=== PATIENT | male | born 1955 | race Caucasian/White ===

== ENCOUNTER 2022-02-02 07:03 | Outpatient (CLI) | payer BC, SELFPAY | END 2022-02-02 07:04 | disposition home or self-care (01) | PROVIDERS: PCP Surgery; Visit Provider Family Medicine | DX: M51.36 Other intervertebral disc degeneration, lumbar region (principal); M54.16 Radiculopathy, lumbar region | CPT/HCPCS: 64483; J1100; Q9966 ==

== ENCOUNTER 2022-05-16 08:30 | Emergency (ER) | payer BC, SELFPAY ==
[2022-05-16] VITALS (9 sets, daily range): BP systolic 114–133; BP diastolic 75–91; PULSE 66–72; RESP 18; TEMP 36.6; O2SAT 95–98; BMI 25.1
--- NOTE | 2022-05-16 08:42 | ED.NURSE ---
ekg done, shows sr. pt placed on heart monitor
--- NOTE | 2022-05-16 09:05 | ED.CHESTPAIN ---
HPI - Chest Pain General Chief Complaint: Chest Pain Stated Complaint: Chest Pain Time Seen by Provider: 05/16/22 08:39 History of Present Illness HPI narrative: This 67-year-old male comes in reporting some chest discomfort related to exertion over the past week. He states that he does have a history of a heart attack and has had stents placed. This was about 10 years ago. He has been doing well since then and typically rides bike can walks without any symptoms. However in the past week he is noticed with ambulating a couple 100 yd or more he begins to get some pain in his sternum area that is similar to the pain that he had 10 years ago. When he stops and rests and takes a few deep breaths these symptoms resolved. He does not report any nausea, vomiting, lightheadedness, shortness of breath, or diaphoresis. Related Data Home Medications Medication Instructions Recorded Confirmed atorvastatin 20 mg tablet 20 mg PO DAILY 05/16/22 05/16/22 celecoxib 200 mg capsule 200 mg PO BID 05/16/22 05/16/22 gabapentin 300 mg capsule mg PO 05/16/22 lisinopril 20 mg tablet 20 mg PO DAILY 05/16/22 05/16/22 metoprolol tartrate 25 mg tablet 25 mg PO BID 05/16/22 05/16/22 Previous Rx's Medication Instructions Recorded nitroglycerin 0.4 mg sublingual 0.4 mg sublingual Q5M PRN chest 05/16/22 tablet pain #20 tabs Allergies Allergy/AdvReac Type Severity Reaction Status Date / Time allopurinol Allergy Verified 02/02/22 07:50 codeine Allergy Verified 02/02/22 07:50 hydrochlorothiazide Allergy Verified 02/02/22 07:50 Review of Systems Status of ROS Reports: 10 or more systems reviewed and unremarkable except as noted in History and below Narrative Constitutional: No fevers, no weight gain or loss. Eyes: No discharge. No vision changes. HENT: No congestion, no sore throat, no ear pain. Cardiovascular: No palpitations. Chest discomfort as described above. Respiratory: No shortness of breath, no wheezes, no cough. Gastrointestinal: No abdominal pain, no vomiting, no diarrhea. Genitourinary: No dysuria, no hematuria. Musculoskeletal: Normal range of motion. Skin: No rashes, no pruritis. Neurological: No dizziness, weakness, sensory change, speech change. Endo/Heme/Allergies: No bruising or bleeding. No polydipsia. Pysch: no suicidality, no anxiety, no insomnia. All other systems reviewed and are negative. [facility] Social History Smoking Status: Never smoker How often do you have a drink containing alcohol: 4 or more times a week AUDIT-C Alcohol total score: 4 Non-prescribed substance use: denies use Exam Narrative Exam Narrative: Constitutional: Well-developed, well-nourished, no acute distress. HEENT: Normocephalic, atraumatic. Neck: Normal range of motion. Nontender. Supple. Heart: Regular. No murmurs. Normal rate. Intact distal pulses. Lungs: Clear to auscultation. No chest discomfort. No wheezes, rhonchi, or rales. Abdomen: Normal bowel sounds. Nontender. No rebound tenderness. Genitalia: Deferred. Back: No midline tenderness. Normal range of motion. Extremities: Normal range of motion. No injury. Skin: Intact. No rash. Warm. No erythema or pallor. Neurologic: No altered sensation. No weakness. Alert and oriented. Psychiatric: No suicidality. No anxiety or depression. No insomnia. Nursing notes and vitals signs are reviewed. Const Vital Signs, click to edit/add: Vital Signs - 24 hr 05/16/22 08:38 05/16/22 09:02 05/16/22 09:03 Temperature 97.8 F Pulse Rate 68 70 Pulse Rate [Right Pulse Oximeter] 72 Respiratory Rate 18 Blood Pressure 129/81 Blood Pressure [Right Upper Arm] 133/91 H Pulse Oximetry 98 97 96 Oxygen Delivery Method Room Air 05/16/22 09:30 05/16/22 09:32 05/16/22 10:00 Temperature Pulse Rate 67 66 67 Pulse Rate [Right Pulse Oximeter] Respiratory Rate Blood Pressure 114/75 Blood Pressure [Right Upper Arm] Pulse Oximetry 95 96 98 Oxygen Delivery Method 05/16/22 10:02 Temperature Pulse Rate 67 Pulse Rate [Right Pulse Oximeter] Respiratory Rate Blood Pressure 120/78 Blood Pressure [Right Upper Arm] Pulse Oximetry 95 Oxygen Delivery Method Course Vital Signs Vital signs: Initial Vital Signs Temperature 97.8 F 05/16/22 08:38 Temperature Source Temporal Artery Scan 05/16/22 08:38 Pulse Rate 72 05/16/22 08:38 Pulse Rhythm Regular 05/16/22 08:38 Respiratory Rate 18 05/16/22 08:38 Blood Pressure 133/91 H 05/16/22 08:38 Blood Pressure Mean 105 05/16/22 08:38 Blood Pressure Position Sitting 05/16/22 08:38 Pulse Oximetry 98 05/16/22 08:38 Oxygen Delivery Method Room Air 05/16/22 08:38 Vital Signs Temperature 97.8 F 05/16/22 08:38 Pulse Rate 72 05/16/22 08:38 Respiratory Rate 18 05/16/22 08:38 Blood Pressure 133/91 H 05/16/22 08:38 Pulse Oximetry 98 05/16/22 08:38 Oxygen Delivery Method Room Air 05/16/22 08:38 Temperature 97.8 F 05/16/22 08:38 Pulse Rate 67 05/16/22 10:02 Respiratory Rate 18 05/16/22 08:38 Blood Pressure 120/78 05/16/22 10:02 Pulse Oximetry 95 05/16/22 10:02 Oxygen Delivery Method Room Air 05/16/22 08:38 MDM - Chest Pain MDM Narrative Medical decision making narrative: This patient comes in reporting chest pain that is exertional and relieved with rest. He does have a cardiac history with stents placed about 10 years ago. His symptoms are suspicious for stable angina. His EKG and troponin results are normal today. He is taking a beta-rosenda and a statin and does take a baby aspirin daily. I recommended follow-up with sales and operations trainee because his signs and symptoms are suspicious for a cardiac cause. The patient states that he will contact his primary physician to connect with the sales and operations trainee for further evaluation. He is instructed to take a full-strength aspirin daily and to avoid exertional activities that cause symptoms. He should return if worsening symptoms occur. He does have nitroglycerin but it is . I did provide a new prescription for him. Lab Data Labs: Lab Results 05/16/22 Range/Units 08:50 WBC 5.45 (4.50-11.00) K/uL RBC 4.42 (4.30-5.90) m/uL Hgb 14.2 (13.5-17.5) gm/dL Hct 41.0 (37.0-53.0) % MCV 93 (80-100) fL MCH 32 (26-34) pg MCHC 35 (32-36) gm/dL RDW Coeff of [place] 11.9 (11.5-15.5) % Plt Count 175 (140-440) K/uL Neut % (Auto) 64.4 (42.0-72.0) % Lymph % (Auto) 23.9 (20-44) % [place] % (Auto) 8.6 (0.0-11.0) % Eos % (Auto) 2.2 (0.0-7.0) % Baso % (Auto) 0.7 (0.0-3.0) % Neut # (Auto) 3.51 (1.7-7.0) K/uL Lymph # (Auto) 1.30 (0.90-2.90) K/uL [place] # (Auto) 0.50 (0.00-0.90) K/UL Eos # (Auto) 0.12 (0.00-0.50) K/uL Baso # (Auto) 0.04 (0.00-0.30) K/uL Sodium 139 (135-149) mmol/L Potassium 3.8 (3.6-5.1) mmol/L Chloride 111 (96-114) mmol/L Carbon Dioxide 24 (20-32) mmol/L BUN 25 (7-30) mg/dL Creatinine 0.9 (0.5-1.5) mg/dL Estimated Creat Clear 66.10 Estimated GFR 93 ml/min Glucose 131 H (60-115) mg/dL Calcium 8.8 (8.4-10.6) mg/dL POC Troponin I 0.00 L (0.01-0.04) ng/ml ECG Data Attestation: I personally reviewed and interpreted this ECG as follows: Interpretation: Normal sinus rhythm. Rate is 67 beats per minute. There are no ST or T-wave abnormalities. Discharge Plan Discharge Clinical Impression: Stable angina Patient Disposition: Home, Self-Care Condition: Stable Additional Instructions: Follow-up with primary physician or sales and operations trainee for stress testing and further evaluation of chest pain. Take a full-strength aspirin daily in the meantime. Use nitroglycerin as needed and directed. Return if worsening. Prescriptions: New nitroglycerin 0.4 mg tablet, sublingual 0.4 mg sublingual Q5M PRN (Reason: chest pain) Qty: 20 0RF Rx Instructions: do not exceed 3 doses per episode No Action celecoxib 200 mg capsule 200 mg PO BID atorvastatin 20 mg tablet 20 mg PO DAILY lisinopril 20 mg tablet 20 mg PO DAILY gabapentin 300 mg capsule PO metoprolol tartrate 25 mg tablet 25 mg PO BID Follow Up/Referrals: Jerardo Wiseman MD [Primary Care Provider] - Stand Alone Forms: [employer] Info Instructions
[2022-05-16 09:17] LABS: Basophils Absolute Auto 0.04 K/uL (0.00-0.30); Basophils Percent Auto 0.7 % (0.0-3.0); Eosinophils Absolute Auto 0.12 K/uL (0.00-0.50); Eosinophils Percent Auto 2.2 % (0.0-7.0); Hemoglobin* 14.2 gm/dL (13.5-17.5); Immature Granulocytes Abs Auto 0.01 K/uL (0.00-0.30); Immature Granulocytes Pct Auto 0.2 %; Lymphocytes Percent Auto 23.9 % (20-44); Mean Corpuscular HGB Conc 35 gm/dL (32-36); Mean Corpuscular Hemoglobin 32 pg (26-34); Mean Corpuscular Volume 93 fL (80-100); Monocytes Percent Auto 8.6 % (0.0-11.0); Neutrophils Absolute Auto 3.51 K/uL (1.7-7.0); Neutrophils Percent Auto 64.4 % (42.0-72.0); Platelet Count* 175 K/uL (140-440); RDW Coefficient of Variation % 11.9 % (11.5-15.5); Red Blood Count 4.42 m/uL (4.30-5.90); White Blood Count* 5.45 K/uL (4.50-11.00)
[2022-05-16] MEDS: ASPIRIN 81 MG TAB.CHEW 324 MG PO (09:17)
[2022-05-16 09:27] LABS: Slide Review Reflex No
[2022-05-16 09:31] LABS: Chloride* 111 mmol/L (96-114); Sodium* 139 mmol/L (135-149)
[2022-05-16 09:32] LABS: Potassium* 3.8 mmol/L (3.6-5.1)
[2022-05-16 09:34] LABS: Carbon Dioxide* 24 mmol/L (20-32); Creatinine* 0.9 mg/dL (0.5-1.5); Estimated Glomerular Filt Rate 93 ml/min
[2022-05-16 09:35] LABS: Blood Urea Nitrogen* 25 mg/dL (7-30); Calcium* 8.8 mg/dL (8.4-10.6); Glucose* 131 mg/dL (60-115)
== END 2022-05-16 10:36 | disposition home or self-care (01) ==
PROVIDERS: Emergency Provider Emergency Medicine Emergency Medical Services; PCP Surgery
DX: I20.8 Other forms of angina pectoris (principal)
CPT/HCPCS: 36415; 80048; 84484; 85025; 93005; 99284; A9270

== ENCOUNTER 2022-05-18 15:16 | Emergency (ER) | payer BC, MEDICARE, SELFPAY ==
[2022-05-18] VITALS (47 sets, daily range): BP systolic 88–132; BP diastolic 53–92; PULSE 60–84; RESP 16–18; O2SAT 92–97; BMI 25.8
--- NOTE | 2022-05-18 15:49 | ED.CHESTPAIN ---
HPI - Chest Pain General Time Seen by Provider: 15:49 <Maryjane Barrios MD - Last Filed: 05/19/22 18:04> Date Seen: 05/18/22 <Maryjane Barrios MD - Last Filed: 05/19/22 18:04> Chief Complaint: Chest Pain <Maryjane Barrios MD - Last Filed: 05/19/22 18:04> Stated Complaint: Chest Pain <Maryjane Barrios MD - Last Filed: 05/19/22 18:04> Time Seen by Provider: 05/18/22 15:48 <Maryjane Barrios MD - Last Filed: 05/19/22 18:04> Source: patient, RN notes reviewed and old records reviewed <Maryjane Barrios MD - Last Filed: 05/19/22 18:04> Mode of arrival: ambulatory <Maryjane Barrios MD - Last Filed: 05/19/22 18:04> Limitations: no limitations <Maryjane Barrios MD - Last Filed: 05/19/22 18:04> History of Present Illness HPI narrative: Patient is a 67-year-old male with underlying atherosclerotic coronary vascular disease with prior stent placement about 10 years ago referred for possible unstable angina from clinic today. Dr. Stewart was seen patient back in clinic today after being evaluated in the ER for probable exertional angina last week. Yesterday patient had an episode of chest pain that was across his chest at rest, responded to nitroglycerin. The nitroglycerin gave him a headache but resolved is chest symptoms. He went to walk the dog this morning and his chest symptoms started coming back. He ended is walk early and coming home and resting resolved the chest discomfort, did not take any nitroglycerin. Dr. Stewart talked to Dr. Berg from [facility], recommended that patient be evaluated here. Patient is symptom-free at this time. He denies any associated cough or cold symptoms, no shortness of breath. He had no associated abdominal symptoms with this. His ED visit from last week is reviewed. <Maryjane Barrios MD - Last Filed: 05/19/22 18:04> complaint: chest pain <Maryjane Barrios MD - Last Filed: 05/19/22 18:04> Pertinent past history: coronary artery disease <Maryjane Barrios MD - Last Filed: 05/19/22 18:04> Prior episodes: Yes <Maryjane Barrios MD - Last Filed: 05/19/22 18:04> Onset: during rest and during exertion <Maryjane Barrios MD - Last Filed: 05/19/22 18:04> Related Data Home Medications: Home Medications Medication Instructions Recorded Confirmed atorvastatin 20 mg tablet 20 mg PO DAILY 05/16/22 05/19/22 celecoxib 200 mg capsule 200 mg PO BIDWM 05/16/22 05/19/22 gabapentin 300 mg capsule 300 - 600 mg PO TID 05/16/22 05/19/22 lisinopril 20 mg tablet 20 mg PO DAILY 05/16/22 05/19/22 metoprolol tartrate 25 mg tablet 25 mg PO BID 05/16/22 05/19/22 aspirin 81 mg tablet,delayed 81 mg PO DAILY 05/18/22 05/18/22 release (Adult Aspirin Regimen) famotidine 20 mg tablet (Acid 20 mg PO DAILY 05/19/22 05/19/22 Controller) Previous Rx's Medication Instructions Recorded nitroglycerin 0.4 mg sublingual 0.4 mg sublingual Q5M PRN chest 05/16/22 tablet pain #20 tabs isosorbide mononitrate 30 mg 15 mg PO DAILY #14 tabs 05/19/22 tablet,extended release 24 hr <Maryjane Barrios MD - Last Filed: 05/19/22 18:04> Allergies/Adverse Reactions: Allergies Allergy/AdvReac Type Severity Reaction Status Date / Time allopurinol Allergy Verified 02/02/22 07:50 codeine Allergy Verified 02/02/22 07:50 hydrochlorothiazide Allergy Verified 02/02/22 07:50 <Maryjane Barrios MD - Last Filed: 05/19/22 18:04> Review of Systems Status of ROS Reports: 10 or more systems reviewed and unremarkable except as noted in History and below <Maryjane Barrios MD - Last Filed: 05/19/22 18:04> [facility] Social History: Social History Smoking Status: Never smoker Do you use any of these nicotine containing products: None Second hand tobacco smoke exposure: No How often do you have a drink containing alcohol: 4 or more times a week How many standard drinks containing alcohol do you have on a typical day: 1 or 2 How often do you have six or more drinks on one occasion: Less than monthly AUDIT-C Alcohol total score: 5 Non-prescribed substance use: marijuana (any form) service: No <Maryjane Barrios MD - Last Filed: 05/19/22 18:04> Exam Const Vital Signs, click to edit/add: Vital Signs - 24 hr 05/18/22 18:15 05/18/22 18:30 05/18/22 18:31 Pulse Rate 73 68 69 Pulse Rate [Right Pulse Oximeter] Respiratory Rate Blood Pressure Blood Pressure [Left Upper Arm] Blood Pressure [Right Upper Arm] Pulse Oximetry 96 95 96 Oxygen Delivery Method 05/18/22 18:33 05/18/22 18:50 05/18/22 19:01 Pulse Rate 75 64 71 Pulse Rate [Right Pulse Oximeter] Respiratory Rate Blood Pressure 114/76 108/66 Blood Pressure [Left Upper Arm] Blood Pressure [Right Upper Arm] Pulse Oximetry 95 97 96 Oxygen Delivery Method 05/18/22 19:05 05/18/22 19:10 05/18/22 19:30 Pulse Rate 84 77 66 Pulse Rate [Right Pulse Oximeter] Respiratory Rate Blood Pressure 112/75 110/71 Blood Pressure [Left Upper Arm] Blood Pressure [Right Upper Arm] Pulse Oximetry 94 94 94 Oxygen Delivery Method 05/18/22 19:32 05/18/22 19:34 05/18/22 19:45 Pulse Rate 70 68 65 Pulse Rate [Right Pulse Oximeter] Respiratory Rate Blood Pressure 88/61 L 109/71 Blood Pressure [Left Upper Arm] Blood Pressure [Right Upper Arm] Pulse Oximetry 94 94 95 Oxygen Delivery Method 05/18/22 20:00 05/18/22 20:02 05/18/22 20:15 Pulse Rate 64 66 63 Pulse Rate [Right Pulse Oximeter] Respiratory Rate Blood Pressure 94/58 L Blood Pressure [Left Upper Arm] Blood Pressure [Right Upper Arm] Pulse Oximetry 94 94 96 Oxygen Delivery Method 05/18/22 20:30 05/18/22 20:31 05/18/22 20:45 Pulse Rate 71 66 60 Pulse Rate [Right Pulse Oximeter] Respiratory Rate Blood Pressure 98/65 Blood Pressure [Left Upper Arm] Blood Pressure [Right Upper Arm] Pulse Oximetry 94 93 93 Oxygen Delivery Method 05/18/22 21:00 05/18/22 21:02 05/18/22 21:03 Pulse Rate 61 60 61 Pulse Rate [Right Pulse Oximeter] Respiratory Rate Blood Pressure 105/58 L Blood Pressure [Left Upper Arm] Blood Pressure [Right Upper Arm] Pulse Oximetry 92 92 95 Oxygen Delivery Method 05/18/22 21:15 05/18/22 21:33 05/18/22 21:45 Pulse Rate 72 60 68 Pulse Rate [Right Pulse Oximeter] Respiratory Rate Blood Pressure Blood Pressure [Left Upper Arm] Blood Pressure [Right Upper Arm] Pulse Oximetry 95 95 94 Oxygen Delivery Method 05/18/22 22:00 05/18/22 22:02 05/18/22 22:15 Pulse Rate 71 67 68 Pulse Rate [Right Pulse Oximeter] Respiratory Rate Blood Pressure 122/77 Blood Pressure [Left Upper Arm] Blood Pressure [Right Upper Arm] Pulse Oximetry 94 95 95 Oxygen Delivery Method 05/18/22 22:30 05/18/22 22:32 05/18/22 22:45 Pulse Rate 62 64 61 Pulse Rate [Right Pulse Oximeter] Respiratory Rate Blood Pressure 100/53 L Blood Pressure [Left Upper Arm] Blood Pressure [Right Upper Arm] Pulse Oximetry 94 95 94 Oxygen Delivery Method 05/18/22 23:33 05/19/22 00:01 05/19/22 00:31 Pulse Rate 83 74 73 Pulse Rate [Right Pulse Oximeter] Respiratory Rate Blood Pressure 132/92 H 116/76 100/62 Blood Pressure [Left Upper Arm] Blood Pressure [Right Upper Arm] Pulse Oximetry 95 95 95 Oxygen Delivery Method 05/19/22 01:01 05/19/22 01:01 05/19/22 01:31 Pulse Rate 77 77 77 Pulse Rate [Right Pulse Oximeter] Respiratory Rate Blood Pressure 102/60 102/60 111/59 L Blood Pressure [Left Upper Arm] Blood Pressure [Right Upper Arm] Pulse Oximetry 93 93 94 Oxygen Delivery Method 05/19/22 01:32 05/19/22 01:45 05/19/22 02:00 Pulse Rate 76 64 69 Pulse Rate [Right Pulse Oximeter] Respiratory Rate Blood Pressure Blood Pressure [Left Upper Arm] Blood Pressure [Right Upper Arm] Pulse Oximetry 96 92 92 Oxygen Delivery Method 05/19/22 02:01 05/19/22 02:15 05/19/22 02:30 Pulse Rate 68 64 64 Pulse Rate [Right Pulse Oximeter] Respiratory Rate Blood Pressure 116/70 Blood Pressure [Left Upper Arm] Blood Pressure [Right Upper Arm] Pulse Oximetry 95 94 93 Oxygen Delivery Method 05/19/22 02:32 05/19/22 02:45 05/19/22 03:00 Pulse Rate 63 64 66 Pulse Rate [Right Pulse Oximeter] Respiratory Rate Blood Pressure 104/58 L Blood Pressure [Left Upper Arm] Blood Pressure [Right Upper Arm] Pulse Oximetry 93 93 92 Oxygen Delivery Method 05/19/22 03:01 05/19/22 03:15 05/19/22 03:30 Pulse Rate 62 59 L 68 Pulse Rate [Right Pulse Oximeter] Respiratory Rate Blood Pressure 101/65 Blood Pressure [Left Upper Arm] Blood Pressure [Right Upper Arm] Pulse Oximetry 94 92 92 Oxygen Delivery Method 05/19/22 03:31 05/19/22 03:45 05/19/22 04:00 Pulse Rate 60 60 60 Pulse Rate [Right Pulse Oximeter] Respiratory Rate Blood Pressure 106/59 L Blood Pressure [Left Upper Arm] Blood Pressure [Right Upper Arm] Pulse Oximetry 94 93 95 Oxygen Delivery Method 05/19/22 04:01 05/19/22 04:15 05/19/22 04:30 Pulse Rate 57 L 59 L 70 Pulse Rate [Right Pulse Oximeter] Respiratory Rate Blood Pressure 101/60 Blood Pressure [Left Upper Arm] Blood Pressure [Right Upper Arm] Pulse Oximetry 95 95 97 Oxygen Delivery Method 05/19/22 04:31 05/19/22 04:45 05/19/22 05:00 Pulse Rate 60 55 L 60 Pulse Rate [Right Pulse Oximeter] Respiratory Rate Blood Pressure 112/77 Blood Pressure [Left Upper Arm] Blood Pressure [Right Upper Arm] Pulse Oximetry 97 95 97 Oxygen Delivery Method 05/19/22 05:01 05/19/22 05:15 05/19/22 05:30 Pulse Rate 62 62 66 Pulse Rate [Right Pulse Oximeter] Respiratory Rate Blood Pressure 114/66 Blood Pressure [Left Upper Arm] Blood Pressure [Right Upper Arm] Pulse Oximetry 96 94 95 Oxygen Delivery Method 05/19/22 05:31 05/19/22 09:02 05/19/22 06:30 Pulse Rate 62 Pulse Rate [Right Pulse Oximeter] 61 Respiratory Rate Blood Pressure 112/70 Blood Pressure [Left Upper Arm] 102/63 Blood Pressure [Right Upper Arm] Pulse Oximetry 94 97 95 Oxygen Delivery Method Room Air 05/19/22 07:00 05/19/22 08:00 Pulse Rate Pulse Rate [Right Pulse Oximeter] 73 64 Respiratory Rate 18 18 Blood Pressure Blood Pressure [Left Upper Arm] Blood Pressure [Right Upper Arm] 111/75 106/65 Pulse Oximetry 96 97 Oxygen Delivery Method Room Air Room Air <Maryjane Barrios MD - Last Filed: 05/19/22 18:04> Vital Signs - 24 hr 05/18/22 18:15 05/18/22 18:30 05/18/22 18:31 Pulse Rate 73 68 69 Pulse Rate [Right Pulse Oximeter] Respiratory Rate Blood Pressure Blood Pressure [Left Upper Arm] Blood Pressure [Right Upper Arm] Pulse Oximetry 96 95 96 Oxygen Delivery Method 05/18/22 18:33 05/18/22 18:50 05/18/22 19:01 Pulse Rate 75 64 71 Pulse Rate [Right Pulse Oximeter] Respiratory Rate Blood Pressure 114/76 108/66 Blood Pressure [Left Upper Arm] Blood Pressure [Right Upper Arm] Pulse Oximetry 95 97 96 Oxygen Delivery Method 05/18/22 19:05 05/18/22 19:10 05/18/22 19:30 Pulse Rate 84 77 66 Pulse Rate [Right Pulse Oximeter] Respiratory Rate Blood Pressure 112/75 110/71 Blood Pressure [Left Upper Arm] Blood Pressure [Right Upper Arm] Pulse Oximetry 94 94 94 Oxygen Delivery Method 05/18/22 19:32 05/18/22 19:34 05/18/22 19:45 Pulse Rate 70 68 65 Pulse Rate [Right Pulse Oximeter] Respiratory Rate Blood Pressure 88/61 L 109/71 Blood Pressure [Left Upper Arm] Blood Pressure [Right Upper Arm] Pulse Oximetry 94 94 95 Oxygen Delivery Method 05/18/22 20:00 05/18/22 20:02 05/18/22 20:15 Pulse Rate 64 66 63 Pulse Rate [Right Pulse Oximeter] Respiratory Rate Blood Pressure 94/58 L Blood Pressure [Left Upper Arm] Blood Pressure [Right Upper Arm] Pulse Oximetry 94 94 96 Oxygen Delivery Method 05/18/22 20:30 05/18/22 20:31 05/18/22 20:45 Pulse Rate 71 66 60 Pulse Rate [Right Pulse Oximeter] Respiratory Rate Blood Pressure 98/65 Blood Pressure [Left Upper Arm] Blood Pressure [Right Upper Arm] Pulse Oximetry 94 93 93 Oxygen Delivery Method 05/18/22 21:00 05/18/22 21:02 05/18/22 21:03 Pulse Rate 61 60 61 Pulse Rate [Right Pulse Oximeter] Respiratory Rate Blood Pressure 105/58 L Blood Pressure [Left Upper Arm] Blood Pressure [Right Upper Arm] Pulse Oximetry 92 92 95 Oxygen Delivery Method 05/18/22 21:15 05/18/22 21:33 05/18/22 21:45 Pulse Rate 72 60 68 Pulse Rate [Right Pulse Oximeter] Respiratory Rate Blood Pressure Blood Pressure [Left Upper Arm] Blood Pressure [Right Upper Arm] Pulse Oximetry 95 95 94 Oxygen Delivery Method 05/18/22 22:00 05/18/22 22:02 05/18/22 22:15 Pulse Rate 71 67 68 Pulse Rate [Right Pulse Oximeter] Respiratory Rate Blood Pressure 122/77 Blood Pressure [Left Upper Arm] Blood Pressure [Right Upper Arm] Pulse Oximetry 94 95 95 Oxygen Delivery Method 05/18/22 22:30 05/18/22 22:32 05/18/22 22:45 Pulse Rate 62 64 61 Pulse Rate [Right Pulse Oximeter] Respiratory Rate Blood Pressure 100/53 L Blood Pressure [Left Upper Arm] Blood Pressure [Right Upper Arm] Pulse Oximetry 94 95 94 Oxygen Delivery Method 05/18/22 23:33 05/19/22 00:01 05/19/22 00:31 Pulse Rate 83 74 73 Pulse Rate [Right Pulse Oximeter] Respiratory Rate Blood Pressure 132/92 H 116/76 100/62 Blood Pressure [Left Upper Arm] Blood Pressure [Right Upper Arm] Pulse Oximetry 95 95 95 Oxygen Delivery Method 05/19/22 01:01 05/19/22 01:01 05/19/22 01:31 Pulse Rate 77 77 77 Pulse Rate [Right Pulse Oximeter] Respiratory Rate Blood Pressure 102/60 102/60 111/59 L Blood Pressure [Left Upper Arm] Blood Pressure [Right Upper Arm] Pulse Oximetry 93 93 94 Oxygen Delivery Method 05/19/22 01:32 05/19/22 01:45 05/19/22 02:00 Pulse Rate 76 64 69 Pulse Rate [Right Pulse Oximeter] Respiratory Rate Blood Pressure Blood Pressure [Left Upper Arm] Blood Pressure [Right Upper Arm] Pulse Oximetry 96 92 92 Oxygen Delivery Method 05/19/22 02:01 05/19/22 02:15 05/19/22 02:30 Pulse Rate 68 64 64 Pulse Rate [Right Pulse Oximeter] Respiratory Rate Blood Pressure 116/70 Blood Pressure [Left Upper Arm] Blood Pressure [Right Upper Arm] Pulse Oximetry 95 94 93 Oxygen Delivery Method 05/19/22 02:32 05/19/22 02:45 05/19/22 03:00 Pulse Rate 63 64 66 Pulse Rate [Right Pulse Oximeter] Respiratory Rate Blood Pressure 104/58 L Blood Pressure [Left Upper Arm] Blood Pressure [Right Upper Arm] Pulse Oximetry 93 93 92 Oxygen Delivery Method 05/19/22 03:01 05/19/22 03:15 05/19/22 03:30 Pulse Rate 62 59 L 68 Pulse Rate [Right Pulse Oximeter] Respiratory Rate Blood Pressure 101/65 Blood Pressure [Left Upper Arm] Blood Pressure [Right Upper Arm] Pulse Oximetry 94 92 92 Oxygen Delivery Method 05/19/22 03:31 05/19/22 03:45 05/19/22 04:00 Pulse Rate 60 60 60 Pulse Rate [Right Pulse Oximeter] Respiratory Rate Blood Pressure 106/59 L Blood Pressure [Left Upper Arm] Blood Pressure [Right Upper Arm] Pulse Oximetry 94 93 95 Oxygen Delivery Method 05/19/22 04:01 05/19/22 04:15 05/19/22 04:30 Pulse Rate 57 L 59 L 70 Pulse Rate [Right Pulse Oximeter] Respiratory Rate Blood Pressure 101/60 Blood Pressure [Left Upper Arm] Blood Pressure [Right Upper Arm] Pulse Oximetry 95 95 97 Oxygen Delivery Method 05/19/22 04:31 05/19/22 04:45 05/19/22 05:00 Pulse Rate 60 55 L 60 Pulse Rate [Right Pulse Oximeter] Respiratory Rate Blood Pressure 112/77 Blood Pressure [Left Upper Arm] Blood Pressure [Right Upper Arm] Pulse Oximetry 97 95 97 Oxygen Delivery Method 05/19/22 05:01 05/19/22 05:15 04/12/23 05:30 Pulse Rate 62 62 66 Pulse Rate [Right Pulse Oximeter] Respiratory Rate Blood Pressure 114/66 Blood Pressure [Left Upper Arm] Blood Pressure [Right Upper Arm] Pulse Oximetry 96 94 95 Oxygen Delivery Method 05/19/22 05:31 05/19/22 09:02 05/19/22 06:30 Pulse Rate 62 Pulse Rate [Right Pulse Oximeter] 61 Respiratory Rate Blood Pressure 112/70 Blood Pressure [Left Upper Arm] 102/63 Blood Pressure [Right Upper Arm] Pulse Oximetry 94 97 95 Oxygen Delivery Method Room Air 05/19/22 07:00 05/19/22 08:00 Pulse Rate Pulse Rate [Right Pulse Oximeter] 73 64 Respiratory Rate 18 18 Blood Pressure Blood Pressure [Left Upper Arm] Blood Pressure [Right Upper Arm] 111/75 106/65 Pulse Oximetry 96 97 Oxygen Delivery Method Room Air Room Air <Veena Monterroso MD - Last Filed: 05/19/22 07:03> Documenting provider has reviewed patient's vital signs: yes <Maryjane Barrios MD - Last Filed: 05/19/22 18:04> Common normals: no apparent distress, average body habitus, oriented x3, no limitations, healthy appearing, alert and well nourished <Maryjane Barrios MD - Last Filed: 05/19/22 18:04> General appearance: cooperative, comfortable, well kempt and well developed <Maryjane Barrios MD - Last Filed: 05/19/22 18:04> [facility] Common normals: normocephalic, head/scalp atraumatic, hearing grossly normal bilaterally, external ears normal, external nose normal, moist oral mucous membranes, oropharynx normal, dentition normal and gingiva normal <Maryjane Barrios MD - Last Filed: 05/19/22 18:04> Head and scalp: normocephalic and atraumatic <Maryjane Barrios MD - Last Filed: 05/19/22 18:04> Nose: external nose normal <Maryjane Barrios MD - Last Filed: 05/19/22 18:04> External ear: external ears normal <Maryjane Barrios MD - Last Filed: 05/19/22 18:04> Eye Common normals: PERRL, EOMs intact bilaterally, conjunctivae normal and no scleral icterus <Maryjane Barrios MD - Last Filed: 05/19/22 18:04> Conjunctiva: conjunctiva(e) normal <Maryjane Barrios MD - Last Filed: 05/19/22 18:04> Pupil: PERRL <Maryjane Barrios MD - Last Filed: 05/19/22 18:04> Neck & C-Spine Common normals: full ROM, no lymphadenopathy, supple, no meningeal signs, no JVD and thyroid normal <Maryjane Barrios MD - Last Filed: 05/19/22 18:04> Thyroid: thyroid normal <Maryjane Barrios MD - Last Filed: 05/19/22 18:04> Resp Common normals: normal respiratory effort, no retractions, no use of accessory muscles and clear to auscultation bilaterally <Maryjane Barrios MD - Last Filed: 05/19/22 18:04> Auscultation: clear to auscultation bilaterally <Maryjane Barrios MD - Last Filed: 05/19/22 18:04> Cardio Common normals: no JVD, regular rate, regular rhythm, S1 normal heart sound, S2 normal heart sound, no gallops, no clicks and no murmurs <Maryjane Barrios MD - Last Filed: 05/19/22 18:04> Rate: regular rate <Maryjane Barrios MD - Last Filed: 05/19/22 18:04> Rhythm: regular rhythm <Maryjane Barrios MD - Last Filed: 05/19/22 18:04> Heart sounds: S1 normal and S2 normal <Maryjane Barrios MD - Last Filed: 05/19/22 18:04> GI Common normals: Normal to inspection, nondistended, normoactive bowel sounds present, soft to palpation, non-tender, no hepatosplenomegaly and no masses <Maryjane Barrios MD - Last Filed: 05/19/22 18:04> Palpation: soft and no hepatosplenomegaly <Maryjane Barrios MD - Last Filed: 05/19/22 18:04> Extremity Other: No lower extremity edema, ambulatory in the ED of his own accord. <Maryjane Barrios MD - Last Filed: 05/19/22 18:04> Neuro Common normals: oriented x3 <Maryjane Barrios MD - Last Filed: 05/19/22 18:04> Sensorium/orientation: alert <Maryjane Barrios MD - Last Filed: 05/19/22 18:04> Meningeal signs: no meningeal signs <Maryjane Barrios MD - Last Filed: 05/19/22 18:04> Psych Appearance: well kempt <Maryjane Barrios MD - Last Filed: 05/19/22 18:04> Course Course Hospital Course: Patient will be monitored on pulse oximetry, cardiac monitoring. Will get a portable chest x-ray, appropriate labs including a troponin. He understands if his troponin is escalating, will likely need transfer to an inpatient cardiology stay, possible angiogram. If troponin is negative, will talk to Cardiology for further input on his management. <Maryjane Barrios MD - Last Filed: 05/19/22 18:04> Reevaluation(s) Reevaluation #1: Reviewed with patient that his troponins are normal. Did do the lab troponin I as his point of care initially was mildly elevated at 0.09 but the confirmatory lab is normal. Subsequent troponin I is normal as well. He does states that he now just feels a little very mild discomfort across his chest, something he would like into having lifted heavy weights. It is not to the level that he was prior. His pain had went away this morning. He is wondering if it could just be stress from being here and the situation. He is aware that we are paging Cardiology for me to talk to them. In the meantime, will do another troponin, EKG and try a sublingual nitroglycerin. <Maryjane Barrios MD - Last Filed: 05/19/22 18:04> Time: 18:17 <Maryjane Barrios MD - Last Filed: 05/19/22 18:04> Reevaluation #2: Patient is resting. He is on the wait list for transfer to [facility]. He did receive nitroglycerin at 7:03 p.m. which relieved his symptoms. His EKG and troponin remained without change. I have ordered his routine medicines, he did not bring any medicines with him. I have ordered a.m. EKG and troponin. He is told to let staff know if he has any return of his chest discomfort or pain overnight. I will be signing him over to the remaining ED physician. <Maryjane Barrios MD - Last Filed: 05/19/22 18:04> Time: 22:28 <Maryjane Barrios MD - Last Filed: 05/19/22 18:04> Consultations Consultation #1: Spoke with Dr. Novoa from Cardiology. She agrees that patient needs transfer for angiogram. If his troponins or EKGs change, treat appropriately. This point if his EKG is stable and troponin not rising, would not initiate heparin. I have his EKG that I just ordered back and is looking stable, no ischemic change. Await his troponins. Will see if the sublingual nitroglycerin alleviates his symptoms. I have also ordered an additional 162 mg p.o. aspirin. He is unfortunately on the wait list at [facility], 12 at this time. I will let patient know. <Maryjane Barrios MD - Last Filed: 05/19/22 18:04> Time: 18:24 <Maryjane Barrios MD - Last Filed: 05/19/22 18:04> Vital Signs Vital signs: Initial Vital Signs Pulse Rate 74 05/18/22 15:27 Pulse Rhythm Regular 05/18/22 15:27 Respiratory Rate 16 05/18/22 15:27 Blood Pressure 114/66 05/18/22 15:27 Blood Pressure Mean 82 05/18/22 15:27 Pulse Oximetry 95 05/18/22 15:27 Oxygen Delivery Method Room Air 05/18/22 15:27 Vital Signs Pulse Rate 74 05/18/22 15:27 Respiratory Rate 16 05/18/22 15:27 Blood Pressure 114/66 05/18/22 15:27 Pulse Oximetry 95 05/18/22 15:27 Oxygen Delivery Method Room Air 05/18/22 15:27 Pulse Rate 64 05/19/22 08:00 Respiratory Rate 18 05/19/22 08:00 Blood Pressure 106/65 05/19/22 08:00 Pulse Oximetry 97 05/19/22 09:02 Oxygen Delivery Method Room Air 05/19/22 08:00 <Maryjane Barrios MD - Last Filed: 05/19/22 18:04> Initial Vital Signs Pulse Rate 74 05/18/22 15:27 Pulse Rhythm Regular 05/18/22 15:27 Respiratory Rate 16 05/18/22 15:27 Blood Pressure 114/66 05/18/22 15:27 Blood Pressure Mean 82 05/18/22 15:27 Pulse Oximetry 95 05/18/22 15:27 Oxygen Delivery Method Room Air 05/18/22 15:27 Vital Signs Pulse Rate 74 05/18/22 15:27 Respiratory Rate 16 05/18/22 15:27 Blood Pressure 114/66 05/18/22 15:27 Pulse Oximetry 95 05/18/22 15:27 Oxygen Delivery Method Room Air 05/18/22 15:27 Pulse Rate 64 05/19/22 08:00 Respiratory Rate 18 05/19/22 08:00 Blood Pressure 106/65 05/19/22 08:00 Pulse Oximetry 97 05/19/22 09:02 Oxygen Delivery Method Room Air 05/19/22 08:00 <Veena Monterroso MD - Last Filed: 05/19/22 07:03> MDM - Chest Pain MDM Narrative Medical decision making narrative: Update: 7:00 a.m. 05/19/2022: Patient has remained pain-free during my shift. He has had no events. Vitals have remained stable. He received initial troponin upon arrival but has not required any further nitroglycerin for my shift. We are still awaiting transport. Patient is due for another troponin in about 90 minutes, this will be followed up by incoming day shift partner. <Veena Monterroso MD - Last Filed: 05/19/22 07:03> Differential Diagnosis Differential diagnosis: Likely stable angina, unstable angina pectoris and chest pain <Maryjane Barrios MD - Last Filed: 05/19/22 18:04> Lab Data Labs: Lab Results 05/18/22 05/18/22 05/18/22 Range/Units 16:02 16:58 18:19 WBC 6.47 (4.50-11.00) K/uL RBC 4.28 L (4.30-5.90) m/uL Hgb 13.7 (13.5-17.5) gm/dL Hct 39.7 (37.0-53.0) % MCV 93 (80-100) fL MCH 32 (26-34) pg MCHC 35 (32-36) gm/dL RDW Coeff of Benja 12.0 (11.5-15.5) % Plt Count 169 (140-440) K/uL Neut % (Auto) 68.9 (42.0-72.0) % Lymph % (Auto) 20.1 (20-44) % Stoddard % (Auto) 9.1 (0.0-11.0) % Eos % (Auto) 1.1 (0.0-7.0) % Baso % (Auto) 0.6 (0.0-3.0) % Neut # (Auto) 4.46 (1.7-7.0) K/uL Lymph # (Auto) 1.30 (0.90-2.90) K/uL Stoddard # (Auto) 0.60 (0.00-0.90) K/UL Eos # (Auto) 0.07 (0.00-0.50) K/uL Baso # (Auto) 0.04 (0.00-0.30) K/uL Sodium 137 (135-149) mmol/L Potassium 4.0 (3.6-5.1) mmol/L Chloride 108 (96-114) mmol/L Carbon Dioxide 24 (20-32) mmol/L BUN 27 (7-30) mg/dL Creatinine 0.9 (0.5-1.5) mg/dL Estimated Creat Clear 66.10 Estimated GFR 93 ml/min Glucose 104 (60-115) mg/dL Calcium 9.4 (8.4-10.6) mg/dL Magnesium 1.9 (1.5-2.6) mg/dL Total Bilirubin 1.6 H (0.1-1.5) mg/dL AST 22 (12-35) U/L ALT 20 (4-50) U/L Alkaline Phosphatase 69 (40-150) U/L Troponin I < 0.01 L < 0.01 L (0.01-0.04) ng/mL NT-Pro-B Natriuret Pep 48 pg/mL Total Protein 6.7 (6.0-8.3) g/dL Albumin 4.1 (3.3-5.0) g/dL SARS-CoV-2 (PCR) (Negative) POC Troponin I 0.09 H 0.00 L (0.01-0.04) ng/ml 05/18/22 05/18/22 05/19/22 Range/Units 18:22 18:28 09:02 WBC (4.50-11.00) K/uL RBC (4.30-5.90) m/uL Hgb (13.5-17.5) gm/dL Hct (37.0-53.0) % MCV (80-100) fL MCH (26-34) pg MCHC (32-36) gm/dL RDW Coeff of Benja (11.5-15.5) % Plt Count (140-440) K/uL Neut % (Auto) (42.0-72.0) % Lymph % (Auto) (20-44) % Stoddard % (Auto) (0.0-11.0) % Eos % (Auto) (0.0-7.0) % Baso % (Auto) (0.0-3.0) % Neut # (Auto) (1.7-7.0) K/uL Lymph # (Auto) (0.90-2.90) K/uL Stoddard # (Auto) (0.00-0.90) K/UL Eos # (Auto) (0.00-0.50) K/uL Baso # (Auto) (0.00-0.30) K/uL Sodium (135-149) mmol/L Potassium (3.6-5.1) mmol/L Chloride (96-114) mmol/L Carbon Dioxide (20-32) mmol/L BUN (7-30) mg/dL Creatinine (0.5-1.5) mg/dL Estimated Creat Clear Estimated GFR ml/min Glucose (60-115) mg/dL Calcium (8.4-10.6) mg/dL Magnesium (1.5-2.6) mg/dL Total Bilirubin (0.1-1.5) mg/dL AST (12-35) U/L ALT (4-50) U/L Alkaline Phosphatase (40-150) U/L Troponin I < 0.01 L (0.01-0.04) ng/mL NT-Pro-B Natriuret Pep pg/mL Total Protein (6.0-8.3) g/dL Albumin (3.3-5.0) g/dL SARS-CoV-2 (PCR) Negative SARS-CoV-2 (Negative) POC Troponin I 0.00 L (0.01-0.04) ng/ml <Maryjane Barrios MD - Last Filed: 05/19/22 18:04> Lab Results 05/18/22 05/18/22 05/18/22 Range/Units 16:02 16:58 18:19 WBC 6.47 (4.50-11.00) K/uL RBC 4.28 L (4.30-5.90) m/uL Hgb 13.7 (13.5-17.5) gm/dL Hct 39.7 (37.0-53.0) % MCV 93 (80-100) fL MCH 32 (26-34) pg MCHC 35 (32-36) gm/dL RDW Coeff of Benja 12.0 (11.5-15.5) % Plt Count 169 (140-440) K/uL Neut % (Auto) 68.9 (42.0-72.0) % Lymph % (Auto) 20.1 (20-44) % Stoddard % (Auto) 9.1 (0.0-11.0) % Eos % (Auto) 1.1 (0.0-7.0) % Baso % (Auto) 0.6 (0.0-3.0) % Neut # (Auto) 4.46 (1.7-7.0) K/uL Lymph # (Auto) 1.30 (0.90-2.90) K/uL Stoddard # (Auto) 0.60 (0.00-0.90) K/UL Eos # (Auto) 0.07 (0.00-0.50) K/uL Baso # (Auto) 0.04 (0.00-0.30) K/uL Sodium 137 (135-149) mmol/L Potassium 4.0 (3.6-5.1) mmol/L Chloride 108 (96-114) mmol/L Carbon Dioxide 24 (20-32) mmol/L BUN 27 (7-30) mg/dL Creatinine 0.9 (0.5-1.5) mg/dL Estimated Creat Clear 66.10 Estimated GFR 93 ml/min Glucose 104 (60-115) mg/dL Calcium 9.4 (8.4-10.6) mg/dL Magnesium 1.9 (1.5-2.6) mg/dL Total Bilirubin 1.6 H (0.1-1.5) mg/dL AST 22 (12-35) U/L ALT 20 (4-50) U/L Alkaline Phosphatase 69 (40-150) U/L Troponin I < 0.01 L < 0.01 L (0.01-0.04) ng/mL NT-Pro-B Natriuret Pep 48 pg/mL Total Protein 6.7 (6.0-8.3) g/dL Albumin 4.1 (3.3-5.0) g/dL SARS-CoV-2 (PCR) (Negative) POC Troponin I 0.09 H 0.00 L (0.01-0.04) ng/ml 05/18/22 05/18/22 05/19/22 Range/Units 18:22 18:28 09:02 WBC (4.50-11.00) K/uL RBC (4.30-5.90) m/uL Hgb (13.5-17.5) gm/dL Hct (37.0-53.0) % MCV (80-100) fL MCH (26-34) pg MCHC (32-36) gm/dL RDW Coeff of Benja (11.5-15.5) % Plt Count (140-440) K/uL Neut % (Auto) (42.0-72.0) % Lymph % (Auto) (20-44) % Stoddard % (Auto) (0.0-11.0) % Eos % (Auto) (0.0-7.0) % Baso % (Auto) (0.0-3.0) % Neut # (Auto) (1.7-7.0) K/uL Lymph # (Auto) (0.90-2.90) K/uL Stoddard # (Auto) (0.00-0.90) K/UL Eos # (Auto) (0.00-0.50) K/uL Baso # (Auto) (0.00-0.30) K/uL Sodium (135-149) mmol/L Potassium (3.6-5.1) mmol/L Chloride (96-114) mmol/L Carbon Dioxide (20-32) mmol/L BUN (7-30) mg/dL Creatinine (0.5-1.5) mg/dL Estimated Creat Clear Estimated GFR ml/min Glucose (60-115) mg/dL Calcium (8.4-10.6) mg/dL Magnesium (1.5-2.6) mg/dL Total Bilirubin (0.1-1.5) mg/dL AST (12-35) U/L ALT (4-50) U/L Alkaline Phosphatase (40-150) U/L Troponin I < 0.01 L (0.01-0.04) ng/mL NT-Pro-B Natriuret Pep pg/mL Total Protein (6.0-8.3) g/dL Albumin (3.3-5.0) g/dL SARS-CoV-2 (PCR) Negative SARS-CoV-2 (Negative) POC Troponin I 0.00 L (0.01-0.04) ng/ml <Veena Monterroso MD - Last Filed: 05/19/22 07:03> ECG Data Attestation: I personally reviewed and interpreted this ECG as follows: ( Sinus rhythm, 75 beats per minute. Single PVC seen. Flipped T-waves lead V1. Otherwise I appreciate no acute ST segment or T-wave changes elsewhere.) <Maryjane Barrios MD - Last Filed: 05/19/22 18:04> ECG interpretation date: 05/18/22 <Maryjane Barrios MD - Last Filed: 05/19/22 18:04> ECG interpretation time: 15:49 <Maryjane Barrios MD - Last Filed: 05/19/22 18:04> Prior ECG tracings: not available for review <Maryjane Barrios MD - Last Filed: 05/19/22 18:04> Discharge Plan Discharge Clinical Impression: Unstable angina pectoris <Maryjane Barrios MD - Last Filed: 05/19/22 18:04> Patient Disposition: Home w/ Parent or Adult <Maryjane Barrios MD - Last Filed: 05/19/22 18:04> Condition: Improved <Maryjane Barrios MD - Last Filed: 05/19/22 18:04> Additional Instructions: Extremely light activity, nitroglycerin as needed, continue home medications. Return if any chest pain or problem. Recommend you see your doctor tomorrow. haider to set up an outpatient angiogram study.start imdur. Return any problems concerns or chest pain. Follow up appointment is scheduled at the [facility] on 05/20 with a 2:10pm appointment time. Please arrive at 1:45pm to fill out paperwork. If you have any questions or need to reschedule, please call [phone]. You should be scheduled for an outpatient Angiogram with the [facility]. The number is [phone]. <Maryjane Barrios MD - Last Filed: 05/19/22 18:04> Activity Level: Light activity <Maryjane Barrios MD - Last Filed: 05/19/22 18:04> Light activity <Veena Monterroso MD - Last Filed: 05/19/22 07:03> Discharge Diet: Low Fat/Low Cholesterol <Maryjane Barrios MD - Last Filed: 05/19/22 18:04> Low Fat/Low Cholesterol <Veena Monterroso MD - Last Filed: 05/19/22 07:03> Prescriptions: New isosorbide mononitrate 30 mg tablet extended release 24 hr 15 mg PO DAILY Qty: 14 2RF Rx Instructions: 1/2 tablet daily x 5 days; then full tablet daily No Action celecoxib 200 mg capsule 200 mg PO BIDWM atorvastatin 20 mg tablet 20 mg PO DAILY lisinopril 20 mg tablet 20 mg PO DAILY gabapentin 300 mg capsule 300 - 600 mg PO TID Rx Instructions: 1 cap in am, 1 cap in afternoon, 2 caps at hs metoprolol tartrate 25 mg tablet 25 mg PO BID nitroglycerin 0.4 mg tablet, sublingual 0.4 mg sublingual Q5M PRN (Reason: chest pain) Qty: 20 0RF Rx Instructions: do not exceed 3 doses per episode aspirin [Adult Aspirin Regimen] 81 mg tablet,delayed release (DR/EC) 81 mg PO DAILY famotidine [Acid Controller] 20 mg tablet 20 mg PO DAILY <Maryjane Barrios MD - Last Filed: 05/19/22 18:04> Follow Up/Referrals: Jerardo Wiseman MD [Primary Care Provider] - <Maryjane Barrios MD - Last Filed: 05/19/22 18:04> Stand Alone Forms: [facility] Info Instructions <Maryjane Barrios MD - Last Filed: 05/19/22 18:04>
--- NOTE | 2022-05-18 15:52 | CRLHL7_ITS ---
For Patients: As a result of the Century Cures Act, medical imaging exams and procedure reports are released immediately into your electronic medical record. You may view this report before your referring provider. If you have questions, please contact your health care provider. Indication: Chest Pain Comparison: None available. Technique: Single AP view chest Findings: There is hyperinflation and chronic interstitial change. There is no focal consolidation, effusion, or pneumothorax. The cardiomediastinal silhouette is within normal limits. The bony thorax is grossly intact. Impression: No acute cardiopulmonary abnormality. Dictated by Buck Ayala MD @ 05/18/2022 4:51:44 PM (Electronically Signed)
[2022-05-18 16:16] LABS: Basophils Absolute Auto 0.04 K/uL (0.00-0.30); Basophils Percent Auto 0.6 % (0.0-3.0); Eosinophils Absolute Auto 0.07 K/uL (0.00-0.50); Eosinophils Percent Auto 1.1 % (0.0-7.0); Hematocrit 39.7 % (37.0-53.0); Hemoglobin* 13.7 gm/dL (13.5-17.5); Immature Granulocytes Abs Auto 0.01 K/uL (0.00-0.30); Immature Granulocytes Pct Auto 0.2 %; Lymphocytes Percent Auto 20.1 % (20-44); Mean Corpuscular HGB Conc 35 gm/dL (32-36); Mean Corpuscular Hemoglobin 32 pg (26-34); Mean Corpuscular Volume 93 fL (80-100); Monocytes Percent Auto 9.1 % (0.0-11.0); Neutrophils Absolute Auto 4.46 K/uL (1.7-7.0); Neutrophils Percent Auto 68.9 % (42.0-72.0); Platelet Count* 169 K/uL (140-440); Red Blood Count 4.28 m/uL (4.30-5.90); White Blood Count* 6.47 K/uL (4.50-11.00)
[2022-05-18 16:29] LABS: Albumin* 4.1 g/dL (3.3-5.0)
[2022-05-18 16:30] LABS: Chloride* 108 mmol/L (96-114); Sodium* 137 mmol/L (135-149)
[2022-05-18 16:32] LABS: Aspartate Amino Transferase* 22 U/L (12-35); Bilirubin Total* 1.6 mg/dL (0.1-1.5); Carbon Dioxide* 24 mmol/L (20-32); Creatinine* 0.9 mg/dL (0.5-1.5); Estimated Glomerular Filt Rate 93 ml/min
[2022-05-18 16:33] LABS: Alanine Aminotransferase* 20 U/L (4-50); Alkaline Phosphatase* 69 U/L (40-150); Blood Urea Nitrogen* 27 mg/dL (7-30); Calcium* 9.4 mg/dL (8.4-10.6); Glucose* 104 mg/dL (60-115); Magnesium* 1.9 mg/dL (1.5-2.6); Total Protein* 6.7 g/dL (6.0-8.3)
[2022-05-18 16:37] LABS: Slide Review Reflex No
[2022-05-18 16:43] LABS: NT Pro B Type NatriureticPept* 48 pg/mL
[2022-05-18 18:11] LABS: Troponin I* < 0.01 ng/mL (0.01-0.04)
[2022-05-18] MEDS: ASPIRIN 81 MG TAB.CHEW 162 MG PO (18:48)
--- NOTE | 2022-05-18 19:00 | ED.NURSE ---
was up to br to void. denies any change in tightness in chest, mild 1-2/10. will give nitro 1/150. this is constant.
[2022-05-18] MEDS: NITROGLYCERIN 0.4 MG TAB.SUBL SUBLINGUAL (19:03)
--- NOTE | 2022-05-18 19:03 | ED.NURSE ---
nitro 1/150 sl was given.
--- NOTE | 2022-05-18 19:06 | ED.NURSE ---
nitro relieved the tightness in the chest. I don't feel anything now. does have a headache now after the nitro. was offered tylenol-declined. It will go away. .
[2022-05-18 19:10] LABS: SARS PCR* Negative SARS-CoV-2 (Negative)
[2022-05-18 19:16] LABS: Troponin, Point-of-Care* 0.09 ng/ml (0.01-0.04)
[2022-05-18 19:22] LABS: Troponin I* < 0.01 ng/mL (0.01-0.04)
[2022-05-18] MEDS: METOPROLOL TARTRATE 25 MG TABLET PO (23:27)
[2022-05-18] MEDS: ATORVASTATIN 10 MG TABLET 20 MG PO (23:28)
[2022-05-19] VITALS (33 sets, daily range): BP systolic 100–116; BP diastolic 58–77; PULSE 55–77; RESP 18; O2SAT 92–97
--- NOTE | 2022-05-19 08:30 | ED.NURSE ---
Patient to restroom ambulatory. Breakfast tray provided. Morning medications administered, see eMAR. Patient notes chronic back pain that is aggravated after sleeping on ED cot. Recliner chair provided to patient for improved comfort. He is ambulated around the room to stretch a bit too. EKG completed, troponin drawn. Contacted [facility] this morning for update. Patient is on wait list, they are unsure when they will have a bed available. Tube Skiver on today reviewed patient's information and noted he needs an angiogram. They will plan to check in with us on patient status 1x/shift and alert us when bed is available. When asked if bed might be available in the next 12 hours, intake staff noted unlikely.
[2022-05-19] MEDS: METOPROLOL TARTRATE 25 MG TABLET PO (08:31)
[2022-05-19] MEDS: GABAPENTIN 300 MG CAPSULE PO (08:31)
[2022-05-19] MEDS: OMEPRAZOLE 20 MG CAPSULE DR PO (08:31)
[2022-05-19] MEDS: ASPIRIN 81 MG TABLET EC PO (08:31)
[2022-05-19] MEDS: lisinopriL 20 MG TABLET PO (08:31)
--- NOTE | 2022-05-19 09:26 | ED_ITS ---
HPI - Chest Pain General Chief Complaint: Chest Pain Stated Complaint: Chest Pain Time Seen by Provider: 05/18/22 15:48 Source: patient, RN notes reviewed and old records reviewed Mode of arrival: ambulatory Limitations: no limitations Related Data Home Medications Medication Instructions Recorded Confirmed atorvastatin 20 mg tablet 20 mg PO DAILY 05/16/22 05/19/22 celecoxib 200 mg capsule 200 mg PO BIDWM 05/16/22 05/19/22 gabapentin 300 mg capsule 300 - 600 mg PO TID 05/16/22 05/19/22 lisinopril 20 mg tablet 20 mg PO DAILY 05/16/22 05/19/22 metoprolol tartrate 25 mg tablet 25 mg PO BID 05/16/22 05/19/22 aspirin 81 mg tablet,delayed 81 mg PO DAILY 05/18/22 05/18/22 release (Adult Aspirin Regimen) famotidine 20 mg tablet (Acid 20 mg PO DAILY 05/19/22 05/19/22 Controller) Previous Rx's Medication Instructions Recorded nitroglycerin 0.4 mg sublingual 0.4 mg sublingual Q5M PRN chest 05/16/22 tablet pain #20 tabs isosorbide mononitrate 30 mg 15 mg PO DAILY #14 tabs 05/19/22 tablet,extended release 24 hr Allergies Allergy/AdvReac Type Severity Reaction Status Date / Time allopurinol Allergy Verified 02/02/22 07:50 codeine Allergy Verified 02/02/22 07:50 hydrochlorothiazide Allergy Verified 02/02/22 07:50 PFSH PFSH Social History Smoking Status: Never smoker Do you use any of these nicotine containing products: None Second hand tobacco smoke exposure: No How often do you have a drink containing alcohol: 4 or more times a week How many standard drinks containing alcohol do you have on a typical day: 1 or 2 How often do you have six or more drinks on one occasion: Less than monthly AUDIT-C Alcohol total score: 5 Non-prescribed substance use: marijuana (any form) service: No Exam Const Vital Signs, click to edit/add: Vital Signs - 24 hr 05/18/22 16:31 05/18/22 16:29 05/18/22 16:30 Pulse Rate 73 72 Pulse Rate [Right Pulse Oximeter] 67 Respiratory Rate 18 Blood Pressure Blood Pressure [Left Upper Arm] Blood Pressure [Right Upper Arm] 120/77 Pulse Oximetry 95 95 96 Oxygen Delivery Method Room Air 05/18/22 16:32 05/18/22 16:45 05/18/22 17:00 Pulse Rate 75 71 75 Pulse Rate [Right Pulse Oximeter] Respiratory Rate Blood Pressure 120/77 Blood Pressure [Left Upper Arm] Blood Pressure [Right Upper Arm] Pulse Oximetry 95 95 94 Oxygen Delivery Method 05/18/22 17:01 05/18/22 17:15 05/18/22 17:30 Pulse Rate 70 69 70 Pulse Rate [Right Pulse Oximeter] Respiratory Rate Blood Pressure 115/70 Blood Pressure [Left Upper Arm] Blood Pressure [Right Upper Arm] Pulse Oximetry 95 95 96 Oxygen Delivery Method 05/18/22 17:32 05/18/22 17:45 05/18/22 18:00 Pulse Rate 74 74 72 Pulse Rate [Right Pulse Oximeter] Respiratory Rate Blood Pressure 106/71 Blood Pressure [Left Upper Arm] Blood Pressure [Right Upper Arm] Pulse Oximetry 95 94 95 Oxygen Delivery Method 05/18/22 18:01 05/18/22 18:15 05/18/22 18:30 Pulse Rate 74 73 68 Pulse Rate [Right Pulse Oximeter] Respiratory Rate Blood Pressure 117/70 Blood Pressure [Left Upper Arm] Blood Pressure [Right Upper Arm] Pulse Oximetry 94 96 95 Oxygen Delivery Method 05/18/22 18:31 05/18/22 18:33 05/18/22 18:50 Pulse Rate 69 75 64 Pulse Rate [Right Pulse Oximeter] Respiratory Rate Blood Pressure 114/76 Blood Pressure [Left Upper Arm] Blood Pressure [Right Upper Arm] Pulse Oximetry 96 95 97 Oxygen Delivery Method 05/18/22 19:01 05/18/22 19:05 05/18/22 19:10 Pulse Rate 71 84 77 Pulse Rate [Right Pulse Oximeter] Respiratory Rate Blood Pressure 108/66 112/75 110/71 Blood Pressure [Left Upper Arm] Blood Pressure [Right Upper Arm] Pulse Oximetry 96 94 94 Oxygen Delivery Method 05/18/22 19:30 05/18/22 19:32 05/18/22 19:34 Pulse Rate 66 70 68 Pulse Rate [Right Pulse Oximeter] Respiratory Rate Blood Pressure 88/61 L 109/71 Blood Pressure [Left Upper Arm] Blood Pressure [Right Upper Arm] Pulse Oximetry 94 94 94 Oxygen Delivery Method 05/18/22 19:45 05/18/22 20:00 04/11/23 20:02 Pulse Rate 65 64 66 Pulse Rate [Right Pulse Oximeter] Respiratory Rate Blood Pressure 94/58 L Blood Pressure [Left Upper Arm] Blood Pressure [Right Upper Arm] Pulse Oximetry 95 94 94 Oxygen Delivery Method 05/18/22 20:15 05/18/22 20:30 05/18/22 20:31 Pulse Rate 63 71 66 Pulse Rate [Right Pulse Oximeter] Respiratory Rate Blood Pressure 98/65 Blood Pressure [Left Upper Arm] Blood Pressure [Right Upper Arm] Pulse Oximetry 96 94 93 Oxygen Delivery Method 05/18/22 20:45 05/18/22 21:00 05/18/22 21:02 Pulse Rate 60 61 60 Pulse Rate [Right Pulse Oximeter] Respiratory Rate Blood Pressure 105/58 L Blood Pressure [Left Upper Arm] Blood Pressure [Right Upper Arm] Pulse Oximetry 93 92 92 Oxygen Delivery Method 05/18/22 21:03 05/18/22 21:15 05/18/22 21:33 Pulse Rate 61 72 60 Pulse Rate [Right Pulse Oximeter] Respiratory Rate Blood Pressure Blood Pressure [Left Upper Arm] Blood Pressure [Right Upper Arm] Pulse Oximetry 95 95 95 Oxygen Delivery Method 05/18/22 21:45 05/18/22 22:00 05/18/22 22:02 Pulse Rate 68 71 67 Pulse Rate [Right Pulse Oximeter] Respiratory Rate Blood Pressure 122/77 Blood Pressure [Left Upper Arm] Blood Pressure [Right Upper Arm] Pulse Oximetry 94 94 95 Oxygen Delivery Method 05/18/22 22:15 05/18/22 22:30 05/18/22 22:32 Pulse Rate 68 62 64 Pulse Rate [Right Pulse Oximeter] Respiratory Rate Blood Pressure 100/53 L Blood Pressure [Left Upper Arm] Blood Pressure [Right Upper Arm] Pulse Oximetry 95 94 95 Oxygen Delivery Method 05/18/22 22:45 05/18/22 23:33 05/19/22 00:01 Pulse Rate 61 83 74 Pulse Rate [Right Pulse Oximeter] Respiratory Rate Blood Pressure 132/92 H 116/76 Blood Pressure [Left Upper Arm] Blood Pressure [Right Upper Arm] Pulse Oximetry 94 95 95 Oxygen Delivery Method 05/19/22 00:31 05/19/22 01:01 05/19/22 01:01 Pulse Rate 73 77 77 Pulse Rate [Right Pulse Oximeter] Respiratory Rate Blood Pressure 100/62 102/60 102/60 Blood Pressure [Left Upper Arm] Blood Pressure [Right Upper Arm] Pulse Oximetry 95 93 93 Oxygen Delivery Method 05/19/22 01:31 05/19/22 01:32 05/19/22 01:45 Pulse Rate 77 76 64 Pulse Rate [Right Pulse Oximeter] Respiratory Rate Blood Pressure 111/59 L Blood Pressure [Left Upper Arm] Blood Pressure [Right Upper Arm] Pulse Oximetry 94 96 92 Oxygen Delivery Method 05/19/22 02:00 05/19/22 02:01 05/19/22 02:15 Pulse Rate 69 68 64 Pulse Rate [Right Pulse Oximeter] Respiratory Rate Blood Pressure 116/70 Blood Pressure [Left Upper Arm] Blood Pressure [Right Upper Arm] Pulse Oximetry 92 95 94 Oxygen Delivery Method 05/19/22 02:30 05/19/22 02:32 05/19/22 02:45 Pulse Rate 64 63 64 Pulse Rate [Right Pulse Oximeter] Respiratory Rate Blood Pressure 104/58 L Blood Pressure [Left Upper Arm] Blood Pressure [Right Upper Arm] Pulse Oximetry 93 93 93 Oxygen Delivery Method 05/19/22 03:00 05/19/22 03:01 05/19/22 03:15 Pulse Rate 66 62 59 L Pulse Rate [Right Pulse Oximeter] Respiratory Rate Blood Pressure 101/65 Blood Pressure [Left Upper Arm] Blood Pressure [Right Upper Arm] Pulse Oximetry 92 94 92 Oxygen Delivery Method 05/19/22 03:30 05/19/22 03:31 05/19/22 03:45 Pulse Rate 68 60 60 Pulse Rate [Right Pulse Oximeter] Respiratory Rate Blood Pressure 106/59 L Blood Pressure [Left Upper Arm] Blood Pressure [Right Upper Arm] Pulse Oximetry 92 94 93 Oxygen Delivery Method 05/19/22 04:00 05/19/22 04:01 05/19/22 04:15 Pulse Rate 60 57 L 59 L Pulse Rate [Right Pulse Oximeter] Respiratory Rate Blood Pressure 101/60 Blood Pressure [Left Upper Arm] Blood Pressure [Right Upper Arm] Pulse Oximetry 95 95 95 Oxygen Delivery Method 05/19/22 04:30 05/19/22 04:31 05/19/22 04:45 Pulse Rate 70 60 55 L Pulse Rate [Right Pulse Oximeter] Respiratory Rate Blood Pressure 112/77 Blood Pressure [Left Upper Arm] Blood Pressure [Right Upper Arm] Pulse Oximetry 97 97 95 Oxygen Delivery Method 05/19/22 05:00 05/19/22 05:01 05/19/22 05:15 Pulse Rate 60 62 62 Pulse Rate [Right Pulse Oximeter] Respiratory Rate Blood Pressure 114/66 Blood Pressure [Left Upper Arm] Blood Pressure [Right Upper Arm] Pulse Oximetry 97 96 94 Oxygen Delivery Method 05/19/22 05:30 05/19/22 05:31 05/19/22 09:02 Pulse Rate 66 62 Pulse Rate [Right Pulse Oximeter] Respiratory Rate Blood Pressure 112/70 Blood Pressure [Left Upper Arm] Blood Pressure [Right Upper Arm] Pulse Oximetry 95 94 97 Oxygen Delivery Method 05/19/22 06:30 05/19/22 07:00 05/19/22 08:00 Pulse Rate Pulse Rate [Right Pulse Oximeter] 61 73 64 Respiratory Rate 18 18 Blood Pressure Blood Pressure [Left Upper Arm] 102/63 Blood Pressure [Right Upper Arm] 111/75 106/65 Pulse Oximetry 95 96 97 Oxygen Delivery Method Room Air Room Air Room Air Course Course Hospital Course: Patient will be monitored on pulse oximetry, cardiac monitoring. Will get a portable chest x-ray, appropriate labs including a troponin. He understands if his troponin is escalating, will likely need transfer to an inpatient cardiology stay, possible angiogram. If troponin is negative, will talk to Cardiology for further input on his management. Vital Signs Vital signs: Initial Vital Signs Pulse Rate 74 05/18/22 15:27 Pulse Rhythm Regular 05/18/22 15:27 Respiratory Rate 16 05/18/22 15:27 Blood Pressure 114/66 05/18/22 15:27 Blood Pressure Mean 82 05/18/22 15:27 Pulse Oximetry 95 05/18/22 15:27 Oxygen Delivery Method Room Air 05/18/22 15:27 Vital Signs Pulse Rate 74 05/18/22 15:27 Respiratory Rate 16 05/18/22 15:27 Blood Pressure 114/66 05/18/22 15:27 Pulse Oximetry 95 05/18/22 15:27 Oxygen Delivery Method Room Air 05/18/22 15:27 Pulse Rate 64 05/19/22 08:00 Respiratory Rate 18 05/19/22 08:00 Blood Pressure 106/65 05/19/22 08:00 Pulse Oximetry 97 05/19/22 09:02 Oxygen Delivery Method Room Air 05/19/22 08:00 MDM - Chest Pain MDM Narrative Medical decision making narrative: 9:26 a.m. 05/19/2022 the patient has no chest pain at present has not had any for a good many hours now. His EKG she looks in sinus rhythm no acute ST T wave changes his troponin is 0 this morning. He does have what sounds like a good story for unstable angina. He has had a stent in the past at [facility]. He has had he believes a 60% lesion and another vessel at that time this was many years ago. He did notice increasing intensity in his chest pain and did have chest pain at rest. At this point there is no availability for intervention, we cannot transfer to [facility], they have no [facility] for when we would be able to transfer. He is acceptable to see [facility] or [facility]. Will call [facility]. If no availability in the [facility] area as we found, I think likely home and follow-up with his regular physician tomorrow, and schedule an angiogram as an outpatient would be reasonable. He will continue his home medications if he does get discharged home. Again, my preference would be for admission and angiogram study now, but given he is pain- free for a good period of time, and there was no availability of Cardiology Services, I think our option is to let him go home with extremity light activity and have nitro as needed. Will hope that [facility] has a bed for him. Again to reiterate, [facility], [facility], [facility], [facility], etc. have all had no availability for transfer and acceptance. At this point I think home and follow-up with primary care doctor tomorrow be appropriate to set up an outpatient plan through [facility]. If he has problems or concerns in the interim he should return, extremely light activity, no walking, nitro as needed. Return at any time. We are also attempting to set up an outpatient angiogram at [facility] for the patient, will have him see a primary care doctor tomorrow just for recheck. Lab Data Labs: Lab Results 05/18/22 05/18/22 05/18/22 Range/Units 16:02 16:58 18:19 WBC 6.47 (4.50-11.00) K/uL RBC 4.28 L (4.30-5.90) m/uL Hgb 13.7 (13.5-17.5) gm/dL Hct 39.7 (37.0-53.0) % MCV 93 (80-100) fL MCH 32 (26-34) pg MCHC 35 (32-36) gm/dL RDW Coeff of Benja 12.0 (11.5-15.5) % Plt Count 169 (140-440) K/uL Neut % (Auto) 68.9 (42.0-72.0) % Lymph % (Auto) 20.1 (20-44) % [place] % (Auto) 9.1 (0.0-11.0) % Eos % (Auto) 1.1 (0.0-7.0) % Baso % (Auto) 0.6 (0.0-3.0) % Neut # (Auto) 4.46 (1.7-7.0) K/uL Lymph # (Auto) 1.30 (0.90-2.90) K/uL [place] # (Auto) 0.60 (0.00-0.90) K/UL Eos # (Auto) 0.07 (0.00-0.50) K/uL Baso # (Auto) 0.04 (0.00-0.30) K/uL Sodium 137 (135-149) mmol/L Potassium 4.0 (3.6-5.1) mmol/L Chloride 108 (96-114) mmol/L Carbon Dioxide 24 (20-32) mmol/L BUN 27 (7-30) mg/dL Creatinine 0.9 (0.5-1.5) mg/dL Estimated Creat Clear 66.10 Estimated GFR 93 ml/min Glucose 104 (60-115) mg/dL Calcium 9.4 (8.4-10.6) mg/dL Magnesium 1.9 (1.5-2.6) mg/dL Total Bilirubin 1.6 H (0.1-1.5) mg/dL AST 22 (12-35) U/L ALT 20 (4-50) U/L Alkaline Phosphatase 69 (40-150) U/L Troponin I < 0.01 L < 0.01 L (0.01-0.04) ng/mL NT-Pro-B Natriuret Pep 48 pg/mL Total Protein 6.7 (6.0-8.3) g/dL Albumin 4.1 (3.3-5.0) g/dL SARS-CoV-2 (PCR) (Negative) POC Troponin I 0.09 H 0.00 L (0.01-0.04) ng/ml 05/18/22 05/18/22 05/19/22 Range/Units 18:22 18:28 09:02 WBC (4.50-11.00) K/uL RBC (4.30-5.90) m/uL Hgb (13.5-17.5) gm/dL Hct (37.0-53.0) % MCV (80-100) fL MCH (26-34) pg MCHC (32-36) gm/dL RDW Coeff of Benja (11.5-15.5) % Plt Count (140-440) K/uL Neut % (Auto) (42.0-72.0) % Lymph % (Auto) (20-44) % [place] % (Auto) (0.0-11.0) % Eos % (Auto) (0.0-7.0) % Baso % (Auto) (0.0-3.0) % Neut # (Auto) (1.7-7.0) K/uL Lymph # (Auto) (0.90-2.90) K/uL [place] # (Auto) (0.00-0.90) K/UL Eos # (Auto) (0.00-0.50) K/uL Baso # (Auto) (0.00-0.30) K/uL Sodium (135-149) mmol/L Potassium (3.6-5.1) mmol/L Chloride (96-114) mmol/L Carbon Dioxide (20-32) mmol/L BUN (7-30) mg/dL Creatinine (0.5-1.5) mg/dL Estimated Creat Clear Estimated GFR ml/min Glucose (60-115) mg/dL Calcium (8.4-10.6) mg/dL Magnesium (1.5-2.6) mg/dL Total Bilirubin (0.1-1.5) mg/dL AST (12-35) U/L ALT (4-50) U/L Alkaline Phosphatase (40-150) U/L Troponin I < 0.01 L (0.01-0.04) ng/mL NT-Pro-B Natriuret Pep pg/mL Total Protein (6.0-8.3) g/dL Albumin (3.3-5.0) g/dL SARS-CoV-2 (PCR) Negative SARS-CoV-2 (Negative) POC Troponin I 0.00 L (0.01-0.04) ng/ml Discharge Plan Discharge Clinical Impression: Unstable angina pectoris Patient Disposition: Home w/ Parent or Adult Condition: Improved Additional Instructions: Extremely light activity, nitroglycerin as needed, continue home medications. Return if any chest pain or problem. Recommend you see your doctor tomorrow. meliza to set up an outpatient angiogram study.start imdur. Return any problems concerns or chest pain. Follow up appointment is scheduled at the [facility] on 05/20 with a 2:10pm appointment time. Please arrive at 1:45pm to fill out paperwork. If you have any questions or need to reschedule, please call [phone]. You should be scheduled for an outpatient Angiogram with the [facility]. The number is [phone]. Activity Level: Light activity Discharge Diet: Low Fat/Low Cholesterol Prescriptions: New isosorbide mononitrate 30 mg tablet extended release 24 hr 15 mg PO DAILY Qty: 14 2RF Rx Instructions: 1/2 tablet daily x 5 days; then full tablet daily No Action celecoxib 200 mg capsule 200 mg PO BIDWM atorvastatin 20 mg tablet 20 mg PO DAILY lisinopril 20 mg tablet 20 mg PO DAILY gabapentin 300 mg capsule 300 - 600 mg PO TID Rx Instructions: 1 cap in am, 1 cap in afternoon, 2 caps at hs metoprolol tartrate 25 mg tablet 25 mg PO BID nitroglycerin 0.4 mg tablet, sublingual 0.4 mg sublingual Q5M PRN (Reason: chest pain) Qty: 20 0RF Rx Instructions: do not exceed 3 doses per episode aspirin [Adult Aspirin Regimen] 81 mg tablet,delayed release (DR/EC) 81 mg PO DAILY famotidine [Acid Controller] 20 mg tablet 20 mg PO DAILY Follow Up/Referrals: Jerardo Wiseman MD [Primary Care Provider] - Stand Alone Forms: [employer] Info Instructions
[2022-05-19 09:42] LABS: Troponin I* < 0.01 ng/mL (0.01-0.04)
[2022-05-19] MEDS: ISOSORBIDE MONONITRATE ER 30 MG TAB 15 MG PO (09:58)
== END 2022-05-19 10:02 | disposition home or self-care (01) ==
PROVIDERS: Emergency Provider Family Medicine; PCP Surgery
DX: I20.0 Unstable angina (principal)
CPT/HCPCS: 36415; 71045; 80053; 83735; 83880; 84484; 85025; 87635; 93005; 94761; 99284; 99285; A9270

== ENCOUNTER 2022-05-23 08:48 | Emergency (ER) | payer BC, SELFPAY ==
[2022-05-23] VITALS (14 sets, daily range): BP systolic 106–140; BP diastolic 72–90; PULSE 58–71; RESP 18; TEMP 36.9; O2SAT 94–98; BMI 26.1
--- NOTE | 2022-05-23 09:13 | ED.GENADULT ---
HPI - General Adult General Chief complaint: Chest Pain Stated complaint: Chest pain Time Seen by Provider: 05/23/22 08:53 Source: patient Mode of arrival: ambulatory Limitations: no limitations History of Present Illness HPI narrative: 67-year-old male coming in today complaining of chest pain that started at 5:00 a.m. this morning as soon as he woke up. He states he has been having chest pain on and off now for the last week, this is his 3rd ER visit. He does have an appointment scheduled tomorrow with Cardiology. Again, he woke up this morning with chest pain radiating getting across the entire chest. He did take sublingual nitro which eased his pain, but did not take it away completely. He repeated that dose of nitro which did not change his symptoms. He states that he has had a headache also, now for over a week. And his headache is not changing. He denies any neurologic deficits. He is not short of breath. No fevers or chills. He has not been vomiting. Over the last week his pain has appear to be more exertional, however now it is present at rest. Currently he says he has a very dull pressure in the center of his chest but not ?pain?. He is not diaphoretic. He had an episode where he felt dizzy this morning also but that has resolved. He denies any vertiginous symptoms. Patient does have history of coronary artery disease with stenting 10 years ago. Related Data Home Medications Medication Instructions Recorded Confirmed atorvastatin 20 mg tablet 20 mg PO DAILY 05/16/22 05/19/22 celecoxib 200 mg capsule 200 mg PO BIDWM 05/16/22 05/19/22 gabapentin 300 mg capsule 300 - 600 mg PO TID 05/16/22 05/19/22 lisinopril 20 mg tablet 20 mg PO DAILY 05/16/22 05/19/22 metoprolol tartrate 25 mg tablet 25 mg PO BID 05/16/22 05/19/22 aspirin 81 mg tablet,delayed 81 mg PO DAILY 05/18/22 05/18/22 release (Adult Aspirin Regimen) famotidine 20 mg tablet (Acid 20 mg PO DAILY 05/19/22 05/19/22 Controller) Previous Rx's Medication Instructions Recorded nitroglycerin 0.4 mg sublingual 0.4 mg sublingual Q5M PRN chest 05/16/22 tablet pain #20 tabs isosorbide mononitrate 30 mg 15 mg PO DAILY #14 tabs 05/19/22 tablet,extended release 24 hr Allergies Allergy/AdvReac Type Severity Reaction Status Date / Time allopurinol Allergy Verified 02/02/22 07:50 codeine Allergy Verified 02/02/22 07:50 hydrochlorothiazide Allergy Verified 02/02/22 07:50 Review of Systems Status of ROS: Reports: 10 or more systems reviewed and unremarkable except as noted in History and below [facility] Social History Smoking Status: Never smoker Do you use any of these nicotine containing products: None Second hand tobacco smoke exposure: No How often do you have a drink containing alcohol: 4 or more times a week How many standard drinks containing alcohol do you have on a typical day: 1 or 2 How often do you have six or more drinks on one occasion: Less than monthly AUDIT-C Alcohol total score: 5 Non-prescribed substance use: marijuana (any form) service: No Exam Narrative: Exam Narrative: Well-nourished well-developed patient, very anxious and tearful. Alert and oriented. Answers questions appropriately. Patient speaks in full sentences without needing to catch his breath. HEENT: Normocephalic atraumatic. Pupils are equally round reactive to light. Extraocular muscles are intact. Conjunctivae are moist without any icterus noted. Moist mucous membranes. Posterior pharynx is normal. Neck is soft without any lymphadenopathy or thyromegaly. No masses are appreciated. Cardiovascular: Heart is regular rate and rhythm S1 and S2 are present without any murmurs. He tells me that he has discomfort that is worsened with palpation of the anterior, central chest wall. Lungs: Clear to auscultation bilaterally no wheezes rhonchi or rales are appreciated. With deep breathing, patient complains of chest pain across the entire chest. Abdomen: Soft and nondistended. Patient moans in pain when I examined his epigastric region. Normal bowel sounds. No guarding or rebound tenderness. Extremities: Bilateral lower extremities are without edema. Normal DP and PT pulses. Skin: Well perfused without any obvious rashes. Const: Vital Signs, click to edit/add: Vital Signs - 24 hr 05/23/22 08:56 05/23/22 08:58 05/23/22 08:59 Temperature 98.5 F Pulse Rate 71 68 Pulse Rate [Right Pulse Oximeter] 68 Respiratory Rate 18 Blood Pressure 140/90 H Blood Pressure [Ri ght Upper Arm] 140/90 H Pulse Oximetry 97 98 97 Oxygen Delivery Ga thod Room Air 05/23/22 09:00 05/23/22 09:02 05/23/22 09:03 Temperature Pulse Rate 68 70 68 Pulse Rate [Right Pulse Oximeter] Respiratory Rate Blood Pressure 127/89 Blood Pressure [Ri ght Upper Arm] Pulse Oximetry 96 98 97 Oxygen Delivery Ga thod 05/23/22 09:15 05/23/22 09:30 05/23/22 09:32 Temperature Pulse Rate 63 63 63 Pulse Rate [Right Pulse Oximeter] Respiratory Rate Blood Pressure 118/75 Blood Pressure [Ri ght Upper Arm] Pulse Oximetry 97 97 97 Oxygen Delivery Ga thod 05/23/22 09:45 05/23/22 10:00 05/23/22 10:02 Temperature Pulse Rate 58 L 59 L 61 Pulse Rate [Right Pulse Oximeter] Respiratory Rate Blood Pressure 106/72 Blood Pressure [Ri ght Upper Arm] Pulse Oximetry 95 94 95 Oxygen Delivery Ga thod 05/23/22 09:11 05/23/22 09:23 05/23/22 10:00 Temperature Pulse Rate Pulse Rate [Right Pulse Oximeter] 67 60 Respiratory Rate 18 18 Blood Pressure Blood Pressure [Ri ght Upper Arm] 127/89 106/72 Pulse Oximetry 97 96 94 Oxygen Delivery Ga thod Room Air Room Air Course Course Hospital Course: EKG was done immediately upon arrival, read by me, shows normal sinus rhythm with a pulse of 68. IV established and labs drawn. Patient was given 0.5 mg of IV Ativan and aspirin. Troponin was 0, remainder of labs unremarkable. Ativan did help his chest discomfort which was relieved and patient was significantly calmer in feeling better. In fact he asked to be discharged home at this point. Before discharge I did repeat his troponin which remained 0 and a repeat EKG, read by me, was unchanged with normal sinus rhythm with a pulse of 56. Vital Signs Vital signs: Initial Vital Signs Temperature 98.5 F 05/23/22 08:56 Temperature Source Temporal Artery Scan 05/23/22 08:56 Pulse Rate 68 05/23/22 08:56 Respiratory Rate 18 05/23/22 08:56 Blood Pressure 140/90 H 05/23/22 08:56 Blood Pressure Mean 106 05/23/22 08:56 Blood Pressure Position Sitting 05/23/22 08:56 Pulse Oximetry 97 05/23/22 08:56 Oxygen Delivery Method Room Air 05/23/22 08:56 Vital Signs Temperature 98.5 F 05/23/22 08:56 Pulse Rate 68 05/23/22 08:56 Respiratory Rate 18 05/23/22 08:56 Blood Pressure 140/90 H 05/23/22 08:56 Pulse Oximetry 97 05/23/22 08:56 Oxygen Delivery Method Room Air 05/23/22 08:56 Temperature 98.5 F 05/23/22 08:56 Pulse Rate 61 05/23/22 10:02 Respiratory Rate 18 05/23/22 10:00 Blood Pressure 106/72 05/23/22 10:02 Pulse Oximetry 95 05/23/22 10:02 Oxygen Delivery Method Room Air 05/23/22 10:00 Medical Decision Making MDM Narrative Medical decision making narrative: 67-year-old male with unstable angina, worsened by anxiety. Patient does have a cardiology appointment scheduled for tomorrow. He will be discharged home at this time to keep that appointment he understands that if his pain returns and is not relieved with sublingual nitro that he should return to the ER immediately. Patient was agreeable with everything we discussed and had no other questions or concerns. Lab Data Lab results reviewed: Yes I reviewed the patient's lab results Labs: Lab Results 05/23/22 05/23/22 05/23/22 Range/Units 09:05 09:12 09:30 WBC 6.68 (4.50-11.00) K/uL RBC 4.52 (4.30-5.90) m/uL Hgb 14.5 (13.5-17.5) gm/dL Hct 41.3 (37.0-53.0) % MCV 91 (80-100) fL MCH 32 (26-34) pg MCHC 35 (32-36) gm/dL RDW Coeff of Benja 11.8 (11.5-15.5) % Plt Count 194 (140-440) K/uL Neut % (Auto) 62.6 (42.0-72.0) % Lymph % (Auto) 26.2 (20-44) % Leake % (Auto) 8.5 (0.0-11.0) % Eos % (Auto) 1.8 (0.0-7.0) % Baso % (Auto) 0.6 (0.0-3.0) % Neut # (Auto) 4.18 (1.7-7.0) K/uL Lymph # (Auto) 1.75 (0.90-2.90) K/uL Leake # (Auto) 0.60 (0.00-0.90) K/UL Eos # (Auto) 0.12 (0.00-0.50) K/uL Baso # (Auto) 0.04 (0.00-0.30) K/uL Sodium 137 (135-149) mmol/L Potassium 4.2 (3.6-5.1) mmol/L Chloride 109 (96-114) mmol/L Carbon Dioxide 22 (20-32) mmol/L BUN 24 (7-30) mg/dL Creatinine 0.9 (0.5-1.5) mg/dL Estimated Creat Clear 63.80 Estimated GFR 93 ml/min Glucose 129 H (60-115) mg/dL Lactate 1.5 (0.5-1.9) mmol/L Calcium 9.3 (8.4-10.6) mg/dL Total Bilirubin 2.0 H (0.1-1.5) mg/dL Direct Bilirubin 0.3 (0.0-0.5) mg/dL AST 23 (12-35) U/L ALT 24 (4-50) U/L Alkaline Phosphatase 72 (40-150) U/L C-Reactive Protein < 0.5 L (0.5-1.0) mg/dL Total Protein 6.9 (6.0-8.3) g/dL Albumin 4.1 (3.3-5.0) g/dL Lipase 84 (23-300) U/L SARS-CoV-2 (PCR) Negative SARS-CoV-2 (Negative) POC Troponin I 0.00 L (0.01-0.04) ng/ml 05/23/22 Range/Units 11:27 WBC (4.50-11.00) K/uL RBC (4.30-5.90) m/uL Hgb (13.5-17.5) gm/dL Hct (37.0-53.0) % MCV (80-100) fL MCH (26-34) pg MCHC (32-36) gm/dL RDW Coeff of Benja (11.5-15.5) % Plt Count (140-440) K/uL Neut % (Auto) (42.0-72.0) % Lymph % (Auto) (20-44) % Leake % (Auto) (0.0-11.0) % Eos % (Auto) (0.0-7.0) % Baso % (Auto) (0.0-3.0) % Neut # (Auto) (1.7-7.0) K/uL Lymph # (Auto) (0.90-2.90) K/uL Leake # (Auto) (0.00-0.90) K/UL Eos # (Auto) (0.00-0.50) K/uL Baso # (Auto) (0.00-0.30) K/uL Sodium (135-149) mmol/L Potassium (3.6-5.1) mmol/L Chloride (96-114) mmol/L Carbon Dioxide (20-32) mmol/L BUN (7-30) mg/dL Creatinine (0.5-1.5) mg/dL Estimated Creat Clear Estimated GFR ml/min Glucose (60-115) mg/dL Lactate (0.5-1.9) mmol/L Calcium (8.4-10.6) mg/dL Total Bilirubin (0.1-1.5) mg/dL Direct Bilirubin (0.0-0.5) mg/dL AST (12-35) U/L ALT (4-50) U/L Alkaline Phosphatase (40-150) U/L C-Reactive Protein (0.5-1.0) mg/dL Total Protein (6.0-8.3) g/dL Albumin (3.3-5.0) g/dL Lipase (23-300) U/L SARS-CoV-2 (PCR) (Negative) POC Troponin I 0.00 L (0.01-0.04) ng/ml ECG Data Attestation: I personally reviewed and interpreted this ECG as follows: Discharge Plan Discharge Clinical Impression: Unstable angina pectoris Patient Disposition: Home, Self-Care Condition: Stable Additional Instructions: Follow-up with cardiology as scheduled. Return to the emergency department if you develop pain that is not made better with sublingual nitro. Prescriptions: No Action celecoxib 200 mg capsule 200 mg PO BIDWM atorvastatin 20 mg tablet 20 mg PO DAILY lisinopril 20 mg tablet 20 mg PO DAILY gabapentin 300 mg capsule 300 - 600 mg PO TID Rx Instructions: 1 cap in am, 1 cap in afternoon, 2 caps at hs metoprolol tartrate 25 mg tablet 25 mg PO BID nitroglycerin 0.4 mg tablet, sublingual 0.4 mg sublingual Q5M PRN (Reason: chest pain) Qty: 20 0RF Rx Instructions: do not exceed 3 doses per episode aspirin [Adult Aspirin Regimen] 81 mg tablet,delayed release (DR/EC) 81 mg PO DAILY famotidine [Acid Controller] 20 mg tablet 20 mg PO DAILY isosorbide mononitrate 30 mg tablet extended release 24 hr 15 mg PO DAILY Qty: 14 2RF Rx Instructions: 1/2 tablet daily x 5 days; then full tablet daily Follow Up/Referrals: eJrardo Wiseman MD [Primary Care Provider] - Stand Alone Forms: [employer] Info Instructions
[2022-05-23 09:18] LABS: Lactate* 1.5 mmol/L (0.5-1.9)
[2022-05-23] MEDS: ASPIRIN 81 MG TAB.CHEW 324 MG PO (09:31)
[2022-05-23] MEDS: LORazepam 2 MG/ML inj 0.5 MG IVP (09:31)
[2022-05-23 09:37] LABS: Basophils Absolute Auto 0.04 K/uL (0.00-0.30); Basophils Percent Auto 0.6 % (0.0-3.0); Eosinophils Absolute Auto 0.12 K/uL (0.00-0.50); Eosinophils Percent Auto 1.8 % (0.0-7.0); Hematocrit 41.3 % (37.0-53.0); Hemoglobin* 14.5 gm/dL (13.5-17.5); Immature Granulocytes Abs Auto 0.02 K/uL (0.00-0.30); Immature Granulocytes Pct Auto 0.3 %; Lymphocytes Absolute Auto 1.75 K/uL (0.90-2.90); Lymphocytes Percent Auto 26.2 % (20-44); Mean Corpuscular HGB Conc 35 gm/dL (32-36); Mean Corpuscular Hemoglobin 32 pg (26-34); Mean Corpuscular Volume 91 fL (80-100); Monocytes Percent Auto 8.5 % (0.0-11.0); Neutrophils Absolute Auto 4.18 K/uL (1.7-7.0); Neutrophils Percent Auto 62.6 % (42.0-72.0); Platelet Count* 194 K/uL (140-440); RDW Coefficient of Variation % 11.8 % (11.5-15.5); Red Blood Count 4.52 m/uL (4.30-5.90); White Blood Count* 6.68 K/uL (4.50-11.00)
[2022-05-23 09:39] LABS: Albumin* 4.1 g/dL (3.3-5.0); Chloride* 109 mmol/L (96-114); Slide Review Reflex No; Sodium* 137 mmol/L (135-149)
[2022-05-23 09:40] LABS: Potassium* 4.2 mmol/L (3.6-5.1)
[2022-05-23 09:42] LABS: Carbon Dioxide* 22 mmol/L (20-32); Creatinine* 0.9 mg/dL (0.5-1.5); Estimated Glomerular Filt Rate 93 ml/min
[2022-05-23 09:43] LABS: Alanine Aminotransferase* 24 U/L (4-50); Alkaline Phosphatase* 72 U/L (40-150); Aspartate Amino Transferase* 23 U/L (12-35); Bilirubin Direct* 0.3 mg/dL (0.0-0.5); Blood Urea Nitrogen* 24 mg/dL (7-30); Calcium* 9.3 mg/dL (8.4-10.6); Glucose* 129 mg/dL (60-115); Lipase* 84 U/L (23-300); Total Protein* 6.9 g/dL (6.0-8.3)
[2022-05-23 09:49] LABS: C Reactive Protein* < 0.5 mg/dL (0.5-1.0)
[2022-05-23 10:19] LABS: SARS PCR* Negative SARS-CoV-2 (Negative)
== END 2022-05-23 12:05 | disposition home or self-care (01) ==
PROVIDERS: Emergency Provider Family Medicine; PCP Surgery
DX: I20.0 Unstable angina (principal); F41.9 Anxiety disorder, unspecified
CPT/HCPCS: 36415; 80048; 80076; 83605; 83690; 84484; 85025; 86140; 87635; 93005; 94761; 96374; 99284; A9270; J2060

== ENCOUNTER 2023-01-07 11:00 | Outpatient (CLI) | payer BC, SELFPAY ==
--- OUTSIDE RECORDS SUMMARY | 2023-01-07 11:06 | XMS_ITS | Continuity of Care Document ---
Author Name Unknown Organization [facility] Address [address] [place] [address] Phone Care Team Providers Care Steam Presser Name Role Phone Alicia Lion MD Unavailable Unavailable Allergies, Adverse Reactions, Alerts Substance Reaction Status Criticality codeine GI pain Active No Information Medications Medication Instructions Dosage Effective Dates (start - stop) Status Comments oxycodone 5 mg tablet take 1 - 2 Tablet by ORAL route every 4 - 6 hours as needed for pain 5 MG - Active prednisone 5 mg tablet Take 20 mg. daily X 3 days then 15 mg. daily X 3 days then 10 mg. daily X 3 days then 5 mg. daily X 3 days orally - Active ASPIR 81 (unknown strength) Not Available - Active COQ-10 (unknown strength) Not Available - Active GLUCOSAMINE SULFATE (unknown strength) Not Available - Active OMEPRAZOLE (unknown strength) Not Available - Active METOPROLOL SUCCINATE (unknown strength) Not Available - Active HYDROCODONE -ACETAMINOPHEN (unknown strength) Not Available - Active DURLAZA (unknown strength) Not Available - Active CELECOXIB (unknown strength) Not Available - Active ATORVASTATIN CALCIUM (unknown strength) Not Available - Active GABAPENTIN (unknown strength) Not Available - Active Procedures Procedure Date OFFICE/OUTPATIENT VISIT EST Phone TLIF - Includes PSF at the same level - PA TLIF - Additional Level(s) Includes PSF at the same level - PA Posterior Instrumentation, 3-6 Segments - PA PEEK/ Cage/ Implant, For Interbody Fusio n - PA TLIF - Includes PSF at the same level Fe TLIF - Additional Level(s) Includes PSF at the same level Posterior Instrumentation, 3-6 Segments PEEK/ Cage/ Implant, For Interbody Fusio n Autograft, From Same Incision 0 Allograft, Morcelized, and/or BMP Office/Outpatient Visit,New, Mod 2019 Office/Outpatient Visit,Est, Mod 2015 Office/Outpatient Visit,New, Mod 2015 Advance Directives Directive Yes / No Effective Date File Name No Information Encounters Encounter Description Practice Location Reason(s) For Visit Diagnoses Date Provider Providers Copied on Encounter [facility], [address], [place], [id number] , [place] tel: [phone] [facility] No Information 2 Mehbod Amir. [facility], [address] [place] [address], [place], [id number] , [place]. tel: [phone] OFFICE/OUTPA TIENT VISIT EST Phone [facility], [address], [place], [id number] , [place] tel: [phone] [facility] No Information 0 Stacy Moreno. [address] [place] [address], [place], [id number] , [place]. tel: [phone] Referring Provider: Zeyad Burkett, [address], [address]. tel:[phone] [facility], [address], [place], [id number] , [place] tel: [phone] [facility] No Information 0 Mehbod Amir. [facility], [address], [place], [id number] , [place]. tel: [phone] [facility], [address], [place], [id number] , [place] tel: [phone] [facility] No Information 0 Mehbod Amir. [facility], [address], [place], [place], [id number] , [place]. tel: [phone] [facility], [address], [place], [place], [id number] , [place] tel: [phone] [facility] No Information 0 Stacy Moreno. [address] [place] [address], [place], [place], [id number] , [place]. tel: [phone] Referring Provider: Zeyad Burkett [address], [address]. tel:[phone] [facility], [address], [place], [place], [id number] , [place] tel: [phone] [facility] No Information 0 Mehbod Amir. [facility] [place], [address] [place] [address], [place], [place], [id number] , [place]. tel:[phone] Referring Provider: Zeyad Burkett [address], [address]. tel:[phone] Office/Outpa tient Visit,New, Mod [facility], [address], [place], [place], [id number] , [place] tel:[phone] [facility] No Information 0 Mehbod Amir. [facility] [place], [address] [place] [address], [place], [place], [id number] , [place]. tel:[phone] Referring Provider: Zeyad Burkett [address], [address]. tel:[phone] Office/Outpa tient Visit,Est, Mod [facility], [address], [place], [place], [id number] , [place] tel:[phone] [facility] Arthrodesis statusRadiculopat hy, cervical region 6 Mehbod Amir. [facility], [address], [place], [place], [id number] , [place]. tel:[phone] Referring Provider: Zeyad Burkett [address], [address]. tel:[phone] Office/Outpa tient Visit,New, Mod [facility], [address], [place], [place], [id number] , [place] tel:[phone] [facility] Radiculopathy, cervical regionArthrodesis status 6 Mehbod Amir. [facility], [address], [place], [place], [id number] , [place]. tel:[phone] Referring Provider: Zeyad Burkett [address], [address]. tel:[phone] Family History Family Member Type Diagnosis Age At Onset Problem (finding) Problem (finding) Payers Payer name Insurance type Covered libertarian ID Syed wright(s) [facility] [id number] [facility] [id number] Social History Type Description Quantity Date Captured Comments Sex Male Smoking Status No Information Chief Complaint And Reason For Visit No Information Reason For Referral Reason For Referral No Information History Of Present Illness Encounter Date Complaint History Of Prese nt Illness No Information Functional Status Date Functional Assessmen t No Information Instructions Date Instruction Additional Infor manion Weight management: I nstructed to return to General Practitioner timeframe: 1 Month. Related to Overweight Weight Management Education Rela yomaira to Overweight Weight management: I nstructed to return to General Practitioner timeframe: 1 Month. Related to Overweight Weight Management Education Rela yomaira to Overweight Assessments Type Assessment Date No Information Patient Care Teams Name Effective Dates (start - stop) Status Members No Information
--- OUTSIDE RECORDS SUMMARY | 2023-01-07 11:07 | XMS_ITS | Continuity of Care Document ---
Author Name Unknown Organization [facility] Address [address] [place] [address] Phone Care Team Providers Care Aerospace Project Manager Name Role Phone Dontae Upton MD Unavailable Unavailable Allergies, Adverse Reactions, Alerts Substance Reaction Status Criticality No Known allergies Medications Medication Instructions Dosage Effective Dates (start - stop) Status Comments Colcrys 0.6 mg Tab take 2 - 4 Tablet (1.2MG) by oral route as needed 1.2 MG - Active sulindac 200 mg Tab take 1 tablet (200MG ) by oral route 2 times every day with food 200 MG - Active Fish Oil 1,000 mg Cap take 1 by Oral rou te every day - Active lisinopril 10 mg Tab take 1 tablet (10MG ) by oral route every day 10 MG - Active Uloric 40 mg Tab take 1 tablet (40MG) by oral route every day 40 MG - Active Celebrex 200 mg Cap take 1 capsule (200MG) by oral route 2 times every day or as needed - Active hydrocodone-acetamino phen 5 mg-500 mg Tab take 1 tablet by oral route 8 times every day or as needed - Active gabapentin 300 mg Cap 2 as needed at bedtime - Active baclofen 20 mg Tab take 1 tablet (20MG) by oral route 3 times every day or as needed 20 MG - Active Fish Oil 1,000 mg Cap take 1 by Oral rou te every day - Active glucosamine HCl 1,500 mg Tab take 1 Tablet by Oral route every day 1 Tablet - Active Vitamin C 500 mg Tab take 1 Tablet by Or al route every day 1 Tablet - Active Procedures Procedure Date Office/Outpatient Visit, Est Office/Outpatient Visit, New Routine Venipuncture Specimen Handling CReactive Protein Rbc Sed Rate, Nonautomated Advance Directives Directive Yes / No Effective Date File Name No Information Encounters Encounter Description Practice Location Reason(s) For Visit Diagnoses Date Provider Providers Copied on Encounter [facility], [address], [place], [address], [place] tel:[phone] [facility], No Information [address] Won Diggs. [address], [place], [place], [id number] , [place]. tel:[phone] Office/Outpa tient Visit, Est [facility], [address], [place], [address], [place] tel:[phone] [facility], Joint Pain (chief complaint) possible gout (chief complaint) Pain in joint involving multiple sitesGOUTY ARTHROPATHY NOS 3 Won Diggs. [address], [place], [place], [id number] , [place]. tel:[phone] Referring Provider: Dontae Pisano, [address], [place], [address] . tel:[phone] Office/Outpa tient Visit, New [facility], [address], [place], [address], [place] tel:[phone] [facility], possible gout (chief complaint) Hypertension, UnspecifiedCa lculus of kidneyGOUTY ARTHROPATHY NOSPain in joint involving multiple sitesLumbago 3 Won Diggs. [address], [address], [place], [place], [id number] , [place]. tel:[phone] Referring Provider: Dontae Pisano, [address], [place], [address] . tel:[phone] [facility], [address], [place], [address], [place] tel:[phone] [facility], No Information 3 Won Diggs. [address], [place], [place], [id number] , [place]. [phone] Family History Family Member Type Diagnosis Age At Onset Problem (finding) Payers Payer name Insurance type Covered republican ID Authorrio wright(s) [facility] [id number] Social History Type Description Quantity Date Captured Comments Sex Male Smoking Status No Information Chief Complaint And Reason For Visit No Information Reason For Referral Reason For Referral No Information History Of Present Illness Encounter Date Complaint History Of Prese nt Illness No Information Functional Status Date Functional Assessmen t No Information Instructions Date Instruction Additional Infor mation No Information Assessments Type Assessment Date No Information Patient Care Teams Name Effective Dates (start - stop) Status Members No Information
[2023-01-07 14:16] LABS: Mononuclear WBC Body Fluid* 76 %; Polynuclear WBC Body Fluid* 24 %; RBC, Body Fluid* 1000 Cells/uL; WBC, Body Fluid* 684 Cells/uL
[2023-01-07 14:42] LABS: BF Clarity* Slightly Cloudy; BF Color Xanthochromic; BF Total Volume* 9
== END 2023-01-07 11:01 | disposition home or self-care (01) ==
PROVIDERS: PCP Surgery; Visit Provider Orthopaedic Surgery Sports Medicine
DX: M25.461 Effusion, right knee (principal)
CPT/HCPCS: 87070; 87075; 87205; 89051; 89060

== ENCOUNTER 2023-01-13 09:43 | Outpatient (CLI) | payer BC, SELFPAY ==
--- OUTSIDE RECORDS SUMMARY | 2023-01-13 09:50 | XMS_ITS | Continuity of Care Document ---
Author Name Unknown Organization [facility] Address [address] [place] [address] Phone Care Team Providers Care Inspector Final Assembly Electrical Name Role Phone Alicia Lion MD Unavailable [...] daily X 3 days orally - Active OMEPRAZOLE (unknown strength) Not Available - Active GLUCOSAMINE SULFATE (unknown strength) Not Available - Active COQ-10 (unknown strength) Not Available - Active ASPIR 81 (unknown strength) Not Available - Active GABAPENTIN (unknown strength) Not Available - Active ATORVASTATIN CALCIUM (unknown strength) Not Available - Active CELECOXIB (unknown strength) Not Available - Active DURLAZA (unknown strength) Not Available - Active HYDROCODONE -ACETAMINOPHEN (unknown strength) Not Available - Active METOPROLOL SUCCINATE (unknown strength) Not Available - Active Procedures [...] [facility], [address], [place], [id number] , [place] tel: [phone] [facility] No Information 2 Mehbod Amir. [facility], [address] [place] [address], [place], [id number] , [place]. tel: [phone] OFFICE/OUTPA TIENT VISIT EST Phone [facility], [address], [place], [id number] , [place] tel: [phone] [facility] No Information 0 Stacy Moreno. [address] [place] [address], [place], [id number] , [place]. tel: [phone] Referring Provider: Zeyad Burkett, [address], [address]. tel:[phone] [facility], [address], [place], [id number] , [place] tel: [phone] [facility] No Information 0 Mehbod Amir. [facility], [address], [place], [id number] , [place]. tel: [phone] [facility], [address], [place], [id number] , [place] tel: [phone] [facility] No Information 0 Mehbod Amir. [facility], [address], [place], [place], [id number] , [place]. tel: [phone] [facility], [address], [place], [place], [id number] , [place] tel: [phone] [facility] No Information 0 Stacy Moreno. [address] [place] [address], [place], [place], [id number] , [place]. tel: [phone] Referring Provider: Zeyad Burkett [address], [address]. tel:[phone] [facility], [address], [place], [place], [id number] , [place] tel: [phone] [facility] No Information 0 Mehbod Amir. [facility], [address] [place] [address], [place], [place], [id number] , [place]. tel:[phone] Referring Provider: Zeyad Burkett [address], [address]. tel:[phone] Office/Outpa tient Visit,New, Mod [facility], [address], [place], [place], [id number] , [place] tel:[phone] [facility] No Information 0 Mehbod Amir. [facility], [address] [place] [address], [place], [place], [id number] , [place]. tel:[phone] Referring Provider: Zeyad Burkett [address], [address]. tel:[phone] Office/Outpa tient Visit,Est, Mod [facility], [address], [place], [place], [id number] , [place] tel:[phone] [facility] Arthrodesis statusRadiculopat hy, cervical region 6 Mehbod Amir. [facility], [address], [place], [place], [id number] , [place]. tel:[phone] Referring Provider: Zeyad Burkett [address], [address]. tel:[phone] Office/Outpa tient Visit,New, Mod [facility], [address], [place], [place], [id number] , [place] tel:[phone] [facility] Radiculopathy, cervical regionArthrodesis status 6 Mehbod Amir. [facility], [address], [place], [place], [id number] , [place]. tel:[phone] Referring Provider: Zeyad Burkett [address], [address]. tel:[phone] Family History Family Member Type Diagnosis Age At Onset Problem (finding) Problem (finding) Payers Payer name Insurance type Covered alliance party ID Syed wright(s) [facility] [id number] [facility] [id number] Social History Type Description Quantity Date Captured Comments Sex Male Smoking Status No Information Chief Complaint And Reason For Visit No Information Reason For Referral Reason For Referral No Information History Of Present Illness Encounter Date Complaint History Of Prese nt Illness No Information Functional Status Date Functional Assessmen t No Information Instructions Date Instruction Additional Infor mation Weight Management Education Rela yomaira to Overweight Weight management: I nstructed to return to General Practitioner timeframe: 1 Month. Related to Overweight Weight Management Education Rela yomaira to Overweight Weight management: I nstructed to return to General Practitioner timeframe: 1 Month. Related to Overweight Assessments Type Assessment Date No Information Patient Care Teams Name Effective Dates (start - stop) Status Members No Information
--- OUTSIDE RECORDS SUMMARY | 2023-01-13 09:50 | XMS_ITS | Continuity of Care Document ---
Author Name Unknown Organization [facility] Address [address] [place] [address] Phone Care Team Providers Care Academic Coach Name Role Phone Dontae Upton MD Unavailable [...] day with food 200 MG - Active lisinopril 10 mg Tab take 1 tablet (10MG ) by oral route every day 10 MG - Active Fish Oil 1,000 mg Cap take 1 by Oral rou te every day - Active Vitamin C 500 mg Tab take 1 Tablet by Or al route every day 1 Tablet - Active glucosamine HCl 1,500 mg Tab take 1 Tablet by Oral route every day 1 Tablet - Active Fish Oil 1,000 mg Cap take 1 by Oral rou te every day - Active baclofen 20 mg Tab take 1 tablet (20MG) by oral route 3 times every day or as needed 20 MG - Active gabapentin 300 mg Cap 2 as needed at bedtime - Active hydrocodone-acetamino phen 5 mg-500 mg Tab take 1 tablet by oral route 8 times every day or as needed - Active Celebrex 200 mg Cap take 1 capsule (200MG) by oral route 2 times every day or as needed - Active Uloric 40 mg Tab take 1 tablet (40MG) by oral route every day 40 MG - Active Procedures Procedure Date Office/Outpatient Visit, Est Office/Outpatient Visit, New Routine Venipuncture Specimen Handling CReactive Protein Rbc Sed Rate, Nonautomated Advance Directives Directive Yes / No Effective Date File Name No Information Encounters Encounter Description Practice Location Reason(s) For Visit Diagnoses Date Provider Providers Copied on Encounter [facility], [address], [place], [address], [place] tel:[phone] [facility], No Information [address] Won Diggs. [address], [place], [place], [id number] , [place]. tel:[phone] Office/Outpa tient Visit, Est [facility], [address], [place], [address], [place] tel:[phone] [facility], Joint Pain (chief complaint) possible gout (chief complaint) Pain in joint involving multiple sitesGOUTY ARTHROPATHY NOS 3 Won Diggs. [address], [place], [place], [id number] , [place]. tel:[phone] Referring Provider: Dontae Pisano, [address], [place], [address] . tel:[phone] Office/Outpa tient Visit, New [facility], [address], [place], [address], [place] tel:[phone] [facility], possible gout (chief complaint) Hypertension, UnspecifiedCa lculus of kidneyGOUTY ARTHROPATHY NOSPain in joint involving multiple sitesLumbago 3 Won Diggs. [address], [place], [place], [id number] , [place]. tel:[phone] Referring Provider: Dontae Pisano, [address], [place], [address] . tel:[phone] [facility], [address], [place], [address], [place] tel:[phone] [facility], No Information 3 Won Diggs. [address], [place], [place], [id number] , [place]. tel:[phone] Family History Family Member Type Diagnosis Age At Onset Problem (finding) Payers Payer name Insurance type Covered democrat ID Authorrio wright(s) [facility] [id number] Social History Type Description Quantity Date Captured [...]
--- NOTE | 2023-01-13 10:00 | CRLHL7_ITS ---
For Patients: As a result of the Century Cures Act, medical imaging exams and procedure reports are released immediately into your electronic medical record. You may view this report before your referring provider. If you have questions, please contact your health care provider. NM three-phase bone Scan: Technique: Limited nuclear medicine 3 phase bone scan per protocol of bilateral knees was obtained. Radiopharmaceutical: 26.0 millicuries Tc 99 M MDP intravenously Clinical information: Right knee pain and recurrent effusion Comparison: None. Findings: Flow: Increased flow is present throughout the right knee. Blood pool: Increased activity about the medial and lateral aspects of the femoral condyles is present. Additionally, there is suggestion of increased activity about the right tibial plateau. Delayed images: Relative photopenia throughout the right knee is noted compatible with right knee arthroplasty. Increased activity is present within the medial and lateral femoral condyles and less evident within the tibial plateau. Impression: Three-phase positive bone scan to the right knee with differential diagnosis to include loosening and infection. Recommend radiographs and laboratory correlation. Dictated by Sam Bonilla MD @ 01/17/2023 11:01:34 AM (Electronically Signed)
== END 2023-01-13 09:44 | disposition home or self-care (01) ==
LOC: NM 09:44
PROVIDERS: PCP Surgery; Visit Provider Orthopaedic Surgery Sports Medicine
DX: M25.561 Pain in right knee (principal); M25.461 Effusion, right knee; Z96.651 Presence of right artificial knee joint; T84.032A Mechanical loosening of internal right knee prosthetic joint, initial encounter
CPT/HCPCS: 78315; A9503

== ENCOUNTER 2023-01-26 06:17 | Day surgery (SDC) | payer BC, SELFPAY ==
[2023-01-26] VITALS (13 sets, daily range): BP systolic 75–128; BP diastolic 54–99; PULSE 52–69; RESP 12–18; TEMP 36.4–36.9; O2SAT 96–100; BMI 25.8
[2023-01-26] MEDS: SODIUM CHLORIDE 0.9 % (FLUSH) 10 ML SYRINGE IVF (07:05)
[2023-01-26] MEDS: LACTATED RINGERS 1000 ML 1,000 ML 100 ML IV (07:05)
--- NOTE | 2023-01-26 07:13 | W.PM.H&PU ---
History & Physical Update History & Physical Update H&P Reviewed and patient assessed: No changes noted
--- NOTE | 2023-01-26 07:54 | W.ANESCHARGE ---
Anesthesia Charges Start Date/Time Anesthesia Start Date: 01/26/23 Anesthesia Start Time: 07:24 Stop Date/Time Anesthesia Stop Date: 01/26/23 Anesthesia Stop Time: 08:43
--- NOTE | 2023-01-26 08:21 | PM.ORPRC ---
Procedure Note Date of procedure: 01/26/23 Procedure: PREOPERATIVE DIAGNOSIS: 1. Right knee patellar clunk following prior TKA POSTOPERATIVE DIAGNOSIS: 1. Right knee patellar clunk following prior TKA PROCEDURE: 1. Right knee arthroscopic extensive excisional debridement including debridement of superior pole patella patellar clunk scar, medial and lateral gutter scar tissue, anterior fat pad scar tissue, etc. SURGEON: Luciano Hurtado M.D. CLIENT RELATIONS REPRESENTATIVE: Jerardo Thao PA-C. Of note, an retail assistant store manager was critical for this case to aid in patient positioning, knee manipulation, instrument exchange, and closure. ANESTHESIA: General EBL: 2ml TOURNIQUET: 30 min at 300 torr COMPLICATIONS: None evident INDICATIONS: The patient is a pleasant 67-year-old male who has previously undergone a right total knee arthroplasty. While their pain from the preoperative arthritic state has improved, they are now battling some superior lateral knee pain in last couple months. This has been intense. Accompanied by effusions. This is progressively gotten worse and is now affecting all aspects of his life including recreational activities. As such, knee arthroscopy for debridement was recommended. FINDINGS: TKA implants felt stable to manipulation. No evidence of significant scratching or pathology. Regarding the skin scars, these were well healed but curving around both medial and lateral patella from remote surgeries. Within the knee itself, diagnostic arthroscopy showed no other significant scratching of the polyethylene nor the metallic femoral implant. There was some hypertrophied synovium around the patella circumferentially. Also significant bony osteophyte development off the lateral patella at the location of the patient's sharp pain. DESCRIPTION OF PROCEDURE: After a thorough discussion of risks, benefits, and alternatives, the patient was brought to the operating room and placed upon the operating table. Induction of anesthesia was undertaken as previously noted. 2g iv Ancef was administered within 1 hr of incision preoperatively. Appropriate time-out was performed identifying proper patient, site, and procedure. The right lower extremity was prepped and draped in the appropriate sterile fashion using ChloraPrep. The limb was exsanguinated and tourniquet inflated. Anterolateral and anteromedial portals were established with an 11 blade, and a diagnostic arthroscopy was performed. This identified the findings as noted above. Following the diagnostic arthroscopy, an extensive excisional debridement was performed with a bone cutter shaver. Also, a 50 degree Davin cautery device as well as a pituitary rongeur to help remove that bony fragment along the lateral patella after the synovial tissue had been excised. Following the debridement, the knee was placed through range of motion found have no significant crepitation and the patella remains stable to medial and lateral translation. At this stage, the shaver was reinserted into the suprapatellar pouch and all remaining debris was evacuated. Instruments were removed, excess fluid was drained, and closure performed with 4-0 Monocryl with Steri-Strips. Dressings were applied, the tourniquet deflated, and the patient was awoken from anesthesia and transferred to the PACU in stable condition. PLAN: 1. Weightbear as tolerated operative extremity. Crutch / walker ambulation assistance PRN. 2. Ice, acetominophen and/or ibuprofen, and oxycodone for pain as needed. 3. Knee range of motion and quad sets/straight leg raise regularly 4. Follow up with PA visit in 1-2 weeks for a wound check and possibly to initiate physical therapy.
[2023-01-26] MEDS: ROPIVACAINE 0.5% 30 ML 150 MG INJECTION (08:29)
--- NOTE | 2023-01-26 08:36 | W.ANESCHARGE ---
Anesthesia Charges Start Date/Time Anesthesia Start Date: 01/26/23 Anesthesia Start Time: 07:24 Stop Date/Time Anesthesia Stop Date: 01/26/23 Anesthesia Stop Time: 08:43
== END 2023-01-26 10:10 | disposition home or self-care (01) ==
PROVIDERS: PCP Surgery; Visit Provider Orthopaedic Surgery Sports Medicine
PROC: (CPT 29870; principal; 2023-01-26 07:30)
DX: M25.861 Other specified joint disorders, right knee (principal); Z96.651 Presence of right artificial knee joint
CPT/HCPCS: 29877; 01400; 87070; 87075; 87186; 87205; J2250; J2371; J2405; J2704; J2795; J3010; J7120

== ENCOUNTER 2023-12-21 12:09 | Outpatient (CLI) | payer BC, SELFPAY ==
--- OUTSIDE RECORDS SUMMARY | 2023-12-21 12:13 | XMS_ITS | Data Portability ---
Author Organization [facility], [facility] Address [address] [place] [address] Assessment Encounter Date Assessment Date Assessment LastModified by Organization Details LastModified Time 05/05/2020 05/05/2020 65 yoM with right urolithiasis s/p ESWL. Not available 05/05/2020 16:19:03 05/09/2020 05/09/2020 right stent removal with sedation [email or web address] Not available 05/09/2020 11:39:16 Plan of Treatment Reminders Order Date Submit Date Provider Last Modified By Organization Details Last Modified Time Details Appointments None recorded. Lab urinalysis, dipstick 2020 [email or web address] Not available 14:50:08 stone analysis panel 2020 [facility], [address], [address], [place], [address], 17:07:00 Referral None recorded. Procedures None recorded. Surgeries cystoscopy, stent removal (SURG) 2020 021 [email or web address] Not available 17:41:04 Imaging None recorded. Medication Orders diazepam 10 mg tablet 2020 [id number], [address] [address], [place], [address], 16:21:03 oxybutynin chloride 5 mg tablet 2020 [facility][id number], [address], [address], 11:41:16 Patient TargetsNo targets recorded. Patient Instructions Encounter Date Encounter Id Patient Instructions Last Modified By Organization Details Last Modified Time 05/05/2020 [id number] I discussed general fluid and dietary guidelines to help prevent further stone formation includin.) Fluid consumption of preferably water to make at least 2.5 L/day of urine 2.) Low sodium consumption (less than 2,300mg/day). Dietary salt intake is linked to calcium excretion. 3.) Moderate calcium consumption (up to 1,000 to 1,200mg/day). Avoid calcium restriction - this has been shown to increase the risk of stone formation 4.) Low fat and moderate animal protein consumption (meats, fish, poultry, eggs) with increased intake of fruits and vegetables 5.) Limit consumption of oxalate rich foods - spinach, tea, chocolate, nuts, strawberries 6.) Daily dietary citrus (orange juice, lemon juice, tanana juice, etc.) has been stone to provide stone protection. Not available 05/05/2020 14:15:21 Reason for Referral None Reported. Results Created Date Observation Date Name Description Value Unit Range Abnormal Flag Note LastModifiedBy Organization Detail LastModifiedTime 05/05/2020 urina lysis , dipst ick Color-Status Brown Not Available [facility] [address], [place], [address], 05/05/2020 14:46:50 05/05/2020 urina lysis , dipst ick Glucose-Stat us Negati ve Not Available [facility] [address], [place], [address], 05/05/2020 14:46:50 05/05/2020 urina lysis , dipst ick Bilirubin-St atus Small Not Available [facility] [address], [place], [address], 05/05/2020 14:46:50 05/05/2020 urina lysis , dipst ick Sp Woodward-Stat us >=1.03 0 Not Available [facility] [address], [place], [address], 05/05/2020 14:46:50 05/05/2020 urina lysis , dipst ick pH-Status 5.5 Not Available [facility] [address], [place], [address], 05/05/2020 14:46:50 05/05/2020 urina lysis , dipst ick Nitrates-Sta tus negati ve Not Available [facility] [address], [place], [address], 05/05/2020 14:46:50 05/05/2020 urina lysis , dipst ick Blood-Status Large Not Available [facility] [address], [place], [address], 05/05/2020 14:46:50 05/05/2020 urina lysis , dipst ick Leuko-Status Trace Not Available [facility] [address], [place], [address], 05/05/2020 14:46:50 05/06/19 21 05/10/2020 stone candi sis panel source Commen t Not provi ded Not Available [facility] ([facility]) [address], [place], [address], 05/10/2020 17:07:00 05/06/19 21 05/10/2020 stone candi sis panel color Brown Not Available [facility] ([facility]) [address], [place], [address], 05/10/2020 17:07:00 05/06/19 21 05/10/2020 stone candi sis panel size 3x2 mm Multi ple piece s recei adeola. Dimen sions of the large st piece repor yomaira. Not Available [facility] ([facility]) [address] [place], [address], 05/10/2020 17:07:00 05/06/19 21 05/10/2020 stone candi sis panel weight 28.0 mg Not Available [facility] ([facility]) [address] [place], [address], 05/10/2020 17:07:00 05/06/19 21 05/10/2020 stone candi sis panel composition Commen t Perce ntage (Repr esent s the % compo sitio n) Not Available [facility] ([facility]) [address] [place], [address], 05/10/2020 17:07:00 05/06/19 21 05/10/2020 stone candi sis panel calcium oxalate monohydrate 40 % Not Available [facility] ([facility]) [address] [place], [address], 05/10/2020 17:07:00 05/06/19 21 05/10/2020 stone candi sis panel calcium oxalate dihydrate 60 % Not Available [facility] ([facility]) [address] [place], [address], 05/10/2020 17:07:00 05/06/19 21 05/10/2020 stone candi sis panel hydroxyapati te CHANNEL MARKETING MANAGER Not Available [facility] ([facility]) [address] [place], [address], 05/10/2020 17:07:00 05/06/19 21 05/10/2020 stone candi sis panel carbonate apatite CHANNEL MARKETING MANAGER Not Available [facility] ([facility]) [address] [place], [address], 05/10/2020 17:07:00 05/06/19 21 05/10/2020 stone candi sis panel cahpo4 (brushite) CHANNEL MARKETING MANAGER Not Available [facility] ([facility]) [address], [place], [address], 05/10/2020 17:07:00 05/06/19 21 05/10/2020 stone candi sis panel calcium phosphate CHANNEL MARKETING MANAGER Not Available [facility] ([facility]) [address] [place], [address], 05/10/2020 17:07:00 05/06/19 21 05/10/2020 stone candi sis panel calcium carbonate CHANNEL MARKETING MANAGER Not Available [facility] ([facility]) [address] [place], [address], 05/10/2020 17:07:00 05/06/19 21 05/10/2020 stone candi sis panel mg nh4 PO4 (struvite) CHANNEL MARKETING MANAGER Not Available [facility] ([facility]) [address] [place], [address], 05/10/2020 17:07:00 05/06/19 21 05/10/2020 stone candi sis panel mghpo4 (newberyite) CHANNEL MARKETING MANAGER Not Available [facility] ([facility]) [address] [place], [address], 05/10/2020 17:07:00 05/06/19 21 05/10/2020 stone candi sis panel uric acid CHANNEL MARKETING MANAGER Not Available [facility] ([facility]) [address] [place], [address], 05/10/2020 17:07:00 05/06/19 21 05/10/2020 stone candi sis panel uric acid dihydrate CHANNEL MARKETING MANAGER Not Available [facility] ([facility]) [address] [place], [address], 05/10/2020 17:07:00 05/06/19 21 05/10/2020 stone candi sis panel ammonium acid urate CHANNEL MARKETING MANAGER Not Available [facility] ([facility]) [address] [place], [address], 05/10/2020 17:07:00 05/06/19 21 05/10/2020 stone candi sis panel sodium acid urate CHANNEL MARKETING MANAGER Not Available [facility] ([facility]) [address] [place], [address], 05/10/2020 17:07:00 05/06/19 21 05/10/2020 stone candi sis panel 2,8 dihydroxyade nine CHANNEL MARKETING MANAGER Not Available [facility] ([facility]) [address] [place], [address], 05/10/2020 17:07:00 05/06/19 21 05/10/2020 stone candi sis panel xanthine CHANNEL MARKETING MANAGER Not Available [facility] ([facility]) [address] [place], [address], 05/10/2020 17:07:00 05/06/19 21 05/10/2020 stone candi sis panel cystine CHANNEL MARKETING MANAGER Not Available [facility] ([facility]) [address] [place], [address], 05/10/2020 17:07:00 05/06/19 21 05/10/2020 stone candi sis panel cholesterol CHANNEL MARKETING MANAGER Not Available [facility] ([facility]) [address] [place], [address], 05/10/2020 17:07:00 05/06/19 21 05/10/2020 stone candi sis panel calcium bilirubinate CHANNEL MARKETING MANAGER Not Available [facility] ([facility]) [address] [place], [address], 05/10/2020 17:07:00 05/06/19 21 05/10/2020 stone candi sis panel bilirubin CHANNEL MARKETING MANAGER Not Available [facility] ([facility]) [address] [place], [address], 05/10/2020 17:07:00 05/06/19 21 05/10/2020 stone candi sis panel calcium palmitate CHANNEL MARKETING MANAGER Not Available [facility] ([facility]) [address], [place], [address], 05/10/2020 17:07:00 05/06/19 21 05/10/2020 stone candi sis panel calcium stearate CHANNEL MARKETING MANAGER Not Available [facility] ([facility]) [address], [place], [address], 05/10/2020 17:07:00 05/06/19 21 05/10/2020 stone candi sis panel triamterene CHANNEL MARKETING MANAGER Not Available [facility] ([facility]) [address], [place], [address], 05/10/2020 17:07:00 05/06/19 21 05/10/2020 stone candi sis panel drug or metabolite CHANNEL MARKETING MANAGER Not Available [facility] ([facility]) [address], [place], [address], 05/10/2020 17:07:00 05/06/19 21 05/10/2020 stone candi sis panel dried blood CHANNEL MARKETING MANAGER Not Available [facility] ([facility]) [address], [place], [address], 05/10/2020 17:07:00 05/06/19 21 05/10/2020 stone candi sis panel cellular material CHANNEL MARKETING MANAGER Not Available [facility] ([facility]) [address], [place], [address], 05/10/2020 17:07:00 05/06/19 21 05/10/2020 stone candi sis panel other component(s) CHANNEL MARKETING MANAGER Not Available [facility] ([facility]) [address], [place], [address], 05/10/2020 17:07:00 05/06/19 21 05/10/2020 stone candi sis panel comment CHANNEL MARKETING MANAGER Not Available [facility] ([facility]) [address], [place], [address], 05/10/2020 17:07:00 05/06/19 21 05/10/2020 stone candi sis panel comment CHANNEL MARKETING MANAGER Not Available [facility] ([facility]) [address], [place], [address], 05/10/2020 17:07:00 05/06/19 21 05/10/2020 stone candi sis panel photo Juju keita Photo graph will follo w under a separ ate cover Not Available [facility] ([facility]) [address], [place], [address], 05/10/2020 17:07:00 05/06/19 21 05/10/2020 stone candi sis panel comment: Juju keita Physi jerrell quest ions regar ding Calcu li Candi sis conta ct [facility] at: [phone]. Not Available [facility] ([facility]) [address], [place], [address], 05/10/2020 17:07:00 05/06/19 21 05/10/2020 stone candi sis panel please note: Juju keita Calcu li repor t will follo w via compu ter, mail or couri emerald carpenter. Not Available [facility] ([facility]) [address], [place], [address], 05/10/2020 17:07:00 05/06/19 21 05/10/2020 stone candi sis panel disclaimer: Juju keita This test was devel oped and its perfo rmanc e nannette cteri stics deter mined by [facility]. It has not been clear ed or appro adeola by the Food and Drug Admin istra tion. Not Available [facility] ([facility]) [address], [place], [address], 05/10/2020 17:07:00 05/06/19 21 05/10/2020 stone candi sis panel pdf . Not Available [facility] ([facility]) [address], [place], [address], 05/10/2020 17:07:00 05/06/19 21 05/05/2020 stone candi sis panel source Commen t Not provi ded Not Available [facility] [address], [place], [address], 05/12/2020 09:47:28 05/06/19 21 05/05/2020 stone candi sis panel color Brown Not Available [facility] [address], [place], [address], 05/12/2020 09:47:28 05/06/19 21 05/05/2020 stone candi sis panel size 3x2 mm Multi ple piece s recei adeola. Dimen sions of the large st piece repor yomaira. Not Available [facility] [address] [place] [address] [address], [place], [address], 05/12/2020 09:47:28 05/06/19 21 05/05/2020 stone candi sis panel weight 28.0 mg Not Available [facility] [address], [place], [address], 05/12/2020 09:47:28 05/06/19 21 05/05/2020 stone candi sis panel composition Commen t Perce ntage (Repr esent s the % compo sitio n) Not Available [facility] [address], [place], [address], 05/12/2020 09:47:28 05/06/19 21 05/05/2020 stone candi sis panel calcium oxalate monohydrate 40 % Not Available [facility] [address], [place], [address], 05/12/2020 09:47:28 05/06/19 21 05/05/2020 stone candi sis panel calcium oxalate dihydrate 60 % Not Available [facility] [address], [place], [address], 05/12/2020 09:47:28 05/06/19 21 05/05/2020 stone candi sis panel photo Juju neela Photo graph will follo w under a separ ate cover Not Available [facility] [address], [place], [address], 05/12/2020 09:47:28 05/06/19 21 05/05/2020 stone candi sis panel comment: Juju keita Physi jerrell quest ions regar ding Calcu li Candi sis conta ct [facility] at: [phone]. Not Available [facility] [address], [place], [address], 05/12/2020 09:47:28 05/06/19 21 05/05/2020 stone candi sis panel please note: Juju keita Calcu li repor t will follo w via compu ter, mail or couri emerald carpenter. Not Available [facility] [address], [place], [address], 05/12/2020 09:47:28 05/06/19 21 05/05/2020 stone candi sis panel disclaimer: Juju keita This test was devel oped and its perfo rmanc e nannette cteri stics deter mined by [facility]. It has not been clear ed or appro adeola by the Food and Drug Admin istra tion. Not Available [facility] [address], [place], [address], 05/12/2020 09:47:28 05/06/19 21 05/05/2020 stone candi sis panel pdf . Not Available [facility] [address], [place], [address], 05/12/2020 09:47:28 04/11/19 21 04/07/2020 CT, abdom en + pelvi s, w/o contr ast No observ ation record ed. [email or web address] Not Available 2020 16:32:14 04/15/19 21 04/08/2020 XR, urogr am, retro grade No observ ation record ed. [email or web address] Not Available 2020 09:28:12 05/07/19 21 05/05/2020 XR, kidne y + urete r + bladd er No observ ation record ed. [email or web address] Not Available 05/06 20:52:51 04/02/19 22 02/25/2021 MRI, prost ate, w/wo contr ast No observ ation record ed. [email or web address] Not Available 2021 16:19:39 Result Notes None recorded. Procedures Surgical History Date Name Laterality Status Provider Name and Address Organization Details Recorded Time Cystoscopy with foreign body/stent removal completed Gibson Rodriguez MD [address] [place] [address],[address], [place], [address], [facility] 05/05/2020 16:18:52 Imaging Results Imaging Date Name Status LastModified by Organiz ation Details LastModified Time 04/07/2020 CT, abdomen + pelvis, w/o contrast completed [email or web address] Information not available 04/10/2020 16:32:14 04/08/2020 XR, urogram, retrograde completed Information not available 04/14/2020 09:28:12 05/05/2020 XR, kidney + ureter + bladder completed [email or web address] Information not available 05/06/2020 20:52:51 02/25/2021 MRI, prostate, w/wo contrast completed Information not available 04/02/2021 16:19:39 Procedure Notes None recorded. Medical Equipment None Reported. Allergies Allergen ID Allergen Name Allergen Category Reaction Reaction Severity Criticality Documentation Date Start Date Code Code System Note Provider Name and Address Organization Details Recorded Time 692801 pholcodin e Not available abdominal pain severe Not available 05/05/2020 36731 RxNorm Rogers cade [facility] 14:41:39 922954 codeine medicatio n abdominal pain severe Not available 05/05/2020 2670 RxNorm Rogers cade [facility] 14:42:01 Medications Name Sig Start Date Stop Date Status Note LastModified by Organization Details LastModified Time celecoxib 200 mg capsule take 1 capsule by mouth once daily active Not Available Not Available No t Available atorvastatin 20 mg tablet TAKE ONE TABLET BY MOUTH ONE TIME DAILY active Not Available Not Available No t Available hydrocodone 5 mg-acetaminoph en 325 mg tablet active Not Available Not Available Not Available prednisone 20 mg tablet Take 1 tablet by mouth every morning for 10 days, then 1/2 tablet every morning for 10 days, then stop. active Not Available Not Available No t Available ciprofloxacin 500 mg tablet Take 1 tablet by mouth 2 times daily for 6 doses. active Not Available Not Available No t Available oxycodone-acet aminophen 5 mg-325 mg tablet active Not Available Not Available Not Available gabapentin 300 mg capsule TAKE ONE CAPSULE BY MOUTH THREE TIMES DAILY active Not Available Not Available No t Available budesonide DR - ER 3 mg capsule,delaye d,extended release take 3 capsules by mouth once daily for 1 month, then decrease to 2 capsules daily for 1 month, then begin 1 capsule daily for 1 month. active Not Available Not Available No t Available diazepam 10 mg tablet Take 1 tablet by mouth daily as directed. active Not Available Not Available No t Available oxybutynin chloride 5 mg tablet TAKE ONE TABLET BY MOUTH TWICE DAILY active Not Available Not Available No t Available oxycodone 5 mg tablet TAKE ONE TABLET BY MOUTH EVERY FOUR HOURS NEEDED FOR PAIN active Not Available Not Available No t Available metoprolol tartrate 25 mg tablet TAKE ONE TABLET BY MOUTH TWICE DAILY active Not Available Not Available No t Available Vitals Date Recorded Body height Body mass index (BMI) Body weight Provider Name and Address Organization Details Last Updated DateTime 05/05/2020 170.18 cm 26.6 kg/m2 19622.7 g Rogers Waldrop [facility] 05/05/2020 14:40:40 Date Recorded Body height Body mass index (BMI) Body weight Respiratory rate Provider Name and Address Organization Details Last Updated DateTime 05/09/2020 170.18 cm 26.6 kg/m2 94061.7 g 16 /min Adeline Kern [facility] 05/09/2020 11:08:42 Social History Question Answer Notes LastModified by Organizat ion Details LastModified Time Tobacco Smoking Status Never Smoker Rogres cade, [facility] 05/05/2020 14:43:29 What Is Your Level Of Alcohol Consumption? Moderate Information not available 05/05/2020 What Is Your Level Of Caffeine Consumption? Moderate Information not available 05/05/2020 How Much Tobacco Do You Chew? None Information not available 05/05/2020 Do You Or Have You Ever Used E-cigarettes Or Vape? Never Used Electronic Cigarettes Information not available 05/05/2020 Recreational Drug Use No Information not available 05/05/2020 Marital Status Informatio n not available 05/05/2020 What Was The Date Of Your Most Recent Tobacco Screening? 05/05/2020 Information not available 05/05/2020 Do You Or Have You Ever Used Smokeless Tobacco? Never Used Smokeless Tobacco Information not available 05/05/2020 Sex: Unknown Functional Status None recorded. Mental Status None recorded. Family History Relationship Description Onset Age of this Age Resolved Age Notes LastModified by Organization Details LastModified Time Father Family history of malignant neoplasm [email or web address] Not available 2020 14:42:32 Father Family history of Hypertension [email or web address] Not available 14:42:45 Maternal Grandmother Family history of diabetes mellitus [email or web address] Not available 2020 14:42:56 Medical History No medical history recorded. Past Encounters Encounter ID Performer Location Encounter Start Date Encounter Closed Date Diagnosis/Indication Diagnosis SNOMED-CT Code Diagnosis ICD10 Code [id number] Gibson Rodriguez MD [facility] [address] [place] [address] 05/05/2020 13:58:06 05/07/2020 08:36:30 Kidney stone 00809224 N20.0 [id number] Perry Pereyra MD [facility] [address] [place] [address] 05/09/2020 10:40:52 05/09/2020 16:04:38 Ureteric stone 93347609 N20.1 Health Concerns Section Related Observation LastModified by Organization Detai ls LastModified Time None Recorded Concern Status LastModified by Organization Details LastModified Time None Recorded Advance Directives Directive None Recorded Payers Encounter Date Sequence Insurance Name Policy Number Policy Monahan Covered Member ID Monahan Member ID Guarantor Name 05/05/2020 1 [facility]: (MEDICARE REPLACEMENT PPO) [id number] Juliette R Book [id number] Dontae R Book 05/09/2020 1 [facility] [id number] Dontae R Book [id number] Dontae R Book Notes Date Note Type Note Provider Name and Address Organization Details Recorded Time 05/05/2020 text/html 65 yoM who under went right stent placement for 8 mm obstructing UPJ stone 04/08/20 with subsequent ESWL 04/21/[address] Pererya. Due to scheduling availability he is here with me today to review KUB and remove indwelling ureteral stent. Gibson Rodriguez MD [address] [place] [address],[address], [place], [address], [facility] 05/05/2020 16:21:24 05/09/2020 text/html s/p right extracorporeal shockwave lithotripsy of 7 mm ureteral stone and right low pole kidney 7 mm stone on 04/21/2020. DR. Rodriguez was unable take the stent out given discomfort associated with it. He came here today for right stent removal. He saw Dr. Rodriguez 05/05/2020. KUB showed small fragments in the right low pole kidney. Perry Pereyra MD [address] [place] [address],[address], [place], [address], [facility] 05/09/2020 16:03:45
--- OUTSIDE RECORDS SUMMARY | 2023-12-21 12:13 | XMS_ITS | Continuity of Care Document ---
Author Organization [facility] Address [address] [place] [address] Phone Care Team Providers Care Electronics Supervisor Name Role Phone Alicia Lion MD Unavailable [...] - Includes PSF at the same level TLIF - Additional Level(s) Includes PSF at [...] [facility], [address], [place], [id number] , [place] tel: [phone] [facility] No Information 2 Mehbod Amir. [facility] [place], [address] [place] [address], [place], [id number] , [place]. tel: [phone] OFFICE/OUTPA TIENT VISIT EST Phone [facility], [address], [place], [id number] , [place] tel: [phone] [facility] No Information 0 Stacy Moreno. [address] [place] [address], [place], [id number] , [place]. tel: [phone] Referring Provider: Zeyad Johnson, [address], [place], [address]. tel:[phone] [facility], [address], [place], [id number] , [place] tel: [phone] [facility] No Information 0 Mehbod Amir. [facility] [place], [address] [place] [address], [place], [id number] , [place]. tel: [phone] [facility], [address], [place], [id number] , [place] tel: [phone] [facility] No Information 0 Mehbod Amir. [facility] [place], [address], [place], [place], [id number] , [place]. tel: [phone] [facility], [address], [place], [place], [id number] , [place] tel: [phone] [facility] No Information 0 Stacy Moreno. [address] [place] [address], [place], [place], [id number] , [place]. tel: [phone] Referring Provider: Zeyad Johnson, [employer] [address] [facility], [place], [address]. tel:[phone] [facility], [address], [place], [place], [id number] , [place] tel: [phone] [facility] No Information 0 Mehbod Amir. [facility], [address] [place] [address], [place], [place], [id number] , [place]. tel: [phone] Referring Provider: Zeyad Johnson, [employer] [address] [facility], [place], [address]. tel:[phone] Office/Outpa tient Visit,New, Mod [facility], [address], [place], [place], [id number] , [place] tel: [phone] [facility] No Information 0 Mehbod Amir. [facility] [place], [address] [place] [address], [place], [place], [id number] , [place]. tel: [phone] Referring Provider: Zeyad Johnson [employer] [address] [facility], [place], [address]. tel:[phone] Office/Outpa tient Visit,Est, Mod [facility], [address], [place], [place], [id number] , [place] tel: [phone] [facility] Arthrodesis statusRadiculopat hy, cervical region 6 Mehbod Amir. [facility], [address], [place], [place], [id number] , [place]. tel:[phone] Referring Provider: Zeyad Johnson, [employer] [facility] [facility], [place], [address]. tel:[phone] Office/Outpa tient Visit,New, Mod [facility], [address], [place], [place], [id number] , [place] tel:[phone] [facility] Radiculopathy, cervical regionArthrodesis status 6 Mehbod Amir. [facility], [address], [place], [place], [id number] , [place]. tel:[phone] Referring Provider: Zeyad Johnson, [employer] [address] [facility], [place], [address]. tel:[phone] Family History Family Member Type Diagnosis Age At Onset Problem (finding) Problem (finding) Payers Payer name Insurance type Covered green party ID Authorhinaa kyle(s) [facility] [id number] [facility] [id number] Social History Type Description Quantity Date Captured [...]
--- OUTSIDE RECORDS SUMMARY | 2023-12-21 12:13 | XMS_ITS | Clinical Summary ---
Author Organization [employer] [facility] Address [place], [place] [address] Care Team Providers Care Recenterer Name Role Phone Yunior Agrawal MD Unavailable [phone] Jerardo Wiseman MD Primary Care Provider [phone] Lourdes Weinstein DO Unavailable [phone] Ge Wagner RN Unavailable Unavailabl Gallito Wetzel NP Unavailable [phone] Allergies Active Allergy Reactions Criticality Noted Date Comments Allopurinol Rash 07/04/2018 Atenolol Other - Describe In Comment Field 10/13/2011 Leg cramps Codeine GI Upset Medium 03/05/2006 Hydrochlorothiazide Itching,Myalgia 03/02/2012 Medications Medication Sig Dispensed Refills Start Date End Date Status nitroglycerin (NITROSTAT) 0.4 mg sublingual tabletIndications :Chest pain in adult Place 1 tablet under the tongue every 5 minutes if needed for Chest Pain (For chest pain x 3. Hold if SBP less than 90 mmHg.). 25 tablet 1 07/11/19 20 Active ezetimibe (ZETIA) 10 mg tabletIndications :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 Take 1 Tablet (10 mg) by mouth once daily. 90 Tablet 3 01/29/20 23 Active lisinopriL (PRINIVIL; ZESTRIL) 10 mg tabletIndications :Essential hypertension Take 1 Tablet (10 mg) by mouth once daily. 90 Tablet 3 04/25/19 24 Active famotidine (PEPCID) 20 mg tabletIndications :Gastritis, presence of bleeding unspecified, unspecified chronicity, unspecified gastritis type Take 1 Tablet (20 mg) by mouth two times daily. 180 Tablet 3 05/29/19 24 Active rosuvastatin (CRESTOR) 40 mg tabletIndications :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 Take 1 Tablet (40 mg) by mouth at bedtime. 90 Tablet 3 05/29/19 24 Active isosorbide mononitrate (IMDUR) 30 mg extended release tablet 24 HourIndications:C oronary artery disease involving andreafski coronary artery of andreafski heart without angina pectoris,Stable angina (HC) Take 2 Tablets (60 mg) by mouth once daily. 180 Tablet 3 08/03/19 24 Active metoprolol succinate (Toprol XL) 50 mg sustained-release tabletIndications :Stable angina (HC) Take 1.5 Tablets (75 mg) by mouth once daily. 135 Tablet 3 08/03/19 24 Active methocarbamoL (ROBAXIN) 750 mg tabletIndications :Other chronic pain Take 1 Tablet (750 mg) by mouth 3 times daily if needed for Muscle Spasm. 60 Tablet 2 10/05/19 24 Active levETIRAcetam (KEPPRA) 750 mg tabletIndications :Seizure (HC) Take 1 Tablet (750 mg) by mouth two times daily. 60 Tablet 2 11/01/19 24 Active diazePAM (Valtoco) 15 mg/2 spray (7.5/0.1mL x 2) spryIndications:S eizure (HC) Inhale 1 Lawrence in both nostrils each time if needed (seizure lasting > 3 minutes). 2 Each 11/01/19 24 Active Triamcinolone Acetonide 0.05 % ointment Apply topically to affected area(s) 2 times daily if needed. Active gabapentin (NEURONTIN) 300 mg capsuleIndication s:Cervical radiculopathy 600 mg in the morning, 300 mg in the afternoon, and 600 mg in the evening 11/14/19 24 Active colchicine 0.6 mg tablet Take 0.6 mg by mouth 2 times daily if needed for Gout Pain. Active diphenhydrAMINE (BENADRYL) 25 mg tablet Take 50 mg by mouth at bedtime if needed. Active sennosides (SENNA) 8.6 mg tabletIndications :Constipation, unspecified constipation type Take 1-2 Tablets (8.6-17.2 mg) by mouth 2 times daily if needed for Constipation. 30 Tablet 12/03/19 24 Active acetaminophen (TYLENOL EXTRA STRGTH) 500 mg tabletIndications :Acute post-operative pain Take 2 Tablets (1,000 mg) by mouth every 6 hours if needed for Pain or Headache. Max acetaminophen dose: 4000mg in 24 hrs. 12/03/19 24 Active clopidogreL (PLAVIX) 75 mg tabletIndications :Coronary artery disease, unspecified vessel or lesion type, unspecified whether angina present, unspecified whether andreafski or transplanted heart,Cardiomyopa thy, unspecified type (HC) Take 1 Tablet (75 mg) by mouth once daily in the morning. OK to resume on 12/0812/09/19 24 Active WalkerIndications :S/P craniotomy Walker with front wheels for home use. 1 Each 12/03/19 24 Active sennosides-docusa te (Senna-S) (8.6-50 mg) tabletIndications :Grade III astrocytoma (HC),Constipation , unspecified constipation type Take 1-4 tablets by mouth twice daily as needed for constipation 240 Tablet 5 12/12/19 24 Active ondansetron (ZOFRAN) 8 mg tabletIndications :Grade III astrocytoma (HC),Chemotherapy induced nausea and vomiting Take 1 tablet (8 mg total) by mouth at least 30 minutes prior to chemotherapy and every 8 hours as needed for nausea/vomiting. 30 Tablet 12/12/19 24 Active acetaminophen-cod eine (TYLENOL #3) 300-30 mg per tabletIndications :Astrocytoma (HC),S/P craniotomy Take 1 Tablet by mouth every 6 hours if needed for Pain. Max acetaminophen dose: 4000mg in 24 hrs. 28 Tablet 12/19/19 24 Active acetaminophen (TYLENOL EXTRA STRGTH) 500 mg tablet Take 500 mg by mouth once daily if needed. Max acetaminophen dose: 4000mg in 24 hrs. 024 Discontinued(*P atient states no longer taking) sennosides-docusa te (SENOKOT S) (8.6-50 mg) tabletIndications :Constipation, unspecified constipation type Take 1-2 Tablets by mouth 2 times daily if needed for Constipation. Hold for loose stools. 30 Tablet 11/12/19 Discontinued(*P atient states no longer taking) oxyCODONE (ROXICODONE) 5 mg immediate release tabletIndications :Acute post-operative pain Take 1-2 Tablets (5-10 mg) by mouth every 4 hours if needed for Pain. 15 Tablet 11/12/19 Discontinued(Re order (E-cancel not sent)) glucosamine/chond roitin/C/Amor (GLUCOSAMINE 1500 COMPLEX ORAL) Take by mouth. 024 Discontinued(*P atient states no longer taking) dexAMETHasone 2 mg tabletIndications :S/P craniotomy Take 1 Tablet (2 mg) by mouth two times daily with meals for 1 day, THEN 1 Tablet (2 mg) once daily with a meal for 2 days. 4 Tablet 12/03/19 oxyCODONE (ROXICODONE) 5 mg immediate release tabletIndications :Acute post-operative pain Take 1-2 Tablets (5-10 mg) by mouth every 4 hours if needed for Pain. 15 Tablet 12/03/19 Discontinued(*M ed ineffective) acetaminophen-cod eine (TYLENOL #3) 300-30 mg per tabletIndications :Astrocytoma (HC),S/P craniotomy Take 1 Tablet by mouth every 6 hours if needed for Pain. Max acetaminophen dose: 4000mg in 24 hrs. 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 Brain tumor 11/12/2023 Mass of brain 11/01/2023 Brain mass 11/01/2023 Prostate enlargement 08/05/2022 Unstable angina pectoris 05/31/2022 023 Stable angina 05/24/2022 Status post insertion of toy g-eluting stent into left anterior descending (LAD) artery 05/24/2022 Hepatic hemangioma 04/28/2020 Overview (04/28/2020): Stable on MRI 04/2020 Right flank pain 04/07/2020 Obstruction of right uretero pelvic junction (UPJ) due to stone 04/07/2020 Lymphocytic colitis 04/03/2020 Overview (04/03/2020): Colonoscopy 03/2020 lymphocytic colitis, no polyps, repeat in 10 years Regular astigmatism of both eyes 01/18/2017 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 ASHD 04/14/2015 Overview (05/24/2022): - August 2012: s/p ESTRELLA pLAD - 05/24/22: s/p ESTRELLA ISR pLAD S/P lumbar spinal fusion L4-S1 12/05/2014 Hyperlipidemia LDL goal < 70 09/07/2012 Liver lesion 05/30/2012 Gastritis 05/15/2012 PVC's (premature ventricular contractions) 05/09 Cardiomyopathy 04/06/2012 HTN (hypertension) 03/03/2012 Gout, unspecified 11/04/2011 S/P cervical spinal fusion C4-C6 04/15/2010 Degeneration of lumbar or lumbosacral interverte bral disc 01/13/2007 Right L3-4 subarticular recess stenosis 01/14/20 07 Osteoarthrosis, unspecified whether generalized or localized, lower leg 03/05/2006 Overview (03/05/2006): bilat 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 Overview (04/14/2020): Slightly high total bilirubin for many years - likely [place] Impaired fasting glucose Osteoarthritis of hand, right Chronic pain Overview (05/31/2022): joints Resolved Problems Problem Noted Date Diagnosed Date Resolved Date NSTEMI (non-ST elevated myoc ardial infarction) 08/30/2012 04/14/2015 Right shoulder adhesive capsulitis 09/14/2011 12/05/2014 Encounters Date Type Department Care Team Description 12/21/2023 Nurse Triage [facility] [address] [place] [address] Jerardo Wiseman MD Decreased Hearing 12/20/2023 9:45 AM SVP CHIEF MARKETING OFFICER Orders Only [facility] [address] [place] [address] Lab, [facility] 12/20/2023 Telephone [facility] [address] [place] [phone] Renetta Lakhani, [facility] Social Work Contact 12/20/2023 Travel 12/18/2023 Refill [facility] [address] [place] [address] Jerardo Wiseman MD Refill Request (Acetaminophen-code ine) 12/16/2023 Travel 12/13/2023 Orders Only [facility] [address] [place] [phone] Lourdes Weinstein DO <No scans attached> 12/13/2023 Telephone [facility] [address] [place] [phone] Lourdes Weinstein DO Prior Authorization (ondansetron (ZOFRAN) 8 mg tablet Approved 11/13/23-12/12/24) 12/12/2023 11:00 AM SVP CHIEF MARKETING OFFICER Office Visit [facility] [address] [place] [phone] Joselyn Hoang NP Suture Removal ( S/p 11/30/23 Right temporal craniotomy for tumor. 2 wk suture removal) 12/12/2023 9:15 AM SVP CHIEF MARKETING OFFICER Office Visit [facility] [address] [place] [address] Lourdes Weinstein DO 12/12/2023 Orders Only [facility] [address] [place] [address] Lourdes Weinstein DO <No scans attached> 12/12/2023 Travel 12/09/2023 Telephone [facility] [address] [place] [address] Jerardo Wiseman MD Error-please disregard (Error-please disregard) 12/09/2023 Telephone [facility] [address] [place] [address] Jerardo Wiseman MD Questions (If they can get seen at [facility] in [place].) 12/08/2023 2:00 PM CDT Office Visit [facility] [address] [place] [address] Jerardo Wiseman MD Hospital F/U 12/08/2023 Travel 12/07/2023 Telephone [facility] [address] [phone] Josh Castillo MD Questions 12/06/2023 Travel 12/05/2023 Travel 12/05/2023 Patient Outreach [facility] [address] [place] [address] Viviana Parker RN Primary RN Care Management; Hospital F/U (LACE 63/) 11/30/2023 1:33 PM CDT Anesthesia Event [facility] [address] [place] [address] Betty Bartholomew DO Bottcher, Rachel, PERFUME MAKER Student 11/30/2023 11:40 AM CDT - 11/30/2023 3:59 PM CDT Surgery [facility] [address] [place] [address] Josh Castillo MD Right temporal craniotomy for tumor 11/30/2023 9:26 AM CDT - 12/03/2023 1:10 PM CDT Hospital Encounter [facility] [address] [place] [address] Josh Castillo MD Vujkovic, Sinisa, MD [facility] [place], [facility] Of S/P craniotomy (Primary Dx); Acute post-operative pain; Constipation, unspecified constipation type; Status post insertion of drug-eluting stent into left anterior descending (LAD) artery; Coronary artery disease, unspecified vessel or lesion type, unspecified whether angina present, unspecified whether andreafski or transplanted heart; Cardiomyopathy, unspecified type (HC) Discharge Disposition: Home Health 11/29/2023 8:36 AM CDT - 11/29/2023 11:59 PM CDT Hospital Encounter [facility] [address] [place] [address] Josh Castillo MD Glioma (HC) 11/29/2023 Travel 11/25/2023 Nurse/Clinic Staff Only [facility] [address] [place] [address] Josh Castillo MD 11/22/2023 10:05 AM CDT Procedure Only [facility] [address] [place] [address] Jerardo Wiseman MD Suture Removal 11/22/2023 Orders Only [facility] [address] [place] [address] Josh Castillo MD <No scans attached> 11/21/2023 9:00 AM CDT Office Visit [facility] [address] [place] [address] Josh Castillo MD Post-op (Right Frontal Stereotactic Biopsy/11/11/2023 Dr. Castillo/) 11/21/2023 Telephone [facility] [address] [place] [address] Lourdes Weinstein DO Oncology Nurse Navigation 11/21/2023 Travel 11/19/2023 Travel 11/18/2023 1:15 PM CDT Office Visit [facility] [address] [place] [address] Lourdes Weinstein DO 11/17/2023 Travel 11/15/2023 Telephone [facility] [address] [place] [address] Joselyn Hoang, BACK DIGGER OPERATOR Results 11/14/2023 7:50 AM CDT Office Visit [facility] [address] [place] [address] Jerardo Wiseman MD Hospital F/U (DOS 11/11/2023, ANW) 11/14/2023 Patient Outreach [facility] [address] [place] [address] Viviana Parker, RN Primary RN Care Management; Hospital F/U (LACE 43) 11/13/2023 Travel 11/11/2023 10:33 AM CDT Anesthesia Event [facility] [address] [place] [address] Alyse Catrachitajhony Patiño CRNA 11/11/2023 10:30 AM CDT - 11/11/2023 12:28 PM CDT Surgery [facility] [address], [place] [address] Josh Castillo MD Right Frontal Stereotactic Biopsy 11/11/2023 8:03 AM CDT - 11/12/2023 12:44 PM CDT Hospital Encounter [facility] [address] [place] [address] Josh Castillo MD Acute post-operative pain (Primary Dx); Constipation, unspecified constipation type Discharge Disposition: Home Self Care 11/10/2023 3:06 PM CDT - 11/10/2023 11:59 PM CDT Hospital Encounter [facility] [address], [place] [address] Joselyn Hoang NP Brain tumor (HC) 11/10/2023 Travel 11/10/2023 Telephone [facility] [address] [phone] Josh Castillo MD Medication List Update 11/09/2023 Travel 11/04/2023 8:25 AM CDT Office Visit [facility] [address] [place] [address] Jerardo Wiseman MD Preoperative Exam (Surgery 11/10); Immunization/Inject ion 11/04/2023 Telephone [facility] [address] [place] [address] Jerardo Wiseman MD Form (FMLA) 11/04/2023 Travel 11/03/2023 Travel 11/02/2023 Patient Outreach [facility] [address] [place] [address] Viviana Parker, RN Primary RN Care Management; Hospital F/U (LACE 70) 11/01/2023 Orders Only [facility] [address] [place] [address] Joselyn Hoang NP <No scans attached> 10/31/2023 12:11 PM CDT - 11/01/2023 4:30 PM CDT Hospital Encounter [facility] [address] [place] [address] Danny Loomis, DO [facility] [place], [facility] Hospitalists Of Jian Driver MBBS Philpot, Nicholas John, MD Brain mass (Primary Dx); Syncope, unspecified syncope type; Seizure-like activity (HC); Seizure (HC) Discharge Disposition: Home Self Care 10/31/2023 Travel 10/31/2023 Nurse Triage [facility] [address] [place] [address] Jerardo Wiseman MD Possible Seizure 10/26/2023 Refill [facility] [address] [place] [address] Jerardo Wiseman MD Refill Request (Gabapentin) 10/04/2023 Refill [facility] [address] [place] [address] Zeyad Burkett MD Refill Request (Methocarbamol Oral tablet 750mg) 09/26/2023 8:00 AM CDT Office Visit [address] [place] [address] Jesse Arce MD CV General Cardiology Est (F/U - PET Scan & NM Stress done 07/27; Pt has no other concerns today) 09/26/2023 Travel from Last 3 Months Immunizations Name Administration Dates Next Due Amb Influenza, Inactivated A IIV4 (Age 65+ Years) Preserv Free 11/07/2019 COVID-19 VACCINE SPIKEVAX (M ODERNA 50MCG/0.5ML) 12YO+ PFS 11/04/2023,11/24/2022 COVID-19 vaccine (Moderna 100mcg/0.5mL) MD ADONISV 05/29/2021,05/08/2020,04/10/2020 COVID-19 vaccine (Tripshare-Bio NTech 30mcg/0.3mL) 12YO+ BIVALENT PF, MDV 12/21/2021 Influenza, IIV3 (Age >=3 years) 11/18/19 13,02/18/2012,03/22/2011,2009,11/24/2007,12/12/2006,12/22/2004,1 03/20/2002 Influenza, IIV4 03/02/2018, 8,04/16/2016,2015 Influenza, IIV4 (=>6mos) MDV 01/09/2019 Influenza, Inactivated AIIV4 (Age 65+ Years) Preserv Free 11/24/2022,12/21/2021,10/27/2020 Influenza, Inactivated IIV3 (Age 65+ Years) Preserv Free 11/04/2023 Influenza, RIV3 (Age =>18 Years) 02/11/2014 Pneumococcal Conj 20-valent (Prevnar 20) 02/11/2022 Pneumococcal Poly,23-Valent (Pneumovax) 07/17/2019 Td (Age >=7 Years) 03/19/2019 Tdap 02/11/2009 Typhoid (injectable) 06/08/2001 Zoster (Shingrix-RZV, recombinant) 05/15/2018, Zoster (Zostavax-ZVL, live) 02/14/2015 Family History Medical History Relation Name Comments Good Health Brother 2 Cancer Father pancrease Diabetes Maternal Grandmother Cancer Sister 3 Dari brain tumor Good Health Sister 4 Good Health Son 2 Relation Name Status Comments Brother 1 Alive Brother 2 Father (Age 70) Maternal Grandmother Mother (Age 75) iatrogenic infection Other kaity Alive Sister 1 Alive Sister 2 Alive Sister 3 Dari Sister 4 Son 1 angela Alive Son 2 Social History Tobacco Use Types Packs/Day Years Used Date Smoking Tobacco: Never Smokeless Tobacco: Never Tobacco Cessation:Counseling Given: Yes Alcohol Use Standard Drinks/Week Comments Yes 14 (1 standard drink = 0.6 oz pu re alcohol) 0-2 glass of wine a night PHQ-2 Answer Date Recorded PHQ-2 TOTAL SCORE 0 05/26/2023 Social Connections Answer Date Recorded Do you often feel lonely or isolated from those around you? 0 11/01/2023 Financial Resource Strain Answer Date R ecorded Difficulty of Paying Living Expenses 3 04/18/2023 Difficulty of Paying Living Expenses Not on file 04/18/2023 Food Insecurity Answer Date Recorded Do you worry your food will run out before you are able to buy more? 1 11/01/2023 Transportation Needs Answer Date Record ed Does lack of transportation keep you from medica l appointments? 1 11/01/2023 Does lack of transportation keep you from work, meetings or getting things that you need? 1 11/01/2023 Housing Stability Answer Date Recorded What is your housing situation today? 1 11/01/2023 Sex and Gender Information Value Date Recorded Sex Assigned at Male 09/03/2019 11:10 AM CDT Gender Identity Male 09/03/2019 11:10 AM CDT Sexual Orientation Straight 09/03/2019 11 :10 AM CDT Obstetrics History Last Filed Vital Signs Vital Sign Reading Time Taken Comments Blood Pressure 113/85 12/12/2023 9:00 AM SVP CHIEF MARKETING OFFICER Pulse 80 12/12/2023 9:00 AM SVP CHIEF MARKETING OFFICER Temperature 36.4 ??C (97.6 ??F) 12/03/2023 8:00 AM CD T Respiratory Rate 16 12/12/2023 9:00 AM SVP CHIEF MARKETING OFFICER Oxygen Saturation 95% 12/12/2023 9:00 AM SVP CHIEF MARKETING OFFICER Inhaled Oxygen Concentration - - Weight 73.4 kg (161 lb 12.8 oz) 12/12/2023 9:00 AM SVP CHIEF MARKETING OFFICER Height 167.6 cm (5' 6) 11/30/2023 11:1 0 AM CDT Body Mass Index 26.12 11/30/2023 11:10 AM CDT Plan of Treatment Upcoming Encounters Date Type Department Care Team (Late st Contact Info) Description 01/10/2024 2:00 PM SVP CHIEF MARKETING OFFICER Office Visit [facility] [address] [phone] Joselyn Hoang NP [address] [address] Health Maintenance Due Date Last Done Comments COVID-19 vaccine series ( season) 2023 11/04/2023, 11/24/2022, 12/21/2021, Additional history exists Depression screening for age 12+ 05/26/2024 05/27/2023, 05/27/2023, 05/26/2023, Additional history exists BMI (ht and wt on same day) for age 18+ 11/03/2024 11/04/2023, 09/26/2023, 06/22/2023, Additional history exists Lipids for age 45-75 05/25/2028 05/26/2023, 01/19/2023, 02/11/2022, Additional history exists Tetanus booster 03/19/2029 03/19/2019, 02/11/2009 Colonoscopy through age 75 04/02/203004/02, 04/02/2020, 04/02/2020, Additional history exists Tdap Completed 02/11/2009 Zoster (shingles) series for age 50+ Completed 05/15/2018, 03/13/2018, 02/14/2015 Hepatitis C screening for ag e 18-79 Completed 05/06/2020 Pneumococcal series for age 65+ Completed , 07/17/2019 Influenza for age 65+ Completed 11/04/2023 , 11/24/2022, 12/21/2021, Additional history exists Medical Devices Implanted Type Area Voicer Device Identifier Shelf Expiration Date Model / Serial / Lot [id number] bone Matrix 6cc [place] Dbf Putty Dbm Implanted:Qty: 1 on 03/28/2019 by Alicia Lion MD at [facility] Explanted:at [facility] (Quantity not on file) Spine Medtronic Spine/Ortho 11/13/2020 T50 106# / [id number] / Chuckie Lmbr 90x5.5mm Solera 5.5/6cvd [facility] - [id number] Implanted:Qty: 1 on 03/28/2019 by Alicia Lion MD at [facility] Spine Medtronic Spine/Ortho [id number] 90# / / [id number] bone 1-4mm 60cc Medtronic Fine Canclls Freeze Dried Implanted:Qty: 1 on 03/28/2019 by Alicia Lion MD at [facility] Explanted:at [facility] (Quantity not on file) Spine Medtronic Spine/Ortho 08/17/2023 800 111# / [id number] / Spacer Lmbr 9x26mm Capstone Tlif Peek - [id number] Implanted:Qty: 1 on 03/28/2019 by Alicia Lion MD at [facility] Spine Medtronic Spine/Ortho 07/27/2026 299 0926# / / [id number] Spacer Lmbr 9x26mm Capstone Tlif Peek - [id number] Implanted:Qty: 1 on 03/28/2019 by Alicia Lion MD at [facility] Spine Medtronic Spine/Ortho 10/25/2021 299 0926# / / [id number] Set Screw Lmbr Ant 5.5mm Solera Break Off - [id number] Implanted:Qty: 6 on 03/28/2019 by Alicia Lion MD at [facility] Spine Medtronic Spine/Ortho 554 0030# / / Screw Lmbr Post 6.5x45mm Solera 5.5/6 Va Cocr - [id number] Implanted:Qty: 2 on 03/28/2019 by Alicia Lion MD at [facility] Spine Medtronic Spine/Ortho [id number] 545# / / Screw Lmbr Post 7.5x45mm Solera 5.5/6 Va Cocr - [id number] Implanted:Qty: 2 on 03/28/2019 by Alicia Lion MD at [facility] Spine Medtronic Spine/Ortho 558 [id number] 545# / / Chuckie Lmbr 80x5.5mm Solera 5.5/6cvd Titnm - [id number] Implanted:Qty: 1 on 03/28/2019 by Alicia Lion MD at [facility] Spine Medtronic Spine/Ortho [id number] 80# / / Stent Uret 3vil62fy Contour - [id number] Implanted:Qty: 1 on 04/08/2020 by Perry Pereyra MD at [facility] Right: Ureter [facility]SC Urology 01/01/2023 [id number] / / [id number] Description:See implant shee t Graft Dural 2x2in Duramatrix Suturable Bovine - [id number] Implanted:Qty: 1 on 11/30/2023 by Josh Castillo MD at [facility] Right: Cranium Larry Craniomaxillofacial 10/07/2025 [id number] / / [id number] Implnt Pterional Rt - [id number] Implanted:Qty: 1 on 11/30/2023 by Josh Castillo MD at [facility] Right: Cranium [place] Craniomaxillofacial 07/28/2030 [id number] / / [id number] Screw Neuro 4mm Matrixneuro Slf Drill Titnm - [id number] Implanted:Qty: 12 on 11/30/2023 by Josh Castillo MD at [facility] Right: Cranium J And J Depuy CMF [id number] 04.01 / / [place] Cover Neuro 17mm Synthes Low Pro Titnm - [id number] Implanted:Qty: 2 on 11/30/2023 by Josh Castillo MD at [facility] Right: Cranium J And J Depuy CMF 421.527 / / [place] Cover Neuro 24mm Synthes Low Pro Titnm - [id number] Implanted:Qty: 1 on 11/30/2023 by Josh Castillo MD at [facility] Right: Cranium J And J Depuy CMF 421.528 / / Explanted Type Area Voicer Device Identifier Shelf Expiration Date Model / Serial / Lot Unknown Poss. Old Synergy Explanted:Qty: 1 on 03/28/2019 by Alicia Lion MD at [facility] / / X Description:2 screws; 2 sets crews; 2 locking nuts; 2 partial rods. Procedures Procedure Name Priority Date/Time Associated Diagnosis Comments CBC WITH AUTO DIFFERENTIAL Routine 12/20/2023 9:10 AM SVP CHIEF MARKETING OFFICER Grade III astrocytoma (HC) Therapeutic drug monitoring COMP METABOLIC PANEL Routine 12/20/2023 9:10 AM SVP CHIEF MARKETING OFFICER Grade III astrocytoma (HC) Therapeutic drug monitoring PLATELET COUNT Timed 12/03/2023 8:17 AM CDT GLUCOSE METER Timed 12/03/2023 7:22 AM CDT GLUCOSE METER Timed 12/02/2023 10:39 PM CDT GLUCOSE METER Timed 12/02/2023 5:05 PM CDT GLUCOSE METER Timed 12/02/2023 11:23 AM CDT SCAN-CARDIAC STRIP 12/02/2023 8: 27 AM CDT GLUCOSE METER Timed 12/02/2023 7:47 AM CDT CBC W PLT NO DIFF Early AM 12/02/2023 4:4 5 AM CDT BASIC METABOLIC PANEL Early AM 12/02/2023 4:45 AM CDT GLUCOSE METER Timed 12/01/2023 10:47 PM CDT SODIUM Timed 12/01/2023 7:36 PM CDT GLUCOSE METER Timed 12/01/2023 6:21 PM CDT SCAN-CARDIAC STRIP 12/01/2023 3: 20 PM CDT PHOSPHORUS Today 12/01/2023 1:44 PM CDT MAGNESIUM Today 12/01/2023 1:44 PM CDT BASIC METABOLIC PANEL Today 12/01/2023 1:44 PM CDT GLUCOSE METER Timed 12/01/2023 11:45 AM CDT GLUCOSE METER Timed 12/01/2023 8:12 AM CDT SCAN-CARDIAC STRIP 12/01/2023 7: 26 AM CDT SODIUM Timed 11/30/2023 8:24 PM CDT SCAN-CARDIAC STRIP 11/30/2023 7: 59 PM CDT ENDOTRACHEAL TUBE Routine 11/30/2023 2:2 9 PM CDT ENDOTRACHEAL TUBE Routine 11/30/2023 2:2 9 PM CDT ENDOTRACHEAL TUBE Routine 11/30/2023 2:2 9 PM CDT HCHG KIT PR5 Routine 11/30/2023 2:02 PM CDT HCHG DRSG PR1 Routine 11/30/2023 2:02 PM CDT HCHG TUBING PR20 Routine 11/30/2023 2:02 PM CDT HCHG TUBING PR1 Routine 11/30/2023 2:02 PM CDT HCHG ANES US GUIDE FOR VASC ACCESS Routine 11/30/2023 2:02 PM CDT HCHG CATH PR5 Routine 11/30/2023 2:02 PM CDT HCHG CATH PR5 Routine 11/30/2023 2:02 PM CDT CRANIOTOMY REMOVAL TUMOR STEALTH GUIDED Class E Urgent 11/30/2023 12:58 PM CDT Glioma (HC) Case Notes Midas Buster, microscope, Stealth. supine positioning with head in a Goodman glover PATH TISSUE EXAM Today 11/30/2023 12:34 PM CDT BLOOD BANK EXTRA LAVENDER TOP STAT 11/30/2023 12:23 PM CDT (IA) COLD SOPHIE PANEL Preop 11/30/2023 11:00 AM CDT RH(D) TYPE STAT 11/30/2023 11:00 AM CDT TYPE & SCREEN Preop 11/30/2023 11:00 AM CDT SCAN-CARDIAC STRIP 11/30/2023 12:00 AM CDT MR HEAD BRAIN WO YESI 11/29/2023 9:54 AM CDT Glioma (HC) CMAPT AP SEND-OUT Timed 11/11/2023 11:44 AM CDT PATH TISSUE EXAM Today 11/11/2023 11:13 AM CDT ENDOTRACHEAL TUBE Routine 11/11/2023 11:03 AM CDT ENDOTRACHEAL TUBE Routine 11/11/2023 11:03 AM CDT ENDOTRACHEAL TUBE Routine 11/11/2023 11:03 AM CDT BIOPSY BRAIN STEREOTACTIC Elective 11/11/2023 10:15 AM CDT Brain tumor (HC) Case Notes Supine, [place] SCAN-CARDIAC STRIP 11/11/2023 12:00 AM CDT MR HEAD BRAIN WWO Routine 11/10/2023 4:1 9 PM CDT Brain tumor (HC) CONTINUOUS VIDEO EEG MONITORING Routine 11/01/2023 8:19 AM CDT PLATELET COUNT Early AM 11/01/2023 7:08 AM CDT HEMOGLOBIN Early AM 11/01/2023 7:08 AM CDT WHITE BLOOD COUNT Early AM 11/01/2023 7:0 8 AM CDT MAGNESIUM Early AM 11/01/2023 7:08 AM CDT CREATININE Early AM 11/01/2023 7:08 AM CDT POTASSIUM Early AM 11/01/2023 7:08 AM CDT SODIUM Early AM 11/01/2023 7:08 AM CDT SCAN-CARDIAC STRIP 11/01/2023 1: 08 AM CDT TROPONIN T (HS) ONE TIME Timed 10/31/2023 4:30 PM CDT MR HEAD BRAIN WWO STAT 10/31/2023 3:[address] HEAD BRAIN WO STAT 10/31/2023 2:27 PM CDT TROPONIN T (HS) ACUTE W/2HR REFLEX STAT 10/31/2023 12:51 PM CDT MAGNESIUM STAT 10/31/2023 12:51 PM CDT BASIC METABOLIC PANEL STAT 10/31/2023 12:51 PM CDT CBC W PLT NO DIFF STAT 10/31/2023 12:51 PM CDT EXTRA TUBE BLUE Today 10/31/2023 12:50 PM CDT LIPID PANEL Routine 05/26/2023 12:17 PM CDT 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 ANTI HCV Routine 05/06/2020 10:44 AM CDT Need for hepatitis C screening test COLONOSCOPY SCREENING Routine 04/02/2020 10:52 AM SVP CHIEF MARKETING OFFICER Diarrhea, unspecified type from Last 3 Months or Most Recently Relevant to Health Maintenance Results * CBC AND DIFFERENTIAL (12/20/2023 9:10 AM SVP CHIEF MARKETING OFFICER) WHITE BLOOD CELL COUNT 8.7 3.8 - 10.8 Thousand/u L [facility] RED BLOOD CELL COUNT 4.82 4.20 - 5.80 Million/uL [facility] HEMOGLOBIN 15.1 13.2 - 17.1 g/dL [facility] HEMATOCRIT 45.0 38.5 - 50.0 % [facility] MCV 93.4 80.0 - 100.0 fL [facility] MCH 31.3 27.0 - 33.0 pg [facility] MCHC 33.6 32.0 - 36.0 g/dL [facility] Comment: For adults, a slight decrease in the calculated MCHC value (in the range of 30 to 32 g/dL) is most likely not clinically significant; however, it should be interpreted with caution in correlation with other red cell parameters and the patient's clinical condition. RDW 12.0 11.0 - 15.0 % [facility] PLATELET COUNT 245 140 - 400 Thousand/u L [facility] MPV 11.4 7.5 - 12.5 fL [facility] ABSOLUTE NEUTROPHILS 5,585 1,500 - 7,800 cells/uL [facility] ABSOLUTE LYMPHOCYTES 2,001 850 - 3,900 cells/uL [facility] ABSOLUTE MONOCYTES 818 200 - 950 cells/uL [facility] ABSOLUTE EOSINOPHILS 200 15 - 500 cells/uL [facility] ABSOLUTE BASOPHILS 96 0 - 200 cells/uL [facility] NEUTROPHILS 64.2 % [facility] LYMPHOCYTES 23.0 % [facility] MONOCYTES 9.4 % [facility] EOSINOPHILS 2.3 % [facility] BASOPHILS 1.1 % [facility] Blood BLOOD SPECIMEN / Unknown 12/20/2023 9:10 AM SVP CHIEF MARKETING OFFICER 12/20/2023 9:10 AM SVP CHIEF MARKETING OFFICER Lourdes Weinstein DO HEMATOLOGY [employer] [facility] [address] [place] [address], [facility] [address] [place] [address] * (ABNORMAL) COMP METABOLIC PANEL (12/20/2023 9:10 AM SVP CHIEF MARKETING OFFICER) [facility] GLUCOSE 109(H) 65 - 99 mg/dL [facility] Comment: ? Fasting reference interval For someone without known diabetes, a glucose value between 100 and 125 mg/dL is consistent with prediabetes and should be confirmed with a follow-up test. UREA NITROGEN (BUN) 15 7 - 25 mg/dL [facility] CREATININE 1.00 0.70 - 1.35 mg/dL [facility] EGFR 81 > OR = 60 mL/min/1. 73m2 [facility] BUN/CREATININE RATIO SEE NOTE: 6 - 22 (calc) [facility] Comment: ?? Not Reported: BUN and Creatinine are within ?? reference range. ? SODIUM 142 135 - 146 mmol/L [facility] POTASSIUM 5.5(H) 3.5 - 5.3 mmol/L [facility] CHLORIDE 106 98 - 110 mmol/L [facility] CARBON DIOXIDE 27 20 - 32 mmol/L [facility] CALCIUM 9.9 8.6 - 10.3 mg/dL [facility] PROTEIN, TOTAL 6.7 6.1 - 8.1 g/dL [facility] ALBUMIN 4.2 3.6 - 5.1 g/dL [facility] GLOBULIN 2.5 1.9 - 3.7 g/dL (calc) [facility] ALBUMIN/GLOBULIN RATIO 1.7 1.0 - 2.5 (calc) [facility] BILIRUBIN, TOTAL 1.6(H) 0.2 - 1.2 mg/dL [facility] ALKALINE PHOSPHATASE 92 35 - 144 U/L [facility] AST 39(H) 10 - 35 U/L [facility] ALT 71(H) 9 - 46 U/L [facility] Blood BLOOD SPECIMEN / Unknown 12/20/2023 9:10 AM SVP CHIEF MARKETING OFFICER 12/20/2023 9:10 AM SVP CHIEF MARKETING OFFICER Lourdes Weinstein DO CHEMISTRY [employer] [facility] [address] [place] [address], [facility] [address] [place] [phone] * (ABNORMAL) PLATELET COUNT (12/03/2023 8:17 AM CDT) Only the most recent of2 resultswithin the time period is included. PLATELET COUNT 142 140 - 440 thou/cu mm 12/03/2023 8:42 AM CDT [facility] MPV 12.0(H) 6.5 - 11.0 fL 12/03/2023 8:42 AM CDT [facility] Blood BLOOD SPECIMEN / Unknown Venipuncture / Unknown 12/03/2023 8:17 AM CDT 12/03/2023 8:32 AM CDT Josh Castillo MD HEMATOLOGY Performing Organization Address [facility] Co de Phone Number [facility] [address] [place] [address], * (ABNORMAL) GLUCOSE METER (12/03/2023 7:22 AM CDT) Only the most recent of9 resultswithin the time period is included. Pathologist [facility] GLUCOSE METER 176(H) 65 - 100 mg/dL 12/03/2023 7:23 AM CDT [facility] Blood BLOOD SPECIMEN / Unknown 12/03/2023 7:22 AM CDT 12/03/2023 7:23 AM CDT Josh Castillo MD CHEMISTRY Performing Organization Address [facility] Co de Phone Number [facility] [address] [place] [address], * SCAN-CARDIAC STRIP (12/02/2023 8:27 AM CDT) Scanner OTHER * (ABNORMAL) CBC W PLT NO DIFF (12/02/2023 4:45 AM CDT) Only the most recent of2 resultswithin the time period is included. WHITE BLOOD COUNT 11.5(H) 4.5 - 11.0 thou/cu mm 12/02/2023 4:59 AM CDT [facility] RED BLOOD COUNT 3.49(L) 4.30 - 5.90 mil/cu mm 12/02/2023 4:59 AM CDT [facility] HEMOGLOBIN 11.1(L) 13.5 - 17.5 g/dL 12/02/2023 4:59 AM CDT [facility] HEMATOCRIT 31.8(L) 37.0 - 53.0 % 12/02/2023 4:59 AM CDT [facility] MCV 91 80 - 100 fL 12/02/2023 4:59 AM CDT [facility] MCH 31.8 26.0 - 34.0 pg 12/02/2023 4:59 AM CDT [facility] MCHC 34.9 32.0 - 36.0 g/dL 12/02/2023 4:59 AM CDT [facility] RDW 11.8 11.5 - 15.5 % 12/02/2023 4:59 AM CDT [facility] PLATELET COUNT 137(L) 140 - 440 thou/cu mm 12/02/2023 4:59 AM CDT [facility] MPV 11.8(H) 6.5 - 11.0 fL 12/02/2023 4:59 AM CDT [facility] NRBC 0.0 % 12/02/2023 4:59 AM CDT [facility] ABS NRBC 0.0 thou /cu mm 12/02/2023 4:59 AM CDT [facility] Blood BLOOD SPECIMEN / Unknown Venipuncture / Unknown 12/02/2023 4:45 AM CDT 12/02/2023 4:53 AM CDT Alice Oliver MD HEMATOLOGY [facility] [address] [place] [address], [place] * (ABNORMAL) BASIC METABOLIC PANEL (12/02/2023 4:45 AM CDT) Only the most recent of3 resultswithin the time period is included. SODIUM 137 136 - 145 mmol/L 12/02/2023 5:23 AM CDT [facility] POTASSIUM 4.6 3.5 - 5.1 mmol/L 12/02/2023 5:23 AM CDT [facility] CHLORIDE 105 98 - 107 mmol/L 12/02/2023 5:23 AM CDT [facility] CO2,TOTAL 23 22 - 29 mmol/L 12/02/2023 5:23 AM T [facility] ANION GAP 9 5 - 18 12/02/2023 5:23 AM CDT [facility] GLUCOSE 192(H) 70 - 99 mg/dL 12/02/2023 5:23 AM T [facility] CALCIUM 8.9 8.8 - 10.2 mg/dL 12/02/2023 5:23 AM T [facility] BUN 23 8 - 23 mg/dL 12/02/2023 5:23 AM T [facility] CREATININE 1.09 0.70 - 1.20 mg/dL 12/02/2023 5:23 AM T [facility] BUN/CREAT RATIO 21(H) 10 - 20 5:23 AM T [facility] eGFR 73(L) >90 mL/min/1.7 3m2 12/02/2023 5:23 AM T [facility] Comment:As of 2021, eG FR is calculated by the CKD-EPI creatinine equation without race adjustment. ??eGFR can be influenced by muscle mass, exercise, and diet. ??The reported eGFR is an estimation only and is only applicable if the renal function is stable. Blood BLOOD SPECIMEN / Unknown Venipuncture / Unknown 12/02/2023 4:45 AM CDT 12/02/2023 4:53 AM CDT Alice Oliver MD CHEMISTRY Performing Organization Address [facility] Co de Phone Number [facility] [address] [place] [address], * Sodium (12/01/2023 7:36 PM CDT) Only the most recent of3 resultswithin the time period is included. SODIUM 139 136 - 145 mmol/L 12/01/2023 8:11 PM CDT [facility] Blood BLOOD SPECIMEN / Unknown Venipuncture / Unknown 12/01/2023 7:36 PM CDT 12/01/2023 7:42 PM CDT Josh Castillo MD CHEMISTRY Performing Organization Address [facility] Phone Number [facility] [address] [place] [address], * SCAN-CARDIAC STRIP (12/01/2023 3:20 PM CDT) Scanner OTHER * (ABNORMAL) PHOSPHORUS (12/01/2023 1:44 PM CDT) PHOSPHORUS 2.4(L) 2.5 - 4.5 mg/dL 12/01/2023 2:26 PM CDT [facility] Blood BLOOD SPECIMEN / Unknown Venipuncture / Unknown 12/01/2023 1:44 PM CDT 12/01/2023 1:54 PM CDT Apple Huerta MD CHEMISTRY Performing Organization Address [facility] Co de Phone Number [facility] [address] [place] [address], * MAGNESIUM (12/01/2023 1:44 PM CDT) Only the most recent of3 resultswithin the time period is included. MAGNESIUM 1.7 1.6 - 2.4 mg/dL 12/01/2023 2:26 PM CDT [facility] Blood BLOOD SPECIMEN / Unknown Venipuncture / Unknown 12/01/2023 1:44 PM CDT 12/01/2023 1:54 PM CDT Apple Huerta MD [facility]MISTRY [facility] [address] [place] [address], [place] * SCAN-CARDIAC STRIP (12/01/2023 7:26 AM CDT) Scanner OTHER * SCAN-CARDIAC STRIP (11/30/2023 7:59 PM CDT) Scanner OTHER * HCHG TUBE PR1, HCHG INSTRUMENT DISP PR10, HCHG STYLET PR1 (11/30/2023 2:29 PM CDT) Narrative Albreta Velazquez CRNA - 11/30/2023 2:29 PM CDT Alberta Velazquez CRNA ? 11/30/2023 ??2:30 PM Procedure: ETT Patient location during procedure: OR ETT Properties Mask Ventilation: easy Final Technique: video laryngoscopy Type: straight Location: oral Cuffed: yes Tube Size: 7.5 mm Stylet: yes Laryngoscope Blade: Glidescope Blade Size: 3 Cormack-Lehane Grade View: 1 Insertion Attempts: 1 Placement Verification: auscultation, end tidal CO2 and symmetrical chest wall movement Assessment: atraumatic, pharynx clear and dentition unchanged Secured at: 22 Measured From: lips Bite Block: soft Difficulty: 0 (not difficult) Betty Bartholomew DO ANESTHESIA PX NOTE O RDERABLES * HCHG CATH PR5, HCHG CATH PR5, HCHG ANES US GUIDE FOR VASC ACCESS, HCHG TUBING PR1, HCHG TUBING PR20, HCHG DRSG PR1, HCHG KIT PR5 (11/30/2023 2:02 PM CDT) Narrative Betty Bartholomew DO - 11/30/2023 2:02 PM CDT Betty Bartholomew, DO ? 11/30/2023 ??2:04 PM Arterial Line Patient location during procedure: OR Indications: lab sampling and monitoring Staffing Preanesthetic Checklist Completed: patient identified, risks and benefits discussed, consent obtained and timeout performed Arterial Line Laterality: left Site: radial Ultrasound guidance: live ultrasound and ultrasound permanent image saved. Needle localization (ultrasound): no pathologic findings, selected vessel patent, anatomically normal, potential access sites evaluated and needle visualized entering selected vessel. Securement/dressing: dressing applied. ??Comment: Vessel Quantitative Software Engineer Additional supplies used to locate vessel: yes Catheter/Needle Size: 20 G. ??Comment:. Catheter Type: Arrow. ??Comment:. Needle Catheter size: 20 G. ??Comment:. Catheter length: 4.5 cm. ??Comment: Events: no complications. Additional Notes Radial artery attempted x3--good pulsatile blood flow and unable to thread catheter presumably 2/2 plaque. ??Placed L brachial w/ ultrasound easily. Betty Bartholomew DO ANESTHESIA PX NOTE O RDERABLES * PATH TISSUE EXAM (11/30/2023 12:34 PM CDT) Only the most recent of2 resultswithin the time period is included. Case Report Pathology Report ?Case: [id number] ? Authorizing Provider: ??Josh Castillo MD Collected: ? 11/30/2023 1234 ? Ordering Location: ? [facility] ?Received: ?11/30/2023 1614 ? Hospital ? Pathologist: ? Ge Zhang MD ? Specimen: ?Tissue, Other, RIGHT TEMPORAL MASS ? 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 These raise the grade of the grade of the neoplasm to ORDER PROCESSING MANAGER WHO grade 3. 12/01/2023 11:56 AM [facility] [place] Clinical Information Right temporal mass. 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 12/01/2023 11:56 AM [facility] [place] [facility] Gross Description A) Received in formalin, labeled with the patient's name and right temporal mass, is a 2.5 x 2 x 1 cm aggregate of craven soft tissues, sectioned and entirely submitted in 3 cassettes. Time and date in formalin: 1619 on 11/30/2023 TRB 11/30/2023 12/01/2023 11:56 AM [facility] [place] Microscopic Description The final diagnosis is based on microscopic examination of appropriate sections of all specimens. 12/01/2023 11:56 AM [facility] Additional Information Interpreted at [facility] - [address] [facility] [address], [place] [address] 12/01/2023 11:56 AM CDT [facility] Tissue TISSUE SPECIMEN / Unknown 11/30/2023 12:34 PM CDT 11/30/2023 4:14 PM CDT Josh Castillo MD PATHOLOGY/CYTOL OGY [facility] [address] [place] [address], * BLOOD BANK EXTRA LAVENDER TOP (11/30/2023 12:23 PM CDT) Blood BLOOD SPECIMEN / Unknown Venipuncture / Unknown 11/30/2023 12:23 PM CDT 11/30/2023 12:43 PM CDT Josh Castillo MD BLOOD BANK Performing Organization Address City/[facility]/ZIP Co de Phone Number [facility] [address] [place] [address], [place] * Type and Screen (11/30/2023 11:00 AM CDT) [facility] Signature ANTIBODY SCREEN Negative Negative 11:49 AM CDT [facility] Comment:Unable to determine the ABO type. Discrepancy in typing results due to patient history of Ax subtype. SPECIMEN EXPIRATION DATE/TIME 12/03/23 23:59 11/30/2023 11:49 AM CDT [facility]OD B[facility] Blood BLOOD SPECIMEN / Unknown Venipuncture / Unknown 11/30/2023 11:00 AM CDT 11/30/2023 11:13 AM CDT Josh Castillo MD BLOOD BANK Performing Organization Address City/[facility]/ZIP Co de Phone Number [facility]OD [facility]ANK [address] [place] [address], * RH(D) TYPE (11/30/2023 11:00 AM CDT) RH(D) TYPE Positive 11/30/2023 2:10 PM CDT [facility] Blood BLOOD SPECIMEN / Unknown Venipuncture / Unknown 11/30/2023 11:00 AM CDT 11/30/2023 11:13 AM CDT Narrative [facility] - 11/30/2023 2:10 PM CDT Give credit for Rh type only. Josh Castillo MD BLOOD BANK Performing Organization Address City/[facility]/ZIP Co de Phone Number [facility] [address] [place] [address], * (IA) COLD SOPHIE PANEL (11/30/2023 11:00 AM CDT) QUANTITY 1 [facility] BLOOD BANK COLD SOPHIE PANEL Cold Antibody Panel [facility] BLOOD BANK Josh Castillo MD BLOOD BANK Performing Organization Address City/[facility]/ZIP Co de Phone Number [facility] [address] [place] [address], [place] [phone] * SCAN-CARDIAC STRIP (11/30/2023 12:00 AM CDT) Narrative 11/30/2023 12:00 AM CDT Ordered by an unspecified provider. Other Clinical Staff OTHER * MR Brain wo Contrast * (11/29/2023 9:54 AM CDT) Anatomical Region Laterality Modality BRAIN, HEAD Magnetic Resonan ce 11/29/2023 10:1 2 AM CDT Impressions 11/29/2023 10:12 AM CDT 1. Brain MRI performed for surgical navigation purposes. 2. No significant change in the size of the infiltrative mass involving the right basal ganglia, frontal lobe and temporal lobe. Dictated by David Bianchi MD @ 11/29/2023 10:12:00 AM (Electronically Signed) Narrative 11/29/2023 10:12 AM CDT For Patients: ??As a result of the Cures Act, medical imaging exams and procedure reports are released immediately into your electronic medical record. ??You may view this report before your referring provider. ??If you have questions, please contact your health care provider. INDICATION: Surgical Navigation. TECHNIQUE: Brain MRI without contrast. STEALTH protocol. ?? COMPARISON: Brain MRI from 11/10/2023. FINDINGS: Again demonstrated is the FLAIR hyperintense infiltrative mass involving the right inferior basal ganglia, basal frontal lobe, insula, and anterior mesial temporal lobe. It measures 6.4 centimeters in AP dimension, 5.2 centimeters and TR dimension, and 4.6 centimeters in CC dimension. Susceptibility artifact within the anterior superior aspect of the mass consistent with post biopsy change. Mesial temporal component deforms the right cerebral peduncle as before. There is encasement of the right M1 MCA. A small flow void within the center of the mass most likely represents a right MCA lenticulostriate undergraduate intern artery. There also appears to be a prominent draining vein at the central/dorsal medial aspect of the mass. Linear gliosis right frontal lobe from biopsy. Scattered FLAIR hyperintensities within the supratentorial white matter, typical for chronic microvascular ischemic change. The orbital contents are normal. No calvarial or skull base marrow signal abnormality. No obstructive sinus disease. No extracranial soft tissue findings. Procedure Note David Bianchi MD - 11/29/2023 For Patients: As a result of the Cures Act, medical imagingexams and procedure reports are released immediately into your electronicmedical record. You may view this report before your referring provider.If you have questions, please contact your health care provider. INDICATION: Surgical Navigation. TECHNIQUE: Brain MRI without contrast. STEALTH protocol. COMPARISON: Brain MRI from 11/10/2023. FINDINGS: Again demonstrated is the FLAIR hyperintense infiltrative mass involvingthe right inferior basal ganglia, basal frontal lobe, insula, and anteriormesial temporal lobe. It measures 6.4 centimeters in AP dimension, 5.2centimeters and TR dimension, and 4.6 centimeters in CC dimension.Susceptibility artifact within the anterior superior aspect of the massconsistent with post biopsy change. Mesial temporal component deforms theright cerebral peduncle as before. There is encasement of the right M1MCA. A small flow void within the center of the mass most likelyrepresents a right MCA lenticulostriate undergraduate intern artery. There alsoappears to be a prominent draining vein at the central/dorsal medialaspect of the mass. Linear gliosis right frontal lobe from biopsy. Scattered FLAIRhyperintensities within the supratentorial white matter, typical forchronic microvascular ischemic change. The orbital contents are normal. No calvarial or skull base marrow signalabnormality. No obstructive sinus disease. No extracranial soft tissuefindings. IMPRESSION: 1. Brain MRI performed for surgical navigation purposes. 2. No significant change in the size of the infiltrative mass involvingthe right basal ganglia, frontal lobe and temporal lobe. Dictated by David Bianchi MD @ 11/29/2023 10:12:00 AM (Electronically Signed) Josh Castillo MD MR * CMAPT AP SEND-OUT (11/11/2023 11:44 AM CDT) Tissue TISSUE SPECIMEN / Unknown 11/11/2023 11:44 AM CDT 11/16/2023 9:15 AM CDT Josh Castillo MD LABORATORY Performing Organization Address City/State/[facility] Co de Phone Number [facility] [facility] [address] [place] [id number], * HCHG TUBE PR1, HCHG INSTRUMENT DISP PR10, HCHG STYLET PR1 (11/11/2023 11:03 AM CDT) Narrative Catrachita Cullen CRNA - 11/11/2023 11:03 AM CDT Catrachita Cullen CRNA ? 11/11/2023 11:04 AM Procedure: ETT Patient location during procedure: OR ETT Properties Mask Ventilation: oral airway Final Technique: video laryngoscopy Type: straight Location: oral Cuffed: yes Tube Size: 7.5 mm Stylet: yes Laryngoscope Blade: Glidescope Blade Size: 3 Cormack-Lehane Grade View: 1 Insertion Attempts: 1 Placement Verification: auscultation, end tidal CO2 and symmetrical chest wall movement Assessment: pharynx clear, atraumatic and dentition unchanged Secured at: 22 Measured From: teeth Bite Block: soft Difficulty: 0 (not difficult) Bettyelly Bartholomew ANESTHESIA PX NOTE O RDERABLES * SCAN-CARDIAC STRIP (11/11/2023 12:00 AM CDT) Narrative 11/11/2023 12:00 AM CDT Ordered by an unspecified provider. Other Clinical Staff OTHER * MR HEAD BRAIN WWO (11/10/2023 4:19 PM CDT) Only the most recent of2 resultswithin the time period is included. Anatomical Region Laterality Modality BRAIN, HEAD Magnetic Resonan ce 11/11/2023 7:54 AM CDT Narrative 11/11/2023 7:54 AM CDT For Patients: ??As a result of the Cures Act, medical imaging exams and procedure reports are released immediately into your electronic medical record. ??You may view this report before your referring provider. ??If you have questions, please contact your health care provider. Indication: Brain tumor. Pre-surgical planning. Technique: Stereotactic acquisitions are performed before and after IV gadolinium. Contrast: 15 cc Clariscan Comparison: MR brain 10/31/2023. Findings: There is re-demonstration of an infiltrative T2 FLAIR hyperintense lesion centered at the right basal ganglia with involvement of the insular region, inferior frontal and medial temporal lobes. Small area of enhancement within the anterior medial right temporal lobe is slightly less defined. Stable localized mass effect with partial effacement of the right lateral ventricle. No hydrocephalus. Fourth ventricle is midline. Impression: 1. The study is acquired for the purposes of surgical stereotaxis. 2. Stable infiltrative lesion centered at the right basal ganglia. Dictated by Garcia Hitchcock MD @ 11/11/2023 7:54:55 AM (Electronically Signed) Procedure Note Garcia Hitchcock DO - 11/11/2023 For Patients: As a result of the s Act, medical imagingexams and procedure reports are released immediately into your electronicmedical record. You may view this report before your referring provider.If you have questions, please contact your health care provider. Indication: Brain tumor. Pre-surgical planning. Technique: Stereotactic acquisitions are performed before and after IV gadolinium. Contrast: 15 cc Clariscan Comparison: MR brain 10/31/2023. Findings: There is re-demonstration of an infiltrative T2 FLAIR hyperintense lesioncentered at the right basal ganglia with involvement of the insularregion, inferior frontal and medial temporal lobes. Small area ofenhancement within the anterior medial right temporal lobe is slightlyless defined. Stable localized mass effect with partial effacement of the right lateralventricle. No hydrocephalus. Fourth ventricle is midline. Impression: 1. The study is acquired for the purposes of surgical stereotaxis. 2. Stable infiltrative lesion centered at the right basal ganglia. Dictated by Garcia Hitchcock MD @ 11/11/2023 7:54:55 AM (Electronically Signed) Joselyn Hoang BACK DIGGER OPERATOR MR * CONTINUOUS VIDEO EEG MONITORING (11/01/2023 8:19 AM CDT) Narrative Krystin Greenwood MD - 11/01/2023 8:19 AM CDT Krystin Greenwood MD ? 11/01/2023 ??3:45 PM [facility] [address], [address] ??[address] Ph: ??[phone] SPECIAL NEURODIAGNOSTIC PROCEDURE - ELECTROENCEPHALOGRAM - EEG Final Video EEG Report Patient Name: ??Dontae Jones Arianna : ?1955 Study Date: ?11/01/2023 Study Number: ?? [id number] Duration: ? 12 hours 12 min Admit Date: ?10/31/2023 Clinical Note: 68 year-old man with history of brain mass admitted after episode of altered mental status/suspected seizure with imaging demonstrating enlargement of mass. Monitoring is requested to evaluate for seizures. Condition of Recording: This is a digital EEG with continuous video recording. ??It utilizes the 21-lead modified international 10/20 system for scalp recordings. ??It also uses video recording to clinically correlate epileptiform abnormalities and improve localization for target clinical events. ??Physician access to data was available throughout the recording period. A daily report, as below, was generated and updated at least once every 24 hour period. Activation Procedures: ??None. Medications: levetiracetam. Results: ?? Background: ??The recording during wakefulness contains 10 Hz activity over the posterior head regions. Sleep: Normal vertex waves, sleep spindles, and K complexes are seen. Normal REM. Activations: ??None. EKG: ??Heart rate is in the range of 60-80 beats per minute. Interictal Findings: ??Right frontal sharp waves are seen (maximal F8, F8/T8). Ictal Events: ??No seizures or events. Impression: Abnormal EEG due to right frontal sharp waves. Clinical Correlation: The EEG is abnormal due to the presence of potentially epileptogenic activity over the right frontal head region, consistent with a focal epilepsy. No seizures recorded. Clinical correlation is advised. Krystin Greenwood MD [facility] This continuous video EEG study was completed on 10/31, with a total recording duration of 12 hours and 12 minutes. Joselyn Hoang BACK DIGGER OPERATOR NEUROLOGY ORD * WHITE BLOOD COUNT (11/01/2023 7:08 AM CDT) WHITE BLOOD COUNT 6.1 4.5 - 11.0 thou/cu mm 11/01/2023 7:43 AM CDT [facility] NRBC 0.0 % 11/01/2023 7:43 AM CDT [facility] ABS NRBC 0.0 thou /cu mm 11/01/2023 7:43 AM CDT [facility] Blood BLOOD SPECIMEN / Unknown Venipuncture / Unknown 11/01/2023 7:08 AM CDT 11/01/2023 7:25 AM CDT Jian CLEMENT HEMATOLOGY [facility] [address] [place] [address], * (ABNORMAL) HEMOGLOBIN (11/01/2023 7:08 AM CDT) Pathologist [facility] HEMOGLOBIN 12.9(L) 13.5 - 17.5 g/dL 11/01/2023 7:43 AM CDT [facility] MCV 93 80 - 100 fL 11/01/2023 7:43 AM CDT [facility] Blood BLOOD SPECIMEN / Unknown Venipuncture / Unknown 11/01/2023 7:08 AM CDT 11/01/2023 7:25 AM CDT Jian CLARK HEMATOLOGY [facility] [address] [place] [address], * POTASSIUM (11/01/2023 7:08 AM CDT) [facility] POTASSIUM 4.2 3.5 - 5.1 mmol/L 11/01/2023 7:54 AM CDT [facility] Blood BLOOD SPECIMEN / Unknown Venipuncture / Unknown 11/01/2023 7:08 AM CDT 11/01/2023 7:24 AM CDT Jian CLARK CHEMISTRY [facility] [address] [place] [address], [place] * CREATININE (11/01/2023 7:08 AM CDT) [facility] eGFR >90 >90 mL/min/1.7 3m2 11/01/2023 7:54 AM CDT [facility] Comment:As of 2021, eG FR is calculated by the CKD-EPI creatinine equation without race adjustment. ??eGFR can be influenced by muscle mass, exercise, and diet. ??The reported eGFR is an estimation only and is only applicable if the renal function is stable. CREATININE 0.88 0.70 - 1.20 mg/dL 11/01/2023 7:54 AM CDT [facility] Blood BLOOD SPECIMEN / Unknown Venipuncture / Unknown 11/01/2023 7:08 AM CDT 11/01/2023 7:24 AM CDT Jian CLEMENT CHEMISTRY [facility] [address] [place] [address], * SCAN-CARDIAC STRIP (11/01/2023 1:08 AM CDT) Scanner OTHER * (ABNORMAL) TROPONIN T (HS) ONE TIME (10/31/2023 4:30 PM CDT) TROPONIN T HS 16(H) 6-15 ng/L ng/L 10/31/2023 5:09 PM CDT [facility] Blood BLOOD SPECIMEN / Unknown Non-Lab Venipuncture / Unknown 10/31/2023 4:30 PM CDT 10/31/2023 4:38 PM CDT Danny Loomis DO CHEMISTRY Performing Organization Address City/[facility]/ZIP Co de Phone Number [facility] [address] [place] [address], * CT HEAD BRAIN WO (10/31/2023 2:27 PM CDT) Anatomical Region Laterality Modality HEAD, BRAIN Computed Tomogra phy 10/31/2023 2:50 PM CDT Narrative 10/31/2023 2:50 PM CDT For Patients: ??As a result of the Century Cures Act, medical imaging exams and procedure reports are released immediately into your electronic medical record. ??You may view this report before your referring provider. ??If you have questions, please contact your health care provider. Indication : Headache. Technique : CT of the brain without intravenous contrast. Comparison: MRI brain 09/09/2005. Findings: There is an ill-defined hypodensity involving the right basal ganglia, insula and temporal lobe. The area involved has progressed since MRI 09/09/2005. There is mild localized mass effect, with slight leftward midline shift. No intracranial hemorrhage. The ventricles appear proportionate to cerebral sulci. Fourth ventricle appears midline. Mild chronic ischemic microvascular disease. Impression: 1. Ill-defined hypodensity involving the right basal ganglia, insula and anterior temporal lobe which has progressed in the interval since MRI 09/09/2005. 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 Recommend further assessment MRI of the brain without and with contrast. 2. Mild chronic ischemic microvascular disease. The above findings were communicated over the telephone with Dr. Danyn Loomis by Dr. Hitchcock at 1445 hours on 10/31/2023. Please note that all CT scans at this facility use dose modulation, iterative reconstruction, and/or weight-based dosing when appropriate to reduce radiation dose to as low as reasonably achievable. Dictated by Garcia Hitchcock MD @ 10/31/2023 2:50:51 PM (Electronically Signed) Procedure Note Garcia Hitchcock, - 10/31/2023 For Patients: As a result of the Century Cures Act, medical imagingexams and procedure reports are released immediately into your electronicmedical record. You may view this report before your referring provider.If you have questions, please contact your health care provider. Indication : Headache. Technique : CT of the brain without intravenous contrast. Comparison: MRI brain 09/09/2005. Findings: There is an ill-defined hypodensity involving the right basal ganglia,insula and temporal lobe. The area involved has progressed since MRI09/09/2005. There is mild localized mass effect, with slight leftwardmidline shift. No intracranial hemorrhage. The ventricles appear proportionate to cerebral sulci. Fourth ventricleappears midline. Mild chronic ischemic microvascular disease. Impression: 1. Ill-defined hypodensity involving the right basal ganglia, insula andanterior temporal lobe which has progressed in the interval since MRI09/09/2005. This is concerning for progression of the previously notedpresumed neoplastic process. Recommend further assessment MRI of the brainwithout and with contrast. 2. Mild chronic ischemic microvascular disease. The above findings were communicated over the telephone with Dr. Chiang by Dr. Hitchcock at 1445 hours on 10/31/2023. Please note that all CT scans at this facility use dose modulation,iterative reconstruction, and/or weight-based dosing when appropriate toreduce radiation dose to as low as reasonably achievable. Dictated by Garcia Hitchcock MD @ 10/31/2023 2:50:51 PM (Electronically Signed) Danny Loomis DO CT * (ABNORMAL) TROPONIN T (HS) ACUTE W/2HR REFLEX (10/31/2023 12:51 PM CDT) TROPONIN T HS 17(H) 6-15 ng/L ng/L 10/31/2023 1:26 PM CDT [facility] Blood BLOOD SPECIMEN / Unknown Non-Lab Venipuncture / Unknown 10/31/2023 12:51 PM CDT 10/31/2023 12:59 PM CDT [facility] - 10/31/2023 1:26 PM CDT hs-cTnT (Elecsys Troponin T Gen 5) concentration (s) above the sex-specific 99th percentile (16 ng/L or greater for males or 11 ng/L or greater for females) are indicative of myocardial injury. If initial hs-cTnT <=100 ng/L at presentation, a 0h/2h ABSOLUTE (ng/L) delta change (rising or falling) of >=10 ng/L suggests a significant change, whereas a 0h/2h delta change <=3 ng/L suggests no significant change. If initial hs-cTnT >100 ng/L at presentation, a 0h/2h/ RELATIVE (percent, %) delta change of 20% is suggested to distinguish patients with acute vs. chronic myocardial injury. There are multiple etiologies that can cause hs-cTnT increases above the 99th percentile (myocardial injury) other than acute myocardial infarction. Clinical context and careful clinical evaluation are critical for diagnosis and risk-stratification. The diagnosis of acute myocardial infarction requires a rising and/or falling pattern in hs-cTnT concentrations with at least one value above the sex-specific 99th percentile PLUS at least one of the following clinical criteria: ischemic symptoms, new or presumed new significant ST-T wave changes or new LBBB, development of pathological Q waves, imaging evidence of new loss of viable myocardium or new regional wall motion abnormality, or identification of intracoronary atherothrombosis or an acute angiographic culprit on coronary angiography. In appropriate low-risk patients with a non-ischemic electrocardiogram without active chest pain with a symptom onset >3-hours without recurrence, a single initial hs-cTnT<6 ng/L identifies patient with a very low risk in emergency department patient population. Danny Loomis DO CHEMISTRY Performing Organization Address [facility]/ZIP Co de Phone Number [facility] [address] [address], [place] * EXTRA TUBE BLUE (10/31/2023 12:50 PM CDT) Blood BLOOD SPECIMEN / Unknown Extra Tube / Unknown 10/31/2023 12:50 PM CDT 10/31/2023 1:00 PM CDT Danny Loomis DO LABORATORY Performing Organization Address [facility] Co de Phone Number [facility] [address] [address], * LIPID PANEL (05/26/2023 12:17 PM CDT) [facility] CHOLESTEROL,TOTAL 119 100 - 199 mg/dL 05/26/2023 9:27 PM CDT [facility] Comment: Cholesterol, Total Reference Ranges Desirable <200 mg/dL Borderline 200-239 mg/dL High >=240 mg/dL TRIGLYCERIDES 101 <150 mg/dL 05/26/2023 9:27 PM CDT [facility] HDL CHOLESTEROL 59 >40 mg/dL 9:27 PM CDT [facility] NON-HDL CHOLESTEROL 60 <145 mg/dl 05/26/2023 9:27 PM CDT [facility] CHOL/HDL RATIO 2.02 <4.50 05/26/2023 9:27 PM CDT [facility] LDL CHOLESTEROL 40 <=130 mg/dL 05/26/2023 9:27 PM CDT [facility] VLDL CHOLESTEROL 20 <=30 mg/dL 05/26/2023 9:27 PM CDT [facility] PROVIDER ORDERED STATUS RANDOM 05/26/2023 9:27 PM CDT [facility] Blood BLOOD SPECIMEN / Unknown Venipuncture / Unknown 05/26/2023 12:17 PM CDT 05/26/2023 12:18 PM CDT Jerardo Wiseman MD CHEMISTRY [facility] [address] [place] [address], [place] * ANTI HCV (05/06/2020 10:44 AM CDT) HEPATITIS C ANTIBODY Non-React zane Non-React zane 05/06/2020 6:13 PM CDT [facility] Comment:Antibodies to HCV no t detected; does not exclude the possibility of exposure to HCV. Blood BLOOD SPECIMEN / Unknown Venipuncture / Unknown 05/06/2020 10:44 AM CDT 05/06/2020 10:44 AM CDT Jerardo Wiseman MD SEND OUTS Performing Organization Address City/[facility]/ZIP Co de Phone Number [facility] [address] [place] [address], [place] * COLONOSCOPY (04/02/2020 11:23 AM SVP CHIEF MARKETING OFFICER) 04/02/2020 11:2 3 AM SVP CHIEF MARKETING OFFICER Narrative Transcriptions Christian Lee MD - 04/02/2020 12:43 PM CST Patient Name: Dontae Book Procedure Date: 04/02/2020 Gender: Male Date of : 1955 Admit Type: Outpatient Procedure: Colonoscopy Proceduralist: Christian Lee MD , Shahnaz Veliz RN(Nurse) Referring MD: Anupama Parikh Indications/Pre-Op Diagnosis: Clinically significant diarrhea ofunexplained origin Medications: Fentanyl 200 micrograms IV, Midazolam 5 mgIV Procedure Description: The patient had risks, benefits and alternatives explained to andgave informed consent. The patient had a stable cardiopulmonary status and judged an adequate candidate for conscious sedation. The Colonoscope was passed through the anus and advanced to 4 cm into the ileum. The colonoscopy was performed without difficulty. Thepatient tolerated the procedure well. The quality of the bowel preparationwas good. The terminal ileum, ileocecal valve, appendiceal orifice, and rectum were photographed. Complications: No immediate complications. Estimated Blood Loss & Specimen: Estimated blood loss: none. Specimen collected - Yes and sent to Laboratory Findings: The perianal and digital rectal examinations were normal. The terminal ileum appeared normal. A diffuse area of mildly erythematous and kdyqmxbp-nlwbgkg-uesswrciy mucosa was found in the entire colon. Biopsies were taken with a cold forceps for histology. Multiple small and large-mouthed diverticula were found in thesigmoid colon and descending colon. There was narrowing of the colon in association with the diverticular opening. There was evidence of diverticular spasm. The exam was otherwise without abnormality on direct and retroflexion views. Impressions/Post-Op Diagnosis: - The examined portion of the ileum was normal. - Erythematous and bxyqdfjc-ggbibwc-ccpzqjxvx mucosa in the entire examined colon. Biopsied. - Moderate diverticulosis in the sigmoid colon and in the descending colon. There was narrowing of the colon in association with the diverticular opening. There was evidence of diverticular spasm. - The examination was otherwise normal on direct and retroflexionviews. Recommendation: - Patient has a contact number available for emergencies. The signsand symptoms of potential delayed complications were discussed with the patient. Return to normal activities tomorrow. Written discharge instructions were provided to the patient. - Resume previous diet. - Continue present medications. - Await pathology results. - Repeat colonoscopy in 10 years for screening purposes. - Patient's sedation for a repeat study will require Anesthesia staff assistance. Moderate Sedation: Moderate (conscious) sedation was administered by the endoscopy nurse and supervised by the endoscopist. The following parameters were monitored: oxygen saturation, heart rate, respiratory rate, blood pressure, adequacy of pulmonary ventilation and reponse to care. Please refer to the patient's medical record flowsheets and nursing notes for moderate sedation details. Total physician intraservice time was 24 minutes. Christian Lee MD 04/02/2020 12:43:03 PM This report has been signed electronically. Note Initiated On: 04/02/2020 11:23 AM Procedure Code(s): --- Professional --- 30590, Colonoscopy, flexible; with biopsy, single or multiple Diagnosis Code(s): --- Professional --- K63.89, Other specified diseases ofintestine R19.7, Diarrhea, unspecified K57.30, Diverticulosis of large intestine without perforation or abscess withoutbleeding CPT copyright 2019 [employer]. All rights reserved. The codes documented in this report are preliminary and upon as400 administrator reviewmay be revised to meet current compliance requirements. Scope In: 12:07:38 PM Scope Withdrawal Time 0 hours 9 minutes 48 seconds Scope Out: 12:29:45 PM Christian Lee MD PROCEDURE ORD from Last 3 Months or Most Recently Relevant to Health Maintenance Advance Directives Documents on File Type Date Recorded Patient Medical Coding Instructor Expl anation Healthcare Directive 11/22/2023 9:49 AM M [facility] DIRECTIVE/SIGNED 10/09/2021 * Full Code (Latest Code Status on File) Date Activated Date Inactivated Comments 11/30/2023 10:44 AM 12/03/2023 3:37 PM Question Answer Comments Code Status Discussion: Per Existing Order * Full Code Date Activated Date Inactivated Comments 11/11/2023 8:37 AM 11/12/2023 2:50 PM Question Answer Comments Code Status Discussion: Per Existing Order * Full Code Date Activated Date Inactivated Comments 10/31/2023 3:55 PM 11/01/2023 6:57 PM Question Answer Comments Code Status Discussion: Reviewed Preferences * Full Code Date Activated Date Inactivated Comments 05/24/2022 2:40 PM 05/25/2022 1:53 PM Question Answer Comments Code Status Discussion: Reviewed Preferences * Full Code Date Activated Date Inactivated Comments 08/21/2020 7:06 AM 08/21/2020 2:00 PM Question Answer Comments Code Status Discussion: Not Discussed Care Teams Recenterer Relationship Specialty Start Date End Date Jerardo Wiseman MD [address] [place] [address] PCP - General Family Practice 05/20/22 Yunior Agrawal MD 03/03/05 Lourdes Weinstein DO [address] [facility] [address] [address] Neurology 12/12/23 Ge Wagner, RN Registered Nurse 12/12/23 Gallito Parker NP [address] [place] [address] Nurse Practitioner - Family 12/12/23
--- OUTSIDE RECORDS SUMMARY | 2023-12-21 12:13 | XMS_ITS | Continuity of Care Document ---
Author Organization [facility] Address [address] [place] [address] Phone Care Team Providers Care Automation Controls Expert Name Role Phone Dontae Upton MD Unavailable [...] Procedure Date Office/Outpatient Visit, Est Office/Outpatient Visit, [facility] Routine Venipuncture Specimen Handling CReactive Protein Rbc Sed Rate, Nonautomated Advance Directives Directive Yes / No Effective Date File Name No Information Encounters Encounter Description Practice Location Reason(s) For Visit Diagnoses Date Provider Providers Copied on Encounter [facility], [address], [place], [address], [place] tel:[phone] [facility], No Information [address], [place], [place], [id number] , [place]. tel:[phone] Office/Outpa tient Visit, Est [facility], [address], [place], [address], [place] tel:[phone] [facility], Joint Pain (chief complaint) possible gout (chief complaint) Pain in joint involving multiple sitesGOUTY ARTHROPATHY NOS [address]. [address], [place], [place], [id number] , [place]. tel:[phone] Referring Provider: Dontae Pisano, [address], [place], [address] . tel:[phone] Office/Outpa tient Visit, New [facility], [address], [place], [address], [place] tel:[phone] [facility], possible gout (chief complaint) Hypertension, UnspecifiedCa lculus of kidneyGOUTY ARTHROPATHY NOSPain in joint involving multiple sitesLumbago [address]. [address], [place], [place], [id number] , [place]. [phone] Referring Provider: Dontae Pisano, [address], [place], [address] . tel:[phone] [facility], [address], [place], [address], [place] tel:[phone] [facility], No Information [address]. [address], [place], [place], [id number] , [place]. tel: [phone] Family History Family Member Type Diagnosis Age At Onset Problem (finding) Payers Payer name Insurance type Covered republican ID Authorrio wright(s) [facility] [id number] Social History Type Description Quantity Date Captured [...]
[2023-12-21 12:46] LABS: Albumin* 4.2 g/dL (3.3-5.0); Chloride* 102 mmol/L (96-114)
[2023-12-21 12:47] LABS: Potassium* 4.6 mmol/L (3.6-5.1); Sodium* 137 mmol/L (135-149)
[2023-12-21 12:49] LABS: Anion Gap 7 mEq/L (7-15); Aspartate Amino Transferase* 46 U/L (12-35); Bilirubin Total* 1.6 mg/dL (0.1-1.5); Carbon Dioxide* 28 mmol/L (20-32); Creatinine* 0.9 mg/dL (0.5-1.5); Estimated Glomerular Filt Rate 92 ml/min; Total Protein* 6.8 g/dL (6.0-8.3)
[2023-12-21 12:50] LABS: Alanine Aminotransferase* 96 U/L (4-50); Alkaline Phosphatase* 83 U/L (40-150); Blood Urea Nitrogen* 20 mg/dL (7-30); Calcium* 9.6 mg/dL (8.4-10.6); Glucose* 100 mg/dL (60-115)
== END 2023-12-21 12:10 | disposition home or self-care (01) ==
LOC: LAB 12:11
PROVIDERS: PCP Surgery; Visit Provider Psychiatry & Neurology Neurology
DX: Z51.81 Encounter for therapeutic drug level monitoring (principal); C71.1 Malignant neoplasm of frontal lobe
CPT/HCPCS: 36415; 80053

== ENCOUNTER 2024-01-02 09:49 | Outpatient (CLI) | payer BC, SELFPAY ==
[2024-01-02 10:05] LABS: Basophils Absolute Auto 0.05 K/uL (0.00-0.30); Basophils Percent Auto 0.6 % (0.0-3.0); Eosinophils Absolute Auto 0.18 K/uL (0.00-0.50); Eosinophils Percent Auto 2.1 % (0.0-7.0); Hematocrit 42.8 % (37.0-53.0); Hemoglobin* 14.3 gm/dL (13.5-17.5); Immature Granulocytes Abs Auto 0.03 K/uL (0.00-0.30); Immature Granulocytes Pct Auto 0.4 %; Lymphocytes Absolute Auto 1.83 K/uL (0.90-2.90); Lymphocytes Percent Auto 21.8 % (20-44); Mean Corpuscular HGB Conc 33 gm/dL (32-36); Mean Corpuscular Hemoglobin 31 pg (26-34); Mean Corpuscular Volume 92 fL (80-100); Monocytes Percent Auto 8.4 % (0.0-11.0); Neutrophils Absolute Auto 5.59 K/uL (1.7-7.0); Neutrophils Percent Auto 66.7 % (42.0-72.0); Platelet Count* 212 K/uL (140-440); RDW Coefficient of Variation % 12.1 % (11.5-15.5); Red Blood Count 4.63 m/uL (4.30-5.90); White Blood Count* 8.38 K/uL (4.50-11.00)
[2024-01-02 10:06] LABS: Slide Review Reflex No
--- OUTSIDE RECORDS SUMMARY | 2024-01-02 10:16 | XMS_ITS ---
Author Organization [facility] Address [address] [place] [address] Care Team Providers Care Wildlife And Game Protector Name Role Phone Unavailable Unavailable Unavailable Surgery Details Not on file Complications Check Surgery Details section. Procedure Estimated Blood Loss Check Surgery Details section. Procedure Findings Check Surgery Details section. Procedure Specimens Taken Check Surgery Details section.
--- OUTSIDE RECORDS SUMMARY | 2024-01-02 10:16 | XMS_ITS | Clinical Summary ---
Author Organization [facility] Address [address] [place] [address] Care Team Providers Care Unit Technician Name Role Phone Unavailable Primary Care Provider Unavailabl e Source Comments Patient records contain information from all sites at [facility]. For routine questions regarding patient records, call [phone] during business hours, M-F 8:00 AM - 5:00 PM Central Time. Record requests for emergency care only can be directed to [phone] at any time.[facility] Medications acetaminophen (TylenoL) 500 mg tablet Take 1,000 mg by mouth every 6 (six) hours as needed. 4 Active acetaminophen-co deine (TylenoL #3) 300-30 mg per tablet Take 1 tablet by mouth every 6 (six) hours as needed. 4 Active clopidogreL (Plavix) 75 mg tablet Take 75 mg by mouth. 4 Active colchicine (Colcrys) 0.6 mg tablet Take 0.6 mg by mouth 2 (two) times a day as needed. Active diphenhydrAMINE (BenadryL) 25 mg tablet Take 50 mg by mouth at bedtime as needed. Active ezetimibe (Zetia) 10 mg tablet Take 1 tablet by mouth daily. 3 Active famotidine (Pepcid) 20 mg tablet Take 20 mg by mouth 2 (two) times a day. Active gabapentin (Neurontin) 300 mg capsule Take 1 capsule by mouth 3 (three) times a day. 4 Active isosorbide mononitrate (Imdur) 30 mg 24 hr tablet Take 60 mg by mouth daily. Active levETIRAcetam (Keppra) 750 mg tablet Take 750 mg by mouth. 4 Active lisinopriL 10 mg tablet Take 1 tablet by mouth daily. 4 Active methocarbamoL (Robaxin) 750 mg tablet Take 750 mg by mouth 3 (three) times a day as needed. 4 Active metoprolol succinate (Toprol XL) 50 mg 24 hr tablet Take 75 mg by mouth. 4 Active nitroglycerin (Nitrostat) 0.[address] 0.4 mg under the tongue every 2 (two) hours as needed. 0 Active rosuvastatin (Crestor) 40 mg tablet Take 1 tablet by mouth at bedtime. 4 Active sennosides (Senokot) 8.6 mg tablet Take 8.6-17.2 mg by mouth 2 (two) times a day as needed. 4 Active triamcinolone acetonide (Kenalog) 0.05 % ointment Apply topically 2 (two) times a day as needed. Active diazePAM (Valtoco) 15 mg/2 spray (7.5 mg/0.1 mL x 2) spray,non-aeroso l nasal spray Administer 15 mg into nostril(s) as needed for seizures. Use 1 spray in each nostril. 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 Astrocytoma (HCC) Discharge Disposition: Home or Self Care 12/27/2023 9:58 AM SCALE MANAGER - 12/27/2023 11:50 AM SCALE MANAGER Hospital Encounter Department of Radiation Oncology in [place], [place] [address] [place] [address] Marta Chopra M.D. Astrocytoma (HCC) 12/27/2023 8:42 AM SCALE MANAGER - 12/27/2023 9:57 AM SCALE MANAGER Hospital Encounter Department of Radiation Oncology in [place], [place] [address] [place] [address] Marta Chopra M.D. Astrocytoma (HCC) (Primary Dx) 12/19/2023 Orders Only Department of Radiation Oncology in [place], [place] [address] [place] [address] Priscilla Hennessy P.A.-C., M.S. Astrocytoma (HCC) (Primary Dx) from Last 3 Months Family History Medical History Relation Name Comments Pancreatic cancer Father Brain Tumor Sister Dari Relation Name Status Comments Father Sister Dari Social History Tobacco Use Types Packs/Day Years Used Date Smoking Tobacco: Never Smokeless Tobacco: Never Tobacco Cessation:Counseling Given: Not Answered Alcohol Use Standard Drinks/Week Comments Not Currently 14 (1 standard drink = 0.6 oz pu re alcohol) [facility] [employer] Answer Date Recorded In the past 12 months has [place], [employer], oil, or water [employer] threatened to shut off services in your home? No 12/25/2023 Exercise Vital Sign Answer Date Recorde d On average, how many days pe r week do you engage in moderate to strenuous exercise (like a brisk walk)? 3 days 12/25/2023 On average, how many minutes do you engage in exercise at this level? 20 min 12/25/2023 Hunger Vital Sign Answer Date Recorded Within the past 12 months, y ou worried that your food would run out before you got the money to buy more. Never true 12/25/19 24 Within the past 12 months, t he food you bought just didn't last and you didn't have money to get more. Never true 12/25/2023 PRAPARE - Transportation Answer Date Re corded In the past 12 months, has l ack of transportation kept you from medical appointments or from getting medications? No 12/08 In the past 12 months, has l ack of transportation kept you from meetings, work, or from getting things needed for daily living? No 12/25/2023 Nutrition Answer Date Recorded On average, how many serving s of fruits and vegetables do you eat per day (serving size is equal to 1 cup or approximately the size of a tennis ball)? 5 or more 12/25/2023 Dental Answer Date Recorded Dental: Regular Dentist Yes 12/25/19 Employment Answer Date Recorded Employment status Retired 12/25/2023 Housing Stability Answer Date Recorded What is your living situation today? I have a [facility] place to live 12/25/2023 Sex and Gender Information Value Date Recorded Sex Assigned at Male 12/25/2023 9:47 AM SCALE MANAGER Legal Sex Male 3:57 PM SCALE MANAGER Gender Identity Male 12/25/2023 9:47 AM SCALE MANAGER Sexual Orientation Straight 12/25/2023 9: 47 AM SCALE MANAGER Last Filed Vital Signs Vital Sign Reading Time Taken Comments Blood Pressure 129/79 12/27/2023 8:57 AM SCALE MANAGER Pulse 76 12/27/2023 8:57 AM SCALE MANAGER Temperature 36.7 C (98 F) 12/27/2023 8:57 AM SCALE MANAGER Respiratory Rate - - Oxygen Saturation - - Inhaled Oxygen Concentration - - Weight 73.4 kg (161 lb 13.1 oz) 12/27/2023 8:57 AM SCALE MANAGER Height - - Body Mass Index - - Plan of Treatment Upcoming Encounters Date Type Department Care Team (Late st Contact Info) Description 01/02/2024 1:00 PM SCALE MANAGER Appointment Department of Radiation Oncology in [place], [place] [address] [place] [phone] Henrique Farley M.D. [address] [place] [phone] Marta Chopra M.D. [address] [place] [phone] Toño Rosenberg M.D. [address] [place] [address] 01/03/2024 12:45 PM SCALE MANAGER Appointment Department of Radiation Oncology in [place], [place] [address] [place] [address] Henrique Farley M.D. [address] [place] [phone] Marta Chopra M.D. [address] [place] [phone] 01/04/2024 8:30 AM SCALE MANAGER Appointment Department of Radiation Oncology in [address] [address] Marta Chopra M.D. [address] [place] [address] 01/04/2024 9:00 AM SCALE MANAGER Appointment Department of Radiation Oncology in [address] [address] Henrique Farley M.D. [facility] [place] [address] 01/06/2024 8:15 AM SCALE MANAGER Appointment Department of Radiation Oncology in [address] [address] Marta Chopra M.D. [address] [place] [phone] 01/09/2024 8:15 AM SCALE MANAGER Appointment Department of Radiation Oncology in [place], [place] [address] [place] [address] Henrique Farley M.D. [facility] [place] [address] Marta Chopra M.D. [address] [place] [phone] 01/09/2024 9:00 AM SCALE MANAGER Appointment Department of Radiation Oncology in [address] [address] Marta Chopra M.D. [address] [place] [address] 01/10/2024 8:30 AM SCALE MANAGER Appointment Department of Radiation Oncology in [place], [place] [address] [place] [address] Henrique Farley M.D. [address] [place] [address] Marta Chopra M.D. [address] [place] [address] 01/11/2024 8:30 AM SCALE MANAGER Appointment Department of Radiation Oncology in [place], [place] [address] [place] [address] Henrique Farley M.D. [address] [place] [address] Marta Chopra M.D. [address] [place] [address] 01/11/2024 9:00 AM SCALE MANAGER Appointment Department of Radiation Oncology in [place], [place] [address] [place] [address] Marta Chopra M.D. [address] [place] [address] 01/12/2024 8:30 AM SCALE MANAGER Appointment Department of Radiation Oncology in [place], [place] [address] [place] [address] Henrique Farley M.D. [facility] [place] [address] Marta Chopra M.D. [address] [place] [address] 01/13/2024 12:45 PM SCALE MANAGER Appointment Department of Radiation Oncology in [place], [place] [address] [place] [address] Henrique Farley M.D. [address] [place] [address] Marta Chopra M.D. [address] [place] [address] 01/16/2024 8:30 AM SCALE MANAGER Appointment Department of Radiation Oncology in [place], [place] [address] [place] [address] Henrique Farley M.D. [address] [place] [address] Marta Chopra M.D. [address] [place] [address] 01/17/2024 8:15 AM SCALE MANAGER Appointment Department of Radiation Oncology in [place], [place] [address] [place] [address] Henrique Farley M.D. [address] [place] [address] Marta Chopra M.D. [address] [place] [address] 01/18/2024 8:15 AM SCALE MANAGER Appointment Department of Radiation Oncology in [place], [place] [address] [place] [address] Henrique Farley M.D. [address] [place] [address] Marta Chopra M.D. [address] [place] [address] 01/19/2024 8:15 AM SCALE MANAGER Appointment Department of Radiation Oncology in [place] [address] [place] [address] Henrique Farley M.D. [address] [place] [address] Marta Chopra M.D. [address] [place] [address] 01/19/2024 8:45 AM SCALE MANAGER Appointment Department of Radiation Oncology in [place] [address] [place] [address] Marta Chopra M.D. [address] [place] [address] 01/20/2024 9:00 AM SCALE MANAGER Appointment Department of Radiation Oncology in [place] [address] [place] [address] Henrique Farley M.D. [facility] [place] [address] Marta Chopra M.D. [address] [place] [address] 01/23/2024 9:00 AM SCALE MANAGER Appointment Department of Radiation Oncology in [place] [address] [place] [address] Henrique Farley M.D. [facility] [place] [address] Marta Chopra M.D. [address] [place] [phone] 01/24/2024 9:00 AM SCALE MANAGER Appointment Department of Radiation Oncology in [place], [place] [address] [place] [address] Henrique Farley M.D. [address] [place] [address] Marta Chopra M.D. [address] [place] [phone] 01/25/2024 9:00 AM SCALE MANAGER Appointment Department of Radiation Oncology in [place], [place] [address] [place] [address] Henrique Farley M.D. [address] [place] [address] Marta Chopra M.D. [address] [place] [phone] 01/25/2024 9:30 AM SCALE MANAGER Appointment Department of Radiation Oncology in [place], [place] [address] [place] [address] Marta Chopra M.D. [address] [place] [phone] 01/26/2024 9:00 AM SCALE MANAGER Appointment Department of Radiation Oncology in [place], [place] [address] [place] [address] Henrique Farley M.D. [address] [place] [address] Marta Chopra M.D. [address] [place] [address] 01/27/2024 9:00 AM SCALE MANAGER Appointment Department of Radiation Oncology in [place], [place] [address] [place] [address] Henrique Farley M.D. [address] [place] [address] [place] [address] 01/30/2024 9:00 AM SCALE MANAGER Appointment Department of Radiation Oncology in [place], [place] [address] [place] [address] Henrique Farley M.D. [address] [place] [address] [place] [address] 01/31/2024 9:00 AM SCALE MANAGER Appointment Department of Radiation Oncology in [place], [place] [address] [place] [address] Henrique Farley M.D. [address] [place] [address] [place] [address] 02/02/2024 9:00 AM SCALE MANAGER Appointment Department of Radiation Oncology in [place], [place] [address] [place] [address] Henrique Farley M.D. [address] [place] [address] Marta Chopra M.D. [address] [place] [phone] 02/02/2024 9:30 AM SCALE MANAGER Appointment Department of Radiation Oncology in [place], [place] [address] [place] [address] Marta Chopra M.D. [address] [place] [phone] 02/03/2024 9:00 AM SCALE MANAGER Appointment Department of Radiation Oncology in [place], [place] [address] [place] [address] Henrique Farley M.D. [address] [place] [address] Marta Chopra M.D. [address] [place] [phone] 02/06/2024 9:00 AM SCALE MANAGER Appointment Department of Radiation Oncology in [place], [place] [address] [place] [address] Henrique Farley M.D. [address] [place] [address] Marta Chopra M.D. [address] [place] [phone] 02/07/2024 9:00 AM SCALE MANAGER Appointment Department of Radiation Oncology in [place], [place] [address] [place] [address] Henrique Farley M.D. [address] [place] [address] Marta Chopra M.D. [address] [place] [address] 02/09/2024 9:00 AM SCALE MANAGER Appointment Department of Radiation Oncology in [place], [place] [address] [place] [address] Henrique Farley M.D. [address] [place] [address] [place] [address] 02/09/2024 9:30 AM SCALE MANAGER Appointment Department of Radiation Oncology in [place], [place] [address] [place] [address] Henrique Farley M.D. [address] [place] [address] 02/10/2024 9:00 AM SCALE MANAGER Appointment Department of Radiation Oncology in [place], [place] [address] [place] [address] Henrique Farley M.D. [address] [place] [address] Marta Chopra M.D. [address] [place] [phone] 02/13/2024 9:00 AM SCALE MANAGER Appointment Department of Radiation Oncology in [place], [place] [address] [place] [address] Henrique Farley M.D. [address] [place] [address] Marta Chopra M.D. [address] [place] [phone] 02/14/2024 9:00 AM SCALE MANAGER Appointment Department of Radiation Oncology in [place], [place] [address] [place] [address] Henrique Farley M.D. [address] [place] [address] Marta Chopra M.D. [address] [place] [phone] 02/14/2024 9:30 AM SCALE MANAGER Appointment Department of Radiation Oncology in [place], [place] [address] [place] [address] Henrique Farley M.D. [address] [place] [address] 02/15/2024 9:00 AM SCALE MANAGER Appointment Department of Radiation Oncology in [place] [address] [place] [address] Henrique Farley M.D. [address] [place] [address] Marta Chopra M.D. [address] [place] [phone] Health Maintenance Due Date Last Done Comments CT Colonography 1955 Cologuard 1955 FIT 1955 Hepatitis C Screening 1955 RSV vaccine - (32-36 weeks) or 60+ years (1 - Risk 60-74 years 1-dose series) 2014 DTaP,Tdap,and Td Vaccines (2 - Td or Tdap) 02/11/2019 02/11/2009 Pneumococcal vaccine (65+ years) (2 of 2 - PCV) 07/16/2020 07/17/2019 Depression Screening (Annual PHQ-2) 02/07/2023 Fall Risk Screen (Annual) 02/07/2023 Creatinine Level (Kidney Function Test) 12/01/2024 12/02/2023, 12/01/2023, 11/01/2023, Additional history exists Potassium Level 12/01/2024 12/02/2023, 11/08, 11/01/2023, Additional history exists Sodium Level 12/01/2024 12/02/2023, 11/08, 12/01/2023, Additional history exists Fasting Glucose for Diabetes Screening 12/01/2026 12/02/2023, 12/01/2023, 10/31/2023, Additional history exists Colonoscopy 04/02/2030 04/02/2020 Colorectal Cancer Screening 04/02/2030 Zoster Vaccines Completed 05/15/2018, 05/2018, 02/14/2015 COVID-19 Vaccine Completed 11/04/2023, , 12/21/2021, Additional history exists Influenza Vaccine Completed 11/04/2023, , 12/21/2021, Additional history exists HPV Vaccines Aged Out No longer eligi ble based on patient's age to complete this topic IPV Vaccines Aged Out No longer eligi ble based on patient's age to complete this topic Procedures Procedure Name Priority Date/Time Associated Diagnosis Comments MR BRAIN WITHOUT AND WITH IV CONTRAST RAD - Routine (most inpatients and all outpatients) 12/27/2023 2:38 PM SCALE MANAGER Astrocytoma (HCC) INITIAL RAD ONC TREATMENT PLANNING CT SIMULATION Routine 12/27/2023 10:00 AM SCALE MANAGER Astrocytoma (HCC) OUTSIDE MR NEURO Routine 11/29/2023 9:35 AM CDT OUTSIDE MR NEURO Routine 11/10/2023 3:50 PM CDT OUTSIDE MR NEURO Routine 10/31/2023 3:[address] NEURO Routine 10/31/2023 2:25 PM CDT from Last 3 Months Results * MR Brain without and with IV Contrast (12/27/2023 2:38 PM SCALE MANAGER) Anatomical Region Laterality Modality Head, Brain, Neuroradiology RST LOS, Neuroradiology ARZ LOS, Neuroradiology FLA LOS N/A Magnetic Resonance Impressions 12/27/2023 4:27 PM SCALE MANAGER -Limited MRI brain sequences for stereotactic treatment planning. -Interval debulking of the infiltrative mass lesion centered in the right inferior basal ganglia with improvement in the mass effect in previously noted mild leftward midline shift. -No significant interval change in the patchy enhancement in the right anterior temporal lobe as described. -Postsurgical changes from right frontotemporal craniotomy as described. Narrative 12/27/2023 4:27 PM SCALE MANAGER EXAM: MR BRAIN WITHOUT AND WITH IV CONTRAST COMPARISON:MRI brain, 11/29/2023, 11/10/2023, 10/31/23 and 09/09/2005. 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 MRI brain with high-resolution sequences per protocol obtained for stereotactic treatment planning. Redemonstration of infiltrative T2 hyperintense mass lesion centered in the inferior right basal ganglia measuring approximately 3.6 cm x 2.9 cm in transaxial AP and TV dimensions on series 16 image 97 (versus 3.9 cm x 3.1 cm on 10/31/2023). There is redemonstration of subtle heterogeneous enhancement centered in the right anterior temporal lobe measuring approximately 11 mm x 8 mm on series 9 image 79 (unchanged from 10/31/2023). There is redemonstration of T2 FLAIR hyperintense signal with involvement of the inferior right insular cortex, right subinsular, right inferior frontal lobe, right frontal operculum, right temporal operculum, as well as extension of the T2 FLAIR signal across the anterior commissure into the inferior left basal ganglia and inferior left frontal lobe, not significantly changed from prior exams dated 10/31/2023. There is improvement in the mass effect and minimal midline shift from 4.6 mm on prior exams dated 10/31/2023 to 2.9 mm on the current exams measured at the level of the third ventricle. Postsurgical changes from right frontotemporal craniotomy. Small extra-axial fluid collection measuring up to 1.5 cm in thickness in the right anterior temporal convexity as well as small extra-axial fluid collection measuring up to 7 mm in thickness in the right anterior frontal convexity likely post surgical changes. Curvilinear enhancement in the right anterior temporal lobe surgical cavity, likely postsurgical changes. There is reactive diffuse right frontal parietal pachymeningeal enhancement. Biopsy tract in the right frontal lobe is noted. Normal flow voids in bilateral intracranial ICAs, MCAs, ACAs, basilar artery and copyright manager as are their visualized distal branches. Presumed moderate chronic small vessel ischemic white matter disease, unchanged. Unchanged left maxillary sinus retention cyst versus polyp. Procedure Note Krzysztof Saunders M.B., Dee Hernandez - 12/27/2023 EXAM: MR BRAIN WITHOUT AND WITH IV CONTRAST COMPARISON:MRI brain, 11/29/2023, 11/10/2023, 10/31/23 and 09/09/2005. FINDINGS: Biopsy proven IDH mutant astrocytoma status post rightfrontotemporal craniotomy for debulking surgery on 11/30/2023. MRI brainwith high-resolution sequences per protocol obtained for stereotactictreatment planning. Redemonstration of infiltrative T2 hyperintense mass lesion centered inthe inferior right basal ganglia measuring approximately 3.6 cm x 2.9 cmin transaxial AP and TV dimensions on series 16 image 97 (versus 3.9 cm x3.1 cm on 10/31/2023). There is redemonstration of subtle heterogeneous enhancement centered in the rightanterior temporal lobe measuring approximately 11 mm x 8 mm on series 9image 79 (unchanged from 10/31/2023). There is redemonstration of T2 FLAIR hyperintense signal with involvementof the inferior right insular cortex, right subinsular, right inferiorfrontal lobe, right frontal operculum, right temporal operculum, as wellas extension of the T2 FLAIR signal across the anterior commissure into the inferior left basal ganglia andinferior left frontal lobe, not significantly changed from prior examsdated 10/31/2023. There is improvement in the mass effect and minimalmidline shift from 4.6 mm on prior exams dated 10/31/2023 to 2.9 mm on the current exams measured at the level ofthe third ventricle. Postsurgical changes from right frontotemporal craniotomy. Smallextra-axial fluid collection measuring up to 1.5 cm in thickness in theright anterior temporal convexity as well as small extra-axial fluidcollection measuring up to 7 mm in thickness in the right anterior frontal convexity likely post surgical changes.Curvilinear enhancement in the right anterior temporal lobe surgicalcavity, likely postsurgical changes. There is reactive diffuse rightfrontal parietal pachymeningeal enhancement. Biopsy tract in the right frontal lobe is noted. Normal flow voids in bilateral intracranial ICAs, MCAs, ACAs, basilarartery and copyright manager as are their visualized distal branches. Presumed moderatechronic small vessel ischemic white matter disease, unchanged. Unchangedleft maxillary sinus retention cyst versus polyp. IMPRESSION: -Limited MRI brain sequences for stereotactic treatment planning. -Interval debulking of the infiltrative mass lesion centered in the rightinferior basal ganglia with improvement in the mass effect in previouslynoted mild leftward midline shift. -No significant interval change in the patchy enhancement in the rightanterior temporal lobe as described. -Postsurgical changes from right frontotemporal craniotomy as described. Marta Chopra M.D. [facility] [place] PROCEDURES Final Result * Initial Rad Onc Treatment Planning CT Simulation without IV Contrast (12/27/2023 10:00 AM SCALE MANAGER) Narrative [facility] - 12/27/2023 10:00 AM SCALE MANAGER Joselyn Gonzalez 12/27/2023 10:44 AM Initial Rad Onc Treatment Planning CT Simulation without IV Contrast Performed by: Marta Chopra M.D. Authorized by: Marta Chopra M.D. Marta Chopra M.D. RADIATION ONCOLOGY ORDERA BLES Final Result Performing Organization Address [facility] de Phone Number OUMAR CROSS na * MR HEAD BRAIN WO-Outside MR Neuro (11/29/2023 9:35 AM CDT) Only the most recent of3 resultswithin the time period is included. Narrative [facility] - 12/12/2023 10:46 AM SCALE MANAGER This order has been created and auto-finalized to support the import of outside images. If available, original interpretation can be found on the Media Tab in Chart Review, in Document Viewer, as an image in QREADS or as an Addendum. If a re-interpretation or overread is required please follow defined workflow. Provider Not In System IMG MRI PROCEDURES Final Result Performing Organization Address [facility] de Phone Number II NA * CT HEAD BRAIN WO-Outside CT Neuro (10/31/2023 2:25 PM CDT) Narrative [facility] - 12/12/2023 10:53 AM SCALE MANAGER This order has been created and auto-finalized to support the import of outside images. If available, original interpretation can be found on the Media Tab in Chart Review, in Document Viewer, as an image in QREADS or as an Addendum. If a re-interpretation or overread is required please follow defined workflow. Provider Not In System IMG CT PROCEDURES Final R esult Performing Organization Address [facility] [facility] Co de Phone Number IIMS NA from Last [address] [facility] MEDICARE
--- OUTSIDE RECORDS SUMMARY | 2024-01-02 10:16 | XMS_ITS | Encounter Summary ---
Author Organization [facility] Address [address] [place] [address] Care Team Providers Care Supervisor Park Workers Name Role Phone Unavailable Primary Care Provider Unavailabl e Reason for Referral * Radiation Therapy (Routine) - Authorized Specialty Diagnoses / Procedures Referred By Lmac t Referred To Contact Diagnoses Astrocytoma (HCC) Procedures Initial Rad Onc Treatment Planning CT Simulation without IV Contrast MT IMRT RADIOTHERAPY PLAN Marta Manzano M.D. [address] [place] [address] Phone: tel: fax: [facility] Region Referral ID Status Reason Start Date Expiration Date V isits Requested Visits Authorized [id number] Authorized 12/27/2023 12/18/2024 2 2 OR CATEGORY MANAGER Reason for Visit * Radiation Therapy (Routine) - Authorized Specialty Diagnoses / Procedures Referred By Gael keita Referred To Contact Diagnoses Astrocytoma (HCC) Procedures Initial Rad Onc Treatment Planning CT Simulation without IV Contrast MT IMRT RADIOTHERAPY PLAN Marta Manzano M.D. [address] [place] [address] Phone: tel: fax: [facility] Region Referral ID Status Reason Start Date Expiration Date V isits Requested Visits Authorized [id number] Authorized 12/27/2023 12/18/2024 2 2 Encounter Details Date Type Department Care Team (Latest Contact Info) Description 12/27/2023 9:58 AM SENIOR CATEGORY MANAGER - 12/27/2023 11:50 AM SENIOR CATEGORY MANAGER Hospital Encounter Department of Radiation Oncology in [address] [address] Marta Chopra M.D. [address] [place] [address] Astrocytoma (HCC) Social History Tobacco Use Types Packs/Day Years Used Date Smoking Tobacco: Never Smokeless Tobacco: Never Alcohol Use Standard Drinks/Week Comments Not Currently 14 (1 standard drink = 0.6 oz pu re alcohol) [facility] Utilities Answer Date Recorded In the past 12 months has th e e27, gas, oil, or water [employer] threatened to shut off services in your [...] money to buy more. Never true 12/25/19 Within the past 12 months, t he [...] your living situation today? I have a [facility] place to live 12/25/2023 Sex and Gender Information Value Date Recorded Sex Assigned at Male 12/25/2023 9:47 AM SENIOR CATEGORY MANAGER Legal Sex Male 3:57 PM SENIOR CATEGORY MANAGER Gender Identity Male 12/25/2023 9:47 AM SENIOR CATEGORY MANAGER Sexual Orientation Straight 12/25/2023 9: 47 AM SENIOR CATEGORY MANAGER documented as of this encounter Medications at Time of Discharge acetaminophen (TylenoL) 500 mg tablet Take 1,000 mg by mouth every 6 (six) hours as needed. 12/03/2023 acetaminophen-cod eine (TylenoL #3) 300-30 mg per tablet Take 1 tablet by mouth every 6 (six) hours as needed. 12/19/2023 clopidogreL (Plavix) 75 mg tablet Take 75 mg by mouth. 12/09/2023 colchicine (Colcrys) 0.6 mg tablet Take 0.6 mg by mouth 2 (two) times a day as needed. diazePAM (Valtoco) 15 mg/2 spray (7.5 mg/0.1 mL x 2) spray,non-aerosol nasal spray Administer 15 mg into nostril(s) as needed for seizures. Use 1 spray in each nostril. diphenhydrAMINE (BenadryL) 25 mg tablet Take 50 mg by mouth at bedtime as needed. ezetimibe (Zetia) 10 mg tablet Take 1 tablet by mouth daily. 01/28/2023 famotidine (Pepcid) 20 mg tablet Take 20 mg by mouth 2 (two) times a day. gabapentin (Neurontin) 300 mg capsule Take 1 capsule by mouth 3 (three) times a day. 11/14/2023 isosorbide mononitrate (Imdur) 30 mg 24 hr tablet Take 60 mg by mouth daily. levETIRAcetam (Keppra) 750 mg tablet Take 750 mg by mouth. 11/01/2023 lisinopriL 10 mg tablet Take 1 tablet by mouth daily. 04/25/2023 methocarbamoL (Robaxin) 750 mg tablet Take 750 mg by mouth 3 (three) times a day as needed. 10/05/2023 metoprolol succinate (Toprol XL) 50 mg 24 hr tablet Take 75 mg by mouth. 08/03/2023 nitroglycerin (Nitrostat) 0.[address] 0.4 mg under the tongue every 2 (two) hours as needed. 07/11/2019 rosuvastatin (Crestor) 40 mg tablet Take 1 tablet by mouth at bedtime. 05/29/2023 sennosides (Senokot) 8.6 mg tablet Take 8.6-17.2 mg by mouth 2 (two) times a day as needed. 12/03/2023 triamcinolone acetonide (Kenalog) 0.05 % ointment Apply topically 2 (two) times a day as needed. documented as of this encounter Procedure Notes * Joselyn Gonzalez - 12/27/2023 10:00 AM CSTAssociated Order(s): Initial Rad Onc Treatment Planning CT Simulation without IV Contrast Pre-Procedure Diagnose(s): Astrocytoma (HCC) Post-Procedure Diagnose(s): Astrocytoma (HCC) Initial Rad Onc Treatment Planning CT Simulation without IV Contrast Performed by: Marta Chopra M.D. Authorized by: Marta Chopra M.D. Simulation was performed under physician supervision based on physician order in preparation for radiation therapy. Physician was immediately available to provide assistance and direction throughout the procedure. Written consent for treatment was completed or confirmed. The patient was appropriately identified and placed in the treatment position using the necessary immobilization to ensure a reproducible treatment position. Reference luther were placed to facilitate marking of isocenter. Area scanned:Head Contrast used for the simulation procedure: None Patient position:head first supine Custom immobilization: SRS mask (2 part mask) Motion management: None Bolus: No CT guidance: Following positioning of the patient, a series of slices was obtained to be utilized in treatment planning. CT images were transferred to the Eclipse treatment planning system, after a reference isocenter was determined and marked. Segmentation and treatment planning will take place prior to treatment delivery. Patient set up and imaging was appropriate and completed without incident. Creative Writing Teacher use:No Cosigned by Marta Chopra M.D. at 12/27/2023 11:50 AM SENIOR CATEGORY MANAGER OR CATEGORY MANAGER OR CATEGORY MANAGER Associated attestation - Marta Chopra M.D. - 12/27/2023 11:50 AM SENIOR CATEGORY MANAGER I was present during all critical and murillo portions of the procedure(s) and immediately available [facility] services the entire duration. See note for details. documented in this encounter Plan of Treatment Upcoming Encounters Date Type Department Care Team (Late st Contact Info) Description 01/02/2024 1:00 PM SENIOR CATEGORY MANAGER Appointment Department of Radiation Oncology in [address] [address] Henrique Farley M.D. [address] [place] [address] Marta Chopra M.D. [address] [place] [phone] Toño Rosenberg M.D. [address] [place] [address] 01/03/2024 12:45 PM SENIOR CATEGORY MANAGER Appointment Department of Radiation Oncology in [address] [address] Henrique Farley M.D. [address] [place] [address] Marta Chopra M.D. [address] [place] [address] 01/04/2024 8:30 AM SENIOR CATEGORY MANAGER Appointment Department of Radiation Oncology in [address] [address] Marta Chopra M.D. [address] [place] [address] 01/04/2024 9:00 AM SENIOR CATEGORY MANAGER Appointment Department of Radiation Oncology in [address] [address] Henrique Farley M.D. [address] [place] [address] 01/06/2024 8:15 AM SENIOR CATEGORY MANAGER Appointment Department of Radiation Oncology in [place], [place] [address] [place] [address] Marta Chopra M.D. [address] [place] [address] 01/09/2024 8:15 AM SENIOR CATEGORY MANAGER Appointment Department of Radiation Oncology in [place], [place] [address] [place] [address] Henrique Farley M.D. [address] [place] [address] Marta Chopra M.D. [address] [place] [address] 01/09/2024 9:00 AM SENIOR CATEGORY MANAGER Appointment Department of Radiation Oncology in [place], [place] [address] [place] [address] Marta Chopra M.D. [address] [place] [phone] 01/10/2024 8:30 AM SENIOR CATEGORY MANAGER Appointment Department of Radiation Oncology in [place], [place] [address] [place] [address] Henrique Farley M.D. [facility] [place] [address] Marta Chopra M.D. [address] [place] [phone] 01/11/2024 8:30 AM SENIOR CATEGORY MANAGER Appointment Department of Radiation Oncology in [place], [place] [address] [place] [address] Henrique Farley M.D. [address] [place] [address] Marta Chopra M.D. [address] [place] [address] 01/11/2024 9:00 AM SENIOR CATEGORY MANAGER Appointment Department of Radiation Oncology in [place], [place] [address] [place] [address] Marta Chopra M.D. [address] [place] [address] 01/12/2024 8:30 AM SENIOR CATEGORY MANAGER Appointment Department of Radiation Oncology in [place], [place] [address] [place] [address] Henrique Farley M.D. [address] [place] [address] Marta Chopra M.D. [address] [place] [phone] 01/13/2024 12:45 PM SENIOR CATEGORY MANAGER Appointment Department of Radiation Oncology in [place], [place] [address] [place] [address] Henrique Farley M.D. [address] [place] [address] Marta Chopra M.D. [address] [place] [phone] 01/16/2024 8:30 AM SENIOR CATEGORY MANAGER Appointment Department of Radiation Oncology in [place], [place] [address] [place] [address] Henrique Farley M.D. [address] [place] [address] Mart[place] [address] 01/17/2024 8:15 AM SENIOR CATEGORY MANAGER Appointment Department of Radiation Oncology in [place], [place] [address] [place] [address] Henrique Farley M.D. [address] [place] [address] [place] [address] 01/18/2024 8:15 AM SENIOR CATEGORY MANAGER Appointment Department of Radiation Oncology in [place], [place] [address] [place] [address] Henrique Farley M.D. [address] [place] [address] [place] [address] 01/19/2024 8:15 AM SENIOR CATEGORY MANAGER Appointment Department of Radiation Oncology in [place], [place] [address] [place] [address] Henrique Farley M.D. [address] [place] [address] Marta Chopra M.D. [address] [place] [phone] 01/19/2024 8:45 AM SENIOR CATEGORY MANAGER Appointment Department of Radiation Oncology in [place], [place] [address] [place] [address] Marta Chopra M.D. [address] [place] [phone] 01/20/2024 9:00 AM SENIOR CATEGORY MANAGER Appointment Department of Radiation Oncology in [place], [place] [address] [place] [address] Henrique Farley M.D. [address] [place] [address] Marta Chopra M.D. [address] [place] [phone] 01/23/2024 9:00 AM SENIOR CATEGORY MANAGER Appointment Department of Radiation Oncology in [place], [place] [address] [place] [address] Henrique Farley M.D. [address] [place] [address] Marta Chopra M.D. [address] [place] [address] 01/24/2024 9:00 AM SENIOR CATEGORY MANAGER Appointment Department of Radiation Oncology in [place], [place] [address] [place] [address] Henrique Farley M.D. [address] [place] [address] Marta Chopra M.D. [address] [place] [phone] 01/25/2024 9:00 AM SENIOR CATEGORY MANAGER Appointment Department of Radiation Oncology in [place], [place] [address] [place] [address] Henrique Farley M.D. [address] [place] [address] Marta Chopra M.D. [address] [place] [address] 01/25/2024 9:30 AM SENIOR CATEGORY MANAGER Appointment Department of Radiation Oncology in [place], [place] [address] [place] [address] Marta Chopra M.D. [address] [place] [address] 01/26/2024 9:00 AM SENIOR CATEGORY MANAGER Appointment Department of Radiation Oncology in [place], [place] [address] [place] [address] Henrique Farley M.D. [address] [place] [address] Marta Chopra M.D. [address] [place] [address] 01/27/2024 9:00 AM SENIOR CATEGORY MANAGER Appointment Department of Radiation Oncology in [place], [place] [address] [place] [address] Henrique Farley M.D. [address] [place] [address] Marta Chopra M.D. [address] [place] [address] 01/30/2024 9:00 AM SENIOR CATEGORY MANAGER Appointment Department of Radiation Oncology in [place], [place] [address] [place] [address] Henrique Farley M.D. [address] [place] [address] Marta Chopra M.D. [address] [place] [address] 01/31/2024 9:00 AM SENIOR CATEGORY MANAGER Appointment Department of Radiation Oncology in [place], [place] [address] [place] [address] Henrique Farley M.D. [address] [place] [address] Marta Chopra M.D. [address] [place] [address] 02/02/2024 9:00 AM SENIOR CATEGORY MANAGER Appointment Department of Radiation Oncology in [place], [place] [address] [place] [address] Henrique Farley M.D. [address] [place] [address] Marta Chopra M.D. [address] [place] [address] 02/02/2024 9:30 AM SENIOR CATEGORY MANAGER Appointment Department of Radiation Oncology in [place], [place] [address] [place] [address] Marta Chopra M.D. [address] [place] [address] 02/03/2024 9:00 AM SENIOR CATEGORY MANAGER Appointment Department of Radiation Oncology in [place], [place] [address] [place] [address] Henrique Farley M.D. [address] [place] [address] Marta Chopra M.D. [address] [place] [address] 02/06/2024 9:00 AM SENIOR CATEGORY MANAGER Appointment Department of Radiation Oncology in [place], [place] [address] [place] [address] Henrique Farley M.D. [address] [place] [address] Marta Chopra M.D. [address] [place] [address] 02/07/2024 9:00 AM SENIOR CATEGORY MANAGER Appointment Department of Radiation Oncology in [place], [place] [address] [place] [address] Henrique Farley M.D. [address] [place] [address] Marta Chopra M.D. [address] [place] [address] 02/09/2024 9:00 AM SENIOR CATEGORY MANAGER Appointment Department of Radiation Oncology in [place], [place] [address] [place] [address] Henrique Farley M.D. [address] [place] [address] Marta Chopra M.D. [address] [place] [address] 02/09/2024 9:30 AM SENIOR CATEGORY MANAGER Appointment Department of Radiation Oncology in [place], [place] [address] [place] [address] Henrique Farley M.D. [address] [place] [address] 02/10/2024 9:00 AM SENIOR CATEGORY MANAGER Appointment Department of Radiation Oncology in [place], [place] [address] [place] [address] Henrique Farley M.D. [address] [place] [address] [place] [address] 02/13/2024 9:00 AM SENIOR CATEGORY MANAGER Appointment Department of Radiation Oncology in [place], [place] [address] [place] [address] Henrique Farley M.D. [address] [place] [address] Marta Chopra M.D. [address] [place] [address] 02/14/2024 9:00 AM SENIOR CATEGORY MANAGER Appointment Department of Radiation Oncology in [place], [place] [address] [place] [address] Henrique Farley M.D. [address] [place] [address] Marta Chopra M.D. [address] [place] [address] 02/14/2024 9:30 AM SENIOR CATEGORY MANAGER Appointment Department of Radiation Oncology in [place], [place] [address] [place] [address] Henrique Farley M.D. [address] [place] [address] 02/15/2024 9:00 AM SENIOR CATEGORY MANAGER Appointment Department of Radiation Oncology in [place], [place] [address] [place] [phone] Henrique Farley M.D. [address] [place] [address] Marta Chopra M.D. [address] [place] [address] documented as of this encounter Procedures Procedure Name Priority Date/Time Associated Diagnosis Comments INITIAL RAD ONC TREATMENT PLANNING CT SIMULATION Routine 12/27/2023 10:00 AM SENIOR CATEGORY MANAGER Astrocytoma (HCC) documented in this encounter Results * Initial Rad Onc Treatment Planning CT Simulation without IV Contrast (12/27/2023 10:00 AM SENIOR CATEGORY MANAGER) Narrative OSEGUERA ADEELPino - 12/27/2023 10:00 AM SENIOR CATEGORY MANAGER Joselyn Gonzalez 12/27/2023 10:44 AM Initial Rad Onc Treatment Planning CT Simulation without IV Contrast Performed by: Marta Chopra M.D. Authorized by: Marta Chopra M.D. Marta Chopra M.D. RADIATION ONCOLOGY ORDERA BLES Final Result OSEGUERA ARIA na documented in this encounter Visit Diagnoses Diagnosis Astrocytoma (HCC) documented in this encounter
--- OUTSIDE RECORDS SUMMARY | 2024-01-02 10:16 | XMS_ITS | Referral Summary ---
Author Organization 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. For routine questions regarding patient records, call [phone] during business hours, M-F 8:00 AM - 5:00 PM Central Time. Record requests for emergency care only can be directed to [phone] at any time.[facility] Encounters Date Type Department Care Team Description 12/27/2023 9:58 AM HAMMER SMITH - 12/27/2023 11:50 AM HAMMER SMITH Hospital Encounter Department of Radiation Oncology in [address] [address] Marta Chopra M.D. Astrocytoma (HCC) 12/27/2023 1:03 PM HAMMER SMITH - 12/27/2023 11:59 PM HAMMER SMITH Hospital Encounter Department of Radiology in [place], [place] [address] [place] [address] Marta Chopra M.D. Astrocytoma (HCC) Discharge Disposition: Home or Self Care 12/27/2023 8:42 AM HAMMER SMITH - 12/27/2023 9:57 AM HAMMER SMITH Hospital Encounter Department of Radiation Oncology in [address] [address] Marta Chopra M.D. Astrocytoma (HCC) (Primary Dx) 12/19/2023 Orders Only Department of Radiation Oncology in [address] [address] Priscilla Hennessy P.A.-C., MJonesS[facility] ([facility]) (Primary Dx) from Last 3 Months Medications acetaminophen (TylenoL) 500 mg tablet Take [...] Cancer Staging:Clinical stage from 11/30/2023:WHO G3- Unsigned Social History Tobacco Use Types Packs/Day Years Used Date Smoking Tobacco: Never Smokeless Tobacco: Never Tobacco Cessation:Counseling Given: Not Answered Alcohol Use Standard Drinks/Week Comments Not Currently 14 (1 standard drink = 0.6 oz pu re alcohol) [facility] 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 I have a [facility] place to live 12/25/2023 Sex and Gender Information Value Date Recorded Sex Assigned at Male 12/25/2023 9:47 AM HAMMER SMITH Legal Sex Male 3:57 PM HAMMER SMITH Gender Identity Male 12/25/2023 9:47 AM HAMMER SMITH Sexual Orientation Straight 12/25/2023 9: 47 AM HAMMER SMITH Last Filed Vital Signs Vital Sign Reading Time Taken Comments Blood Pressure 129/79 12/27/2023 8:57 AM HAMMER SMITH Pulse 76 12/27/2023 8:57 AM HAMMER SMITH Temperature 36.7 C (98 F) 12/27/2023 8:57 AM HAMMER SMITH Respiratory Rate - - Oxygen Saturation - - Inhaled Oxygen Concentration - - Weight 73.4 kg (161 lb 13.1 oz) 12/27/2023 8:57 AM HAMMER SMITH Height - - Body Mass Index - - Plan of Treatment Upcoming Encounters Date Type Department Care Team (Late st Contact Info) Description 01/02/2024 1:00 PM HAMMER SMITH Appointment Department of Radiation Oncology in [place], [place] [address] [place] [phone] Henrique Farley M.D. [address] [place] [address] Marta Chopra M.D. [address] [place] [phone] Toño Rosenberg M.D. [address] [place] [address] 01/03/2024 12:45 PM HAMMER SMITH Appointment Department of Radiation Oncology in [place], [place] [address] [place] [address] Henrique Farley M.D. [address] [place] [address] Marta Chpora M.D. [address] [place] [address] 01/04/2024 8:30 AM HAMMER SMITH Appointment Department of Radiation Oncology in [place], [place] [address] [place] [address] Marta Chopra M.D. [address] [place] [address] 01/04/2024 9:00 AM HAMMER SMITH Appointment Department of Radiation Oncology in [place], [place] [address] [place] [address] Henrique Farley M.D. [address] [place] [address] 01/06/2024 8:15 AM HAMMER SMITH Appointment Department of Radiation Oncology in [place], [place] [address] [place] [address] Marta Chopra M.D. [address] [place] [address] 01/09/2024 8:15 AM HAMMER SMITH Appointment Department of Radiation Oncology in [place], [place] [address] [place] [address] Henrique Farley M.D. [address] [place] [address] Marta Chopra M.D. [address] [place] [address] 01/09/2024 9:00 AM HAMMER SMITH Appointment Department of Radiation Oncology in [address] [address] Marta Chopra M.D. [address] [place] [address] 01/10/2024 8:30 AM HAMMER SMITH Appointment Department of Radiation Oncology in [place], [place] [address] [place] [address] Henrique Farley M.D. [address] [place] [address] Marta Chopra M.D. [address] [place] [address] 01/11/2024 8:30 AM HAMMER SMITH Appointment Department of Radiation Oncology in [place], [place] [address] [place] [address] Henrique Farley M.D. [address] [place] [address] Marta Chopra M.D. [address] [place] [address] 01/11/2024 9:00 AM HAMMER SMITH Appointment Department of Radiation Oncology in [place], [place] [address] [place] [address] Marta Chopra M.D. [address] [place] [address] 01/12/2024 8:30 AM HAMMER SMITH Appointment Department of Radiation Oncology in [place], [place] [address] [place] [address] Henrique Farley M.D. [place] [address] Marta Chopra M.D. [address] [place] [address] 01/13/2024 12:45 PM HAMMER SMITH Appointment Department of Radiation Oncology in [place], [place] [address] [place] [address] Henrique Farley M.D. [address] [place] [address] Marta Chopra M.D. [address] [place] [address] 01/16/2024 8:30 AM HAMMER SMITH Appointment Department of Radiation Oncology in [place], [place] [address] [place] [address] Henrique Farley M.D. [address] [place] [address] Marta Chopra M.D. [address] [place] [address] 01/17/2024 8:15 AM HAMMER SMITH Appointment Department of Radiation Oncology in [place], [place] [address] [place] [address] Henrique Farley M.D. [address] [place] [address] Marta Chopra M.D. [address] [place] [address] 01/18/2024 8:15 AM HAMMER SMITH Appointment Department of Radiation Oncology in [place], [place] [address] [place] [address] Henrique Farley M.D. [address] [place] [address] Marta Chopra M.D. [address] [place] [address] 01/19/2024 8:15 AM HAMMER SMITH Appointment Department of Radiation Oncology in [place], [place] [address] [place] [address] Henrique Farley M.D. [address] [place] [address] Marta Chopra M.D. [address] [place] [address] 01/19/2024 8:45 AM HAMMER SMITH Appointment Department of Radiation Oncology in [place], [place] [address] [place] [address] Marta Chopra M.D. [address] [place] [address] 01/20/2024 9:00 AM HAMMER SMITH Appointment Department of Radiation Oncology in [place], [place] [address] [place] [address] Henrique Farley M.D. [address] [place] [address] Marta Chopra M.D. [address] [place] [address] 01/23/2024 9:00 AM HAMMER SMITH Appointment Department of Radiation Oncology in [place], [place] [address] [place] [address] Henrique Farley M.D. [address] [place] [address] Marta Chopra M.D. [address] [place] [address] 01/24/2024 9:00 AM HAMMER SMITH Appointment Department of Radiation Oncology in [place], [place] [address] [place] [address] Henrique Farley M.D. [address] [place] [address] Marta Chopra M.D. [address] [place] [address] 01/25/2024 9:00 AM HAMMER SMITH Appointment Department of Radiation Oncology in [place], [place] [address] [place] [address] Henrique Farley M.D. [place] [address] Marta Chopra M.D. [address] [place] [address] 01/25/2024 9:30 AM HAMMER SMITH Appointment Department of Radiation Oncology in [place], [place] [address] [place] [address] Marta Chopra M.D. [address] [place] [address] 01/26/2024 9:00 AM HAMMER SMITH Appointment Department of Radiation Oncology in [place], [place] [address] [place] [address] Henrique Farley M.D. [place] [address] Marta Chopra M.D. [address] [place] [address] 01/27/2024 9:00 AM HAMMER SMITH Appointment Department of Radiation Oncology in [place], [place] [address] [place] [address] Henrique Farley M.D. [address] [place] [address] Marta Chopra M.D. [address] [place] [address] 01/30/2024 9:00 AM HAMMER SMITH Appointment Department of Radiation Oncology in [place], [place] [address] [place] [address] Henrique Farley M.D. [address] [place] [address] Marta Chopra M.D. [address] [place] [address] 01/31/2024 9:00 AM HAMMER SMITH Appointment Department of Radiation Oncology in [place], [place] [address] [place] [address] Henrique Farley M.D. [address] [place] [address] Marta Chopra M.D. [address] [place] [address] 02/02/2024 9:00 AM HAMMER SMITH Appointment Department of Radiation Oncology in [place], [place] [address] [place] [address] Henrique Farley M.D. [address] [place] [address] Marta Chopra M.D. [address] [place] [address] 02/02/2024 9:30 AM HAMMER SMITH Appointment Department of Radiation Oncology in [place], [place] [address] [place] [address] Marta Chopra M.D. [address] [place] [address] 02/03/2024 9:00 AM HAMMER SMITH Appointment Department of Radiation Oncology in [place], [place] [address] [place] [address] Henrique Farley M.D. [address] [place] [address] Marta Chopra M.D. [address] [place] [address] 02/06/2024 9:00 AM HAMMER SMITH Appointment Department of Radiation Oncology in [place], [place] [address] [place] [address] Henrique Farley M.D. [address] [place] [address] Marta Chopra M.D. [address] [place] [address] 02/07/2024 9:00 AM HAMMER SMITH Appointment Department of Radiation Oncology in [place], [place] [address] [place] [address] Henrique Farley M.D. [address] [place] [address] Marta Chopra M.D. [address] [place] [address] 02/09/2024 9:00 AM HAMMER SMITH Appointment Department of Radiation Oncology in [place], [place] [address] [place] [address] Henrique Farley M.D. [address] [place] [address] Mart[place] [address] 02/09/2024 9:30 AM HAMMER SMITH Appointment Department of Radiation Oncology in [place], [place] [address] [place] [address] Henrique Farley M.D. [address] [place] [address] 02/10/2024 9:00 AM HAMMER SMITH Appointment Department of Radiation Oncology in [place], [place] [address] [place] [address] Henrique Farley M.D. [place] [address] Marta Chopra M.D. [address] [place] [address] 02/13/2024 9:00 AM HAMMER SMITH Appointment Department of Radiation Oncology in [place], [place] [address] [place] [address] Henrique Farley M.D. [place] [address] Marta Chopra M.D. [address] [place] [address] 02/14/2024 9:00 AM HAMMER SMITH Appointment Department of Radiation Oncology in [address] [address] Henrique Farley M.D. [address] [place] [address] Marta Chopra M.D. [address] [place] [address] 02/14/2024 9:30 AM HAMMER SMITH Appointment Department of Radiation Oncology in [address] [address] Henrique Farley M.D. [place] [address] 02/15/2024 9:00 AM HAMMER SMITH Appointment Department of Radiation Oncology in [address] [address] Henrique Farley M.D. [address] [place] [address] Marta Chopra M.D. [address] [place] [address] Procedures Procedure Name Priority Date/Time Associated Diagnosis Comments MR BRAIN WITHOUT AND WITH IV CONTRAST RAD - Routine (most inpatients and all outpatients) 12/27/2023 2:38 PM HAMMER SMITH Astrocytoma (HCC) INITIAL RAD ONC TREATMENT PLANNING CT SIMULATION Routine 12/27/2023 10:00 AM HAMMER SMITH Astrocytoma (HCC) OUTSIDE MR NEURO Routine 11/29/2023 9:35 AM CDT OUTSIDE MR NEURO Routine 11/10/2023 3:50 PM CDT OUTSIDE MR NEURO Routine 10/31/2023 3:[address] NEURO Routine 10/31/2023 2:25 PM CDT from Last 3 Months Results * MR Brain without and with IV Contrast (12/27/2023 2:38 PM HAMMER SMITH) Anatomical Region Laterality Modality Head, Brain, Neuroradiology RST LOS, Neuroradiology ARZ LOS, Neuroradiology FLA LOS N/A Magnetic Resonance Impressions 12/27/2023 4:27 PM HAMMER SMITH -Limited MRI brain sequences for stereotactic treatment planning. -Interval debulking of the infiltrative mass lesion centered in the right inferior basal ganglia with improvement in the mass effect in previously noted mild leftward midline shift. -No significant interval change in the patchy enhancement in the right anterior temporal lobe as described. -Postsurgical changes from right frontotemporal craniotomy as described. Narrative 12/27/2023 4:27 PM HAMMER SMITH EXAM: MR BRAIN WITHOUT AND WITH IV [...] intracranial ICAs, MCAs, ACAs, basilar artery and cyber security specialist as are their visualized distal branches. Presumed [...] bilateral intracranial ICAs, MCAs, ACAs, basilarartery and cyber security specialist as are their visualized distal branches. Presumed [...] changes from right frontotemporal craniotomy as described. us Marta Chopra M.D. [facility] MRI PROCEDURES Final Result * Initial Rad Onc Treatment Planning CT Simulation without IV Contrast (12/27/2023 10:00 AM HAMMER SMITH) Narrative [facility] - 12/27/2023 10:00 AM HAMMER SMITH Joselyn Gonzalez 12/27/2023 10:44 AM Initial Rad Onc Treatment Planning CT Simulation without IV Contrast Performed by: Marta Chopra M.D. Authorized by: Marta Chopra M.D. Result [facility] Marta Chopra M.D. RADIATION ONCOLOGY ORDERA BLES Final Result Performing Organization Address City/[facility]/ZIP Co de Phone Number OUMAR CROSS na * MR HEAD BRAIN WO-Outside MR Neuro (11/29/2023 9:35 AM CDT) Only the most recent of3 resultswithin the time period is included. Narrative [facility] - 12/12/2023 10:46 AM HAMMER SMITH This order has been created and auto-finalized to support the import of outside images. If available, original interpretation can be found on the Media Tab in Chart Review, in Document Viewer, as an image in QREADS or as an Addendum. If a re-interpretation or overread is required please follow defined workflow. Provider Not In System IMG MRI PROCEDURES Final Result Performing Organization Address [facility] Co de Phone Number [facility] NA * CT HEAD BRAIN WO-Outside CT Neuro (10/31/2023 2:25 PM CDT) Narrative [facility] - 12/12/2023 10:53 AM HAMMER SMITH This order has been created and auto-finalized [...] PROCEDURES Final R esult Performing Organization Address City/[facility] Co de Phone Number [facility] NA from Last 3 Months Insurance [facility] MED[facility]
--- OUTSIDE RECORDS SUMMARY | 2024-01-02 10:16 | XMS_ITS | Encounter Summary ---
Author Organization [facility] Address [address] [place] [address] Care Team Providers Care Senior Linux Systems Engineer Name Role Phone Unavailable Primary Care Provider Unavailabl e Reason for Visit * Appointment Request (Routine) - Closed Specialty Diagnoses / Procedures Referred By Gael keita Referred To Contact Radiation Oncology Diagnoses Astrocytoma (HCC) Lourdes Weinstein D.O. [address] [address] Phone: tel: Referral ID Status Reason Start Date Expiration Date Visits Re quested Visits Authorized [id number] Closed 12/13/2023 12/12/2024 1 1 Encounter Details Date Type Department Care Team (Latest Contact Info) Description 12/27/2023 8:42 AM GROUNDWATER CONSULTANT - 12/27/2023 9:57 AM [facility] Hospital Encounter Department of Radiation Oncology in [place], [place] [address] [place] [phone] Marta Chopra M.D. [address] [place] [address] Astrocytoma (HCC) (Primary Dx) Social History Tobacco Use Types Packs/Day Years Used Date Smoking Tobacco: Never Smokeless Tobacco: Never Tobacco Cessation:Counseling Given: Not Answered Alcohol Use Standard Drinks/Week Comments Not Currently 14 (1 standard drink = 0.6 oz pu re alcohol) [facility] Utilities Answer Date Recorded In the past 12 months has th e electric, gas, oil, or water company threatened to shut off services in your [...] your living situation today? I have a [facility] place to live 12/25/2023 Sex and Gender Information Value Date Recorded Sex Assigned at Male 12/25/2023 9:47 AM GROUNDWATER CONSULTANT Legal Sex Male 3:57 PM GROUNDWATER CONSULTANT Gender Identity Male 12/25/2023 9:47 AM GROUNDWATER CONSULTANT Sexual Orientation Straight 12/25/2023 9: 47 AM GROUNDWATER CONSULTANT documented as of this encounter Last Filed Vital Signs Vital Sign Reading Time Taken Comments Blood Pressure 129/79 12/27/2023 8:57 AM GROUNDWATER CONSULTANT Pulse 76 12/27/2023 8:57 AM GROUNDWATER CONSULTANT Temperature 36.7 C (98 F) 12/27/2023 8:57 AM GROUNDWATER CONSULTANT Respiratory Rate - - Oxygen Saturation - - Inhaled Oxygen Concentration - - Weight 73.4 kg (161 lb 13.1 oz) 12/27/2023 8:57 AM GROUNDWATER CONSULTANT Height - - Body Mass Index - - documented in this encounter Medications at Time of Discharge [...] as needed. documented as of this encounter Consult Notes * Priscilla Hennessy P.A.-C., M.S. - 12/27/2023 9:00 AM CST SUBJECTIVE REQUESTING PROVIDER Lourdes Weinstein D.O. CHIEF COMPLAINT/REASON FOR CONSULT 1. Astrocytoma (HCC) SUPERVISED BY: Marta Chopra M.D. HISTORY OF PRESENT ILLNESS Mr. 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 His oncologic history is as follows: Oncology History Astrocytoma (HCC) 2004 Other The patient developed headaches and was found to have a right temporal lobe T2/FLAIR hyperintense lesion with no contrast enhancement. He was seen by Dr. Josh Castillo in Neurological Surgery and observation with serial imaging was recommended. 03/04/2005 Critical Imaging MR Brain Impression: 1. Focus of nonenhancing increased T2 signal within the anterior and medial right temporal lobe mayrepresent a low grade primary [employer] neoplasm. 2. Minimal supratentorial white matter changes that are nonspecific. 3. Left maxillary sinus mucus retention cyst or polyp. 09/09/2005 Critical Imaging MR Brain Impression: 1) The appearance of the brain is compared with 03/04/05. 2) Again seen is an ill-defined focus of signal hyperintensity involving the anterior aspect of theright temporal lobe, extending to the region of the lateral right basal ganglia. There is no associated contrast enhancement. Differential diagnosis would include a low grade glial-based neoplasm. 3) A number of small signal hyperintensities are again seen involving the frontal lobe white matter, and are most compatible with age-related chronic small vessel ischemic disease. [address] Castillo followed the lesion for over a year with absolutely no change. It was thought that the lesion might represent dysplasia or a very low-grade tumor. 08/2023 Other The patient experienced atypical visual symptoms during the day that reassembled nightmares/sudden onset of fear and change in taste. 10/31/2023 Other The patient was found by his on a floor unresponsive after experiencing bilateral leg shaking that was initially attributed to leg cramps complicated by post-ictal state. The patient presented to [facility] ED. He was initiated on Keppra 750 mg BID. 10/31/[address] Head Impression: 1. Ill-defined hypodensity involving the right basal ganglia, insula and anterior temporal lobe which has progressed in the interval since MRI 09/09/2005. 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 Recommend further assessment MRI of the brain without and with contrast. 2. Mild chronic ischemic microvascular disease. MR Head Brain Impression: 1. Compared to the previous CT, there is corresponding ill-defined and infiltrative T2 hyperintensemass involving the inferior right basal ganglia extending into the subinsular white matter, insula,and anterior and medial right temporal lobe and posterior inferior right frontal lobe. Small focal area of enhancement of the anterior medial right temporal lobe. 2. Overall, findings are concerning for primary [employer] neoplasm. 3. Surrounding T2/FLAIR signal hyperintensity extends across the anterior commissure into the inferior left basal ganglion posterior inferior left frontal lobe. 4. No abnormal enhancement elsewhere. 5. No midline shift. Basilar cisterns are patent. 11/11/2023 Biopsy/Pathology Right frontal stereotactic brain biopsy was performed by Dr. Castillo. Pathology: A,B) BRAIN, RIGHT FRONTAL LESION, BIOPSY: 1. 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 Ancillary testing a. IDH1 R132H immunostain positive b. ATRX immunostain with loss of immunoreactivity c. p53 immunostain strongly positive d. BRAF V600E immunostain negative e. Chromosome copy number studies show no CDKN2A/B homozygous deletion 11/30/2023 Surgery and Procedures Right frontotemporal craniotomy for tumor debulking was performed by Dr. Catsillo. Findings: Rubbery gliotic mass; Superior temporal gyrus removed. Debulked amygdala to relieve pressure on the midbrain. Pathology: A) BRAIN, RIGHT TEMPORAL MASS, RESECTION: Astrocytoma, IDH-mutant ([employer] WHO grade 3); see comment Comment: In addition to features noted in the patient's prior sample ([id number], 11/11/2023), mitoses are observed. These raise the grade of the neoplasm to [employer] WHO grade 3. 12/12/2023 Other Neuro-Oncology appointment with Dr. Lourdes Weinstein. Plan is to undergo standard therapy with standard radiotherapy and concurrent TMZ followed by 12 cycles of TMZ per [employer] NCCN 2023 guidelines. 01/03/2024 - Radiation Therapy Radiation Therapy Treatment Details (Noted on 12/19/2023) Site: Right Brain Technique: IMRT Goal: Curative Planned Treatment Start Date: 01/03/2024 INTERVAL HISTORY: The patient was seen and examined today with Dr. Chopra. The patient reports experiencing symptoms in the spring and summer of this year and then having a seizure that led to further evaluation. He reports having chronic headaches that were manageable, butthese have increased in severity since surgery. He now reports a severe headache when he wakes up in the morning, located in the right frontal/temporal region. He reports improvement with applying ice to the area. The headache does resolve at times throughout the day. He also reports pain that radiates from the right jaw to the right eye that occurs with certain movements. He is taking Tylenol 3 two to three times per day. He states that he has oxycodone available at home, but is not taking the medication. He is also experiencing double vision at a 45 degree angle. He states that if he closesor covers one eye then his vision is normal. He also reports short-term memory difficulties that are worse since surgery. He denies any recent seizures or hallucinations since his surgery/hospitalization. He reports good nutritional intake. He denies nausea or vomiting. He does have nerve irritation from his neck with tingling down his arms bilaterally. He has noticed some improvement in his ability to play the guitar. The patient denies a history of prior radiation therapy, connective tissue disorders, or inflammatory bowel disease. His ECOG performance status is 1. REVIEW OF SYSTEMS Review of systems was negative except as documented above. MEDICAL HISTORY Past Medical History: Diagnosis Date Angina Pectoris Unspecified (HCC) Astrocytoma (HCC) Beat Premature Ventricular Capsulitis Adhesive Shoulder Right Colitis Lymphocytic Gastritis Gout Hemangioma Liver Herpes Zoster Hyperlipidemia Hypertension NOS Non-ST Elevation Myocardial Infarction (HCC) Osteoarthritis Seizure (HCC) Stone Kidney SURGICAL HISTORY Past Surgical History: Procedure Laterality Date CERVICAL FUSION CHOLECYSTECTOMY CORONARY ANGIOPLASTY WITH STENT PLACEMENT CRANIOTOMY Right FINGER SURGERY HUMERUS SURGERY KNEE ARTHROSCOPY Left LUMBAR FUSION L4-S1 REPLACEMENT TOTAL KNEE Right SHOULDER SURGERY STEREOTACTIC BRAIN BIOPSY Right URETERAL STENT PLACEMENT FAMILY HISTORY Family History Problem Relation Name Age of Onset Pancreatic cancer Father Brain Tumor Sister Dari SOCIAL HISTORY Social History Socioeconomic History Marital status: Spouse name: Kaity Number of children: 1 Tobacco Use Smoking status: Never Smokeless tobacco: Never Substance and Sexual Activity Alcohol use: Yes Alcohol/week: 14.0 standard drinks of alcohol Types: 14 Glasses of wine per week Social History Narrative 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 OBJECTIVE BP 129/79 (BP Location: Right arm, Patient Position: Sitting, Cuff Size: Regular) Pulse 76 Temp36.7 ??C (Temporal) Wt 73.4 kg PHYSICAL EXAMINATION General: Patient is alert and oriented in no apparent distress. He is here today with his . Lungs: Clear to auscultation bilaterally. Heart: Regular rate and rhythm. Neuro: CN II-XII grossly intact. Sensation to light touch intact. Rotation of the neck is decreasedsecondary to patient reported neck pain. Strength is 5/5 in the upper extremities bilaterally and in the left lower extremity. Strength is decreased in the right lower extremity due to patient reported low back pain. Ekdwnd-bv-txlo, mfnk-ar-ckoy, and rapid alternating movements are normal. Patient was able to spell the word WORLD backwards. Recall 3/3 words. ASSESSMENT / PLAN #1 Right temporal astrocytoma, IDH-mutant, WHO grade 3 s/p tumor debulking on November 30, 2023 I had a detailed discussion with the patient and his , Kaity, regarding his astrocytoma diagnosis. We reviewed his oncologic history as detailed above. We discussed the risks, benefits, and alternatives of radiotherapy in this setting. Dr. Chopra offered radiation therapy in 30 fractions. The patient is planned to receive concurrent temozolomide under the care of Dr. Weinstein. He reports that the temozolomide is supposed to be delivered on . I discussed the logistics as well as the acute and chronic side effects of treatment in detail. Theacute side effects are common and include, but are not limited to, hair loss, scalp irritation, fatigue, and if there is swelling of the brain there could be new or worsening seizures, nausea/vomiting, and headaches. Long-term side effects could include, but are not limited to, prolonged hair loss,hearing loss, vision changes/loss, short term memory deficits, changes in cognition, pituitary hormone deficiencies, radiation necrosis, and a small risk of secondary malignancy. The patient was provided with a written summary of recommendations. His questions were answered to his verbalized satisfaction. The patient reports that he already has an anti-emetic prescription available. After discussion, the patient verbally stated that he would like to proceed with radiation treatment. He is scheduled for CT simulation and a planning MRI scan today. Dr. Chopra also met with the patient today, please see her attestation for details. The patient was provided with our contact information. He will contact us with questions or concerns. He verbally expressed his understanding of theplan. EDUCATION: Ready to learn, no apparent learning barriers were identified; learning preferences include listening. Explained diagnosis and treatment plan; patient expressed understanding of the content. PRIMARY PROVIDER Dr. Jerardo Wiseman I personally spent 60 minutes in care of the patient today. Time includes both non face to face andface to face patient care. Signed by: Priscilla Hennessy P.A.-C. MJonesSJones 12/27/2023 11:33 AM GROUNDWATER CONSULTANT [facility] [address] [place] [address] Cosigned by Marta Chopra M.D. at 12/27/2023 11:49 AM GROUNDWATER CONSULTANT NDWATER CONSULTANT NDWATER CONSULTANT Associated attestation - Marta Chopra M.D. - 12/27/2023 11:49 AM GROUNDWATER CONSULTANT RADIATION ONCOLOGY CONSULT I saw and evaluated the patient and participated in the murillo portions of the service. I reviewed thedocumentation of Ms. Priscilla Hennessy PA-C, and agree with the findings and plan. Please see Ms. Hennessy's detailed note for the patient's initial presentation and work-up. 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 I have independently reviewed and interpreted his imaging, operative and pathology reports. On exam, he appears well. Detailed exam as per Ms. Hennessy. We discussed the findings as outlined above and below in this note. We discussed the treatment alternatives including no radiation vs 60 Gy of radiation therapy in [address] Weinstein has recommended concurrent temozolomide. [place] has no current open studies available. He will be getting his weekly blood draws through the [facility]. His Temozolomide should arrive to his home this . We discussed the rationale, risks, side effects and goals of radiation therapy. We discussed the acute as well as exterminator risks, including, but not limited to fatigue, esophagitis, skin erythema, hair loss, memory/cognitive effects and small risks for secondary malignancy. They understood and hisquestions were answered. He wished to proceed with treatment. We tentatively plan on delivering 6000 in 30 fractions starting next January 02. If we have his plan done early, then we might start him on Tuesday and will call him if we are able. My thanks to Jill, Jonathan, and Ivone for the opportunity to participate in this patient's care. EDUCATION Ready to learn, no apparent learning barriers were identified; learning preferences include listening. Explained diagnosis and treatment plan; patient expressed understanding of the content. CONSENT Discussed the risks, benefits, alternatives, and the necessity of other members of the healthcare team participating in the procedure. All questions answered and consent given. DIAGNOSIS #1 Right temporal Astrocytoma, IDH-mutant, WHO grade 3 s/p tumor debulking on November 30, 2023 Signed by: Marta Chopra M.D. 12/27/2023 documented in this encounter Miscellaneous Notes * Addendum Note - Priscilla Hennessy P.A.-C., M.S. - 12/27/2023 9:00 AM CSTEncounter addended by: Priscilla Hennessy P.A.-C., M.S. on: 12/27/2023 11:55 AM Actions taken: Level of Service modified NDWATER CONSULTANT documented in this encounter Plan of Treatment Upcoming Encounters Date Type Department Care Team (Late st Contact Info) Description 01/02/2024 1:00 PM GROUNDWATER CONSULTANT Appointment Department of Radiation Oncology in [address] [address] Henrique Farley M.D. [address] [place] [address] Marta Chopra M.D. [address] [place] [phone] Toño Rosenberg M.D. [address] [place] [address] 01/03/2024 12:45 PM GROUNDWATER CONSULTANT Appointment Department of Radiation Oncology in [place], [place] [address] [place] [phone] Henrique Farley M.D. [address] [place] [address] Marta Chopra M.D. [address] [place] [address] 01/04/2024 8:30 AM GROUNDWATER CONSULTANT Appointment Department of Radiation Oncology in [address] [address] Marta Chopra M.D. [address] [place] [address] 01/04/2024 9:00 AM GROUNDWATER CONSULTANT Appointment Department of Radiation Oncology in [place], [place] [address] [place] [address] Henrique Farley M.D. [facility] [place] [address] 01/06/2024 8:15 AM GROUNDWATER CONSULTANT Appointment Department of Radiation Oncology in [address] [address] Marta Chopra M.D. [address] [place] [address] 01/09/2024 8:15 AM GROUNDWATER CONSULTANT Appointment Department of Radiation Oncology in [place], [place] [address] [place] [address] Henrique Farley M.D. [address] [place] [address] Marta Chopra M.D. [address] [place] [address] 01/09/2024 9:00 AM GROUNDWATER CONSULTANT Appointment Department of Radiation Oncology in [place], [place] [address] [place] [address] Marta Chopra M.D. [address] [place] [address] 01/10/2024 8:30 AM GROUNDWATER CONSULTANT Appointment Department of Radiation Oncology in [place], [place] [address] [place] [address] Henrique Farley M.D. [address] [place] [address] Marta Chopra M.D. [address] [place] [address] 01/11/2024 8:30 AM GROUNDWATER CONSULTANT Appointment Department of Radiation Oncology in [place], [place] [address] [place] [address] Henrique Farley M.D. [address] [place] [address] Marta Chopra M.D. [address] [place] [address] 01/11/2024 9:00 AM GROUNDWATER CONSULTANT Appointment Department of Radiation Oncology in [place], [place] [address] [place] [address] Marta Chopra M.D. [address] [place] [address] 01/12/2024 8:30 AM GROUNDWATER CONSULTANT Appointment Department of Radiation Oncology in [place], [place] [address] [place] [address] Henrique Farley M.D. [facility] [place] [address] Marta Chopra M.D. [address] [place] [address] 01/13/2024 12:45 PM GROUNDWATER CONSULTANT Appointment Department of Radiation Oncology in [place], [place] [address] [place] [address] Henrique Farley M.D. [address] [place] [address] Marta Chopra M.D. [address] [place] [address] 01/16/2024 8:30 AM GROUNDWATER CONSULTANT Appointment Department of Radiation Oncology in [place], [place] [address] [place] [address] Henrique Farley M.D. [address] [place] [address] Marta Chopra M.D. [address] [place] [address] 01/17/2024 8:15 AM GROUNDWATER CONSULTANT Appointment Department of Radiation Oncology in [place], [place] [address] [place] [address] Henrique Farley M.D. [address] [place] [address] Marta Chopra M.D. [address] [place] [address] 01/18/2024 8:15 AM GROUNDWATER CONSULTANT Appointment Department of Radiation Oncology in [place], [place] [address] [place] [address] Henrique Farley M.D. [address] [place] [address] Marta Chopra M.D. [address] [place] [address] 01/19/2024 8:15 AM GROUNDWATER CONSULTANT Appointment Department of Radiation Oncology in [place], [place] [address] [place] [address] Henrique Farley M.D. [address] [place] [address] Marta Chopra M.D. [address] [place] [address] 01/19/2024 8:45 AM GROUNDWATER CONSULTANT Appointment Department of Radiation Oncology in [place], [place] [address] [place] [address] Marta Chopra M.D. [address] [place] [address] 01/20/2024 9:00 AM GROUNDWATER CONSULTANT Appointment Department of Radiation Oncology in [place], [place] [address] [place] [address] Henrique Farley M.D. [address] [place] [address] Marta Chopra M.D. [address] [place] [address] 01/23/2024 9:00 AM GROUNDWATER CONSULTANT Appointment Department of Radiation Oncology in [place], [place] [address] [place] [address] Henrique Farley M.D. [address] [place] [address] Marta Chopra M.D. [address] [place] [address] 01/24/2024 9:00 AM GROUNDWATER CONSULTANT Appointment Department of Radiation Oncology in [place], [place] [address] [place] [address] Henrique Farley M.D. [address] [place] [address] Marta Chopra M.D. [address] [place] [address] 01/25/2024 9:00 AM GROUNDWATER CONSULTANT Appointment Department of Radiation Oncology in [place], [place] [address] [place] [address] Henrique Farley M.D. [address] [place] [address] Marta Chopra M.D. [address] [place] [address] 01/25/2024 9:30 AM GROUNDWATER CONSULTANT Appointment Department of Radiation Oncology in [place], [place] [address] [place] [address] Marta Chopra M.D. [address] [place] [address] 01/26/2024 9:00 AM GROUNDWATER CONSULTANT Appointment Department of Radiation Oncology in [place], [place] [address] [place] [address] Henrique Farley M.D. [address] [place] [address] Marta Chopra M.D. [address] [place] [address] 01/27/2024 9:00 AM GROUNDWATER CONSULTANT Appointment Department of Radiation Oncology in [place], [place] [address] [place] [address] Henrique Farley M.D. [address] [place] [address] Marta Chopra M.D. [address] [place] [address] 01/30/2024 9:00 AM GROUNDWATER CONSULTANT Appointment Department of Radiation Oncology in [place], [place] [address] [place] [address] Henrique Farley M.D. [address] [place] [address] Marta Chopra M.D. [address] [place] [address] 01/31/2024 9:00 AM GROUNDWATER CONSULTANT Appointment Department of Radiation Oncology in [place], [place] [address] [place] [address] Henrique Farley M.D. [address] [place] [address] Marta Chopra M.D. [address] [place] [address] 02/02/2024 9:00 AM GROUNDWATER CONSULTANT Appointment Department of Radiation Oncology in [place], [place] [address] [place] [address] Henrique Farley M.D. [address] [place] [address] Marta Chopra M.D. [address] [place] [address] 02/02/2024 9:30 AM GROUNDWATER CONSULTANT Appointment Department of Radiation Oncology in [place], [place] [address] [place] [address] Marta Chopra M.D. [address] [place] [address] 02/03/2024 9:00 AM GROUNDWATER CONSULTANT Appointment Department of Radiation Oncology in [place], [place] [address] [place] [address] Henrique Farley M.D. [address] [place] [address] Marta Chopra M.D. [address] [place] [address] 02/06/2024 9:00 AM GROUNDWATER CONSULTANT Appointment Department of Radiation Oncology in [place], [place] [address] [place] [address] Henrique Farley M.D. [address] [place] [address] Marta Chopra M.D. [address] [place] [address] 02/07/2024 9:00 AM GROUNDWATER CONSULTANT Appointment Department of Radiation Oncology in [place], [place] [address] [place] [address] Henrique Farley M.D. [address] [place] [address] Marta Chopra M.D. [address] [place] [address] 02/09/2024 9:00 AM GROUNDWATER CONSULTANT Appointment Department of Radiation Oncology in [place], [place] [address] [place] [address] Henrique Farley M.D. [address] [place] [address] Marta Chopra M.D. [address] [place] [address] 02/09/2024 9:30 AM GROUNDWATER CONSULTANT Appointment Department of Radiation Oncology in [place], [place] [address] [place] [address] Henrique Farley M.D. [address] [place] [address] 02/10/2024 9:00 AM GROUNDWATER CONSULTANT Appointment Department of Radiation Oncology in [place], [place] [address] [place] [address] Henrique Farley M.D. [address] [place] [address] Marta Chopra M.D. [address] [place] [address] 02/13/2024 9:00 AM GROUNDWATER CONSULTANT Appointment Department of Radiation Oncology in [place], [place] [address] [place] [address] Henrique Farley M.D. [address] [place] [address] Marta Chopra M.D. [address] [place] [phone] 02/14/2024 9:00 AM GROUNDWATER CONSULTANT Appointment Department of Radiation Oncology in [place], [place] [address] [place] [address] Henrique Farley M.D. [address] [place] [address] Marta Chopra M.D. [address] [place] [phone] 02/14/2024 9:30 AM GROUNDWATER CONSULTANT Appointment Department of Radiation Oncology in [place], [place] [address] [place] [address] Henrique Farley M.D. [address] [place] [address] 02/15/2024 9:00 AM GROUNDWATER CONSULTANT Appointment Department of Radiation Oncology in [place], [place] [address] [place] [address] Henrique Farley M.D. [address] [place] [address] Marta hCopra M.D. [address] [place] [address] documented as of this encounter Visit Diagnoses Diagnosis Astrocytoma (HCC)- Primary documented in this encounter
--- OUTSIDE RECORDS SUMMARY | 2024-01-02 10:16 | XMS_ITS | Encounter Summary ---
Author Organization [facility] Address [address] [place] [address] Care Team Providers Care Saxophone Assembler Name Role Phone Unavailable Primary Care Provider Unavailabl e Reason for Referral * MRI/CAT/PET Scan (Routine) - Closed Specialty Diagnoses / Procedures Referred By Gael keita Referred To Contact Radiology Diagnoses Astrocytoma (HCC) Procedures MR Brain without and with IV Contrast Marta Chopra M.D. [address] [place] [address] Phone: tel: fax: [facility] Region Referral ID Status Reason Start Date Expiration Date Visits Re quested Visits Authorized [id number] Closed 12/19/2023 12/18/2024 1 1 LE CARD MAKER Reason for Visit * MRI/CAT/PET Scan (Routine) - Closed Specialty Diagnoses / Procedures Referred By Gael keita Referred To Contact Radiology Diagnoses Astrocytoma (HCC) Procedures MR Brain without and with IV Contrast Marta Chopra M.D. 200 [place] [address] Phone: tel: fax: [facility] Region Referral ID Status Reason Start Date Expiration Date Visits Re quested Visits Authorized [id number] Closed 12/19/2023 12/18/2024 1 1 Encounter Details Date Type Department Care Team (Latest Contact Info) Description 12/27/2023 1:03 PM SAMPLE CARD MAKER - 12/27/2023 11:59 PM SAMPLE CARD MAKER Hospital Encounter Department of Radiology in [place], [place] [address] [place] [address] Marta Chopra M.D. [address] [place] [address] Astrocytoma ([facility]ER[facility]) Discharge Disposition: Home or Self Care Social History Tobacco Use Types Packs/Day Years Used Date Smoking Tobacco: Never Smokeless Tobacco: Never Alcohol Use Standard Drinks/Week Comments Not Currently 14 (1 standard drink = 0.6 oz pu re alcohol) [facility] Utilities Answer Date Recorded In the past 12 months has th e [employer], gas, oil, or water [employer] threatened to shut off services in your [...] your living situation today? I have a [facility] place to live 12/25/2023 Sex and Gender Information Value Date Recorded Sex Assigned at Male 12/25/2023 9:47 AM SAMPLE CARD MAKER Legal Sex Male 3:57 PM SAMPLE CARD MAKER Gender Identity Male 12/25/2023 9:47 AM SAMPLE CARD MAKER Sexual Orientation Straight 12/25/2023 9: 47 AM SAMPLE CARD MAKER documented as of this encounter Medications at [...] as needed. documented as of this encounter Plan of Treatment Upcoming Encounters Date Type Department Care Team (Late st Contact Info) Description 01/02/2024 1:00 PM SAMPLE CARD MAKER Appointment Department of Radiation Oncology in [address] [address] Henrique Farley M.D. [address] [place] [phone] Marta Chopra M.D. [address] [place] [phone] Toño Rosenberg M.D. [address] [place] [phone] 01/03/2024 12:45 PM SAMPLE CARD MAKER Appointment Department of Radiation Oncology in [address] [address] Henrique Farley M.D. [facility] [place] [address] Marta Chopra M.D. [address] [place] [phone] 01/04/2024 8:30 AM SAMPLE CARD MAKER Appointment Department of Radiation Oncology in [address] [address] Marta Chopra M.D. [address] [place] [phone] 01/04/2024 9:00 AM SAMPLE CARD MAKER Appointment Department of Radiation Oncology in [place], [place] [address] [place] [address] Henrique Farley M.D. [address] [place] [address] 01/06/2024 8:15 AM SAMPLE CARD MAKER Appointment Department of Radiation Oncology in [address] [address] Marta Chopra M.D. [address] [place] [phone] 01/09/2024 8:15 AM SAMPLE CARD MAKER Appointment Department of Radiation Oncology in [address] [address] Henrique Farley M.D. [facility] [place] [address] Marta Chopra M.D. [address] [place] [phone] 01/09/2024 9:00 AM SAMPLE CARD MAKER Appointment Department of Radiation Oncology in [place], [place] [address] [place] [address] Marta Chopra M.D. [address] [place] [address] 01/10/2024 8:30 AM SAMPLE CARD MAKER Appointment Department of Radiation Oncology in [place], [place] [address] [place] [address] Henrique Farley M.D. [facility] [place] [address] Marta Chopra M.D. 200 [place] [address] 01/11/2024 8:30 AM SAMPLE CARD MAKER Appointment Department of Radiation Oncology in [place], [place] [address] [place] [address] Henrique Farley M.D. [address] [place] [address] Marta Chopra M.D. 200 [place] [address] 01/11/2024 9:00 AM SAMPLE CARD MAKER Appointment Department of Radiation Oncology in [place] [address] [place] [address] Marta Chopra M.D. 200 [place] [address] 01/12/2024 8:30 AM SAMPLE CARD MAKER Appointment Department of Radiation Oncology in [place], [place] [address] [place] [address] Henrique Farley M.D. [address] [place] [address] Marta Chopra M.D. 200 [place] [address] 01/13/2024 12:45 PM SAMPLE CARD MAKER Appointment Department of Radiation Oncology in [place], [place] [address] [place] [address] Henrique Farley M.D. [facility] [place] [address] Marta Chopra M.D. 200 [place] [address] 01/16/2024 8:30 AM SAMPLE CARD MAKER Appointment Department of Radiation Oncology in [place], [place] [address] [place] [address] Henrique Farley M.D. [address] [place] [address] Marta Chopra M.D. 200 [place] [address] 01/17/2024 8:15 AM SAMPLE CARD MAKER Appointment Department of Radiation Oncology in [place], [place] [address] [place] [address] Henrique Farley M.D. [address] [place] [address] Marta Chopra M.D. 200 [place] [address] 01/18/2024 8:15 AM SAMPLE CARD MAKER Appointment Department of Radiation Oncology in [place], [place] [address] [place] [address] Henrique Farley M.D. [address] [place] [address] Marta Chopra M.D. 200 [place] [address] 01/19/2024 8:15 AM SAMPLE CARD MAKER Appointment Department of Radiation Oncology in [place], [place] [address] [place] [address] Henrique Farley M.D. [address] [place] [address] Marta Chopra M.D. 200 [place] [address] 01/19/2024 8:45 AM SAMPLE CARD MAKER Appointment Department of Radiation Oncology in [place], [place] [address] [place] [address] Marta Chopra M.D. 200 [place] [address] 01/20/2024 9:00 AM SAMPLE CARD MAKER Appointment Department of Radiation Oncology in [place] [address] [place] [address] Henrique Farley M.D. [address] [place] [address] Marta Chopra M.D. 200 [place] [address] 01/23/2024 9:00 AM SAMPLE CARD MAKER Appointment Department of Radiation Oncology in [place], [place] [address] [place] [address] Henrique Farley M.D. [address] [place] [address] Marta Chopra M.D. [address] [place] [address] 01/24/2024 9:00 AM SAMPLE CARD MAKER Appointment Department of Radiation Oncology in [place], [place] [address] [place] [address] Henrique Farley M.D. [address] [place] [address] Marta Chopra M.D. [address] [place] [address] 01/25/2024 9:00 AM SAMPLE CARD MAKER Appointment Department of Radiation Oncology in [place], [place] [address] [place] [address] Henrique Farley M.D. [address] [place] [address] Marta Chopra M.D. [address] [place] [address] 01/25/2024 9:30 AM SAMPLE CARD MAKER Appointment Department of Radiation Oncology in [place], [place] [address] [place] [address] Marta Chopra M.D. [address] [place] [address] 01/26/2024 9:00 AM SAMPLE CARD MAKER Appointment Department of Radiation Oncology in [place], [place] [address] [place] [address] Henriqeu Farley M.D. [address] [place] [address] Marta Chopra M.D. 200 [place] [address] 01/27/2024 9:00 AM SAMPLE CARD MAKER Appointment Department of Radiation Oncology in [place], [place] [address] [place] [address] Henrique Farley M.D. [address] [place] [address] Marta Chopra M.D. 200 [place] [address] 01/30/2024 9:00 AM SAMPLE CARD MAKER Appointment Department of Radiation Oncology in [place], [place] [address] [place] [address] Henrique Farley M.D. [address] [place] [address] [place] [address] 01/31/2024 9:00 AM SAMPLE CARD MAKER Appointment Department of Radiation Oncology in [place], [place] [address] [place] [address] Henrique Farley M.D. [address] [place] [address] [place] [address] 02/02/2024 9:00 AM SAMPLE CARD MAKER Appointment Department of Radiation Oncology in [place], [place] [address] [place] [address] Henrique Farley M.D. [address] [place] [address] [place] [address] 02/02/2024 9:30 AM SAMPLE CARD MAKER Appointment Department of Radiation Oncology in [place], [place] [address] [place] [address] Marta Chopra M.D. 200 [place] [address] 02/03/2024 9:00 AM SAMPLE CARD MAKER Appointment Department of Radiation Oncology in [place], [place] [address] [place] [address] Henrique Farley M.D. [address] [place] [address] [place] [address] 02/06/2024 9:00 AM SAMPLE CARD MAKER Appointment Department of Radiation Oncology in [place], [place] [address] [place] [address] Henrique Farley M.D. [address] [place] [address] Marta Chopra M.D. [address] [place] [address] 02/07/2024 9:00 AM SAMPLE CARD MAKER Appointment Department of Radiation Oncology in [place], [place] [address] [place] [address] Henrique Farley M.D. [address] [place] [address] Marta Chopra M.D. [address] [place] [address] 02/09/2024 9:00 AM SAMPLE CARD MAKER Appointment Department of Radiation Oncology in [place], [place] [address] [place] [address] Henrique Farley M.D. [address] [place] [address] Marta Chopra M.D. [address] [place] [address] 02/09/2024 9:30 AM SAMPLE CARD MAKER Appointment Department of Radiation Oncology in [place], [place] [address] [place] [address] Henrique Farley M.D. [address] [place] [address] 02/10/2024 9:00 AM SAMPLE CARD MAKER Appointment Department of Radiation Oncology in [place], [place] [address] [place] [address] Henrique Farley M.D. [address] [place] [address] Marta Chopra M.D. [address] [place] [address] 02/13/2024 9:00 AM SAMPLE CARD MAKER Appointment Department of Radiation Oncology in [place], [place] [address] [place] [address] Henrique Farley M.D. [address] [place] [address] Marta Chopra M.D. [address] [place] [phone] 02/14/2024 9:00 AM SAMPLE CARD MAKER Appointment Department of Radiation Oncology in [place], [place] [address] [place] [address] Henrique Farley M.D. [address] [place] [address] Marta Chopra M.D. 200 [place] [address] 02/14/2024 9:30 AM SAMPLE CARD MAKER Appointment Department of Radiation Oncology in [address] [address] Henrique Farley M.D. [address] [place] [address] 02/15/2024 9:00 AM SAMPLE CARD MAKER Appointment Department of Radiation Oncology in [address] [address] Henrique Falrey M.D. [address] [place] [address] Marta Chopra M.D. [address] [place] [address] documented as of this encounter Procedures Procedure Name Priority Date/Time Associated Diagnosis Comments MR BRAIN WITHOUT AND WITH IV CONTRAST RAD - Routine (most inpatients and all outpatients) 12/27/2023 2:38 PM SAMPLE CARD MAKER Astrocytoma (HCC) documented in this encounter Results * MR Brain without and with IV Contrast (12/27/2023 2:38 PM SAMPLE CARD MAKER) Anatomical Region Laterality Modality Head, Brain, Neuroradiology RST LOS, Neuroradiology ARZ LOS, Neuroradiology FLA LOS N/A Magnetic Resonance Impressions 12/27/2023 4:27 PM SAMPLE CARD MAKER -Limited MRI brain sequences for stereotactic treatment planning. -Interval debulking of the infiltrative mass lesion centered in the right inferior basal ganglia with improvement in the mass effect in previously noted mild leftward midline shift. -No significant interval change in the patchy enhancement in the right anterior temporal lobe as described. -Postsurgical changes from right frontotemporal craniotomy as described. Narrative 12/27/2023 4:27 PM SAMPLE CARD MAKER EXAM: MR BRAIN WITHOUT AND WITH IV [...] intracranial ICAs, MCAs, ACAs, basilar artery and staff scientist as are their visualized distal branches. Presumed [...] bilateral intracranial ICAs, MCAs, ACAs, basilarartery and staff scientist as are their visualized distal branches. Presumed [...] frontotemporal craniotomy as described. Marta Chopra M.D. [facility] PROCEDURES Final Result documented in this encounter Visit Diagnoses Diagnosis Astrocytoma (HCC) documented in this encounter Administered Medications Inactive Administered Medications - up to 3 most recent administrations Medication Order MAR Action Action Date Dose Rate Site gadobutrol injection 0-15 mL (Gadavist) 0-15 mL, intravenous, Once in imaging, contrast, Starting on Tue12/27/23 at 1439, For 1 dose, Intrathecal doses greater than 0.25 mL not recommended. Given 12/27/2023 2:40 PM SAMPLE CARD MAKER 7.5 mL sodium chloride 0.9 % injection 0-150 mL 0-150 mL, intravenous, As needed, line care, Starting on Tue12/27/23 at 1439 Given 12/27/2023 2:39 PM SAMPLE CARD MAKER 10 mL documented in this encounter
--- OUTSIDE RECORDS SUMMARY | 2024-01-02 10:16 | XMS_ITS | Encounter Summary ---
Author Organization [facility] Address [address] [place] [id number] Care Team Providers Care Electrical Solderer Name Role Phone Unavailable Primary Care Provider Unavailabl e Reason for Referral * MRI/CAT/PET Scan (Routine) - Closed Specialty Diagnoses / Procedures Referred By Contac t Referred To Contact Radiology Diagnoses Astrocytoma (HCC) Procedures MR Brain without and with IV Contrast Marta Chopra M.D. [address] [place] [phone] Phone: tel: fax: [facility] Region Referral ID Status Reason Start Date Expiration Date Visits Re quested Visits Authorized [id number] Closed 12/19/2023 12/18/2024 1 1 AURANT HOURLY MANAGER * Outpatient (Routine) - Authorized Specialty Diagnoses / Procedures Referred By Contac t Referred To Contact Social Work Diagnoses Astrocytoma (HCC) Marta Chopra M.D. [address] [place] [phone] Phone: tel: fax: [facility] Region Referral ID Status Reason Start Date Expiration Date V isits Requested Visits Authorized [id number] Authorized 12/19/2023 06/19/2025 1 1 AURANT HOURLY MANAGER * Specialty Diagnoses / Procedures Referred By Contac t Referred To Contact Diagnoses Astrocytoma (HCC) Priscilla Hennessy P.A.-C., M.S. [address] [place] [phone] Phone: tel: fax: [facility] Region Referral ID Status Reason Start Date Expiration Date Visits Re quested Visits Authorized Scheduling Instructions Please do not schedule if patient has 10 fractions or less, unless requested by care team. AURANT HOURLY MANAGER * Radiation Therapy (Routine) - Authorized Specialty Diagnoses / Procedures Referred By Gael keita Referred To Contact Diagnoses Astrocytoma (HCC) Procedures Management Visit Marta Chopra M.D. 200 [place] [address] Phone: tel: fax: [facility] Referral ID Status Reason Start Date Expiration Date V isits Requested Visits Authorized [id number] Authorized 12/19/2023 12/18/2024 10 10 AURANT HOURLY MANAGER * Radiation Therapy (Routine) - Authorized Specialty Diagnoses / Procedures Referred By Gael keita Referred To Contact Diagnoses Astrocytoma (HCC) Procedures Initial Rad Onc Treatment Planning CT Simulation without IV Contrast NE IMRT RADIOTHERAPY PLAN SIM Marta Chopra M.D. 200 [place] [address] Phone: tel: fax: [facility] Referral ID Status Reason Start Date Expiration Date V isits Requested Visits Authorized [id number] Authorized 12/27/2023 12/18/2024 2 2 AURANT HOURLY MANAGER * Radiation Therapy (Routine) - Authorized Specialty Diagnoses / Procedures Referred By Gael keita Referred To Contact Diagnoses Astrocytoma (HCC) Procedures Prior Auth Rad Tx NE GUIDANCE FOR LOC RAD TX NE IMRT COMPLEX NE IMRT RADIOTHERAPY PLAN IMRT Marta Chopra M.D. 200 [place] [address] Phone: tel: fax: [facility] Referral ID Status Reason Start Date Expiration Date V isits Requested Visits Authorized [id number] Authorized 01/02/2024 12/18/2024 30 30 AURANT HOURLY MANAGER Encounter Details Date Type Department Care Team (Late st Contact Info) Description 12/19/2023 Orders Only Department of Radiation Oncology in [place], [place] [address] [place] [phone] Priscilla Hennessy P.A.-C., M.S. [address] [place] [phone] Astrocytoma ([facility]) (Primary Dx) Social History Tobacco Use Types Packs/Day Years Used Date Smoking Tobacco: Never Smokeless Tobacco: Never Alcohol Use Standard Drinks/Week Comments Yes 14 (1 standard drink = 0.6 oz pu re alcohol) Dental Answer Date Recorded Dental: Regular Dentist Unknown 12/13/19 Sex and Gender Information Value Date Recorded Sex Assigned at Male 12/25/2023 9:47 AM RESTAURANT HOURLY MANAGER Legal Sex Male 3:57 PM REST[employer]URANT HOURLY MANAGER Gender Identity Male 12/25/2023 9:47 AM RESTAURANT HOURLY MANAGER Sexual Orientation Straight 12/25/2023 9: 47 AM RESTAURANT HOURLY MANAGER documented as of this encounter Plan of Treatment Upcoming Encounters Date Type Department Care Team (Late st Contact Info) Description 01/02/2024 1:00 PM RESTAURANT HOURLY MANAGER Appointment Department of Radiation Oncology in [place], [place] [address] [place] [phone] Henrique Farley M.D. [address] [place] [address] Marta Chopra M.D. [address] [place] [phone] Toño Rosenberg M.D. [address] [place] [phone] 01/03/2024 12:45 PM RESTAURANT HOURLY MANAGER Appointment Department of Radiation Oncology in [place], [place] [address] [place] [phone] Henrique Farley M.D. [address] [place] [address] Marta Chopra M.D. 200 [place] [address] 01/04/2024 8:30 AM RESTAURANT HOURLY MANAGER Appointment Department of Radiation Oncology in [address] [address] Marta Chopra M.D. 200 [place] [address] 01/04/2024 9:00 AM RESTAURANT HOURLY MANAGER Appointment Department of Radiation Oncology in [address] [address] Henrique Farley M.D. [facility] [place] [address] 01/06/2024 8:15 AM RESTAURANT HOURLY MANAGER Appointment Department of Radiation Oncology in [address] [address] Marta Chopra M.D. 200 [place] [address] 01/09/2024 8:15 AM RESTAURANT HOURLY MANAGER Appointment Department of Radiation Oncology in [address] [address] Henrique Farley M.D. [address] [place] [address] Marta Chopra M.D. [address] [place] [phone] 01/09/2024 9:00 AM RESTAURANT HOURLY MANAGER Appointment Department of Radiation Oncology in [place], [place] [address] [place] [address] Marta Chopra M.D. [address] [place] [phone] 01/10/2024 8:30 AM RESTAURANT HOURLY MANAGER Appointment Department of Radiation Oncology in [place], [place] [address] [place] [address] Henrique Farley M.D. [address] [place] [address] Marta Chopra M.D. [address] [place] [phone] 01/11/2024 8:30 AM RESTAURANT HOURLY MANAGER Appointment Department of Radiation Oncology in [place], [place] [address] [place] [address] Henrique Farley M.D. [address] [place] [address] Marta Chopra M.D. [address] [place] [phone] 01/11/2024 9:00 AM RESTAURANT HOURLY MANAGER Appointment Department of Radiation Oncology in [place], [place] [address] [place] [address] Marta Chopra M.D. [address] [place] [phone] 01/12/2024 8:30 AM RESTAURANT HOURLY MANAGER Appointment Department of Radiation Oncology in [place], [place] [address] [place] [address] Henrique Farley M.D. [address] [place] [address] Marta Chopra M.D. [address] [place] [address] 01/13/2024 12:45 PM RESTAURANT HOURLY MANAGER Appointment Department of Radiation Oncology in [place], [place] [address] [place] [address] Henrique Farley M.D. [address] [place] [address] [place] [address] 01/16/2024 8:30 AM RESTAURANT HOURLY MANAGER Appointment Department of Radiation Oncology in [place], [place] [address] [place] [address] Henrique Farley M.D. [address] [place] [address] Marta Chopra M.D. [address] [place] [phone] 01/17/2024 8:15 AM RESTAURANT HOURLY MANAGER Appointment Department of Radiation Oncology in [place], [place] [address] [place] [address] Henrique Farley M.D. [address] [place] [address] Marta Chopra M.D. [address] [place] [phone] 01/18/2024 8:15 AM RESTAURANT HOURLY MANAGER Appointment Department of Radiation Oncology in [place], [place] [address] [place] [address] Henrique Farley M.D. [address] [place] [address] Marta Chopar M.D. [address] [place] [address] 01/19/2024 8:15 AM RESTAURANT HOURLY MANAGER Appointment Department of Radiation Oncology in [place], [place] [address] [place] [address] Henrique Farley M.D. [address] [place] [address] Marta Chopra M.D. [address] [place] [phone] 01/19/2024 8:45 AM RESTAURANT HOURLY MANAGER Appointment Department of Radiation Oncology in [place], [place] [address] [place] [address] Marta Chopra M.D. [address] [place] [address] 01/20/2024 9:00 AM RESTAURANT HOURLY MANAGER Appointment Department of Radiation Oncology in [place], [place] [address] [place] [address] Henrique Farley M.D. [facility] [place] [address] Marta Chopra M.D. [address] [place] [phone] 01/23/2024 9:00 AM RESTAURANT HOURLY MANAGER Appointment Department of Radiation Oncology in [place], [place] [address] [place] [address] Henrique Farley M.D. [address] [place] [address] Marta Chopra M.D. 200 [place] [address] 01/24/2024 9:00 AM RESTAURANT HOURLY MANAGER Appointment Department of Radiation Oncology in [place], [place] [address] [place] [address] Henrique Farley M.D. [address] [place] [address] Marta Chopra M.D. 200 [place] [address] 01/25/2024 9:00 AM RESTAURANT HOURLY MANAGER Appointment Department of Radiation Oncology in [place], [place] [address] [place] [address] Henrique Farley M.D. [address] [place] [address] Marta Chopra M.D. 200 [place] [address] 01/25/2024 9:30 AM RESTAURANT HOURLY MANAGER Appointment Department of Radiation Oncology in [place], [place] [address] [place] [address] Marta Chopra M.D. 200 [place] [address] 01/26/2024 9:00 AM RESTAURANT HOURLY MANAGER Appointment Department of Radiation Oncology in [place], [place] [address] [place] [address] Henrique Farley M.D. [address] [place] [address] Marta Chopra M.D. 200 [place] [address] 01/27/2024 9:00 AM RESTAURANT HOURLY MANAGER Appointment Department of Radiation Oncology in [place], [place] [address] [place] [address] Henrique Farley M.D. [address] [place] [address] Marta Chopra M.D. [address] [place] [address] 01/30/2024 9:00 AM RESTAURANT HOURLY MANAGER Appointment Department of Radiation Oncology in [place], [place] [address] [place] [address] Henrique Farley M.D. [address] [place] [address] Marta Chopra M.D. [address] [place] [address] 01/31/2024 9:00 AM RESTAURANT HOURLY MANAGER Appointment Department of Radiation Oncology in [place], [place] [address] [place] [address] Henrique Farley M.D. [address] [place] [address] Marta Chopra M.D. [address] [place] [address] 02/02/2024 9:00 AM RESTAURANT HOURLY MANAGER Appointment Department of Radiation Oncology in [place], [place] [address] [place] [address] Henrique Farley M.D. [address] [place] [address] Marta Chopra M.D. [address] [place] [address] 02/02/2024 9:30 AM RESTAURANT HOURLY MANAGER Appointment Department of Radiation Oncology in [place], [place] [address] [place] [address] Marta Chopra M.D. [address] [place] [address] 02/03/2024 9:00 AM RESTAURANT HOURLY MANAGER Appointment Department of Radiation Oncology in [place], [place] [address] [place] [address] Henrique Farley M.D. [address] [place] [address] Marta Chopra M.D. [address] [place] [address] 02/06/2024 9:00 AM RESTAURANT HOURLY MANAGER Appointment Department of Radiation Oncology in [place], [place] [address] [place] [address] Henrique Farley M.D. [address] [place] [address] Marta Chopra M.D. [address] [place] [address] 02/07/2024 9:00 AM RESTAURANT HOURLY MANAGER Appointment Department of Radiation Oncology in [place], [place] [address] [place] [address] Henrique Farley M.D. [address] [place] [address] Marta Chopra M.D. [address] [place] [address] 02/09/2024 9:00 AM RESTAURANT HOURLY MANAGER Appointment Department of Radiation Oncology in [place], [place] [address] [place] [address] Henrique Farley M.D. [address] [place] [address] Marta Chopra M.D. [address] [place] [address] 02/09/2024 9:30 AM RESTAURANT HOURLY MANAGER Appointment Department of Radiation Oncology in [place], [place] [address] [place] [address] Henrique Farley M.D. [address] [place] [address] 02/10/2024 9:00 AM RESTAURANT HOURLY MANAGER Appointment Department of Radiation Oncology in [place], [place] [address] [place] [address] Henrique Farley M.D. [facility] [place] [address] Marat Chopra M.D. [address] [place] [address] 02/13/2024 9:00 AM RESTAURANT HOURLY MANAGER Appointment Department of Radiation Oncology in [place], [place] [address] [place] [address] Henrique Farley M.D. [address] [place] [address] Marta Chopra M.D. [address] [place] [address] 02/14/2024 9:00 AM RESTAURANT HOURLY MANAGER Appointment Department of Radiation Oncology in [place], [place] [address] [place] [address] Henrique Farley M.D. [address] [place] [address] [place] [address] 02/14/2024 9:30 AM RESTAURANT HOURLY MANAGER Appointment Department of Radiation Oncology in [place], [place] [address] [place] [address] Henrique Farley M.D. [address] [place] [address] 02/15/2024 9:00 AM RESTAURANT HOURLY MANAGER Appointment Department of Radiation Oncology in [place], [place] [address] [place] [address] Henrique Farley M.D. [address] [place] [address] Marta Chopra M.D. [address] [place] [address] Scheduled Orders Name Type Priority Associated Diagnoses Order Schedule Prior Auth Rad Tx Radiation Oncology Routine Astrocytoma (HCC) Ordered: 12/19/2023 Management Visit Radiation Oncology Routine Astrocytoma (HCC) 10 Occurrences starting 12/19/2023 until 03/20/2025 Scheduled Referrals Name Type Priority Associated Diagnoses Orde r Schedule Radiation Oncology - Nurse education visit (clinic) Outpatient Referral Routine Astrocytoma (HCC) Expected: 12/19/2023, Expires: 03/20/2025 Social Work - General consult (clinic) Outpatient Referral Routine Astrocytoma (HCC) Expected: 12/19/2023, Expires: 03/20/2025 documented as of this encounter Results * MR Brain without and with IV Contrast (12/27/2023 2:38 PM RESTAURANT HOURLY MANAGER) Anatomical Region Laterality Modality Head, Brain, Neuroradiology RST LOS, Neuroradiology ARZ LOS, Neuroradiology FLA LOS N/A Magnetic Resonance Impressions 12/27/2023 4:27 PM RESTAURANT HOURLY MANAGER -Limited MRI brain sequences for stereotactic [...] craniotomy as described. Narrative 12/27/2023 4:27 PM RESTAURANT HOURLY MANAGER EXAM: MR BRAIN WITHOUT AND WITH [...] intracranial ICAs, MCAs, ACAs, basilar artery and cam maker as are their visualized distal branches. Presumed moderate chronic small vessel ischemic white matter disease, unchanged. Unchanged left maxillary sinus retention cyst versus polyp. Procedure Note Krzysztof Saunders M.B., David, M.D. - 12/27/2023 EXAM: MR BRAIN WITHOUT AND [...] bilateral intracranial ICAs, MCAs, ACAs, basilarartery and cam maker as are their visualized distal branches. Presumed [...] from right frontotemporal craniotomy as described. Marta ARREDONDO MRI PROCEDURES Final Result * Initial Rad Onc Treatment Planning CT Simulation without IV Contrast (12/27/2023 10:00 AM RESTAURANT HOURLY MANAGER) Narrative OUMAR CROSS - 12/27/2023 10:00 AM RESTAURANT HOURLY MANAGER Joselyn Gonzalez 12/27/2023 10:44 AM Initial Rad Onc Treatment Planning CT Simulation without IV Contrast Performed by: Marta Chopra M.D. Authorized by: Marta Chopra M.D. Marta Chopra M.D. RADIATION ONCOLOGY ORDERA BLES Final Result OUMAR CROSS na documented in this encounter Visit Diagnoses Diagnosis Astrocytoma (HCC)- Primary Astrocytoma (HCC) Astrocytoma (HCC) documented in this encounter
--- OUTSIDE RECORDS SUMMARY | 2024-01-02 10:17 | XMS_ITS | Data Portability ---
Author Organization [facility], [facility] Address [address] [place] [address] Assessment Encounter Date Assessment Date Assessment LastModified [...] Not available 14:50:08 stone analysis panel 2020 [facility], [address], [place], [address], 17:07:00 Referral None recorded. Procedures None recorded. Surgeries cystoscopy, stent removal (SURG) 2020 021 epatterso n28 Not available 17:41:04 Imaging None recorded. Medication Orders diazepam 10 mg tablet 2020 [facility][id number], [address] [address], [place], [address], 16:21:03 oxybutynin chloride 5 mg tablet 2020 [facility][id number], [address], [address], 11:41:16 Patient TargetsNo targets recorded. Patient Instructions Encounter Date Encounter Id Patient Instructions Last Modified By Organization Details Last Modified Time 05/05/2020 [id number] I discussed general fluid and dietary guidelines [...] Daily dietary citrus (orange juice, lemon juice, northern cheyenne juice, etc.) has been stone to provide stone protection. Not available 05/05/2020 14:15:21 Reason for Referral None Reported. Results Created Date Observation Date Name Description Value Unit Range Abnormal Flag Note LastModifiedBy Organization Detail LastModifiedTime 05/05/2020 urina lysis , dipst ick Color-Status Brown Not Available [facility] [address], [place], [address], 05/05/2020 14:46:50 05/05/2020 urina lysis , dipst ick Glucose-Stat us Negati ve Not Available [facility] [address], [place], [address], 05/05/2020 14:46:50 05/05/2020 urina lysis , dipst ick Bilirubin-St atus Small Not Available [facility] [address], [place], [address], 05/05/2020 14:46:50 05/05/2020 urina lysis , dipst ick Sp [place]-Stat us >=1.03 0 Not Available [facility] [address], [place], [address], 05/05/2020 14:46:50 05/05/2020 urina lysis , dipst ick pH-Status 5.5 Not Available [facility] [address], [place], [address], 05/05/2020 14:46:50 05/05/2020 urina lysis , dipst ick Nitrates-Sta tus negati ve Not Available [facility] [address], [place], [address], 05/05/2020 14:46:50 05/05/2020 urina lysis , dipst ick Blood-Status Large Not Available [facility] [address], [place], [address], 05/05/2020 14:46:50 05/05/2020 urina lysis , dipst ick Leuko-Status Trace Not Available [facility] [address], [place], [address], 05/05/2020 14:46:50 05/06/19 21 05/10/2020 stone candi sis panel source Commen t Not provi ded Not Available [facility] ([facility]) [address], [place], [address], 05/10/2020 17:07:00 05/06/19 21 05/10/2020 stone candi sis panel color Brown Not Available [facility] ([facility]) [address], [place], [address], 05/10/2020 17:07:00 05/06/19 21 05/10/2020 stone candi sis panel size 3x2 mm Multi ple piece s recei adeola. Dimen sions of the large st piece repor yomaira. Not Available [facility] ([facility]) [address] [place], [address], 05/10/2020 17:07:00 05/06/19 21 05/10/2020 stone candi sis panel weight 28.0 mg Not Available [facility] ([facility]) [address] [place], [address], 05/10/2020 17:07:00 05/06/19 21 05/10/2020 stone candi sis panel composition Commen t Perce ntage (Repr esent s the % compo sitio n) Not Available [facility] ([facility]) [address] [place], [address], 05/10/2020 17:07:00 05/06/19 21 05/10/2020 stone candi sis panel calcium oxalate monohydrate 40 % Not Available [facility] ([facility]) [address] [place], [address], 05/10/2020 17:07:00 05/06/19 21 05/10/2020 stone candi sis panel calcium oxalate dihydrate 60 % Not Available [facility] ([facility]) [address] [place], [address], 05/10/2020 17:07:00 05/06/19 21 05/10/2020 stone candi sis panel hydroxyapati te POWER MANAGER Not Available [facility] ([facility]) [address] [place], [address], 05/10/2020 17:07:00 05/06/19 21 05/10/2020 stone candi sis panel carbonate apatite POWER MANAGER Not Available [facility] ([facility]) [address] [place], [address], 05/10/2020 17:07:00 05/06/19 21 05/10/2020 stone candi sis panel cahpo4 (brushite) POWER MANAGER Not Available [facility] ([facility]) [address], [place], [address], 05/10/2020 17:07:00 05/06/19 21 05/10/2020 stone candi sis panel calcium phosphate POWER MANAGER Not Available [facility] ([facility]) [address] [place], [address], 05/10/2020 17:07:00 05/06/19 21 05/10/2020 stone candi sis panel calcium carbonate POWER MANAGER Not Available [facility] ([facility]) [address] [place], [address], 05/10/2020 17:07:00 05/06/19 21 05/10/2020 stone candi sis panel mg nh4 PO4 (struvite) POWER MANAGER Not Available [facility] ([facility]) [address] [place], [address], 05/10/2020 17:07:00 05/06/19 21 05/10/2020 stone candi sis panel mghpo4 (newberyite) POWER MANAGER Not Available [facility] ([facility]) [address] [place], [address], 05/10/2020 17:07:00 05/06/19 21 05/10/2020 stone candi sis panel uric acid POWER MANAGER Not Available [facility] ([facility]) [address] [place], [address], 05/10/2020 17:07:00 05/06/19 21 05/10/2020 stone candi sis panel uric acid dihydrate POWER MANAGER Not Available [facility] ([facility]) [address] [place], [address], 05/10/2020 17:07:00 05/06/19 21 05/10/2020 stone candi sis panel ammonium acid urate POWER MANAGER Not Available [facility] ([facility]) [address] [place], [address], 05/10/2020 17:07:00 05/06/19 21 05/10/2020 stone candi sis panel sodium acid urate POWER MANAGER Not Available [facility] ([facility]) [address] [place], [address], 05/10/2020 17:07:00 05/06/19 21 05/10/2020 stone candi sis panel 2,8 dihydroxyade nine POWER MANAGER Not Available [facility] ([facility]) [address] [place], [address], 05/10/2020 17:07:00 05/06/19 21 05/10/2020 stone candi sis panel xanthine POWER MANAGER Not Available [facility] ([facility]) [address] [place], [address], 05/10/2020 17:07:00 05/06/19 21 05/10/2020 stone candi sis panel cystine POWER MANAGER Not Available [facility] ([facility]) [address] [place], [address], 05/10/2020 17:07:00 05/06/19 21 05/10/2020 stone candi sis panel cholesterol POWER MANAGER Not Available [facility] ([facility]) [address] [place], [address], 05/10/2020 17:07:00 05/06/19 21 05/10/2020 stone candi sis panel calcium bilirubinate POWER MANAGER Not Available [facility] ([facility]) [address] [place], [address], 05/10/2020 17:07:00 05/06/19 21 05/10/2020 stone candi sis panel bilirubin POWER MANAGER Not Available [facility] ([facility]) [address] [place], [address], 05/10/2020 17:07:00 05/06/19 21 05/10/2020 stone candi sis panel calcium palmitate POWER MANAGER Not Available [facility] ([facility]) [address], [place], [address], 05/10/2020 17:07:00 05/06/19 21 05/10/2020 stone candi sis panel calcium stearate POWER MANAGER Not Available [facility] ([facility]) [address], [place], [address], 05/10/2020 17:07:00 05/06/19 21 05/10/2020 stone candi sis panel triamterene POWER MANAGER Not Available [facility] ([facility]) [address], [place], [address], 05/10/2020 17:07:00 05/06/19 21 05/10/2020 stone candi sis panel drug or metabolite POWER MANAGER Not Available [facility] ([facility]) [address], [place], [address], 05/10/2020 17:07:00 05/06/19 21 05/10/2020 stone candi sis panel dried blood POWER MANAGER Not Available [facility] ([facility]) [address], [place], [address], 05/10/2020 17:07:00 05/06/19 21 05/10/2020 stone candi sis panel cellular material POWER MANAGER Not Available [facility] ([facility]) [address], [place], [address], 05/10/2020 17:07:00 05/06/19 21 05/10/2020 stone candi sis panel other component(s) POWER MANAGER Not Available [facility] ([facility]) [address], [place], [address], 05/10/2020 17:07:00 05/06/19 21 05/10/2020 stone candi sis panel comment POWER MANAGER Not Available [facility] ([facility]) [address], [place], [address], 05/10/2020 17:07:00 05/06/19 21 05/10/2020 stone candi sis panel comment POWER MANAGER Not Available [facility] ([facility]) [address], [place], [address], 05/10/2020 17:07:00 05/06/19 21 05/10/2020 stone candi sis panel photo Juju keita Photo graph will follo w under a separ ate cover Not Available [facility] ([facility]) [address], [place], [address], 05/10/2020 17:07:00 05/06/19 21 05/10/2020 stone candi sis panel comment: Juju keita Physi jerrell quest ions regar ding Calcu li Candi sis conta ct [facility] at: [phone]. Not Available [facility] ([facility]) [address], [place], [address], 05/10/2020 17:07:00 05/06/19 21 05/10/2020 stone candi sis panel please note: Juju keita Calcu li repor t will follo w via compu ter, mail or couri emerald carpenter. Not Available [facility] ([facility]) [address], [place], [address], 05/10/2020 17:07:00 05/06/19 21 05/10/2020 stone candi sis panel disclaimer: Juju keita This test was devel oped and its perfo rmanc e nannette cteri stics deter mined by [facility]. It has not been clear ed or appro adeola by the Food and Drug Admin istra tion. Not Available [facility] ([facility]) [address], [place], [address], 05/10/2020 17:07:00 05/06/19 21 05/10/2020 stone candi sis panel pdf . Not Available [facility] ([facility]) [address], [place], [address], 05/10/2020 17:07:00 05/06/19 21 05/05/2020 stone candi sis panel source Commen t Not provi ded Not Available [facility] [address], [place], [address], 05/12/2020 09:47:28 05/06/19 21 05/05/2020 stone candi sis panel color Brown Not Available [facility] [address], [place], [address], 05/12/2020 09:47:28 05/06/19 21 05/05/2020 stone candi sis panel size 3x2 mm Multi ple piece s recei adeola. Dimen sions of the large st piece repor yomaira. Not Available [facility] [address] [place] [address] [address], [place], [address], 05/12/2020 09:47:28 05/06/19 21 05/05/2020 stone candi sis panel weight 28.0 mg Not Available [facility] [address] [facility], [place], [address], 05/12/2020 09:47:28 05/06/19 21 05/05/2020 stone candi sis panel composition Commen t Perce ntage (Repr esent s the % compo sitio n) Not Available [facility] [address], [place], [address], 05/12/2020 09:47:28 05/06/19 21 05/05/2020 stone candi sis panel calcium oxalate monohydrate 40 % Not Available [facility] [address] [facility], [place], [address], 05/12/2020 09:47:28 05/06/19 21 05/05/2020 stone candi sis panel calcium oxalate dihydrate 60 % Not Available [facility] [address], [place], [address], 05/12/2020 09:47:28 05/06/19 21 05/05/2020 stone candi sis panel photo Juju neela Photo graph will follo w under a separ ate cover Not Available [facility] [address], [place], [address], 05/12/2020 09:47:28 05/06/19 21 05/05/2020 stone candi sis panel comment: Juju keita Physi jerrell quest ions regar ding Calcu li Candi sis conta ct [facility] at: [phone]. Not Available [facility] [address], [place], [address], 05/12/2020 09:47:28 05/06/19 21 05/05/2020 stone candi sis panel please note: Juju keita Calcu li repor t will follo w via compu ter, mail or couri emerald carpenter. Not Available [facility] [address], [place], [address], 05/12/2020 09:47:28 05/06/19 21 05/05/2020 stone candi sis panel disclaimer: Juju keita This test was devel oped and its perfo rmanc e nannette cteri stics deter mined by [facility]. It has not been clear ed or appro adeola by the Food and Drug Admin istra tion. Not Available [facility] [address], [place], [address], 05/12/2020 09:47:28 05/06/19 21 05/05/2020 stone candi sis panel pdf . Not Available [facility] [address], [place], [address], 05/12/2020 09:47:28 04/11/19 21 04/07/2020 CT, abdom [...] foreign body/stent removal completed Gibson Rodriguez MD [address] [place] [address],[address], [place], [address], [facility] 05/05/2020 16:18:52 Imaging Results Imaging Date [...] Name and Address Organization Details Recorded Time 835326 pholcodin e Not available abdominal pain severe Not available 05/05/2020 34505 RxNorm Rogers cade [facility] 14:41:39 256694 codeine medicatio n abdominal pain severe Not available 05/05/2020 2670 RxNorm Rogers cade [facility] 14:42:01 Medications Name Sig Start Date [...] Updated DateTime 05/05/2020 170.18 cm 26.6 kg/m2 37566.7 g Rogers Waldrop [facility] 05/05/2020 14:40:40 Date Recorded Body height Body mass index (BMI) Body weight Respiratory rate Provider Name and Address Organization Details Last Updated DateTime 05/09/2020 170.18 cm 26.6 kg/m2 37151.7 g 16 /min Adeline Kern [facility] 05/09/2020 11:08:42 Social History Question Answer Notes LastModified by Organizat ion Details LastModified Time Tobacco Smoking Status Never Smoker Rogers cade, [facility] 05/05/2020 14:43:29 What Is Your Level [...] Diagnosis/Indication Diagnosis SNOMED-CT Code Diagnosis ICD10 Code [id number] Gibson Rodriguez MD [facility] [address] [place] [address] 05/05/2020 13:58:06 05/07/2020 08:36:30 Kidney stone 54252255 N20.0 [id number] Perry Pereyra MD [facility] [address] [place] [address] 05/09/2020 10:40:52 05/09/2020 16:04:38 Ureteric stone 19812572 N20.1 Health Concerns Section Related Observation LastModified by Organization Detai ls LastModified Time None Recorded Concern Status LastModified by Organization Details LastModified Time None Recorded Advance Directives Directive None Recorded Payers Encounter Date Sequence Insurance Name Policy Number Policy Monahan Covered Member ID Monahan Member ID Guarantor Name 05/05/2020 1 [facility]: (MEDICARE REPLACEMENT PPO) [id number] Juliette R Book [id number] Dontae R Book 05/09/2020 1 [facility] [id number] Dontae R Book [id number] Dontae R Book Notes Date Note Type Note Provider Name and Address Organization Details Recorded Time 05/05/2020 text/html 65 yoM who under went right stent placement for 8 mm obstructing UPJ stone 04/08/20 with subsequent ESWL 04/21/[address] Pereyra. Due to scheduling availability he is here with me today to review KUB and remove indwelling ureteral stent. Gibson Rodriguez MD [address] [place] [address],[address], [place], [address], [facility] 05/05/2020 16:21:24 05/09/2020 text/html s/p right extracorporeal shockwave lithotripsy of 7 mm ureteral stone and right low pole kidney 7 mm stone on 04/21/2020. DR. Rodriguez was unable take the stent out given discomfort associated with it. He came here today for right stent removal. He saw Dr. Rodriguez 05/05/2020. KUB showed small fragments in the right low pole kidney. Perry Pereyra MD [address] [place] [address],[address], [place], [address], [facility] 05/09/2020 16:03:45
--- OUTSIDE RECORDS SUMMARY | 2024-01-02 10:17 | XMS_ITS | Continuity of Care Document ---
Author Organization [facility] Address [address] [place] [address] Phone Care Team Providers Care Change Management Consultant Name Role Phone Alicia Lion MD Unavailable [...] [facility], [address], [place], [id number] , [place] tel: [phone] [facility] No Information 2 Mehbod Amir. [facility] [place], [address] [place] [address], [place], [id number] , [place]. tel: [phone] OFFICE/OUTPA TIENT VISIT EST Phone [facility], [address], [place], [id number] , [place] tel: [phone] [employer] No Information 0 Stacy Moreno. [address] [place] [address], [place], [id number] , [place]. tel: [phone] Referring Provider: Zeyad Johnson, [address], [place], [address]. tel:[phone] [facility], [address], [place], [id number] , [place] tel: [phone] [employer] No Information 0 Mehbod Amir. [facility], [address] [place] [address], [place], [id number] , [place]. tel: [phone] [facility], [address], [place], [id number] , [place] tel: [phone] [facility] No Information 0 Mehbod Amir. [facility], [address], [place], [place], [id number] , [place]. tel: [phone] [facility], [address], [place], [place], [id number] , [place] tel: [phone] [facility] No Information 0 Stacy Moreno. [address] [place] [address], [place], [place], [id number] , [place]. tel: [phone] Referring Provider: Zeyad Johnson, [employer] [address] [facility], [place], [address]. tel:[phone] [facility], [address], [place], [place], [id number] , [place] tel: [phone] [facility] No Information 0 Mehbod Amir. [facility], [address] [place] [address], [place], [place], [id number] , [place]. tel: [phone] Referring Provider: Zeyad Johnson, [employer] [address] [facility], [place], [address]. tel:[phone] Office/Outpa tient Visit,New, Mod [facility], [address], [place], [place], [id number] , [place] tel: [phone] [facility] No Information 0 Mehbod Amir. [facility] [place], [address] [place] [address], [place], [place], [id number] , [place]. tel: [phone] Referring Provider: Zeyad Johnson [employer] [address] [facility], [place], [address]. tel:[phone] Office/Outpa tient Visit,Est, Mod [facility], [address], [place], [place], [id number] , [place] tel: [phone] [facility] Arthrodesis statusRadiculopat hy, cervical region 6 Mehbod Amir. [facility], [address], [place], [place], [id number] , [place]. tel:[phone] Referring Provider: Zeyad Johnson, [employer] [facility] [address] [facility], [place], [address]. tel:[phone] Office/Outpa tient Visit,New, Mod [facility], [address], [place], [place], [id number] , [place] tel:[phone] [facility] Radiculopathy, cervical regionArthrodesis status 6 Mehbod Amir. [facility], [address], [place], [place], [id number] , [place]. tel:[phone] Referring Provider: Zeyad Johnson, [employer] [address] [facility], [place], [address]. tel:[phone] Family History Family Member Type Diagnosis Age At Onset Problem (finding) Problem (finding) Payers Payer name Insurance type Covered republican ID Authorhinaa kyle(s) [facility] [id number] [facility] [id number] Social History Type Description Quantity Date Captured [...]
--- OUTSIDE RECORDS SUMMARY | 2024-01-02 10:17 | XMS_ITS | Continuity of Care Document ---
Author Organization [facility] Address [address] [place] [address] Phone Care Team Providers Care Horse Stud Worker Name Role Phone Dontae Upton MD Unavailable [...] Procedure Date Office/Outpatient Visit, Est Office/Outpatient Visit, [facility] Routine Venipuncture Specimen Handling CReactive Protein Rbc Sed Rate, Nonautomated Advance Directives Directive Yes / No Effective Date File Name No Information Encounters Encounter Description Practice Location Reason(s) For Visit Diagnoses Date Provider Providers Copied on Encounter [facility], [address], [place], [address], [place] tel:[phone] [facility], No Information 3 Won Diggs. [address], [place], [place], [id number] , [place]. tel:[phone] Office/Outpa tient Visit, Est [facility], [address], [place], [address], [place] tel:[phone] [facility], Joint Pain (chief complaint) possible gout (chief complaint) Pain in joint involving multiple sitesGOUTY ARTHROPATHY NOS 3 Won Diggs. [address], [place], [place], [id number] , [place]. tel:[phone] Referring Provider: Dontae Pisano, [address], [place], [address] . tel:[phone] Office/Outpa tient Visit, New [facility], [address], [place], [address], [place] tel:[phone] [facility], possible gout (chief complaint) Hypertension, UnspecifiedCa lculus of kidneyGOUTY ARTHROPATHY NOSPain in joint involving multiple sitesLumbago 3 Won Diggs. [address], [place], [place], [id number] , [place]. [phone] Referring Provider: Dontae Pisano, [address], [place], [address] . tel:[phone] [facility], [address], [place], [address], [place] tel:[phone] [facility], No Information 3 Won Diggs. [address], [place], [place], [id number] , [place]. tel: [phone] Family History Family Member Type Diagnosis Age At Onset Problem (finding) Payers Payer name Insurance type Covered libertarian ID Authorrio wright(s) [facility] [id number] Social History Type Description Quantity Date Captured [...]
--- OUTSIDE RECORDS SUMMARY | 2024-01-02 10:17 | XMS_ITS | Clinical Summary ---
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 90 Tablet 3 05/29/19 24 Active isosorbide mononitrate (IMDUR) 30 mg extended release tablet 24 HourIndications:C oronary artery disease involving eklutna coronary artery of eklutna heart without angina pectoris,Stable angina (HC) Take [...] x 2) spryIndications:S eizure (HC) Inhale 1 [place] in both nostrils each time if needed [...] type, unspecified whether angina present, unspecified whether eklutna or transplanted heart,Cardiomyopa thy, unspecified type (HC) [...] hours as needed for nausea/vomiting. 30 Tablet 11 12/12/19 24 Active acetaminophen-cod eine (TYLENOL #3) 300-30 mg per tabletIndications :Astrocytoma (HC),S/P craniotomy Take 1 Tablet by mouth every 6 hours if needed for Pain. Max acetaminophen dose: 4000mg in 24 hrs. 28 Tablet 12/19/19 24 Active temozolomide 140 mg capsuleIndication s:Grade III astrocytoma (HC) Take 1 Capsule (140 mg) by mouth once daily. Take daily at bedtime, 7 days a week during radiation treatment. 42 Capsule 01/02/20 24 025 Active dexAMETHasone 2 mg tabletIndications :S/P craniotomy Take 1 Tablet (2 mg) by mouth two times daily with meals for 1 day, THEN 1 Tablet (2 mg) once daily with a meal for 2 days. 4 Tablet 12/03/19 024 oxyCODONE (ROXICODONE) 5 mg immediate release tabletIndications :Acute post-operative pain Take 1-2 Tablets (5-10 mg) by mouth every 4 hours if needed for Pain. 15 Tablet 12/03/19 024 Discontinued(*M ed ineffective) acetaminophen-cod eine (TYLENOL #3) 300-30 mg per tabletIndications :Astrocytoma (HC),S/P craniotomy Take 1 Tablet by mouth every 6 hours if needed for Pain. Max acetaminophen dose: 4000mg in 24 hrs. 30 Tablet 12/08/19 024 Discontinued Active Problems Problem Noted Date Diagnosed [...] total bilirubin for many years - likely Terry Impaired fasting glucose Osteoarthritis of hand, right Chronic pain Overview (05/31/2022): joints Resolved Problems Problem Noted Date Diagnosed Date Resolved Date NSTEMI (non-ST elevated myoc ardial infarction) 08/30/2012 04/14/2015 Right shoulder adhesive capsulitis 09/14/2011 12/05/2014 Encounters Date Type Department Care Team Description 01/02/2024 Telephone [facility] [address] [place] [address] Jerardo Wiseman MD Questions 12/26/2023 2:30 PM FENCE SUPERVISOR Orders Only [facility] [address] [place] [address] Lab, Farm Lab 12/26/2023 Travel 12/23/2023 Travel 12/22/2023 Orders Only [facility] [address] [place] [address] Gallito Parker NP <No scans attached> 12/22/2023 Refill [facility] [address] [place] [address] Lourdes Weinstein DO Refill Request (Temozolomide Radiation-Chemother apy course) 12/21/2023 Nurse Triage [facility] [address] [place] [address] Jerardo Wiseman MD Decreased Hearing 12/20/2023 9:45 AM FENCE SUPERVISOR Orders Only [facility] [address] [place] [address] Lab, Farm Lab 12/20/2023 Telephone [facility] [address] [place] [phone] Renetta Lakhani, [facility] Social Work Contact 12/20/2023 Travel 12/18/2023 Refill [facility] [address] [place] [address] Jerardo Wiseman MD Refill Request (Acetaminophen-code ine) 12/16/2023 Travel 12/13/2023 Orders Only [facility] [address] [place] [phone] Lourdes Weinstein DO <No scans attached> 12/13/2023 Telephone [facility] [address] [place] [phone] Lourdes eWinstein, Prior Authorization (ondansetron (ZOFRAN) 8 mg tablet Approved 11/13/23-12/12/24) 12/12/2023 11:00 AM FENCE SUPERVISOR Office [facility] [address] [place] [address] Joselyn Hoang NP Suture Removal ( S/p 11/30/23 Right temporal craniotomy for tumor. 2 wk suture removal) 12/12/2023 9:15 AM FENCE SUPERVISOR Office Visit [facility] [address] [place] [address] Lourdes Weinstein DO 12/12/2023 Orders Only [facility] [address] [place] [address] Lourdes Weinstein DO <No scans attached> 12/12/2023 Travel 12/09/2023 Telephone [facility] [address] [place] [address] Jerardo Wiseman MD Error-please disregard (Error-please disregard) 12/09/2023 Telephone [facility] [address] [place] [address] Jerardo Wiseman MD Questions (If they can get seen at [facility] in [place].) 12/08/2023 2:00 PM CDT Office Visit [facility] [address] [place] [address] Jerardo Wiseman MD Hospital F/U 12/08/2023 Travel 12/07/2023 Telephone [facility] [address] [phone] Josh Castillo MD Questions 12/06/2023 Travel 12/05/2023 Travel 12/05/2023 Patient Outreach [facility] [address] [place] [address] Viviana Parker RN Primary RN Care Management; Hospital F/U (LACE 63/) 11/30/2023 1:33 PM CDT Anesthesia Event [facility] [address] [place] [address] Betty Bartholomew DO Bottcher, Rachel, PIANO TECHNICIAN Student 11/30/2023 11:40 AM CDT - 11/30/2023 3:59 PM CDT Surgery [facility] [address] [place] [address] Josh Castillo MD Right temporal craniotomy for tumor 11/30/2023 9:26 AM CDT - 12/03/2023 1:10 PM CDT Hospital Encounter [facility] [address] [place] [address] Josh Castillo MD Vujkovic, Sinisa, MD [facility], [facility] S/P craniotomy (Primary Dx); Acute post-operative pain; Constipation, unspecified constipation type; Status post insertion of drug-eluting stent into left anterior descending (LAD) artery; Coronary artery disease, unspecified vessel or lesion type, unspecified whether angina present, unspecified whether eklutna or transplanted heart; Cardiomyopathy, unspecified type (HC) Discharge Disposition: Home Health 11/29/2023 8:36 AM CDT - 11/29/2023 11:59 PM CDT Hospital Encounter [facility] [address] [place] [address] Josh Castillo MD Glioma (HC) 11/29/2023 Travel 11/25/2023 Nurse/Clinic Staff Only [facility] [address] [place] [address] Josh Castillo MD 11/22/2023 10:05 AM CDT Procedure Only [facility] [address] [place] [address] Jerardo Wiseman MD Suture Removal 11/22/2023 Orders Only [facility] [address] [place] [address] Josh Castillo MD <No scans attached> 11/21/2023 9:00 AM CDT Office Visit [facility] [address] [place] [address] Josh Castillo MD Post-op (Right Frontal Stereotactic Biopsy/11/11/2023 Dr. Castillo/) 11/21/2023 Telephone [facility] [address] [place] [address] Lourdes Weinstein DO Oncology Nurse Navigation 11/21/2023 Travel 11/19/2023 Travel 11/18/2023 1:15 PM CDT Office Visit [facility] [address] [place] [address] Lourdes Weinstein DO 11/17/2023 Travel 11/15/2023 Telephone [facility] [address] [facility] [address] [place] [address] Joselyn Hoang, STEVAN Results 11/14/2023 7:50 AM CDT Office Visit [facility] [address] [place] [address] Jerardo Wiseman MD Hospital F/U (DOS 11/11/2023, ANW) 11/14/2023 Patient Outreach [facility] [address] [place] [address] Viviana Parker, RN Primary RN Care Management; Hospital F/U (LACE 43) 11/13/2023 Travel 11/11/2023 10:33 AM CDT Anesthesia Event [facility] [address] [place] [address] Catrachita Cullen CRNA 11/11/2023 10:30 AM CDT - 11/11/2023 12:28 PM CDT Surgery [facility] [address] [place] [address] Josh Castillo MD Right Frontal Stereotactic Biopsy 11/11/2023 8:03 AM CDT - 11/12/2023 12:44 PM CDT Hospital Encounter [facility] [address] [place] [address] Josh Castillo MD Acute post-operative pain (Primary Dx); Constipation, unspecified constipation type Discharge Disposition: Home Self Care 11/10/2023 3:06 PM CDT - 11/10/2023 11:59 PM CDT Hospital Encounter [facility] [address] [place] [address] Joselyn Hoang NP Brain tumor (HC) 11/10/2023 Travel 11/10/2023 Telephone [facility] [address] [phone] Josh Castillo MD Medication List Update 11/09/2023 Travel 11/04/2023 8:25 AM CDT Office Visit [facility] [address] [place] [address] Jerardo Wiseman MD Preoperative Exam (Surgery 11/10); Immunization/Inject ion 11/04/2023 Telephone [facility] [address] [place] [address] Jerardo Wiseman MD Form (FMLA) 11/04/2023 Travel 11/03/2023 Travel 11/02/2023 Patient Outreach [facility] [address] [place] [address] Viviana Parker, RN Primary RN Care Management; Hospital F/U (LACE 70) 11/01/2023 Orders Only [facility] [address] [place] [address] Joselyn Hoang NP <No scans attached> 10/31/2023 12:11 PM CDT - 11/01/2023 4:30 PM CDT Hospital Encounter [facility] [address] [place] [address] Danny Loomis, DO [facility], [facility] Jian Driver MBBS Philpot, Nicholas John, MD Brain mass (Primary Dx); Syncope, unspecified syncope type; Seizure-like activity (HC); Seizure (HC) Discharge Disposition: Home Self Care 10/31/2023 Travel 10/31/2023 Nurse Triage [facility] [address] [place] [address] Jerardo Wiseman MD Possible Seizure 10/26/2023 Refill [facility] [address] [place] [address] Jerardo Wiseman MD Refill Request (Gabapentin) 10/04/2023 Refill [facility] [address] [place] [address] Zeyad Burkett MD Refill Request (Methocarbamol Oral tablet 750mg) from Last 3 Months Immunizations Name Administration Dates Next Due Amb Influenza, Inactivated A IIV4 (Age 65+ Years) Preserv Free 11/07/2019 COVID-19 VACCINE SPIKEVAX (M ODERNA 50MCG/0.5ML) 12YO+ PFS 11/04/2023,11/24/2022 COVID-19 vaccine (Moderna 100mcg/0.5mL) PF, MDV 05/29/2021,05/08/2020,04/10/2020 COVID-19 vaccine (Pfizer-Bio NTech 30mcg/0.3mL) 12YO+ BIVALENT PF, MDV 12/21/2021 [...] Comments Blood Pressure 113/85 12/12/2023 9:00 AM FENCE SUPERVISOR Pulse 80 12/12/2023 9:00 AM FENCE SUPERVISOR Temperature 36.4 C (97.6 F) 12/03/2023 8:00 AM CDT Respiratory Rate 16 12/12/2023 9:00 AM FENCE SUPERVISOR Oxygen Saturation 95% 12/12/2023 9:00 AM FENCE SUPERVISOR Inhaled Oxygen Concentration - - Weight 73.4 kg (161 lb 12.8 oz) 12/12/2023 9:00 AM FENCE SUPERVISOR Height 167.6 cm (5' 6) 11/30/2023 11:1 0 AM CDT Body Mass Index 26.12 11/30/2023 11:10 AM CDT Plan of Treatment Upcoming Encounters Date Type Department Care Team (Late st Contact Info) Description 01/10/2024 2:00 PM FENCE SUPERVISOR Office Visit [facility] [address] [phone] Joselyn Hoang, STEVAN [address] [address] Health Maintenance Due Date Last Done Comments [...] history exists Medical Devices Implanted Type Area Research Chemist Device Identifier Shelf Expiration Date Model / Serial / Lot [id number] bone Matrix 6cc Miles Dbf Putty Dbm Implanted:Qty: 1 on 03/28/2019 by Alicia Lion MD at [facility] Explanted:at [facility] (Quantity not on file) Spine Medtronic Spine/Ortho 11/13/2020 T50 106# / [id number] / Chuckie Lmbr 90x5.5mm Solera 5.5/6cvd Titnm - [id number] Implanted:Qty: 1 on 03/28/2019 by Alicia Lion MD at [facility] Spine Medtronic Spine/Ortho 155 [id number] 90# / / [id number] bone 1-4mm 60cc Medtronic Fine Canclls Freeze Dried Implanted:Qty: 1 on 03/28/2019 by Alicia Lion MD at [facility] Explanted:at [facility] (Quantity not on file) Spine Medtronic Spine/Ortho 08/17/2023 800 111# / [id number] / Spacer Lmbr 9x26mm Capstone Tlif Peek - [id number] Implanted:Qty: 1 on 03/28/2019 by Alicia Lion MD at [facility] Spine Medtronic Spine/Ortho 07/27/2026 299 0926# / / [id number] Spacer Lmbr 9x26mm Capstone Tlif Peek - [id number] Implanted:Qty: 1 on 03/28/2019 by Alicia Lion MD at [facility] Spine Medtronic Spine/Ortho 10/25/2021 299 0926# / / [id number] Set Screw Lmbr Ant 5.5mm Solera Break Off - [id number] Implanted:Qty: 6 on 03/28/2019 by Alicia Lion MD at [facility] Spine Medtronic Spine/Ortho 554 0030# / / Screw Lmbr Post 6.5x45mm Solera 5.5/6 Va Cocr - [id number] Implanted:Qty: 2 on 03/28/2019 by Alicia Lion MD at [facility] Spine Medtronic Spine/Ortho 558 [id number] 545# / / Screw Lmbr Post 7.5x45mm Solera 5.5/6 Va Cocr - [id number] Implanted:Qty: 2 on 03/28/2019 by Alicia Lion MD at [facility] Spine Medtronic Spine/Ortho 558 [id number] 545# / / Chuckie Lmbr 80x5.5mm Solera 5.5/6cvd Titnm - [id number] Implanted:Qty: 1 on 03/28/2019 by Alicia Lion MD at [facility] Spine Medtronic Spine/Ortho 155 16263 80# / / Stent Uret 1neo24es Contour - [id number] Implanted:Qty: 1 on 04/08/2020 by Perry Pereyra MD at [facility] Right: Ureter [facility] 01/01/2023 [id number] / / [id number] Description:See implant shee t Graft Dural 2x2in Duramatrix Suturable Bovine - [id number] Implanted:Qty: 1 on 11/30/2023 by Josh Castillo MD at [facility] Right: Cranium Hugo Craniomaxillofacial 10/07/2025 DMS22 / / [id number] Implnt Pterional Rt - [id number] Implanted:Qty: 1 on 11/30/2023 by Josh Castillo MD at [facility] Right: Cranium Hugo Craniomaxillofacial 07/28/2030 9864 / / [id number] Screw Neuro 4mm Matrixneuro Slf Drill Titnm - [id number] Implanted:Qty: 12 on 11/30/2023 by Josh Castillo MD at [facility] Right: Cranium J And J Depuy CMF 04.503.1 04.01 / / Poynette Hole Cover Neuro 17mm Synthes Low Pro Titnm - [id number] Implanted:Qty: 2 on 11/30/2023 by Josh Castillo MD at [facility] Right: Cranium J And J Depuy CMF 421.527 / / Raquel Hole Cover Neuro 24mm Synthes Low Pro Titnm - [id number] Implanted:Qty: 1 on 11/30/2023 by Josh Castillo MD at [facility] Right: Cranium J And J Depuy CMF 421.528 / / Explanted Type Area Research Chemist Device Identifier Shelf Expiration Date Model / Serial / Lot Unknown Poss. Old Synergy Explanted:Qty: 1 on 03/28/2019 by Alicia Lion MD at [facility] / / X Description:2 screws; 2 sets crews; 2 locking nuts; 2 partial rods. Procedures Procedure Name Priority Date/Time Associated Diagnosis Comments CBC WITH AUTO DIFFERENTIAL Routine 12/26/2023 2:03 PM FENCE SUPERVISOR Therapeutic drug monitoring Grade III astrocytoma (HC) COMP METABOLIC PANEL Routine 12/26/2023 2:03 PM FENCE SUPERVISOR Therapeutic drug monitoring Grade III astrocytoma (HC) SCAN CORRESP-LABORATORY RESULTS 12/22/2023 12:58 PM FENCE SUPERVISOR HBSAG (HBS) Routine 12/20/2023 9:10 AM FENCE SUPERVISOR Grade III astrocytoma (HC) Therapeutic drug monitoring CBC WITH AUTO DIFFERENTIAL Routine 12/20/2023 9:10 AM FENCE SUPERVISOR Grade III astrocytoma (HC) Therapeutic drug monitoring COMP METABOLIC PANEL Routine 12/20/2023 9:10 AM FENCE SUPERVISOR Grade III astrocytoma (HC) Therapeutic drug monitoring [...] Glioma (HC) Case Notes Midas Buster, microscope, Stetulio. supine positioning with head in a Goodman [...] CDT Brain tumor (HC) Case Notes Supine, Goodman SCAN-CARDIAC STRIP 11/11/2023 12:00 AM CDT MR [...] 12:17 PM CDT Coronary artery disease involving eklutna coronary artery of eklutna heart without angina pectoris ANTI HCV Routine 05/06/2020 10:44 AM CDT Need for hepatitis C screening test COLONOSCOPY SCREENING Routine 04/02/2020 10:52 AM FENCE SUPERVISOR Diarrhea, unspecified type from Last 3 Months or Most Recently Relevant to Health Maintenance Results * CBC AND DIFFERENTIAL (12/26/2023 2:03 PM FENCE SUPERVISOR) Only the most recent of2 resultswithin the time period is included. WHITE BLOOD CELL COUNT 7.5 3.8 - 10.8 Thousand/u L [facility] RED BLOOD CELL COUNT 4.46 4.20 - 5.80 Million/uL [facility] HEMOGLOBIN 14.1 13.2 - 17.1 g/dL [facility] HEMATOCRIT 41.6 38.5 - 50.0 % [facility] MCV 93.3 80.0 - 100.0 fL [facility] MCH 31.6 27.0 - 33.0 pg [facility] MCHC 33.9 32.0 - 36.0 g/dL [facility] Comment: For adults, a slight decrease in the calculated MCHC value (in the range of 30 to 32 g/dL) is most likely not clinically significant; however, it should be interpreted with caution in correlation with other red cell parameters and the patient's clinical condition. RDW 11.9 11.0 - 15.0 % [facility] PLATELET COUNT 168 140 - 400 Thousand/u L [facility] MPV 12.1 7.5 - 12.5 fL [facility] ABSOLUTE NEUTROPHILS 4,590 1,500 - 7,800 cells/uL [facility] ABSOLUTE LYMPHOCYTES 2,048 850 - 3,900 cells/uL [facility] ABSOLUTE MONOCYTES 653 200 - 950 cells/uL [facility] ABSOLUTE EOSINOPHILS 150 15 - 500 cells/uL [facility] ABSOLUTE BASOPHILS 60 0 - 200 cells/uL [facility] NEUTROPHILS 61.2 % [facility] LYMPHOCYTES 27.3 % [facility] MONOCYTES 8.7 % [facility] EOSINOPHILS 2.0 % [facility] BASOPHILS 0.8 % [facility] Blood BLOOD SPECIMEN / Unknown 12/26/2023 2:03 PM FENCE SUPERVISOR 12/26/2023 2:03 PM FENCE SUPERVISOR Gallito Parker NP HEMATOLOGY [facility] [address] [place] [address], [facility] [address] [place] [address] * (ABNORMAL) COMP METABOLIC PANEL (12/26/2023 2:03 PM FENCE SUPERVISOR) Only the most recent of2 resultswithin the time period is included. GLUCOSE 95 65 - 99 mg/dL [facility] Comment: Fasting reference interval UREA NITROGEN (BUN) 18 7 - 25 mg/dL [facility] CREATININE 1.03 0.70 - 1.35 mg/dL [facility] EGFR 79 > OR = 60 mL/min/1. 73m2 [facility] BUN/CREATININE RATIO SEE NOTE: 6 - 22 (calc) [facility] Comment: Not Reported: BUN and Creatinine are within reference range. SODIUM 142 135 - 146 mmol/L [facility] POTASSIUM 4.4 3.5 - 5.3 mmol/L [facility] CHLORIDE 107 98 - 110 mmol/L [facility] CARBON DIOXIDE 24 20 - 32 mmol/L [facility] CALCIUM 9.7 8.6 - 10.3 mg/dL [facility] PROTEIN, TOTAL 6.2 6.1 - 8.1 g/dL [facility] ALBUMIN 4.0 3.6 - 5.1 g/dL [facility] GLOBULIN 2.2 1.9 - 3.7 g/dL (calc) [facility] ALBUMIN/GLOBULIN RATIO 1.8 1.0 - 2.5 (calc) [facility] BILIRUBIN, TOTAL 2.0(H) 0.2 - 1.2 mg/dL [facility] ALKALINE PHOSPHATASE 82 35 - 144 U/L [facility] AST 23 10 - 35 U/L [facility] ALT 34 9 - 46 U/L [facility] Blood BLOOD SPECIMEN / Unknown 12/26/2023 2:03 PM FENCE SUPERVISOR 12/26/2023 2:03 PM FENCE SUPERVISOR Gallito Parker NP CHEMISTRY [facility] [address] [place] [address], [facility] [address] [place] [address] * SCAN CORRESP-LABORATORY RESULTS (12/22/2023 12:58 PM FENCE SUPERVISOR) Narrative 12/22/2023 12:58 PM FENCE SUPERVISOR Ordered by an unspecified provider. Other Clinical Staff OTHER * HBSAG (HBS) (12/20/2023 9:10 AM FENCE SUPERVISOR) HEPATITIS B SURFACE ANTIGEN NON-REACTI VE NON-REACTI VE [facility] Comment: For additional information, please refer to http://education.Favbuy/faq/CBS110 (This link is being provided for informational/ educational purposes only.) Blood BLOOD SPECIMEN / Unknown 12/20/2023 9:10 AM FENCE SUPERVISOR 12/20/2023 9:10 AM FENCE SUPERVISOR Lourdes Weinstein DO SEND OUTS [facility] [address] [place] [address], [facility] [address] [place] [address] * (ABNORMAL) PLATELET COUNT (12/03/2023 8:17 AM CDT) Only the most recent of2 resultswithin the time period is included. PLATELET COUNT 142 140 - 440 thou/cu mm 12/03/2023 8:42 AM CDT [facility] TR[facility] LABORATORY MPV 12.0(H) 6.5 - 11.0 fL 12/03/2023 8:42 AM CDT [facility] TR[facility]ORATORY Blood BLOOD SPECIMEN / Unknown Venipuncture / Unknown 12/03/2023 8:17 AM CDT 12/03/2023 8:32 AM CDT Josh Castillo MD HEMATOLOGY Performing Organization Address City/[facility]/ZIP Co de Phone Number [facility] [address] [place] [phone], * (ABNORMAL) GLUCOSE METER (12/03/2023 7:22 AM CDT) Only the most recent of9 resultswithin the time period is included. GLUCOSE METER 176(H) 65 - 100 mg/dL 12/03/2023 7:23 AM CDT [facility] Blood BLOOD SPECIMEN / Unknown 12/03/2023 7:22 AM CDT 12/03/2023 7:23 AM CDT Josh Castillo MD CHEMISTRY Performing Organization Address [facility]/ZIP Co de Phone Number [facility] [address] [place] [address], * SCAN-CARDIAC STRIP (12/02/2023 8:27 AM CDT) Scanner OTHER * (ABNORMAL) CBC W PLT NO DIFF (12/02/2023 4:45 AM CDT) Only the most recent of2 resultswithin the time period is included. WHITE BLOOD COUNT 11.5(H) 4.5 - 11.0 thou/cu mm 12/02/2023 4:59 AM CDT [facility] RED BLOOD COUNT 3.49(L) 4.30 - 5.90 mil/cu mm 12/02/2023 4:59 AM CDT [facility] HEMOGLOBIN 11.1(L) 13.5 - 17.5 g/dL 12/02/2023 4:59 AM CDT [facility] HEMATOCRIT 31.8(L) 37.0 - 53.0 % 12/02/2023 4:59 AM CDT [facility] MCV 91 80 - 100 fL 12/02/2023 4:59 AM CDT [facility] MCH 31.8 26.0 - 34.0 pg 12/02/2023 4:59 AM CDT [facility] MCHC 34.9 32.0 - 36.0 g/dL 12/02/2023 4:59 AM CDT [facility] RDW 11.8 11.5 - 15.5 % 12/02/2023 4:59 AM CDT [facility] PLATELET COUNT 137(L) 140 - 440 thou/cu mm 12/02/2023 4:59 AM CDT [facility] MPV 11.8(H) 6.5 - 11.0 fL 12/02/2023 4:59 AM CDT [facility] NRBC 0.0 % 12/02/2023 4:59 AM CDT [facility] ABS NRBC 0.0 thou /cu mm 12/02/2023 4:59 AM CDT [facility] Blood BLOOD SPECIMEN / Unknown Venipuncture / Unknown 12/02/2023 4:45 AM CDT 12/02/2023 4:53 AM CDT Alice Oliver MD HEMATOLOGY [facility] [address] [place] [address], * (ABNORMAL) BASIC METABOLIC PANEL (12/02/2023 4:45 AM CDT) Only the most recent of3 resultswithin the time period is included. SODIUM 137 136 - 145 mmol/L 12/02/2023 5:23 AM CDT [facility] POTASSIUM 4.6 3.5 - 5.1 mmol/L 12/02/2023 5:23 AM CDT [facility] CHLORIDE 105 98 - 107 mmol/L 12/02/2023 5:23 AM CDT [facility] CO2,TOTAL 23 22 - 29 mmol/L 12/02/2023 5:23 AM CDT [facility] ANION GAP 9 5 - 18 12/02/2023 5:23 AM CDT [facility] GLUCOSE 192(H) 70 - 99 mg/dL 12/02/2023 5:23 AM CDT [facility] CALCIUM 8.9 8.8 - 10.2 mg/dL 12/02/2023 5:23 AM CDT [facility] BUN 23 8 - 23 mg/dL 12/02/2023 5:23 AM CDT [facility] CREATININE 1.09 0.70 - 1.20 mg/dL 12/02/2023 5:23 AM CDT [facility] BUN/CREAT RATIO 21(H) - 5:23 AM CDT [facility] eGFR 73(L) >90 mL/min/1.7 3m2 12/02/2023 5:23 AM CDT [facility] Comment:As of 2021, eG FR is calculated by the CKD-EPI creatinine equation without race adjustment. eGFR can be influenced by muscle mass, exercise, and diet. The reported eGFR is an estimation only and is only applicable if the renal function is stable. Blood BLOOD SPECIMEN / Unknown Venipuncture / Unknown 12/02/2023 4:45 AM CDT 12/02/2023 4:53 AM CDT Alice Oliver MD CHEMISTRY [facility] [address] [place] [address], * Sodium (12/01/2023 7:36 PM CDT) Only the most recent of3 resultswithin the time period is included. SODIUM 139 136 - 145 mmol/L 12/01/2023 8:11 PM CDT [facility] Blood BLOOD SPECIMEN / Unknown Venipuncture / Unknown 12/01/2023 7:36 PM CDT 12/01/2023 7:42 PM CDT Josh Castillo MD CHEMISTRY Performing Organization Address [facility] de Phone Number [facility] [address] [place] [address], * SCAN-CARDIAC STRIP (12/01/2023 3:20 PM CDT) Scanner OTHER * (ABNORMAL) PHOSPHORUS (12/01/2023 1:44 PM CDT) PHOSPHORUS 2.4(L) 2.5 - 4.5 mg/dL 12/01/2023 2:26 PM CDT [facility] Blood BLOOD SPECIMEN / Unknown Venipuncture / Unknown 12/01/2023 1:44 PM CDT 12/01/2023 1:54 PM CDT Apple Huerta MD CHEMISTRY Performing Organization Address [facility] Phone Number [facility] [address] [place] [address], * MAGNESIUM (12/01/2023 1:44 PM CDT) Only the most recent of3 resultswithin the time period is included. MAGNESIUM 1.7 1.6 - 2.4 mg/dL 12/01/2023 2:26 PM CDT [facility] Blood BLOOD SPECIMEN / Unknown Venipuncture / Unknown 12/01/2023 1:44 PM CDT 12/01/2023 1:54 PM CDT Apple Huerta MD CHEMISTRY Performing Organization Address [facility] de Phone Number [facility] [address] [place] [address], * SCAN-CARDIAC STRIP (12/01/2023 7:26 AM CDT) Scanner OTHER * SCAN-CARDIAC STRIP (11/30/2023 7:59 PM CDT) Scanner OTHER * HCHG TUBE PR1, HCHG INSTRUMENT DISP PR10, HCHG STYLET PR1 (11/30/2023 2:29 PM CDT) Narrative VelazquezAlberta razo PriscillaROLAN - 11/30/2023 2:29 PM CDT Alberta VelazquezROLAN 11/30/2023 2:30 PM Procedure: ETT Patient location during procedure: [...] DO - 11/30/2023 2:02 PM CDT Betty Bartholomew DO 11/30/2023 2:04 PM Arterial Line Patient location during procedure: [...] visualized entering selected vessel. Securement/dressing: dressing applied. Comment: Vessel Roustabout Crew Pusher Additional supplies used to locate vessel: yes Catheter/Needle Size: 20 G. Comment:. Catheter Type: Arrow. Comment:. Needle Catheter size: 20 G. Comment:. Catheter length: 4.5 cm. Comment: Events: no complications. Additional Notes Radial artery attempted x3--good pulsatile blood flow and unable to thread catheter presumably 2/2 plaque. Placed L brachial w/ ultrasound easily. Betty Washington DO ANESTHESIA PX NOTE O RDERABLES * PATH TISSUE EXAM (11/30/2023 12:34 PM CDT) Only the most recent of2 resultswithin the time period is included. Case Report Pathology Report Case: [id number] Authorizing Provider: Josh Castillo MD Collected: 11/30/2023 1234 Ordering Location: 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 These raise the grade of the grade of the neoplasm to CURRICULUM AND INSTRUCTION SPECIALIST WHO grade 3. 12/01/2023 11:56 AM CDT [facility] Clinical Information Right temporal mass. 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 12/01/2023 11:56 AM CDT [facility] Gross Description A) Received in formalin, labeled with the patient's name and right temporal mass, is a 2.5 x 2 x 1 cm aggregate of craven soft tissues, sectioned and entirely submitted in 3 cassettes. Time and date in formalin: 161 on 11/30/2023 TRB 11/30/2023 12/01/2023 11:56 AM CDT [facility] Microscopic Description The final diagnosis is based on microscopic examination of appropriate sections of all specimens. 12/01/2023 11:56 AM CDT [facility] Additional Information Interpreted at [place] - [address], [place] [address] 12/01/2023 11:56 AM CDT [facility] Tissue TISSUE SPECIMEN / Unknown 11/30/2023 12:34 PM CDT 11/30/2023 4:14 PM CDT Josh Castillo MD PATHOLOGY/CYTOL OGY Performing Organization Address [facility]/ZIP Co de Phone Number [facility] [address] [place] [address], * BLOOD BANK EXTRA LAVENDER TOP (11/30/2023 12:23 PM CDT) Blood BLOOD SPECIMEN / Unknown Venipuncture / Unknown 11/30/2023 12:23 PM CDT 11/30/2023 12:43 PM CDT Josh Castillo MD BLOOD BANK Performing Organization Address [facility] [[email or web address]] Co de Phone Number [facility] [address] [place] [address], * Type and Screen (11/30/2023 11:00 AM CDT) ANTIBODY SCREEN Negative Negative 11:49 AM CDT [facility] Comment:Unable to determine the ABO type. Discrepancy in typing results due to patient history of Ax subtype. SPECIMEN EXPIRATION DATE/TIME 12/03/23 23:59 11/30/2023 11:49 AM CDT [facility] Blood BLOOD SPECIMEN / Unknown Venipuncture / Unknown 11/30/2023 11:00 AM CDT 11/30/2023 11:13 AM CDT Josh Castillo MD BLOOD BANK Performing Organization Address City/[facility]/ZIP Co de Phone Number [facility] [address] [place] [address], * RH(D) TYPE (11/30/2023 11:00 AM CDT) RH(D) TYPE Positive 11/30/2023 2:10 PM CDT [facility] Blood BLOOD SPECIMEN / Unknown Venipuncture / Unknown 11/30/2023 11:00 AM CDT 11/30/2023 11:13 AM CDT Narrative [facility] - 11/30/2023 2:10 PM CDT Give credit for Rh type only. Josh Castillo MD BLOOD BANK Performing Organization Address [facility]/ZIP Co de Phone Number [facility] [address] [place] [phone], * (IA) COLD SOPHIE PANEL (11/30/2023 11:00 AM CDT) QUANTITY 1 [facility] BLOOD BANK COLD SOPHIE PANEL Cold Antibody Panel [facility] BLOOD BANK Josh Castillo MD BLOOD BANK Performing Organization Address [facility] [[email or web address]] Co de Phone Number [facility]OD [facility] [address] [place] [phone], * SCAN-CARDIAC STRIP (11/30/2023 12:00 AM CDT) [...] Narrative 11/29/2023 10:12 AM CDT For Patients: As a result of the Century Cures Act, medical imaging exams and procedure reports are released immediately into your electronic medical record. You may view this report before your referring provider. If you have questions, please contact your health [...] most likely represents a right MCA lenticulostriate mash preparatory operator artery. There also appears to be a [...] mass most likelyrepresents a right MCA lenticulostriate mash preparatory operator artery. There alsoappears to be a prominent [...] 9:15 AM CDT Josh Castillo MD LABORATORY [facility]AL [facility] [address] [place] [address], * HCHG TUBE PR1, HCHG INSTRUMENT DISP PR10, HCHG STYLET PR1 (11/11/2023 11:03 AM CDT) Narrative Catrachita Cullen CRNA - 11/11/2023 11:03 AM CDT Catrachita Cullen CRNA 11/11/2023 11:04 AM Procedure: ETT Patient location [...] Block: soft Difficulty: 0 (not difficult) Betty Washington DO ANESTHESIA PX NOTE O RDERABLES * SCAN-CARDIAC [...] Narrative 11/11/2023 7:54 AM CDT For Patients: As a result of the Cures Act, medical imaging exams and procedure reports are released immediately into your electronic medical record. You may view this report before your referring provider. If you have questions, please contact your health [...] @ 11/11/2023 7:54:55 AM (Electronically Signed) Joselyn Hairstonhildajaoo Hoang WOOL MIXER MR * CONTINUOUS VIDEO EEG MONITORING (11/01/2023 8:19 AM CDT) Narrative Krystin Greenwood MD - 11/01/2023 8:19 AM CDT Krystin Greenwood MD 11/01/2023 3:45 PM [facility] [place] [address] SPECIAL NEURODIAGNOSTIC PROCEDURE - ELECTROENCEPHALOGRAM - EEG Final Video EEG Report Patient Name: Dontae Keller : 1955 Study Date: 11/01/2023 Study Number: [id number] Duration: 12 hours 12 min Admit Date: 10/31/2023 Clinical Note: 68 year-old man with history of brain mass admitted after episode of altered mental status/suspected seizure with imaging demonstrating enlargement of mass. Monitoring is requested to evaluate for seizures. Condition of Recording: This is a digital EEG with continuous video recording. It utilizes the 21-lead modified international 10/20 system for scalp recordings. It also uses video recording to clinically correlate epileptiform abnormalities and improve localization for target clinical events. Physician access to data was available throughout the recording period. A daily report, as below, was generated and updated at least once every 24 hour period. Activation Procedures: None. Medications: levetiracetam. Results: Background: The recording during wakefulness contains 10 Hz activity over the posterior head regions. Sleep: Normal vertex waves, sleep spindles, and K complexes are seen. Normal REM. Activations: None. EKG: Heart rate is in the range of 60-80 beats per minute. Interictal Findings: Right frontal sharp waves are seen (maximal F8, F8/T8). Ictal Events: No seizures or events. Impression: Abnormal EEG due to right frontal sharp waves. Clinical Correlation: The EEG is abnormal due to the presence of potentially epileptogenic activity over the right frontal head region, consistent with a focal epilepsy. No seizures recorded. Clinical correlation is advised. Krystin Greenwood MD [facility] This continuous video EEG study was completed on 10/31, with a total recording duration of 12 hours and 12 minutes. Joselyn Hoang WOOL MIXER NEUROLOGY ORD * WHITE BLOOD COUNT (11/01/2023 7:08 AM CDT) WHITE BLOOD COUNT 6.1 4.5 - 11.0 thou/cu mm 11/01/2023 7:43 AM CDT [facility] NRBC 0.0 % 11/01/2023 7:43 AM CDT [facility] ABS NRBC 0.0 thou /cu mm 11/01/2023 7:43 AM CDT [facility] Blood BLOOD SPECIMEN / Unknown Venipuncture / Unknown 11/01/2023 7:08 AM CDT 11/01/2023 7:25 AM CDT Jian Driver [facility] [address] [place] [phone], * (ABNORMAL) HEMOGLOBIN (11/01/2023 7:08 AM CDT) HEMOGLOBIN 12.9(L) 13.5 - 17.5 g/dL 11/01/2023 7:43 AM CDT [facility] MCV 93 80 - 100 fL 11/01/2023 7:43 AM CDT [facility] Blood BLOOD SPECIMEN / Unknown Venipuncture / Unknown 11/01/2023 7:08 AM CDT 11/01/2023 7:25 AM CDT Jian Nela Driver [facility] Performing Organization Address City/[facility]/ZIP Co de Phone Number [facility] [address] [place] [phone], [place] * POTASSIUM (11/01/2023 7:08 AM CDT) POTASSIUM 4.2 3.5 - 5.1 mmol/L 11/01/2023 7:54 AM CDT [facility] Blood BLOOD SPECIMEN / Unknown Venipuncture / Unknown 11/01/2023 7:08 AM CDT 11/01/2023 7:24 AM CDT [facility] Performing Organization Address [facility] [[email or web address]] Co de Phone Number [facility] [address] [place], [place] [phone], [place] * CREATININE (11/01/2023 7:08 AM CDT) eGFR >90 >90 mL/min/1.7 3m2 11/01/2023 7:54 AM CDT [facility] Comment:As of 2021, eG FR is calculated by the CKD-EPI creatinine equation without race adjustment. eGFR can be influenced by muscle mass, exercise, and diet. The reported eGFR is an estimation only and is only applicable if the renal function is stable. CREATININE 0.88 0.70 - 1.20 mg/dL 11/01/2023 7:54 AM CDT [facility] Blood BLOOD SPECIMEN / Unknown Venipuncture / Unknown 11/01/2023 7:08 AM CDT 11/01/2023 7:24 AM CDT Jian Nela Driver [facility] Performing Organization Address [facility] [[email or web address]] Co de Phone Number [facility] [address] [place] [phone], [place] * SCAN-CARDIAC STRIP (11/01/2023 1:08 AM CDT) Scanner OTHER * (ABNORMAL) TROPONIN T (HS) ONE TIME (10/31/2023 4:30 PM CDT) TROPONIN T HS 16(H) 6-15 ng/L ng/L 10/31/2023 5:09 PM CDT [facility] Blood BLOOD SPECIMEN / Unknown Non-Lab Venipuncture / Unknown 10/31/2023 4:30 PM CDT 10/31/2023 4:38 PM CDT Danny Loomis DO CHEMISTRY [facility] [address] [place] [address], * CT HEAD BRAIN WO (10/31/2023 2:27 PM CDT) Anatomical Region Laterality Modality HEAD, BRAIN Computed Tomogra phy 10/31/2023 2:50 PM CDT Narrative 10/31/2023 2:50 PM CDT For Patients: As a result of the Century Cures Act, medical imaging exams and procedure reports are released immediately into your electronic medical record. You may view this report before your referring provider. If you have questions, please contact your health [...] were communicated over the telephone with Dr. Danny Loomis by Dr. Hitchcock at 1445 hours on 10/31/2023. Please note that all CT scans at this facility use dose modulation, iterative reconstruction, and/or weight-based dosing when appropriate to reduce radiation dose to as low as reasonably achievable. Dictated by Garcia Hitchcock MD @ 10/31/2023 2:50:51 PM (Electronically Signed) Procedure Note Garcia Hitchcock, DO - 10/31/2023 For Patients: As a result [...] 6-15 ng/L ng/L 10/31/2023 1:26 PM CDT [facility] Blood BLOOD SPECIMEN / Unknown Non-Lab Venipuncture / Unknown 10/31/2023 12:51 PM CDT 10/31/2023 12:59 PM CDT Narrative [facility] - 10/31/2023 1:26 PM CDT hs-cTnT [...] department patient population. Danny Loomis DO CHEMISTRY [facility] [address] [place] [address], [place] * EXTRA TUBE BLUE (10/31/2023 12:50 PM CDT) Blood BLOOD SPECIMEN / Unknown Extra Tube / Unknown 10/31/2023 12:50 PM CDT 10/31/2023 1:00 PM CDT Danny Loomis DO LABORATORY Performing Organization Address City/[facility]/ZIP Co de Phone Number [facility] [address] [place] [phone], [place] * LIPID PANEL (05/26/2023 12:17 PM CDT) [facility] CHOLESTEROL,TOTAL 119 100 - 199 mg/dL 05/26/2023 9:27 PM CDT [facility] Comment: Cholesterol, Total Reference Ranges Desirable <200 mg/dL Borderline 200-239 mg/dL High >=240 mg/dL TRIGLYCERIDES 101 <150 mg/dL 05/26/2023 9:27 PM CDT [facility] TR[facility] HDL CHOLESTEROL 59 >40 mg/dL 9:27 PM CDT [facility] NON-HDL CHOLESTEROL 60 <145 mg/dl 05/26/2023 9:27 PM CDT [facility] CHOL/HDL RATIO 2.02 <4.50 05/26/2023 9:27 PM CDT [facility] LDL CHOLESTEROL 40 <=130 mg/dL 05/26/2023 9:27 PM CDT [facility] VLDL CHOLESTEROL 20 <=30 mg/dL 05/26/2023 9:27 PM CDT [facility] PROVIDER ORDERED STATUS RANDOM 05/26/2023 9:27 PM CDT [facility] Blood BLOOD SPECIMEN / Unknown Venipuncture / Unknown 05/26/2023 12:17 PM CDT 05/26/2023 12:18 PM CDT Jerardo Wiseman MD CHEMISTRY Performing Organization Address City/[facility]/ZIP Co de Phone Number [facility] [address] [place] [phone], [place] * ANTI HCV (05/06/2020 10:44 AM CDT) HEPATITIS C ANTIBODY Non-React zane Non-React zane 05/06/2020 6:13 PM CDT [facility]AT[facility] Comment:Antibodies to HCV no t detected; does not exclude the possibility of exposure to HCV. Blood BLOOD SPECIMEN / Unknown Venipuncture / Unknown 05/06/2020 10:44 AM CDT 05/06/2020 10:44 AM CDT Jerardo Wiseman MD SEND OUTS [facility]AL LABORATORY [address] [place] [address], [place] * COLONOSCOPY (04/02/2020 11:23 AM FENCE SUPERVISOR) 04/02/2020 11:2 3 AM FENCE SUPERVISOR Narrative Transcriptions Christian Lee MD - 04/02/2020 [...] A diffuse area of mildly erythematous and zspihmpz-kfdyptk-zfmhrxakd mucosa was found in the entire colon. [...] the ileum was normal. - Erythematous and aqkpyssy-illzqnq-zjxzndaeh mucosa in the entire examined colon. Biopsied. [...] 11:23 AM Procedure Code(s): --- Professional --- 60532, Colonoscopy, flexible; with biopsy, single or multiple Diagnosis Code(s): --- Professional --- K63.89, Other specified diseases ofintestine R19.7, Diarrhea, unspecified K57.30, Diverticulosis of large intestine without perforation or abscess withoutbleeding CPT copyright 2019 [employer]. All rights reserved. The codes documented in this report are preliminary and upon water trainer reviewmay be revised to meet current compliance requirements. Scope In: 12:07:38 PM Scope Withdrawal Time 0 hours 9 minutes 48 seconds Scope Out: 12:29:45 PM Christian Lee MD PROCEDURE ORD from Last 3 Months or Most Recently Relevant to Health Maintenance Advance Directives Documents on File Type Date Recorded Patient Drawing In Machine Tender Expl anation Healthcare Directive 11/22/2023 9:49 AM [...] Code Status Discussion: Not Discussed Care Teams Datacap Developer Relationship Specialty Start Date End Date Jerardo Wiseman MD [address] [place] [address] PCP - General Family Practice 05/20/22 Yunior Agrawal MD 03/03/05 Lourdes Weinstein DO [address] [place] [address] [address] Neurology 12/12/23 Ge Wagner, RN Registered Nurse 12/12/23 Gallito Parker, STEVAN [address] [address] Nurse Practitioner - Family 12/12/23
[2024-01-02 10:20] LABS: Albumin* 4.6 g/dL (3.3-5.0); Chloride* 107 mmol/L (96-114); Potassium* 5.1 mmol/L (3.6-5.1); Sodium* 142 mmol/L (135-149)
[2024-01-02 10:22] LABS: Anion Gap 8 mEq/L (7-15); Aspartate Amino Transferase* 34 U/L (12-35); Bilirubin Total* 1.4 mg/dL (0.1-1.5); Carbon Dioxide* 27 mmol/L (20-32); Estimated Glomerular Filt Rate 81 ml/min; Total Protein* 7.4 g/dL (6.0-8.3)
[2024-01-02 10:23] LABS: Alanine Aminotransferase* 40 U/L (4-50); Alkaline Phosphatase* 89 U/L (40-150); Blood Urea Nitrogen* 17 mg/dL (7-30); Calcium* 10.3 mg/dL (8.4-10.6); Glucose* 119 mg/dL (60-115)
== END 2024-01-02 09:50 | disposition home or self-care (01) ==
PROVIDERS: PCP Surgery; Visit Provider Surgery
DX: C71.9 Malignant neoplasm of brain, unspecified (principal)
CPT/HCPCS: 36415; 80053; 85025

== ENCOUNTER 2024-07-19 08:08 | Outpatient (CLI) | payer BC, SELFPAY ==
--- NOTE | 2024-07-19 09:00 | CRLHL7_ITS ---
For Patients: As a result of the Century Cures Act, medical imaging exams and procedure reports are released immediately into your electronic medical record. You may view this report before your referring provider. If you have questions, please contact your health care provider. INDICATION: Cerebral atherosclerosis. TECHNIQUE: CTA head with contrast bolus tracking, 3D angiographic rendering using maximum intensity projection (MIP) and images permanently archived. FINDINGS: There is normal opacification of the intracranial vasculature. There is no large vessel occlusion. No aneurysm is identified. IMPRESSION: No large vessel occlusion or significant intracranial stenosis; recommend brain MRI for tumor evaluation. Please note that all CT scans at this facility use dose modulation, iterative reconstruction, and/or weight-based dosing when appropriate to reduce radiation dose to as low as reasonably achievable. Dictated by Carlos Manuel Crawley MD @ 07/19/2024 2:06:49 PM (Electronically Signed)
--- NOTE | 2024-07-19 09:30 | CRLHL7_ITS ---
For Patients: As a result of the Century Cures Act, medical imaging exams and procedure reports are released immediately into your electronic medical record. You may view this report before your referring provider. If you have questions, please contact your health care provider. INDICATION: Cerebral atherosclerosis. TECHNIQUE: CTA neck with contrast bolus tracking, 3D angiographic rendering using maximum intensity projection (MIP) and images permanently archived. FINDINGS: There is no significant carotid artery stenosis or dissection. There is no significant vertebral artery stenosis or dissection. The soft tissues of the neck are within normal limits. Postoperative and degenerative changes are noted in the cervical spine. IMPRESSION: No significant carotid or vertebral artery stenosis or dissection. Please note that all CT scans at this facility use dose modulation, iterative reconstruction, and/or weight-based dosing when appropriate to reduce radiation dose to as low as reasonably achievable. Dictated by Carlos Manuel Crawley MD @ 07/19/2024 2:09:13 PM (Electronically Signed)
== END 2024-07-19 08:09 | disposition home or self-care (01) ==
LOC: CT 08:09
PROVIDERS: PCP Surgery; Visit Provider Psychiatry & Neurology Neurology
DX: I67.2 Cerebral atherosclerosis (principal)
CPT/HCPCS: 70496; 70498; Q9967

== ENCOUNTER 2024-12-15 14:44 | Emergency (ER) | payer MEDICARE, BC, SELFPAY ==
--- OUTSIDE RECORDS SUMMARY | 2024-12-15 14:46 | XMS_ITS ---
Author Organization [facility] Address [address] [place] [address] Care Team Providers Care Licensed Pharmacist Name Role Phone Unavailable Primary Care Provider Unavailabl e Active Problems Problem Noted Date Diagnosed Date Astrocytoma 12/19/2023 Cancer Staging:Clinical stage from 11/30/2023:WHO G3- Unsigned Current Treatment and Therapy Plans No current plan information found. Past Treatment and Therapy Plans No past plan information found. Past Radiation Episodes * IMRT: Right BrainOverview* First Treatment Date Last Treatment Date Treatment Site Technique Goal Episode Provider 01/02/2024 02/15/2024 Right Brain IMRT Curative * Linked Problems Astrocytoma Treatment Courses* Course 1xBrain 01/02/2024 - 02/15/2024 Treatment Period Fraction Dose Fractions Total Dose Plans Planned [id number] 01/02/2024 - 02/15/2024 190 cGy 30 / 30 5 ,700 cGy Reference Points Delivered [id number] 01/02/2024 - 02/15/2024 5,700 cGy
--- OUTSIDE RECORDS SUMMARY | 2024-12-15 14:46 | XMS_ITS | Clinical Summary ---
Author Organization [facility] Address [address] [place] [address] Care Team Providers Care Superintendent [facility] Name Role Phone Unavailable Primary Care Provider Unavailabl e Source Comments Patient records contain information from all sites at [facility]. For routine questions regarding patient records, call [phone] during business hours, M-F 8:00 AM - 5:00 PM Central Time. Record requests for emergency care only can be directed to [phone] at any time.[facility] Allergies Active Allergy Reactions Criticality Noted Date Comments Allopurinol Rash 07/04/2018 Atenolol Rash 10/13/2011 Leg cramps Codeine GI intolerance High 03/05/2006 Stomach Pain Hydrochlorothiazide Itching,Myalgia 03/02/2012 Medications acetaminophen (TylenoL) 500 mg tablet Take 1,000 mg by mouth every 6 (six) hours as needed. 12/03/19 24 Active acetaminophen-c odeine (TylenoL #3) 300-30 mg per tablet Take 1 tablet by mouth every 6 (six) hours as needed. 12/19/19 24 Active clopidogreL (Plavix) 75 mg tablet Take 75 mg by mouth. 12/09/19 24 Active colchicine (Colcrys) 0.6 mg tablet Take 0.6 mg by mouth 2 (two) times a day as needed. Active diphenhydrAMINE (BenadryL) 25 mg tablet Take 50 mg by mouth at bedtime as needed. Active ezetimibe (Zetia) 10 mg tablet Take 1 tablet by mouth daily. 01/29/20 23 Active lisinopriL 10 mg tablet Take 1 tablet by mouth daily. 04/25/19 24 Active methocarbamoL (Robaxin) 750 mg tablet Take 750 mg by mouth 3 (three) times a day as needed. 10/05/19 24 Active metoprolol succinate (Toprol XL) 50 mg 24 hr tablet Take 75 mg by mouth. 08/03/19 24 Active rosuvastatin (Crestor) 40 mg tablet Take 1 tablet by mouth at bedtime. 05/29/19 24 Active triamcinolone acetonide (Kenalog) 0.05 % ointment Apply topically 2 (two) times a day as needed. Active diazePAM (Valtoco) 15 mg/2 spray (7.5 mg/0.1 mL x 2) spray,non-aeros ol nasal spray Administer 15 mg into nostril(s) as needed for seizures. Use 1 spray in each nostril. Active gabapentin (Neurontin) 300 mg capsule Take 300 mg by mouth 3 (three) times a day. 600 mg in AM and PM 05/17/19 23 Active isosorbide mononitrate (Imdur) 30 mg 24 hr tablet Take 30 mg by mouth 2 (two) times a day. 01/26/20 23 Active nitroglycerin (Nitrostat) 0.[address] 0.4 mg under the tongue every 5 (five) minutes as needed for chest pain. 05/17/19 23 Active carBAMazepine (TEGretoL) 100 mg chewable tablet Chew 100 mg daily. 01/06/20 24 Active EPINEPHrine 0.3 mg/0.3 mL injection syringe Inject 1 Pen intramuscularly daily as needed. 01/04/20 24 Active methylPREDNISol one (MedroL DosePak) 4 mg tablet Take 4 mg by mouth See Admin Instructions. 01/04/20 24 Active ondansetron (Zofran) 8 mg tablet Take 8 mg by mouth once. 12/12/19 24 Active sennosides-docu sate sodium (Senokot-S) 8.6-50 mg per tablet Take 1 tablet by mouth 4 (four) times a day as needed for constipation. 12/12/19 24 Active famotidine (Pepcid) 20 mg tablet Take 20 mg by mouth daily. 05/20/19 23 Active levETIRAcetam (Keppra) 750 mg tablet Take 1,500 mg by mouth 2 (two) times a day. 01/16/20 24 Active dexAMETHasone (Decadron) 2 mg tablet Take 1 tablet (2 mg total) by mouth every 12 (twelve) hours. 40 tablet 01/25/20 24 Active prochlorperazin e (Compazine) 10 mg tablet Take 1 tablet (10 mg total) by mouth every 6 (six) hours as needed for nausea or vomiting. 30 tablet 02/02/20 24 Active Active Problems Problem Noted Date Diagnosed Date Astrocytoma 12/19/2023 Cancer Staging:Clinical stage from 11/30/2023:WHO G3- Unsigned Family History Medical History Relation Name Comments Pancreatic cancer Father Brain tumor Sister Dari Relation Name Status Comments Father Sister Dari Social History Tobacco Use Types Packs/Day Years Used Date Smoking Tobacco: Never Smokeless Tobacco: Never Tobacco Cessation:Counseling Given: Not Answered Alcohol Use Standard Drinks/Week Comments Not Currently 14 (1 standard drink = 0.6 oz pu re alcohol) [facility] Utilities Answer Date Recorded In the past 12 months has th e electric, gas, oil, or water company threatened to shut off services in your home? No 12/25/2023 Hunger Vital Sign Answer Date Recorded [...] things needed for daily living? No 12/25/2023 Housing Stability Answer Date Recorded What is your living situation today? I have a [facility] place to live 12/25/2023 Sex and Gender Information Value Date Recorded Sex Assigned at Male 12/25/2023 9:47 AM [employer] Legal Sex Male 3:57 PM [employer] Gender Identity Male 12/25/2023 9:47 AM [employer] Sexual Orientation Straight 12/25/2023 9: 47 AM [employer] Last Filed Vital Signs Vital Sign Reading Time Taken Comments Blood Pressure 109/75 02/09/2024 9:20 AM [employer] Pulse 61 02/09/2024 9:20 AM [employer] Temperature 36.1 C (97 F) 02/09/2024 9:20 AM [employer] Respiratory Rate - - Oxygen Saturation - - Inhaled Oxygen Concentration - - Weight 76.7 kg (169 lb 1.5 oz) 02/09/2024 9:20 A M [employer] Height - - Body Mass Index - - Plan of Treatment Health Maintenance Due Date Last Done Comments CT Colonography 1955 Cologuard 1955 FIT 1955 Hepatitis C Screening 1955 RSV vaccine - (32-36 weeks) or 50+ years (1 - Risk 50-74 years 1-dose series) 2004 DTaP,Tdap,and Td Vaccines (2 - Td or Tdap) 02/11/2019 02/11/2009 Pneumococcal vaccine (50+ years) (2 of 2 - PCV) 07/16/2020 07/17/2019 Depression Screening (Annual PHQ-2) 02/08/2024 Fall Risk Screen (Annual) 02/08/2024 COVID-19 Vaccine ( season) 2024 11/04/2023, 11/24/2022, 12/21/2021, Additional history exists Creatinine Level (Kidney Function Test) 02/23/2025 02/24/2024, 12/26/2023, 12/20/2023, Additional history exists Potassium Level 02/23/2025 02/24/2024, 12/08, 12/20/2023, Additional history exists Sodium Level 02/23/2025 02/24/2024, 12/08, 12/20/2023, Additional history exists Fasting Glucose for Diabetes Screening 02/23/2027 02/24/2024, 12/26/2023, 12/20/2023, Additional history exists Colonoscopy 04/02/2030 04/02/2020 Colorectal Cancer Screening 04/02/2030 Zoster Vaccines Completed 05/15/2018, 05/2018, 02/14/2015 Hepatitis B Screening Discontinued 12/20/2023 Influenza Vaccine Completed 10/26/2024, , 11/24/2022, Additional history exists HPV Vaccines Aged Out No longer eligi ble based on patient's age to complete this topic IPV Vaccines Aged Out No longer eligi ble based on patient's age to complete this topic Insurance [facility] [address] MEDICARE
--- OUTSIDE RECORDS SUMMARY | 2024-12-15 14:47 | XMS_ITS | Data Portability ---
Author Organization [facility], [facility] Address [address] [place] [address] Care Team Providers Care Software Requirements Engineer Name Role Phone ADRIANNA OBRIEN Primary Care Provider [phone] [facility] Primary Care Pro vider Assessment Encounter Date Assessment Date Assessment LastModified by Organization Details LastModified Time 05/05/2020 05/05/2020 65 yoM with right urolithiasis s/p ESWL. Not available 05/05/2020 16:19:03 05/09/2020 05/09/2020 right stent removal with sedation [email or web address] Not available 05/09/2020 11:39:16 Plan of Treatment Reminders Order Date Submit Date Provider Last Modified By Organization Details Last Modified Time Details Appointments None recorded. Lab urinalysis, dipstick 2020 021 [email or web address] Not available 14:50:08 stone analysis panel 2020 021 [facility], [address], [address], [place], [address], 17:07:00 Referral None recorded. Procedures None recorded. Surgeries cystoscopy, stent removal (SURG) 2020 021 [email or web address] Not available 17:41:04 Imaging None recorded. Medication Orders oxybutynin chloride 5 mg tablet 2020 021 [id number], [address], [address], 11:41:16 diazepam 10 mg tablet 2020 021 [id number], [address], [address], 16:21:03 Patient TargetsNo targets recorded. Patient Instructions Encounter Date Encounter Id Patient Instructions Last Modified By Organization Details Last Modified Time 05/05/2020 [id number] I discussed general fluid and dietary guidelines [...] Daily dietary citrus (orange juice, lemon juice, [place] juice, etc.) has been stone to provide stone protection. Not available 05/05/2020 14:15:21 07/09/2024 [id number] 69 y/o male presents for an evaluation of erectile dysfunction. Educated on etiology of ED (hormonal, nerve function, blood supply, psychological, medications). Discussed diagnostics such as penile US and testosterone labs. Educated on treatment options such as PDE-5 inhibitors, penile injections, muse, vacuum erection device (ADEOLA), shockwave therapy and penile implant (IPP). Hand out on treatment options provided. He and his partner will consider options and notify office of a decision. [email or web address] Not available 07/09/2024 16:55:01 Reason for Referral None Reported. Results Created Date Observation Date Name Description Value Unit Range Abnormal Flag Note LastModifiedBy Organization Detail LastModifiedTime 05/06/1905/05/2020 urina lysis , dipst ick Color-Status Brown Not Available [facility] [address], [place], [address], 05/05/2020 14:46:50 05/06/19 21 05/05/2020 urina lysis , dipst ick Glucose-Stat us Negati ve Not Available [facility] [address], [place], [address], 05/05/2020 14:46:50 05/06/19 21 05/05/2020 urina lysis , dipst ick Bilirubin-St atus Small Not Available [facility] [address], [place], [address], 05/05/2020 14:46:50 05/06/19 21 05/05/2020 urina lysis , dipst ick Sp [place]-Stat us >=1.03 0 Not Available [facility] [address], [place], [address], 05/05/2020 14:46:50 05/06/19 21 05/05/2020 urina lysis , dipst ick pH-Status 5.5 Not Available [facility] [address], [place], [address], 05/05/2020 14:46:50 05/06/19 21 05/05/2020 urina lysis , dipst ick Nitrates-Sta tus negati ve Not Available [facility] [address], [place], [address], 05/05/2020 14:46:50 05/06/19 21 05/05/2020 urina lysis , dipst ick Blood-Status Large Not Available [facility] [address], [place], [address], 05/05/2020 14:46:50 05/06/19 21 05/05/2020 urina lysis , dipst ick Leuko-Status Trace Not Available [facility] [address], [place], [address], 05/05/2020 14:46:50 05/06/19 21 05/10/2020 stone candi sis panel source Commen t Not provi ded Not Available [facility] ([facility]) [address] [facility], [place], [address], 05/10/2020 17:07:00 05/06/19 21 05/10/2020 stone candi sis panel color Brown Not Available [facility] ([facility]) [address] [place], [address], 05/10/2020 17:07:00 05/06/19 21 05/10/2020 stone candi sis panel size 3x2 mm Multi ple piece s recei adeola. Dimen sions of the large st piece repor yomaira. Not Available [facility] ([facility]) [address] [facility], [place], [address], 05/10/2020 17:07:00 05/06/19 21 05/10/2020 stone candi sis panel weight 28.0 mg Not Available [facility] ([facility]) [address] [place], [address], 05/10/2020 17:07:00 05/06/19 21 05/10/2020 stone candi sis panel composition Commen t Perce ntage (Repr esent s the % compo sitio n) Not Available [facility] ([facility]) [address] [place], [address], 05/10/2020 17:07:00 05/06/19 21 05/10/2020 stone candi sis panel calcium oxalate monohydrate 40 % Not Available [facility] [address] [place], [address], 05/10/2020 17:07:00 05/06/19 21 05/10/2020 stone candi sis panel calcium oxalate dihydrate 60 % Not Available [facility] ([facility]) [address] [place], [address], 05/10/2020 17:07:00 05/06/19 21 05/10/2020 stone candi sis panel hydroxyapati te GRASS CUTTER Not Available [facility] ([facility]) [address] [place], [address], 05/10/2020 17:07:00 05/06/19 21 05/10/2020 stone candi sis panel carbonate apatite GRASS CUTTER Not Available [facility] ([facility]) [address] [place], [address], 05/10/2020 17:07:00 05/06/19 21 05/10/2020 stone candi sis panel cahpo4 (brushite) GRASS CUTTER Not Available [facility] ([facility]) [address] [place], [address], 05/10/2020 17:07:00 05/06/19 21 05/10/2020 stone candi sis panel calcium phosphate GRASS CUTTER Not Available [facility] ([facility]) [address] [place], [address], 05/10/2020 17:07:00 05/06/19 21 05/10/2020 stone candi sis panel calcium carbonate GRASS CUTTER Not Available [facility] ([facility]) [address] [place], [address], 05/10/2020 17:07:00 05/06/19 21 05/10/2020 stone candi sis panel mg nh4 PO4 (struvite) GRASS CUTTER Not Available [facility] ([facility]) [address] [place], [address], 05/10/2020 17:07:00 05/06/19 21 05/10/2020 stone candi sis panel mghpo4 (newberyite) GRASS CUTTER Not Available [facility] ([facility]) [address] [facility], [place], [address], 05/10/2020 17:07:00 05/06/19 21 05/10/2020 stone candi sis panel uric acid GRASS CUTTER Not Available [facility] ([facility]) [address] [place], [address], 05/10/2020 17:07:00 05/06/19 21 05/10/2020 stone candi sis panel uric acid dihydrate GRASS CUTTER Not Available [facility] ([facility]) [address] [place], [address], 05/10/2020 17:07:00 05/06/19 21 05/10/2020 stone candi sis panel ammonium acid urate GRASS CUTTER Not Available [facility] ([facility]) [address] [place], [address], 05/10/2020 17:07:00 05/06/19 21 05/10/2020 stone candi sis panel sodium acid urate GRASS CUTTER Not Available [facility] ([facility]) [address] [place], [address], 05/10/2020 17:07:00 05/06/19 21 05/10/2020 stone candi sis panel 2,8 dihydroxyade nine GRASS CUTTER Not Available [facility] ([facility]) [address] [place], [address], 05/10/2020 17:07:00 05/06/19 21 05/10/2020 stone candi sis panel xanthine GRASS CUTTER Not Available [facility] ([facility]) [address] [place], [address], 05/10/2020 17:07:00 05/06/19 21 05/10/2020 stone candi sis panel cystine GRASS CUTTER Not Available [facility] ([facility]) [address] [place], [address], 05/10/2020 17:07:00 05/06/19 21 05/10/2020 stone candi sis panel cholesterol GRASS CUTTER Not Available [facility] ([facility]) [address] [place], [address], 05/10/2020 17:07:00 05/06/19 21 05/10/2020 stone candi sis panel calcium bilirubinate GRASS CUTTER Not Available [facility] ([facility]) [address] [place], [address], 05/10/2020 17:07:00 05/06/19 21 05/10/2020 stone candi sis panel bilirubin GRASS CUTTER Not Available [facility] ([facility]) [address] [place], [address], 05/10/2020 17:07:00 05/06/19 21 05/10/2020 stone candi sis panel calcium palmitate GRASS CUTTER Not Available [facility] ([facility]) [address] [place], [address], 05/10/2020 17:07:00 05/06/19 21 05/10/2020 stone candi sis panel calcium stearate GRASS CUTTER Not Available [facility] ([facility]) [address] [place], [address], 05/10/2020 17:07:00 05/06/19 21 05/10/2020 stone candi sis panel triamterene GRASS CUTTER Not Available [facility] ([facility]) [address] [place], [address], 05/10/2020 17:07:00 05/06/19 21 05/10/2020 stone candi sis panel drug or metabolite GRASS CUTTER Not Available [facility] ([facility]) [address] [place], [address], 05/10/2020 17:07:00 05/06/19 21 05/10/2020 stone candi sis panel dried blood GRASS CUTTER Not Available [facility] ([facility]) [address] [facility], [place], [address], 05/10/2020 17:07:00 05/06/19 21 05/10/2020 stone candi sis panel cellular material GRASS CUTTER Not Available [facility] ([facility]) [address] [facility], [place], [address], 05/10/2020 17:07:00 05/06/19 21 05/10/2020 stone candi sis panel other component(s) GRASS CUTTER Not Available [facility] ([facility]) [address] [facility], [place], [address], 05/10/2020 17:07:00 05/06/19 21 05/10/2020 stone candi sis panel comment GRASS CUTTER Not Available [facility] ([facility] [address] [facility], [place], [address], 05/10/2020 17:07:00 05/06/19 21 05/10/2020 stone candi sis panel comment GRASS CUTTER Not Available [facility] ([facility]) [address] [facility], [place], [address], 05/10/2020 17:07:00 05/06/19 21 05/10/2020 stone candi sis panel photo Juju keita Photo graph will follo w under a separ ate cover Not Available [facility] ([facility]) [address] [facility], [place], [address], 05/10/2020 17:07:00 05/06/19 21 05/10/2020 stone acndi sis panel comment: Juju keita Physi jerrell quest ions regar ding Calcu li Candi sis conta ct [facility] at: [phone]. Not Available [facility] ([facility]) [address] [facility], [place], [address], 05/10/2020 17:07:00 05/06/19 21 05/10/2020 stone candi sis panel please note: Juju keita Calcu li repor t will follo w via compu ter, mail or couri er alyssa carpenter. Not Available [facility] ([facility]) [address] [facility], [place], [address], 05/10/2020 17:07:00 05/06/19 21 05/10/2020 stone candi sis panel disclaimer: Commen t This test was devel oped and its perfo rmanc e nannette cteri stics deter mined by [employer]. It has not been clear ed or appro adeola by the Food and Drug Admin istra tion. Not Available [facility] ([facility]) [address] [facility], [place], [address], 05/10/2020 17:07:00 05/06/19 21 05/10/2020 stone candi sis panel pdf . Not Available [facility] ([facility]) [address] [facility], [place], [address], 05/10/2020 17:07:00 05/06/19 21 05/05/2020 stone candi sis panel source Commen t Not provi ded Not Available [facility] [address], [place], [address], 05/12/2020 09:47:28 05/06/19 21 05/05/2020 stone candi sis panel color Brown Not Available [facility] [address], [place], [address], 05/12/2020 09:47:28 05/06/19 21 05/05/2020 stone candi sis panel size 3x2 mm Multi ple piece s recei adeola. Dimen sions of the large st piece repor yomaira. Not Available [facility] [address] [facility], [place], [address], 05/12/2020 09:47:28 05/06/19 21 05/05/2020 stone candi sis panel weight 28.0 mg Not Available [facility] [address], [place], [address], 05/12/2020 09:47:28 05/06/19 21 05/05/2020 stone candi sis panel composition Juju watsonge (Repr esent s the % compo sitio n) Not Available [facility] [address] [facility] [address], [place], [address], 05/12/2020 09:47:28 05/06/19 21 05/05/2020 stone candi sis panel calcium oxalate monohydrate 40 % Not Available [facility] [address] [facility] [address], [place], [address], 05/12/2020 09:47:28 05/06/19 21 05/05/2020 stone candi sis panel calcium oxalate dihydrate 60 % Not Available [facility] [address] [facility] [address], [place], [address], 05/12/2020 09:47:28 05/06/19 21 05/05/2020 stone candi sis panel photo Juju keita Photo graph will follo w under a separ ate cover Not Available [facility] [address] [place] [address] [address], [place], [address], 05/12/2020 09:47:28 05/06/19 21 05/05/2020 stone candi sis panel comment: Juju keita Physi jerrell quest ions regar ding Calcu li Candi sis conta ct [facility] at: [phone]. Not Available [facility] [address] [facility] [address], [place], [address], 05/12/2020 09:47:28 05/06/19 21 05/05/2020 stone candi sis panel please note: Juju keita Calcu li repor t will follo w via compu ter, mail or couri emerald carpenter. Not Available [facility] [address] [facility] [address], [place], [address], 05/12/2020 09:47:28 05/06/19 21 05/05/2020 stone candi sis panel disclaimer: Commen t This test was devel oped and its perfo rmanc e nannette cteri stics deter mined by [employer] [facility]. It has not been clear ed or appro adeola by the Food and Drug Admin istra tion. Not Available [facility] [address] [facility] [address], [place], [address], 05/12/2020 09:47:28 05/06/19 21 05/05/2020 stone candi sis panel pdf . Not Available [facility] [address] [facility] [facility] [address], [place], [address], 05/12/2020 09:47:28 04/11/19 21 04/07/2020 CT, abdom [...] Available 2021 16:19:39 Result Notes None recorded. 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 Procedures Surgical History Date Name Laterality Status Provider Name and Address Organization Details Recorded Time Cystoscopy with foreign body/stent removal completed Gibson Rodriguez MD [address] [facility], [place], [address], [facility] 05/05/2020 16:18:52 Imaging Results None recorded. Procedure Notes None recorded. Medical Equipment None Reported. Allergies Allergen ID Allergen Name Allergen Category Reaction Reaction Severity Criticality Documentation Date Start Date Code Code System Note Provider Name and Address Organization Details Recorded Time 759110 pholcodin e Not available abdominal pain severe Not available 05/05/2020 67741 RxNorm Rogers cade [facility] 14:41:39 116436 codeine medicatio n Not available Not available Not available 05/05/20202006 2670 RxNorm Other react ions and sever ities : 'GI Upset - Moder ate'. Gildardo cade [facility] 5 15:50:06 732293 allopurin ol medicatio n rash Not available Not available 07/09/20242018 519 RxNorm Gildardo cade [facility] 5 15:50:06 391551 atenolol medicatio n other Not available Not available 07/09/20242011 1202 RxNorm Gildardo cade [facility] 5 15:50:06 355546 hydrochlo rothiazid e medicatio n itching myalgias (muscle pain) Not available Not available Not available 07/09/20242012 5487 RxNorm Gildardo cade [facility] 5 15:50:06 Medications Name Sig Start Date Stop Date Status Note LastModified by Organization Details LastModified Time celecoxib 200 mg capsule 2020 active Not Available Not Available Not Avai lable atorvastati n 20 mg tablet 20 mg by oral route. 2020 active Not Available Not Available Not Avai lable ketoconazol e 2 % shampoo WASH SCALP 2-3X WEEKLY. LATHER AND LET SIT FOR SEVERAL MINUTES BEFORE RINSING. active Not Available Not Available No t Available famotidine 10 mg tablet 10 mg by oral route. 05/17/ 2021 active Not Available Not Available Not Avai lable loperamide 2 mg capsule Take 2 CAPSULES BY MOUTH with 1st loose stool, then 1 CAP with other loose stools. Max 8 CAPS in 24 hrs.* active Not Available Not Available No t Available metoprolol succinate ER 50 mg tablet,exte nded release 24 hr TAKE ONE AND ONE-HALF TABLETS BY MOUTH DAILY* active Not Available Not Available No t Available hydrocodone 5 mg-acetamin ophen 325 mg tablet 0 {tbl}s by oral route. 2020 active Not Available Not Available Not Avai lable ondansetron HCl 8 mg tablet TAKE ONE TABLET BY MOUTH THREE TIMES DAILY FOR NAUSEA AND VOMITING* active Not Available Not Available No t Available prednisone 20 mg tablet Take 1 tablet by mouth every morning for 10 days, then 1/2 tablet every morning for 10 days, then stop. active Not Available Not Available No t Available isosorbide mononitrate ER 30 mg tablet,exte nded release 24 hr TAKE TWO TABLETS BY MOUTH DAILY* active Not Available Not Available No t Available acetaminoph en 300 mg-codeine 30 mg tablet Take 1 Tablet by mouth every 6 hours if needed for Pain. Max acetamino phen dose: 4000mg in 24 hrs.* active Not Available Not Available No t Available clopidogrel 75 mg tablet TAKE ONE TABLET BY MOUTH EVERY DAY IN THE MORNING.* active Not Available Not Available No t Available prochlorper azine maleate 10 mg tablet TAKE ONE TABLET BY MOUTH EVERY SIX HOURS NEEDED FOR NAUSEA AND VOMITING* active Not Available Not Available No t Available ciprofloxac in 500 mg tablet Take 1 tablet by mouth 2 times daily for 6 doses. 07/09 completed Not Available Not Available Not Available sulfamethox azole 800 mg-trimetho prim 160 mg tablet Take 1 tablet by mouth on Tuesday, Tuesday and Fridays.* active Not Available Not Available No t Available granisetron HCl 1 mg tablet TAKE 1 TABLET (1 MG) BY MOUTH EVERY 12 HOURS NEEDED FOR NAUSEA/VO MITING.* active Not Available Not Available No t Available triamcinolo ne acetonide 0.1 % topical cream APPLY TO ITCHY AREAS ON THE BODY AND ROSENBERG TWICE DAILY FOR UP TO 2 WEEKS/Tue. DO NOT APPLY TO THE GROIN, OR UNDERARMS . active Not Available Not Available No t Available oxycodone-a cetaminophe n 5 mg-325 mg tablet 07/09 completed Not Available Not Available Not Available famotidine 20 mg tablet Take 1 tablet twice a day by oral route. active Not Available Not Available No t Available methocarbam ol 750 mg tablet TAKE ONE TABLET BY MOUTH THREE TIMES DAILY NEEDED FOR MUSCLE SPASM* active Not Available Not Available No t Available dexamethaso ne 2 mg tablet Take 1 tablet (2 mg total) by mouth every 12 (twelve) hours.* active Not Available Not Available No t Available triamcinolo ne acetonide 0.1 % topical ointment APPLY TO AFFECTED AREA 1-2X DAILY FOR UP TO TWO WEEKS AT A TIME THEN TAKE A TWO WEEK BREAK. RESUME NEEDED FOR FLARES. active Not Available Not Available No t Available lisinopril 10 mg tablet TAKE ONE TABLET BY MOUTH ONE TIME DAILY* active Not Available Not Available No t Available nitroglycer in 0.[address] 1 tablet (0.4 mg) under the tongue every 5 minutes As Needed for chest pain; do not exceed 3 doses in 15 mintues. if pain does not stop or worsens after 15 minutes, call 911* active Not Available Not Available No t Available gabapentin 300 mg capsule TAKE 2 CAPSULES BY MOUTH IN THE MORNING, 1 CAP IN THE AFTERNOON AND 2 CAPS IN THE EVENING* active Not Available Not Available No t Available hydrocortis one 2.5 % topical cream APPLY TO AFFECTED AREAS ON FACE 1-2X DAILY UNTIL RESOLVED. REPEAT NEEDED FOR FLARES. active Not Available Not Available No t Available aspirin 81 mg tablet 81 mg by oral route. 2012 active Not Available Not Available Not Avai lable levetiracet am 750 mg tablet TAKE TWO TABLETS BY MOUTH TWICE DAILY* active Not Available Not Available No t Available budesonide DR - ER 3 mg capsule,del ayed,extend ed release take 3 capsules by mouth once daily for 1 month, then decrease to 2 capsules daily for 1 month, then begin 1 capsule daily for 1 month. active Not Available Not Available No t Available diazepam 10 mg tablet Take 1 tablet by mouth daily as directed. active Not Available Not Available No t Available epinephrine 0.3 mg/0.3 mL injection, auto-inject or Inject 0.3 mg (1 Pen) intramusc ular each time if needed for Allergic Reaction. * active Not Available Not Available No t Available cefuroxime axetil 500 mg tablet 500 mg by oral route. 08/26 completed Not Available Not Available Not Available methylpredn isolone 4 mg tablets in a dose pack Take by mouth as instructe d per packaging .* active Not Available Not Available No t Available colchicine 0.6 mg tablet TAKE 1 TABLET BY MOUTH 2 TIMES DAILY IF NEEDED FOR GOUT PAIN.* active Not Available Not Available No t Available ketoconazol e 2 % topical cream APPLY TO THE FACE 3-4X WEEKLY. CAN COMBINE WITH HYDROCORT ISONE IN A 11 RATIO WHEN USING. CAN CONTINUE 2-3 TIMES WEEKLY FOR MAINTENAN CE. active Not Available Not Available No t Available oxybutynin chloride 5 mg tablet TAKE ONE TABLET BY MOUTH TWICE DAILY active Not Available Not Available No t Available temozolomid e 20 mg capsule Take by oral route. active Not Available Not Available No t Available lorazepam 2 mg/mL oral concentrate Take 1 mL (2 mg) by mouth every 6 hours if needed for Seizures (For breakthro ugh seizure lasting longer than 1 minute. Do not exceed 4 mg in 24 hour peroid.). * active Not Available Not Available No t Available oxycodone 5 mg tablet TAKE ONE TABLET BY MOUTH EVERY FOUR HOURS NEEDED FOR PAIN 07/09 completed Not Available Not Available Not Available cholecalcif dick (vitamin D3) 25 mcg (1,000 unit) capsule 1000 units by oral route. 2019 active Not Available Not Available Not Avai lable ezetimibe 10 mg tablet TAKE ONE TABLET BY MOUTH ONE TIME DAILY* active Not Available Not Available No t Available rosuvastati n 40 mg tablet TAKE ONE TABLET BY MOUTH ONE TIME DAILY AT BEDTIME* active Not Available Not Available No t Available metoprolol tartrate 25 mg tablet 25 mg by oral route. 2020 active Not Available Not Available Not Avai lable granisetron active Not Available Not A vailable Not Available gabapentin active Not Available Not Av ailable Not Available levetiracet am 1,000 mg tablet TAKE TWO TABLETS BY MOUTH TWICE DAILY* active Not Available Not Available No t Available lacosamide 200 mg tablet TAKE ONE TABLET BY MOUTH TWICE DAILY* active Not Available Not Available No t Available lacosamide 50 mg tablet TAKE ONE TABLET BY MOUTH TWICE DAILY* active Not Available Not Available No t Available prochlorper azine active Not Available Not Available Not Available Valtoco 15 mg/2 spray(7.5mg /0.1mL x2) nasal spray Inhale 1 Raymond in both nostrils each time if needed FOR seizure lasting > 3 minutes. Inhale into affected nostril(s ). For seizure lasting longer than 3 minutes, inhale one spray into one nostril. If seizure persists beyond 5 minutes, inhale one spray into alternate nostril.* active Not Available Not Available No t Available Vitals Date Recorded Body height Body mass index (BMI) Body weight Provider Name and Address Organization Details Last Updated DateTime 05/05/2020 170.18 cm 26.6 kg/m2 35632.7 g Rogers Waldrop [facility] 05/05/2020 14:40:40 Date Recorded Body height Body mass index (BMI) Body weight Respiratory rate Provider Name and Address Organization Details Last Updated DateTime 05/09/2020 170.18 cm 26.6 kg/m2 61226.7 g 16 /min Adeline Kern [facility] 05/09/2020 11:08:42 Date Recorded Body height Body mass index (BMI) Body weight Provider Name and Address Organization Details Last Updated DateTime 07/09/2024 170.18 cm 26.6 kg/m2 13653.7 g Gildardo Palacios [facility] 07/09/2024 15:49:56 Social History Question Answer Notes LastModified by Organizat ion Details LastModified Time Tobacco Smoking Status Never Smoker [facility] 05/05/2020 14:43:29 Do You Have An Advance Directive? Yes Information not available 07/09/2024 What Is Your Level Of Caffeine Consumption? Moderate Information not available 05/05/2020 How Much Tobacco Do You Chew? None Information not available 05/05/2020 Recreational Drug Use No Information not available 05/05/2020 Marital Status Informatio n not available 05/05/2020 Do You Have A Medical Power Of Mosquito Sprayer? Yes Information not available 07/09/2024 What Was The Date Of Your Most Recent Tobacco Screening? 05/05/2020 Information not available 05/05/2020 Have You Ever Been Counseled For Unhealthy Alcohol Use? No Information not available 07/09/2024 How Many Days In The Past Year Have You Consumed 5 Or More Drinks? 0 Information no t available 07/09/2024 Sex: Unknown Functional Status Question Answer Note LastModified by Organizat ion Details LastModified Time What is your level of alcohol consumption? Moderate Information not available 05/05/2020 Do you or have you ever used smokeless tobacco? Never used smokeless tobacco Information not available 05/05/2020 Do you or have you ever used e-cigarettes or vape? Never used electronic cigarettes Information not available 05/05/2020 Mental Status None recorded. Family History Relationship Description Onset Age of this Age Resolved Age Notes LastModified by Organization Details LastModified Time Father Family history of malignant neoplasm [email or web address] Not available 2020 14:42:32 Father Family history of Hypertension bbeckers Not available 14:42:45 Maternal Grandmother Family history of diabetes mellitus [email or web address] Not available 2020 14:42:56 Medical History No medical history recorded. Immunizations Vaccine Type Date Status Note Provider Nam e and Address Organization Details Recorded Time typhoid, ViCPs 2 completed Not Available [facility] 07/09/2024 15:46:22 Influenza, split virus, trivalent, preservative 3 completed Not Available [facility] 07/09/2024 15:46:22 Influenza, split virus, trivalent, preservative 5 completed Not Available [facility] 07/09/2024 15:46:22 Influenza, split virus, trivalent, preservative 7 completed Not Available [facility] 07/09/2024 15:46:22 Influenza, split virus, trivalent, preservative 8 completed Not Available [facility] 07/09/2024 15:46:22 Tdap 0 completed Not Available [facility] 07/09/2024 15:46:22 Novel Acncvprua-[id number], all formulations 0 completed Not Available [facility] 07/09/2024 15:46:22 Influenza, split virus, trivalent, PF 0 completed Not Available [facility] 07/09/2024 15:46:22 Influenza, split virus, trivalent, preservative 2 completed Not Available [facility] 07/09/2024 15:46:22 Influenza, split virus, trivalent, preservative 3 completed Not Available [facility] 07/09/2024 15:46:22 Influenza, split virus, trivalent, preservative 3 completed Not Available [facility] 07/09/2024 15:46:22 Influenza, recombinant, trivalent, PF 5 completed Not Available [facility] 07/09/2024 15:46:22 Influenza, split virus, quadrivalent, PF 6 completed Not Available [facility] 07/09/2024 15:46:22 zoster live 6 completed Not Available [facility] 07/09/2024 15:46:22 Influenza, split virus, quadrivalent, PF 7 completed Not Available [facility] 07/09/2024 15:46:22 Influenza, split virus, quadrivalent, PF 8 completed Not Available [facility] 07/09/2024 15:46:22 Influenza, split virus, quadrivalent, PF 9 completed Not Available [facility] 07/09/2024 15:46:22 zoster recombinant 9 completed Not Available [facility] 07/09/2024 15:46:22 zoster recombinant 9 completed Not Available [facility] 07/09/2024 15:46:22 Influenza, split virus, quadrivalent, preservative 9 completed Not Available [facility] 07/09/2024 15:46:22 Td (adult), 2 Lf tetanus toxoid, preservative free, adsorbed 0 completed Not Available [facility] 07/09/2024 15:46:22 pneumococcal polysaccharide PPV23 0 completed Not Available [facility] 07/09/2024 15:46:22 Influenza, adjuvanted, quadrivalent, PF 0 completed Not Available [facility] 07/09/2024 15:46:22 COVID-19, mRNA, LNP-S, PF, 100 mcg/0.5mL dose or 50 mcg/0.25mL dose 1 completed Not Available [facility] 07/09/2024 15:46:22 COVID-19, mRNA, LNP-S, PF, 100 mcg/0.5mL dose or 50 mcg/0.25mL dose 1 completed Not Available [facility] 07/09/2024 15:46:22 Influenza, adjuvanted, quadrivalent, PF 1 completed Not Available [facility] 07/09/2024 15:46:22 COVID-19, mRNA, LNP-S, PF, 100 mcg/0.5mL dose or 50 mcg/0.25mL dose 1 completed Not Available [facility] 07/09/2024 15:46:22 COVID-19, mRNA, LNP-S, PF, 100 mcg/0.5mL dose or 50 mcg/0.25mL dose 2 completed Not Available [facility] 07/09/2024 15:46:22 COVID-19, mRNA, LNP-S, bivalent, PF, 30 mcg/0.3 mL dose 2 completed Not Available [facility] 07/09/2024 15:46:22 Influenza, adjuvanted, quadrivalent, PF 2 completed Not Available [facility] 07/09/2024 15:46:22 Pneumococcal conjugate PCV20, polysaccharide [id number] conjugate, adjuvant, PF 3 completed Not Available [facility] 07/09/2024 15:46:22 Influenza, adjuvanted, quadrivalent, PF 3 completed Not Available [facility] 07/09/2024 15:46:22 COVID-19, mRNA, LNP-S, PF, 50 mcg/0.5 mL 3 completed Not Available [facility] 07/09/2024 15:46:22 COVID-19, mRNA, LNP-S, PF, 50 mcg/0.5 mL 4 completed Not Available [facility] 07/09/2024 15:46:22 Influenza, adjuvanted, trivalent, PF 4 completed Not Available [facility] 07/09/2024 15:46:22 RSV, recombinant, protein subunit RSVpreF, adjuvant reconstituted, 0.5 mL, PF 4 completed Not Available [facility] 07/09/2024 15:46:22 Past Encounters Encounter ID Performer Location Encounter Start Date Encounter Closed Date Diagnosis/Indication Diagnosis SNOMED-CT Code Diagnosis ICD10 Code Diagnosis IMO Codes Diagnosis Note [id number] Gibson Rodriguez MD _[address] [place] [address] 05/05/2020 13:58:06 05/07/2020 08:36:30 Kidney stone 08406349 N20.0 - Will write for valium and bring back for stent removal. Patient reports that since his lower back injury he has severe spasms of his pelvic and lower back which may be leading to this sensitivit y. [id number] Perry Pereyra MD _[facility] [address] [facility] [address] [place] [address] 05/09/2020 10:40:52 05/09/2020 16:04:38 Ureteric stone 85008705 N20.1 He would like to schedule stent removal with sedation; did not want to take valium I went over risks and benefits of the procedure; will schedule with myself or one of my partners. [id number] ROMA CATALAN [facility] [address] [facility] [address] [place] [address] 07/09/2024 15:43:34 07/09/2024 16:59:24 Primary erectile dysfunction 070454298 N52.9 [id number] Health Concerns Section Related Observation LastModified by Organization Detai ls LastModified Time None Recorded Concern Status LastModified by Organization Details LastModified Time None Recorded Advance Directives Directive Y: Payers Insurance Date Sequence Insurance Name Policy Number Policy Monahan Covered Member ID Monahan Member ID Guarantor Name 07/09/2024 2 [place] [employer] Dontae Keller [id number] Dontae Keller 05/05/2020 1 [place] [id number] Juliette Keller [id number] Dontae Keller 07/09/2024 1 [facility] [id number] Juliette R Book [id number] Dontae R Book 07/09/2024 2 [place] [employer] [facility] Dontae R Book [id number] Dontae R Book Notes Date Note Type Note Provider Name and Address Organization Details Recorded Time 1 text/html 65 yoM who underwent right stent placement for 8 mm obstructing UPJ stone 04/08/20 with subsequent ESWL 04/21/[address] Pereyra. Due to scheduling availability he is here with me today to review KUB and remove indwelling ureteral stent. Gibson Rodriguez MD [address] [place] [address],[address], [place], [address], [facility] 05/05/2020 16:21:24 1 text/html s/p right extracorporeal shockwave lithotripsy of 7 mm ureteral stone and right low pole kidney 7 mm stone on 04/21/2020. DR. Rodriguez was unable take the stent out given discomfort associated with it. He came here today for right stent removal. He saw Dr. Rodriguez 05/05/2020. KUB showed small fragments in the right low pole kidney. Perry Pereyra MD [address] [place] [address],[address], [place], [address], [facility] 05/09/2020 16:03:45 5 text/html Erectile DysfunctionReported by [email or web address] y/o male presents for an evaluation of erectile dysfunction (ED). He reports difficulty with erections for the past years. His erectile dysfunction began after a spinal surgery. No improvement in erectile function since surgery. He has tried Sildenafil which was ineffective. Patient has not tried any other treatments for ED. He is able to achieve an ehs of 1-2 with stimulation. No pain or curvature to penis with erections. Good libido and energy for age and health status. 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 ROMA CATALAN [address] [place] [address],[address], [place], [address], [facility] 07/09/2024 16:55:53
--- OUTSIDE RECORDS SUMMARY | 2024-12-15 14:47 | XMS_ITS | Clinical Summary ---
Author Organization [employer] [facility] Address [address] [place] [id number] Care Team Providers Care Civil Structural Designer Name Role Phone Yunior Agrawal MD Unavailable Jerardo Wiseman MD Primary Care Provider [phone] Lourdes Weinstein DO Unavailable [phone] Ge Wagner RN Unavailable Unavailabl Rehana Hamlin Unavailable Gavin Anthony DO Unavailable [phone] Allergies Active Allergy Reactions Criticality Noted Date Comments Allopurinol Rash 07/04/2018 Atenolol Other - Describe In Comment Field 10/13/2011 Leg cramps Hydrochlorothiazide Itching,Myalgia 03/02/2012 Medications methocarbamoL (ROBAXIN) 750 mg tabletIndication s:Other chronic pain Take 1 Tablet (750 mg) by mouth 3 times daily if needed for Muscle Spasm. 60 Tablet 2 024 Active Triamcinolone Acetonide 0.05 % ointment Apply topically to affected area(s) 2 times daily if needed. Active diphenhydrAMINE (BENADRYL) 25 mg tablet Take 50 mg by mouth at bedtime if needed. Active sennosides (SENNA) 8.6 mg tabletIndication s:Constipation, unspecified constipation type Take 1-2 Tablets (8.6-17.2 mg) by mouth 2 times daily if needed for Constipation. 30 Tablet 12/03/19 24 9:25 AM CDT Active acetaminophen (TYLENOL EXTRA STRGTH) 500 mg tabletIndication s:Acute post-operative pain Take 2 Tablets (1,000 mg) by mouth every 6 hours if needed for Pain or Headache. Max acetaminophen dose: 4000mg in 24 hrs. 024 Active sennosides-docus ate (Senna-S) (8.6-50 mg) tabletIndication s:Grade III astrocytoma (HC),Constipatio n, unspecified constipation type Take 1-4 tablets by mouth twice daily as needed for constipation 240 Tablet 5 Active acetaminophen-co deine (TYLENOL #3) 300-30 mg per tabletIndication s:Astrocytoma (HC),S/P craniotomy Take 1 Tablet by mouth every 6 hours if needed for Pain. Max acetaminophen dose: 4000mg in 24 hrs. 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 OK to resume on 12/08 90 Tablet 3 024 Active loperamide (IMODIUM) 2 mg tabletIndication s:Grade III astrocytoma (HC),Diarrhea, unspecified type Take 2 tablets (4mg) orally with 1st loose stool, then 1 tablet (2mg) with other loose stools. Max 8 tablets (16 mg) in 24 hrs. 40 Tablet 025 Active nitroglycerin 0.4 mg sublingual tabletIndication s:Chest pain in adult Place 1 Tablet (0.4 mg) under the tongue every 5 minutes if needed for Chest Pain. Up to 3 tablets in 15 minutes. If chest pain does not stop or worsens after 15 minutes, call 911. 25 Tablet 1 025 Active granisetron 1 mg tabletIndication s:Grade III astrocytoma (HC),Chemotherap y induced nausea and vomiting Take 1 tablet (1 mg) by mouth every 12 hours as needed for nausea/vomiting. 60 Tablet 2 025 Active prochlorperazine (Compazine) 10 mg tabletIndication s:Grade III astrocytoma (HC),Chemotherap y induced nausea and vomiting Take 1 tablet (10 mg) by mouth every 6 hours as needed for nausea/vomiting. 30 Tablet 5 025 Active colchicine 0.6 mg tabletIndication s:Acute idiopathic gout of left knee TAKE 1 TABLET BY MOUTH 2 TIMES DAILY IF NEEDED FOR GOUT PAIN. 24 Tablet 2 025 Active trimethoprim-sul famethoxazole (Bactrim DS) 160-800 mg tabIndications:N eed for pneumocystis prophylaxis,Grad e III astrocytoma (HC) Take 1 tablet by mouth on Tuesday, Tuesday and Fridays. 42 Tablet 3 025 Active LORazepam (Ativan) 1 mg tabletIndication s:Grade III astrocytoma (HC),Chemotherap y induced nausea and vomiting Take 1 Tablet (1 mg) by mouth every 6 hours if needed for Nausea/Vomiting. 30 Tablet 025 Active diazePAM (Valtoco) 15 mg/2 spray (7.5/0.1mL x 2) spryIndications: Seizure (HC) Inhale 1 [place] in both nostrils each time if needed (seizure lasting > 3 minutes). Inhale into affected nostril(s). For seizure lasting longer than 3 minutes, inhale one spray into one nostril. If seizure persists beyond 5 minutes, inhale one spray into alternate nostril. 2 Each 1 Active LORazepam CONCENTRATE 2 mg/mL liquidIndication s:Grade III astrocytoma (HC),Seizure (HC) Take 1 mL (2 mg) by mouth every 6 hours if needed for Seizures (For breakthrough seizure lasting longer than 1 minute. Do not exceed 4 mg in 24 hour peroid.). 30 mL 025 Active lacosamide (VIMPAT) 200 mg tabletIndication s:Grade III astrocytoma (HC),Focal epilepsy (HC) Take 1 Tablet (200 mg) by mouth two times daily. 180 Tablet 3 025 2025 Active rx codeine-guaFENes in (10-100 mg/5 ml) (ROBITUSSIN AC) liquid (ED DC MED)Indications: Cough, unspecified type Take 5-10 mL by mouth every 4 hours if needed (as needed for cough). 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 120 Tablet 11 Active metoprolol succinate (TOPROL XL) 50 mg sustained-releas e tabletIndication s:Stable angina Take 1.5 Tablets (75 mg) by mouth once daily. More refills provided at completion of appointment scheduled 09/24/[address] Arce. 135 Tablet 025 Active mupirocin 2% ointment 025 Active traZODone (DESYREL) 50 mg tabletIndication s:Insomnia, unspecified type Take 1 Tablet (50 mg) by mouth at bedtime. 31 Tablet 2 025 Active temozolomide (TEMODAR) 20 mg capsuleIndicatio ns:Grade III astrocytoma (HC) Take 1 Capsule (20 mg) by mouth once daily with 1 other temozolomide prescription for 380 mg total. Take on Days 1-5 of each 28 day cycle. 5 Capsule 12/06/19 25 4:44 PM CDT 025 2024 Active temozolomide 180 mg capsuleIndicatio ns:Grade III astrocytoma (HC) Take 2 Capsules (360 mg) by mouth once daily with 1 other temozolomide prescription for 380 mg total. Take on Days 1-5 of each 28 day cycle. 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 30 Tablet 025 2024 Active rosuvastatin (CRESTOR) 40 mg tabletIndication s:Coronary artery disease involving tuscarora coronary artery 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 angina pectoris TAKE ONE TABLET BY MOUTH ONE TIME DAILY AT BEDTIME 90 Tablet 025 2024 Discontinued metoprolol succinate (TOPROL XL) 50 mg sustained-releas e tabletIndication s:Stable angina Take 1.5 Tablets (75 mg) by mouth once daily. More refills provided at completion of appointment scheduled 09/24/[address] Arce. 135 Tablet 025 2024 Discontinued temozolomide (TEMODAR) 20 mg capsuleIndicatio ns:Grade III astrocytoma (HC) Take 1 Capsule (20 mg) by mouth once daily with 1 other temozolomide prescription for 380 mg total. Take on Days 1-5 of each 28 day cycle. 5 Capsule 11/09/19 25 11:06 AM CDT 2024 Discontinued(R eoheatherer (E-cancel not sent)) temozolomide 180 mg capsuleIndicatio ns:Grade III astrocytoma (HC) Take 2 Capsules (360 mg) by mouth once daily with 1 other temozolomide prescription for 380 mg total. Take on Days 1-5 of each 28 day cycle. 10 Capsule 11/09/19 11:06 AM CDT 025 2024 Discontinued(R eorder (E-cancel not sent)) predniSONE (DELTASONE) 10 mg tabletIndication s:Cervical radiculopathy Take 4 Tablets (40 mg) by mouth once daily with a meal for 3 days, THEN 3 Tablets (30 mg) once daily with a meal for 3 days, THEN 2 Tablets (20 mg) once daily with a meal for 3 days, THEN 1 Tablet (10 mg) once daily with a meal for 3 days. 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 ASHD 04/14/2015 Overview (05/24/2022): - [...] total bilirubin for many years - likely [place] Impaired fasting glucose Osteoarthritis of hand, right Chronic pain Overview (05/31/2022): joints Resolved Problems Problem Noted Date Diagnosed Date Resolved Date NSTEMI (non-ST elevated myoc ardial infarction) 08/30/2012 04/14/2015 Right shoulder adhesive capsulitis 09/14/2011 12/05/2014 Encounters Date Type Department Care Team Description 12/10/2024 Telephone [facility] [address] [place] [address] Zeyad Burkett MD Neck Pain/problem 12/05/2024 Refill [facility] [address] [place] [address] Jerardo Wiseman MD Refill Request (Rosuvastatin) 12/04/2024 11:15 AM CDT Office Visit [facility] [place] [address] [address] Lourdes Weinstein, DO Follow Up 12/04/2024 10:00 AM CDT [phone] Anaya Garcia Care Guide (Visit) 12/04/2024 9:07 AM CDT - 12/04/2024 11:59 PM CDT Hospital Encounter [facility] [address] [place] [address] Lourdes Weinstein DO Grade III astrocytoma (HC) 12/04/2024 Refill [facility] [address] [place] [address] Lourdes Weinstein DO Refill Request 12/04/2024 Travel 11/29/2024 Travel 11/28/2024 9:15 AM CDT Nurse/Clinic Staff Only [facility] [address] [place] [address] Immunization/Injectio n (COVID-19 vaccine) 11/28/2024 Refill [facility] [address] [place] [phone] Jesse Arce MD, PhD Refill Request (Metoprolol Succinate) 11/27/2024 Travel 11/23/2024 Telephone [facility] [address], [facility] [address] [place] [address] Shahnaz Varghese, nurse epidemiologist Nurse Navigation 11/15/2024 12:20 PM CDT Phone Office Visit [facility] [address] [place] [phone] Gavin Anthony DO Follow Up 11/14/2024 Travel 11/12/2024 Orders Only [facility] Scanner 1 scan: (1-Ord) BALDO ARREOLA, F/U NEOPLASM OF UNCERTAIN BEHAVIOR, 11/12/2024 11/07/2024 Telephone [facility] [address] [place] [address] Zeyad Burkett MD Neck Injury 11/06/2024 9:45 AM CDT Phone Office Visit [facility] [address], [facility] [address] [place] [address] Lourdes Weinstein DO 11/06/2024 Refill [facility] [address] [place] [address] Lourdes Weinstein DO Refill Request 11/01/2024 Travel 10/29/2024 Orders Only [facility] Scanner 1 scan: (1-Ord) TARDARWIN DERM, EXCISION, LT INFERIOR HELIX, 10/29/2024 10/26/2024 11:00 AM CDT Nurse/Clinic Staff Only [facility] [address] [place] [address] Flu Shot; Immunization/Injectio n 10/26/2024 Travel 10/26/2024 Refill [facility] [address] [place] [address] Jerardo Wiseman MD Refill Request (Gabapentin) 10/09/2024 10:45 AM CDT Office Visit [facility] [address] [facility] [address] [place] [address] Lourdes Weinstein DO Follow Up 10/09/2024 7:58 AM CDT - 10/09/2024 11:59 PM CDT Hospital Encounter [facility] [address] [place] [address] Lourdes Weinstein DO 10/09/2024 Orders Only [facility] [address] [phone] Sharon Bolaños PharmD <No scans attached> 10/09/2024 Travel 10/04/2024 Travel 09/30/2024 Refill [facility] [address] [place] [address] Jerardo Wiseman MD Refill Request (Lisinopril) 09/24/2024 10:00 AM CDT Office Visit [facility] [id number] [place] [address] [address] [place] [address] Jesse Arce MD, PhD Follow Up (ANNUAL FOLLOW UP, PT WILL DO LABS SAME DAY, DX: Coronary artery disease involving tuscarora coronary artery 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 angina pectoris [I25.10]; Cardiomyopathy, unspecified type (HC) [I42.9]; Other chronic pain [G89.29]; Hyperlipidemia with target LDL less than 7//pt states he feels good with no sx - wants to talk about getting on ED meds - ) 09/24/2024 Travel 09/19/2024 Travel 09/18/2024 Refill [facility] [address] [place] [address] Jesse Arce MD, PhD Refill Request (Isosorbide Mononitrate) 09/17/2024 Telephone [facility] [address] [place] [address] Zeyad Burkett MD [facility] 09/15/2024 Refill [facility] [address] [place] [address] Jerardo Wiseman MD Refill Request (Famotidine) from Last 3 Months Immunizations Immunization Administration Dates Next Due Amb Influenza, Inactivated A IIV4 (Age 65+ Years) Preserv Free 11/07/2019 COVID-19 VACCINE SPIKEVAX (M ODERNA 50MCG/0.5ML) 12YO+ PFS 11/28/2024,11/04/2023,11/24/2022 COVID-19 vaccine (Moderna 100mcg/0.5mL) PF, MDV 05/29/2021,05/08/2020,04/10/2020 COVID-19 vaccine (Pfizer-Bio NTech 30mcg/0.3mL) 12YO+ BIVALENT PF, MDV 12/21/2021 Influenza, IIV3 (Age 6-35 mos) 02/11/2009 Influenza, IIV3 (Age >=3 years) 11/18/19 13,02/18/2012,03/22/2011,02/11,11/24/2007,12/12/2006,12/22/2004 ,01/17/2003 Influenza, IIV4 03/02/2018, 8,04/16/2016,02/14 Influenza, IIV4 (=>6mos) MDV 01/09/2019 Influenza, Inactivated AIIV4 (Age 65+ Years) Preserv Free 11/24/2022,12/21/2021,10/27/2020 Influenza, Inactivated IIV3 (Age 65+ Years) Preserv Free 10/26/2024,11/04/2023 Influenza, RIV3 (Age =>9 Years) 02/11/2014 Pneumococcal Conj 20-valent (Prevnar 20) 02/11/2022 Pneumococcal Poly,23-Valent (Pneumovax) 07/17/2019 RSV, Recombinant ADJ Reconst ituted (Arexvy 120MCG/0.5mL) 12/28/2023 Td (Age >=7 Years) 03/19/2019 Tdap 02/11/2009 [...] Given: Yes Alcohol Use Standard Drinks/Week Comments Not Currently [...] is your housing situation today? 1 11/01/2023 Interpersonal Safety Answer Date Record ed Are you being hit, kicked, p ushed or yelled at (see row info)? No 10/31/2023 Interpersonal Safety Abuse 12 - 18 Not on file 10/31/2023 Interpersonal Safety Ambulatory Vulnerability No t on file 10/31/2023 Utilities Answer Date Recorded Do you have trouble paying f or utilities (for example, heat, electricity, water, phone)? 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 Gender Identity Male 09/03/2019 11:10 AM CDT Sexual Orientation Straight 09/03/2019 11 :10 AM CDT Occupation Industry Job Start Date Job End Date Retired Not on file Not on file Not on file Obstetrics History Last Filed Vital Signs Vital Sign Reading Time Taken Comments Blood Pressure 110/64 12/04/2024 11:40 AM CDT Pulse 81 12/04/2024 11:40 AM CDT Temperature 36.6 C (97.8 F) 08/14/2024 10:43 AM CDT Respiratory Rate 16 12/04/2024 11:40 AM CDT Oxygen Saturation 99% 12/04/2024 11:40 AM CDT Inhaled Oxygen Concentration - - Weight 72.6 kg (160 lb) 12/04/2024 11:40 AM CDT Height 172.7 cm (5' 8) 09/24/2024 10:04 AM CDT Body Mass Index 24.33 09/24/2024 10:04 AM CDT Plan of Treatment Upcoming Encounters Date Type Department Care Team (Late st Contact Info) Description 12/25/2024 9:45 AM EARLY CHILDHOOD EDUCATION INSTRUCTOR Office Visit [facility] [address] [facility] [address] [place] [address] Nadine Morris PA [address] [place] [address] 01/01/2025 10:30 AM EARLY CHILDHOOD EDUCATION INSTRUCTOR Phone Office Visit [facility] [address], [facility] [address] [place] [address] Xin Jorgensen NP [address] [place] [address] 01/28/2025 1:00 PM EARLY CHILDHOOD EDUCATION INSTRUCTOR Appointment [facility] [address] [place] [address] 01/28/2025 2:15 PM EARLY CHILDHOOD EDUCATION INSTRUCTOR Office Visit [facility] [address], [facility] [address] [place] [address] Lourdes Weinstein DO [address] [place] [address] Health Maintenance Due Date Last Done Comments Medicare Wellness for age 65+ 05/07/2021 05/06/2020 Depression screening for age 12+ 05/26/2024 05/27/2023, 05/27/2023, 05/26/2023, Additional history exists BMI (ht and wt on same day) for age 18+ 09/24/2025 09/24/2024, 01/10/2024, 11/04/2023, Additional history exists Lipids for age 45-75 05/25/2028 05/26/2023, 01/19/2023, 02/11/2022, Additional history exists Tetanus booster 03/19/2029 03/19/2019, 02/11/2009 Colonoscopy through age 75 04/02/203004/02, 04/02/2020, 04/02/2020, Additional history exists Zoster (shingles) series for age 50+ Completed 05/15/2018, 03/13/2018, 02/14/2015 Hepatitis C screening for age 18-79 Completed 05/06/2020 Pneumococcal series for age 50+ Completed 02/11/2022, 07/17/2019 RSV vaccine for adults or Completed 12/28/2023 Influenza Vaccine Completed 10/26/2024, , 11/24/2022, Additional history exists Hepatitis B series for 19+ Aged Out N o longer eligible based on patient's age to complete this topic Medical Devices Implanted Type Area Senior Hr Manager Device Identifier Shelf Expiration Date Model / Serial / Lot [id number] bone Matrix 6cc Lor Dbf Putty Dbm Implanted:Qty: 1 on 03/28/2019 by Alicia Lion MD at [facility] Explanted:at [facility] (Quantity not on file) Spine Medtronic Spine/Ortho 11/13/2020 [id number] 106# / [id number] / Chuckie Lmbr 90x5.5mm Solera 5.5/6cvd Titnm - [id number] Implanted:Qty: 1 on 03/28/2019 by Alicia Lion MD at [facility] Spine Medtronic Spine/Ortho [id number] 90# / / [id number] bone 1-4mm 60cc Medtronic Fine Canclls Freeze Dried Implanted:Qty: 1 on 03/28/2019 by Alicia Lion MD at [facility] Explanted:at [facility] (Quantity not on file) Spine Medtronic Spine/Ortho 08/17/2023 800 111# / [id number] / Spacer Lmbr 9x26mm Capstone Tlif Peek - [id number] Implanted:Qty: 1 on 03/28/2019 by Alicia Lion MD at [facility] Spine Medtronic Spine/Ortho 07/27/2026 299 0926# / / [id number] Spacer Lmbr 9x26mm Capstone Tlif Peek - [id number] Implanted:Qty: 1 on 03/28/2019 by Alicia Lion MD at [facility] Spine Medtronic Spine/Ortho 10/25/2021 299 0926# / / [id number] Set Screw Lmbr Ant 5.5mm Solera Break Off - [id number] Implanted:Qty: 6 on 03/28/2019 by Alicia Lion MD at [facility] Spine Medtronic Spine/Ortho 554 0030# / / Screw Lmbr Post 6.5x45mm Solera 5.5/6 Va Cocr - [id number] Implanted:Qty: 2 on 03/28/2019 by Alicia Lion MD at [facility] Spine Medtronic Spine/Ortho [id number] [id number] 545# / / Screw Lmbr Post 7.5x45mm Solera 5.5/6 Va Cocr - [id number] Implanted:Qty: 2 on 03/28/2019 by Alicia Lion MD at [facility] Spine Medtronic Spine/Ortho [id number] 545# / / Chuckie Lmbr 80x5.5mm Solera 5.5/6cvd Titnm - [id number] Implanted:Qty: 1 on 03/28/2019 by Alicia Lion MD at [facility] Spine Medtronic Spine/Ortho [id number] 80# / / Stent Uret 5tfy34tr Contour - [id number] Implanted:Qty: 1 on 04/08/2020 by Perry Pereyra MD at [facility] Right: Ureter BSC Urology 01/01/2023 [id number] / / [id number] Description:See implant shee t Graft Dural 2x2in Duramatrix Suturable Bovine - [id number] Implanted:Qty: 1 on 11/30/2023 by Josh Castillo MD at [facility] Right: Cranium Marshall Craniomaxillofacial 10/07/2025 [id number] / / [id number] Implnt Pterional Rt - [id number] Implanted:Qty: 1 on 11/30/2023 by Josh Castillo MD at [facility] Right: Cranium Larry Craniomaxillofacial 07/28/2030 [id number] / / [id number] Screw Neuro 4mm Matrixneuro Slf Drill Titnm - [id number] Implanted:Qty: 12 on 11/30/2023 by Josh Castillo MD at [facility] Right: Cranium J And J Depuy CMF [id number] 04.01 / / Raquel Hole Cover Neuro 17mm Synthes Low Pro Titnm - [id number] Implanted:Qty: 2 on 11/30/2023 by Josh Castillo MD at [facility] Right: Cranium J And J Depuy CMF 421.527 / / Chadwick Hole Cover Neuro 24mm Synthes Low Pro Titnm - [id number] Implanted:Qty: 1 on 11/30/2023 by Josh Castillo MD at [facility] Right: Cranium J And J Depuy CMF 421.528 / / Explanted Type Area Senior Hr Manager Device Identifier Shelf Expiration Date Model / Serial / Lot Unknown Poss. Old Synergy Explanted:Qty: 1 on 03/28/2019 by Alicia Lino MD at [facility] / / X Description:2 screws; 2 sets crews; 2 locking nuts; 2 partial rods. Procedures Procedure Name Priority Date/Time Associated Diagnosis Comments SCAN CORRESP-LABORATORY RESULTS 12/05/2024 8:17 AM CDT MR HEAD W WO CONT W PERFUSION Routine 12/04/2024 10:30 AM CDT Grade III astrocytoma (HC) SCAN CORRESP-LABORATORY RESULTS 11/28/2024 7:57 AM CDT SCAN CORRESP-LABORATORY RESULTS 11/19/2024 8:13 AM CDT SCAN-OPERATIVE/PROCE DURE REPORT 11/12/2024 12:00 AM CDT SCAN CORRESP-LABORATORY RESULTS 11/07/2024 10:15 AM CDT SCAN-OPERATIVE/PROCE DURE REPORT 10/29/2024 12:00 AM CDT SCAN CORRESP-LABORATORY RESULTS 10/19/2024 12:10 PM CDT MR HEAD BRAIN WWO Routine 10/09/2024 9:3 7 AM CDT Grade III astrocytoma (HC) SCAN CORRESP-LABORATORY RESULTS 10/03/2024 2:19 PM CDT SCAN CORRESP-LABORATORY RESULTS 09/25/2024 2:14 PM CDT SCAN CORRESP-LABORATORY RESULTS 09/24/2024 8:07 AM CDT LIPID PANEL Routine 05/26/2023 12:17 PM CDT Coronary artery disease involving tuscarora coronary artery 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 angina pectoris ANTI HCV Routine 05/06/2020 10:44 AM CDT Need for hepatitis C screening test COLONOSCOPY SCREENING Routine 04/02/2020 10:52 AM EARLY CHILDHOOD EDUCATION INSTRUCTOR Diarrhea, unspecified type from Last 3 Months or Most Recently Relevant to Health Maintenance Results * SCAN CORRESP-LABORATORY RESULTS (12/05/2024 8:17 AM CDT) Only the most recent of8 resultswithin the time period is included. Narrative 12/05/2024 8:17 AM CDT Ordered by an unspecified provider. us Other Clinical Staff OTHER Final Resul t * MR HEAD W WO CONT W PERFUSION (12/04/2024 10:30 AM CDT) Anatomical Region Laterality Modality BRAIN Magnetic Resonan ce 12/04/2024 10:4 2 AM CDT Impressions 12/04/2024 10:42 AM CDT 1. Stable postop changes right pterional craniotomy and resection cavity anterior right temporal lobe. Stable focal nodular area of enhancement. No increased perfusion. 2. Stable residual focal infiltrative T2/FLAIR signal hyperintensity of the left insula and subinsular white matter and extending into the posterior inferior right frontal lobe. No new enhancement. No increased perfusion. 3. Overall, no interval progression of residual or recurrent tumor. 4. No new abnormal enhancement elsewhere Dictated by Kendall Ace MD @ 12/04/2024 10:42:26 AM (Electronically Signed) Narrative 12/04/2024 10:42 AM CDT For Patients: As a result of the Century Cures Act, medical imaging exams and procedure reports are released immediately into your electronic medical record. You may view this report before your referring provider. If you have questions, please contact your health care provider. INDICATION: Grade 3 astrocytoma. COMPARISON: 10/09/2024 and 08/14/2024. TECHNIQUE: Multiplanar T1, T2, FLAIR and diffusion-weighted imaging. Post gadolinium T1 weighted sequences Gadolinium 20 cc IV FINDINGS: Compared to the previous exams, stable postop changes of right pterional craniotomy and resection cavity of the anterior right temporal lobe. Along the posterior margin of the resection cavity, there remains a focal nodular area of enhancement measuring 9 x 14 mm (series 27, images 70 1-76). No corresponding increased perfusion. Stable focal infiltrative T2/FLAIR signal hyperintensity of the left insula and subinsular white matter and extending into the limen insula and posterior inferior right frontal lobe. There is no new corresponding enhancement. No evidence of corresponding increased perfusion. Stable biopsy cavity of the anterior right insula and subinsular white matter. No new abnormal enhancement or enhancing lesions elsewhere. No intracranial hemorrhage. No abnormal ventricular dilatation. Intracranial vascular flow voids are preserved. No restricted diffusion to suggest acute ischemia. Bilateral orbits are unremarkable. Normal appearing sella. Mucous retention cyst left maxillary sinus. Remaining visualized paranasal sinuses remarkable. Tiny right mastoid effusion. Procedure Note Kendall Ace MD, PhD - 12/04/2024 For Patients: As a result of the Cures Act, medical imagingexams and procedure reports are released immediately into your electronicmedical record. You may view this report before your referring provider.If you have questions, please contact your health care provider. INDICATION: Grade 3 astrocytoma. COMPARISON: 10/09/2024 and 08/14/2024. TECHNIQUE: Multiplanar T1, T2, FLAIR and diffusion-weighted imaging. Post gadoliniumT1 weighted sequences Gadolinium 20 cc IV FINDINGS: Compared to the previous exams, stable postop changes of right pterionalcraniotomy and resection cavity of the anterior right temporal lobe. Along the posterior margin of the resection cavity, there remains a focalnodular area of enhancement measuring 9 x 14 mm (series 27, images 701-76). No corresponding increased perfusion. Stable focal infiltrative T2/FLAIR signal hyperintensity of the leftinsula and subinsular white matter and extending into the limen insula andposterior inferior right frontal lobe. There is no new correspondingenhancement. No evidence of corresponding increased perfusion. Stable biopsy cavity of the anterior right insula and subinsular whitematter. No new abnormal enhancement or enhancing lesions elsewhere. No intracranial hemorrhage. No abnormal ventricular dilatation.Intracranial vascular flow voids are preserved. No restricted diffusion to suggest acute ischemia. Bilateral orbits are unremarkable. Normal appearing sella. Mucous retention cyst left maxillary sinus. Remaining visualized paranasalsinuses remarkable. Tiny right mastoid effusion. IMPRESSION: 1. Stable postop changes right pterional craniotomy and resection cavityanterior right temporal lobe. Stable focal nodular area of enhancement. Noincreased perfusion. 2. Stable residual focal infiltrative T2/FLAIR signal hyperintensity ofthe left insula and subinsular white matter and extending into theposterior inferior right frontal lobe. No new enhancement. No increasedperfusion. 3. Overall, no interval progression of residual or recurrent tumor. 4. No new abnormal enhancement elsewhere Dictated by Kendall Ace MD @ 12/04/2024 10:42:26 AM (Electronically Signed) us Lourdes Weinstein DO MR Final Result * SCAN-OPERATIVE/PROCEDURE REPORT (11/12/2024 12:00 AM CDT) us Scanner OTHER Final Result * SCAN-OPERATIVE/PROCEDURE REPORT (10/29/2024 12:00 AM CDT) us Scanner OTHER Final Result * MR HEAD BRAIN WWO (10/09/2024 9:37 AM CDT) Anatomical Region Laterality Modality BRAIN, HEAD Magnetic Resonan ce 10/09/2024 9:55 AM CDT Narrative 10/09/2024 9:55 AM CDT For Patients: As a result of the Cures Act, medical imaging exams and procedure reports are released immediately into your electronic medical record. You may view this report before your referring provider. If you have questions, please contact your health care provider. Indication: Astrocytoma follow-up. Technique: Multiplanar, multisequence MRI of the brain was performed without and with the use of intravenous contrast. MR perfusion imaging was obtained, post processed and reviewed. Contrast: 15 cc Clariscan. Comparison: Multiple prior MRIs of the brain, most recently dated 08/14/2024. Findings: Postsurgical changes of right pterional craniotomy. Stable resection cavity along the anterior right temporal lobe. There is a stable focus of heterogeneous enhancement measuring 9 x 15 mm (AP X TR) along the resection cavity margin. No evidence for new or increasing suspicious enhancement. Infiltrative T2 FLAIR hyperintensity adjacent to the resection cavity, extending into the insula, basal ganglia and basal frontal regions also appears unchanged. Stable right frontal approach biopsy tract extending into the right insula. Stable smooth reactive right-sided dural thickening and enhancement. No parenchymal restricted diffusion. Ventricles appear stable in size and configuration. Ex vacuo dilatation of the temporal horn of the right lower ventricle. Fourth ventricle is midline. Small mucous retention cyst/polyp left maxillary sinus. Impression: 1. No evidence of interval tumor progression. 2. Stable heterogeneous enhancement along the right temporal resection cavity margin without evidence for new or increasing suspicious enhancement. 3. Similar infiltrative T2 FLAIR hyperintense lesion throughout the right medial temporal lobe, insula, basal frontal and basal ganglia regions. Dictated by Garcia Hitchcock MD @ 10/09/2024 9:55:54 AM (Electronically Signed) Procedure Note Garcia Hitchcock, - 10/09/2024 For Patients: As a result of the Century Cures Act, medical imagingexams and procedure reports are released immediately into your electronicmedical record. You may view this report before your referring provider.If you have questions, please contact your health care provider. Indication: Astrocytoma follow-up. Technique: Multiplanar, multisequence MRI of the brain was performed without and withthe use of intravenous contrast. MR perfusion imaging was obtained, post processed and reviewed. Contrast: 15 cc Clariscan. Comparison: Multiple prior MRIs of the brain, most recently dated 08/14/2024. Findings: Postsurgical changes of right pterional craniotomy. Stable resectioncavity along the anterior right temporal lobe. There is a stable focus ofheterogeneous enhancement measuring 9 x 15 mm (AP X TR) along theresection cavity margin. No evidence for new or increasing suspiciousenhancement. Infiltrative T2 FLAIR hyperintensity adjacent to the resection cavity,extending into the insula, basal ganglia and basal frontal regions alsoappears unchanged. Stable right frontal approach biopsy tract extending into the rightinsula. Stable smooth reactive right-sided dural thickening and enhancement. No parenchymal restricted diffusion. Ventricles appear stable in size and configuration. Ex vacuo dilatation ofthe temporal horn of the right lower ventricle. Fourth ventricle ismidline. Small mucous retention cyst/polyp left maxillary sinus. Impression: 1. No evidence of interval tumor progression. 2. Stable heterogeneous enhancement along the right temporal resectioncavity margin without evidence for new or increasing suspiciousenhancement. 3. Similar infiltrative T2 FLAIR hyperintense lesion throughout the rightmedial temporal lobe, insula, basal frontal and basal ganglia regions. Dictated by Garcia Hitchcock MD @ 10/09/2024 9:55:54 AM (Electronically Signed) Lourdesjose Weinstein DO MR Final Result * LIPID PANEL (05/26/2023 12:17 PM CDT) Pathologist [facility] CHOLESTEROL,TOTAL 119 100 - 199 mg/dL 05/26/2023 9:27 PM CDT [facility] Comment: Cholesterol, Total Reference Ranges Desirable <200 mg/dL Borderline 200-239 mg/dL High >=240 mg/dL TRIGLYCERIDES 101 <150 mg/dL 05/26/2023 9:27 PM CDT [facility] HDL CHOLESTEROL 59 >40 mg/dL 9:27 PM CDT [facility] NON-HDL CHOLESTEROL 60 <145 mg/dl 05/26/2023 9:27 PM CDT [facility] CHOL/HDL RATIO 2.02 <4.50 05/26/2023 9:27 PM CDT [facility] LDL CHOLESTEROL 40 <=130 mg/dL 05/26/2023 9:27 PM CDT [facility] VLDL CHOLESTEROL 20 <=30 mg/dL 05/26/2023 9:27 PM CDT [facility] PROVIDER ORDERED STATUS RANDOM 05/26/2023 9:27 PM CDT [facility] Blood BLOOD SPECIMEN / Unknown Venipuncture / Unknown 05/26/2023 12:17 PM CDT 05/26/2023 12:18 PM CDT Jerardo Wiseman MD CHEMISTRY [facility] [address] [place] [address], [place] * ANTI HCV (05/06/2020 10:44 AM CDT) HEPATITIS C ANTIBODY Non-React zane Non-React zane 05/06/2020 6:13 PM CDT [facility] Comment:Antibodies to HCV no t detected; does not exclude the possibility of exposure to HCV. Blood BLOOD SPECIMEN / Unknown Venipuncture / Unknown 05/06/2020 10:44 AM CDT 05/06/2020 10:44 AM CDT us Jerardo Wiseman MD SEND OUTS Final Resu lt [facility] 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 [...] the ileum was normal. - Erythematous and ystsbdmb-jliatpn-zxlwephrj mucosa in the entire examined colon. Biopsied. [...] 11:23 AM Procedure Code(s): --- Professional --- 51900, Colonoscopy, flexible; with biopsy, single or multiple Diagnosis Code(s): --- Professional --- K63.89, Other specified diseases ofintestine R19.7, Diarrhea, unspecified K57.30, Diverticulosis of large intestine without perforation or abscess withoutbleeding CPT copyright 2019 [employer]. All rights reserved. The codes documented in this report are preliminary and upon solid waste truck driver reviewmay be revised to meet current compliance requirements. Scope In: 12:07:38 PM Scope Withdrawal Time 0 hours 9 minutes 48 seconds Scope Out: 12:29:45 PM Christian Lee MD PROCEDURE ORD Final Res ult from Last 3 Months or Most Recently Relevant to Health Maintenance Insurance MEDICARE PART A HB ONLY MEDICARE PART B HB ONLY [employer] [place] BL[employer] MR PB ONLY [employer] [place] BLUE HB ONLY [employer] PROFESSOR Advance Directives Documents on File Type Date Recorded Patient Agency Legal Counsel Expl anation Healthcare Directive 11/22/2023 9:49 AM [facility] DIRECTIVE/SIGNED 10/09/2021 * Full Code [...] Code Status Discussion: Not Discussed Care Teams Civil Structural Designer Relationship Specialty Start Date End Date Jerardo Wiseman MD [address] [place] [address] PCP - General Family Practice 05/20/22 Yunior Agrawal MD 03/03/05 Lourdes Weinstein DO [address] [address] Neurology 12/12/23 Ge Wagner, RN Registered Nurse 12/12/23 Rehana Scott PA [address] [place] [id number] Physician Casing Sewer 06/29/24 Gavin Anthony DO [address] [id number] Neurology 09/21/24
[2024-12-15 15:05] VITALS: BP 127/86; PULSE 90; RESP 20; TEMP 36.4; O2SAT 100
--- NOTE | 2024-12-15 15:19 | ED.GENADULT ---
HPI - General Adult General Chief complaint: Nausea/Vomiting Stated complaint: vomiting several hours Time Seen by Provider: 12/15/24 14:45 History of Present Illness HPI narrative: Patient is a 69-year-old gentleman currently undergoing oral chemotherapy around for an astrocytoma. He had his last dose yesterday and today as nausea vomiting. She does have some minor loose stools. Had no fevers no chills no night sweats. Patient has been mentally sluggish but really no overt confusion. Patient is on his other medications as prescribed and there has been no signs of focal neurologic defects. No other complaints or concerns. Related Data Home Medications ?Medication ?Instructions ?Recorded ?Confirmed gabapentin 300 mg capsule 300 - 600 mg PO TID 05/16/22 12/21/23 lisinopril 20 mg tablet 20 mg PO DAILY 05/16/22 12/21/23 metoprolol tartrate 25 mg tablet 25 mg PO BID 05/16/22 12/21/23 aspirin 81 mg tablet,delayed 81 mg PO DAILY 05/18/22 12/21/23 release (Adult Aspirin Regimen) famotidine 20 mg tablet (Acid 20 mg PO BID 05/19/22 12/15/24 Controller) colchicine 0.6 mg tablet 0.6 mg PO BID 01/07/23 12/21/23 glucosamine HCl 1,500 mg tablet 1,500 mg PO QDAY 01/07/23 12/21/23 rosuvastatin 40 mg tablet 40 mg PO DAILY 01/07/23 12/15/24 isosorbide mononitrate 30 mg 60 mg PO DAILY 01/25/23 12/15/24 tablet,extended release 24 hr levetiracetam 750 mg tablet 750 mg PO BID 12/21/23 12/21/23 ondansetron HCl 8 mg tablet 8 mg PO Q8H PRN 12/21/23 12/15/24 acetaminophen 300 mg-codeine 30 mg 1 tab PO Q6H PRN pain 12/15/24 12/15/24 tablet clopidogrel 75 mg tablet 75 mg PO QAM 12/15/24 12/15/24 codeine 10 mg-guaifenesin 100 mg/5 5 - 10 ml PO Q4H PRN cough 12/15/24 12/15/24 mL oral liquid diazepam (Valtoco) 15 mg intranasal .prn PRN 12/15/24 12/15/24 diphenhydramine HCl 25 mg capsule 50 mg PO QHS PRN 12/15/24 12/15/24 ezetimibe 10 mg tablet 10 mg PO DAILY 12/15/24 12/15/24 lacosamide 200 mg tablet 200 mg PO BID 12/15/24 12/15/24 loperamide 2 mg capsule 4 mg PO PRN 12/15/24 lorazepam 2 mg/mL oral concentrate 2 mg PO Q6H PRN seizures 12/15/24 12/15/24 mupirocin 2 % topical ointment 1 applic topical BID-TID 12/15/24 12/15/24 prochlorperazine maleate 10 mg 10 mg PO Q6H PRN nausea/vomiting 12/15/24 12/15/24 tablet senna-docusate sodium tablet 1 - 4 tab PO DAILY PRN 12/15/24 12/15/24 temozolomide 180 mg capsule 360 mg PO DAILY 12/15/24 12/15/24 temozolomide 20 mg capsule 20 mg PO DAILY 12/15/24 12/15/24 trazodone 50 mg tablet 50 mg PO QPM 12/15/24 12/15/24 triamcinolone acetonide 0.5 % 1 applic topical BID PRN 12/15/24 12/15/24 topical cream Previous Rx's ?Medication ?Instructions ?Recorded nitroglycerin 0.4 mg sublingual 0.4 mg sublingual Q5M PRN chest 05/16/22 tablet pain #20 tabs Allergies Allergy/AdvReac Type Severity Reaction Status Date / Time atenolol Allergy Unknown Verified 12/15/24 15:08 codeine Allergy Unknown Abdominal Verified 12/15/24 15:08 Pain hydrochlorothiazide Allergy Unknown Verified 12/15/24 15:08 allopurinol Allergy Verified 12/15/24 15:08 Review of Systems Status of ROS: Reports: 10 or more systems reviewed and unremarkable except as noted in History and below [facility] Medical History ASHD (arteriosclerotic heart disease) ?I25.10 - Atherosclerotic heart disease of [place] coronary artery without angina pectoris (ICD-10) Hyperlipidemia ?E78.5 - Hyperlipidemia, unspecified (ICD-10) Cardiomyopathy ?I42.9 - Cardiomyopathy, unspecified (ICD-10) Gout, unspecified ?M10.9 - Gout, unspecified (ICD-10) Hypertension ?I10 - Essential (primary) hypertension (ICD-10) Surgical History H/O right knee surgery ?Z98.890 - Other specified postprocedural states (ICD-10) Fusion of spine ?M43.20 - Fusion of spine, site unspecified (ICD-10) H/O hand surgery (12/24/94) ?Z98.890 - Other specified postprocedural states (ICD-10) S/P right knee arthroscopy (11/16/96) ?Z98.890 - Other specified postprocedural states (ICD-10) S/P arthroscopy of left shoulder (08/19/99) ?Z98.890 - Other specified postprocedural states (ICD-10) History of arthroscopy of left shoulder (01/27/00) ?Z98.890 - Other specified postprocedural states (ICD-10) History of arthroscopy of right shoulder (10/17/00) ?Z98.890 - Other specified postprocedural states (ICD-10) History of arthroplasty of right knee (03/09/06) ?Z96.651 - Presence of right artificial knee joint (ICD-10) History of arthroscopy of right knee (02/13/14) ?Z98.890 - Other specified postprocedural states (ICD-10) History of elbow surgery (10/24/19) ?Z98.890 - Other specified postprocedural states (ICD-10) History of cystoscopy (05/19/20) ?Z98.890 - Other specified postprocedural states (ICD-10) Social History Smoking Status: Never smoker Do you use any of these nicotine containing products: None Second hand tobacco smoke exposure: No How often do you have a drink containing alcohol: 2-3 times a week Alcohol type: beer, wine and hard liquor How many standard drinks containing alcohol do you have on a typical day: 1 or 2 How often do you have six or more drinks on one occasion: Less than monthly AUDIT-C Alcohol total score: 4 Non-prescribed substance use: marijuana (any form) Non-prescribed substance use details: Gummies daily Caffeine: Yes (Coffee) service: No Exam Narrative: Exam Narrative: EXAM GENERAL: Patient appears frail. Incision noted on the right scientologist and parietal region. EYES: No scleral icterus. LYMPH: No supraclavicular or cervical lymphadenopathy. SKIN: Visible skin seen during exam normal or with benign process only. EXT: No dependent lower extremity pedal edema. HEART: Regular rate and rhythm with no murmurs, rubs, or gallops. LUNGS: Clear to auscultation bilaterally with no crackles or wheezes. ABD: Soft, non tender, non distended. PSYCH: Good eye contact, speech is not pressured. Const: Vital Signs, click to edit/add: Vital Signs - 24 hr 12/15/24 15:05 Temperature 97.6 F Pulse Rate [Pulse Oximeter] 90 Respiratory Rate 20 Blood Pressure [Le ft Upper Arm] 127/86 Pulse Oximetry 100 Oxygen Delivery Me thod Room Air Course Course ED Course: Patient seen examined. CBC CMP UA lactic acid level collected. 1 L of normal saline 4 mg of Zofran ordered. Vital Signs Vital signs: Initial Vital Signs Temperature 97.6 F 12/15/24 15:05 Temperature Source Temporal Artery Scan 12/15/24 15:05 Pulse Rate 90 12/15/24 15:05 Respiratory Rate 20 12/15/24 15:05 Blood Pressure 127/86 12/15/24 15:05 Blood Pressure Mean 99 12/15/24 15:05 Blood Pressure Position Sitting 12/15/24 15:05 Pulse Oximetry 100 12/15/24 15:05 Oxygen Delivery Method Room Air 12/15/24 15:05 Vital Signs Temperature 97.6 F 12/15/24 15:05 Pulse Rate 90 12/15/24 15:05 Respiratory Rate 20 12/15/24 15:05 Blood Pressure 127/86 12/15/24 15:05 Pulse Oximetry 100 12/15/24 15:05 Oxygen Delivery Method Room Air 12/15/24 15:05 Temperature 97.6 F 12/15/24 15:05 Pulse Rate 90 12/15/24 15:05 Respiratory Rate 20 12/15/24 15:05 Blood Pressure 127/86 12/15/24 15:05 Pulse Oximetry 100 12/15/24 15:05 Oxygen Delivery Method Room Air 12/15/24 15:05 Medications Administered Medications: Discontinued Medications Generic Name Dose Route Start Last Admin Trade Name Paul PRN Reason Stop Dose Admin Sodium Chloride 1,000 mls @ 1,000 mls/hr 12/15/24 15:29 12/15/24 16:33 0.9 % Sodium Chloride 1000 Ml IV 12/15/24 16:28 Infused .Q1H WILMAN Infusion Sodium Chloride 500 mls @ 500 mls/hr 12/15/24 16:32 12/15/24 17:22 0.9 % Sodium Chloride 500 Ml IV 12/15/24 17:31 Infused .Q1H WILMAN Infusion Ondansetron HCl 4 mg 12/15/24 15:29 12/15/24 15:53 Ondansetron 2 Mg/Ml Inj IVP 12/15/24 15:30 4 mg ONCE ONE Administration Medical Decision Making MDM Narrative Medical decision making narrative: Patient id done oral chemotherapy for treatment of an astrocytoma presents with nausea and vomiting. His electrolytes CBC are unremarkable. I did give him 1.5 L of normal saline and we did give him is doses of antiseizure medicines. He at this time is feeling much better and he can I think go home with close outpatient follow-up. He will continue his current regimen. Lab Data Labs: Lab Results 12/15/24 Range/Units 15:38 WBC 4.35 L (4.50-11.00) K/uL RBC 3.53 L (4.30-5.90) m/uL Hgb 11.8 L (13.5-17.5) gm/dL Hct 34.4 L (37.0-53.0) % MCV 98 (80-100) fL MCH 33 (26-34) pg MCHC 34 (32-36) gm/dL RDW Coeff of Benja 13.4 (11.5-15.5) % Plt Count 197 (140-440) K/uL Neut % (Auto) 80.1 H (42.0-72.0) % Lymph % (Auto) 7.8 L (20-44) % [place] % (Auto) 10.3 (0.0-11.0) % Eos % (Auto) 0.7 (0.0-7.0) % Baso % (Auto) 0.2 (0.0-3.0) % Neut # (Auto) 3.50 (1.7-7.0) K/uL Lymph # (Auto) 0.30 L (0.90-2.90) K/uL [facility] [place] # (Auto) 0.40 (0.00-0.90) K/UL Eos # (Auto) 0.00 (0.00-0.50) K/uL Baso # (Auto) 0.00 (0.00-0.30) K/uL Abs Immat Gran (auto) 0.00 (0.00-0.30) K/uL Imm/Tot Granulo (auto) 0.9 % Sodium 137 (135-149) mmol/L Potassium 3.4 L (3.6-5.1) mmol/L Chloride 99 (96-114) mmol/L Carbon Dioxide 26 (20-32) mmol/L Anion Gap 12 (7-15) mEq/L BUN 19 (7-30) mg/dL Creatinine 0.9 (0.5-1.5) mg/dL Estimated GFR 92 ml/min Glucose 136 H (60-115) mg/dL Lactate 1.5 (0.5-1.9) mmol/L Calcium 9.5 (8.4-10.6) mg/dL Total Bilirubin 1.8 H (0.1-1.5) mg/dL AST 29 (12-35) U/L ALT 49 (4-50) U/L Alkaline Phosphatase 74 (40-150) U/L Total Protein 6.9 (6.0-8.3) g/dL Albumin 4.1 (3.3-5.0) g/dL Discharge Plan Discharge Clinical Impression: Nausea & vomiting Patient Disposition: Home, Self-Care Condition: Stable Instructions: Acute Nausea and Vomiting (ED) Additional Instructions: Zofran as needed for nausea Continue current medication. Follow-up with your doctor as needed. Activity Level: No Restrictions Discharge Diet: Regular Prescriptions: No Action colchicine 0.6 mg tablet 0.6 mg PO BID rosuvastatin 40 mg tablet 40 mg PO DAILY glucosamine HCl 1,500 mg tablet 1,500 mg PO QDAY Rx Instructions: administer with a meal ondansetron HCl 8 mg tablet 8 mg PO Q8H PRN levetiracetam 750 mg tablet 750 mg PO BID lisinopril 20 mg tablet 20 mg PO DAILY gabapentin 300 mg capsule 300 - 600 mg PO TID Rx Instructions: 1 cap in am, 1 cap in afternoon, 2 caps at hs metoprolol tartrate 25 mg tablet 25 mg PO BID nitroglycerin 0.4 mg tablet, sublingual 0.4 mg sublingual Q5M PRN (Reason: chest pain) Qty: 20 0RF Rx Instructions: do not exceed 3 doses per episode aspirin [Adult Aspirin Regimen] 81 mg tablet,delayed release (DR/EC) 81 mg PO DAILY famotidine [Acid Controller] 20 mg tablet 20 mg PO BID isosorbide mononitrate 30 mg tablet extended release 24 hr 60 mg PO DAILY trazodone 50 mg tablet 50 mg PO QPM mupirocin 2 % ointment 1 applic topical BID-TID temozolomide 20 mg capsule 20 mg PO DAILY Rx Instructions: daily days 1-5 of each 28 day cycle (together with 360mg temozolomide for a total of 380mg). temozolomide 180 mg capsule 360 mg PO DAILY Rx Instructions: daily days 1-5 of each 28 day cycle (together with 20mg temozolomide for a total of 380mg). codeine-guaifenesin 10-100 mg/5 mL liquid 5 - 10 ml PO Q4H PRN (Reason: cough) lorazepam 2 mg/mL concentrate 2 mg PO Q6H PRN (Reason: seizures) lacosamide 200 mg tablet 200 mg PO BID Valtoco 15 mg/2 spray (7.5/0.1mL x 2) spray,non-aerosol 15 mg intranasal .prn PRN Rx Instructions: administer 1 spray in each nostril as needed for seizures lasting longer than 3 minutes loperamide 2 mg capsule 4 mg PO PRN acetaminophen-codeine 300-30 mg tablet 1 tab PO Q6H PRN (Reason: pain) clopidogrel 75 mg tablet 75 mg PO QAM prochlorperazine maleate 10 mg tablet 10 mg PO Q6H PRN (Reason: nausea/vomiting) ezetimibe 10 mg tablet 10 mg PO DAILY senna-docusate sodium Tablet 1 - 4 tab PO DAILY PRN diphenhydramine HCl 25 mg capsule 50 mg PO QHS PRN triamcinolone acetonide 0.5 % cream 1 applic topical BID PRN Follow Up/Referrals: Jerardo Wiseman MD [Primary Care Provider, Family Practice] Stand Alone Forms: [employer] Info Instructions
[2024-12-15 15:44] LABS: Lactate* 1.5 mmol/L (0.5-1.9)
[2024-12-15 15:48] LABS: Hematocrit* 34.4 % (37.0-53.0); Hemoglobin* 11.8 gm/dL (13.5-17.5); Immature Granulocytes Pct Auto 0.9 %; Mean Corpuscular HGB Conc 34 gm/dL (32-36); Mean Corpuscular Hemoglobin 33 pg (26-34); Mean Corpuscular Volume 98 fL (80-100); RDW Coefficient of Variation % 13.4 % (11.5-15.5); Red Blood Count* 3.53 m/uL (4.30-5.90); White Blood Count* 4.35 K/uL (4.50-11.00)
[2024-12-15 15:50] LABS: Immature Granulocytes Abs Auto 0.00 K/uL (0.00-0.30); Lymphocytes Absolute Auto 0.30 K/uL (0.90-2.90); Slide Review Reflex No
[2024-12-15] MEDS: ONDANSETRON 2 MG/ML inj 4 MG IVP (15:53)
[2024-12-15 15:59] LABS: Albumin* 4.1 g/dL (3.3-5.0); Chloride* 99 mmol/L (96-114); Potassium* 3.4 mmol/L (3.6-5.1); Sodium* 137 mmol/L (135-149)
[2024-12-15 16:02] LABS: Alanine Aminotransferase* 49 U/L (4-50); Alkaline Phosphatase* 74 U/L (40-150); Anion Gap 12 mEq/L (7-15); Aspartate Amino Transferase* 29 U/L (12-35); Bilirubin Total* 1.8 mg/dL (0.1-1.5); Blood Urea Nitrogen* 19 mg/dL (7-30); Carbon Dioxide* 26 mmol/L (20-32); Creatinine* 0.9 mg/dL (0.5-1.5); Estimated Glomerular Filt Rate 92 ml/min; Total Protein* 6.9 g/dL (6.0-8.3)
[2024-12-15 16:03] LABS: Calcium* 9.5 mg/dL (8.4-10.6); Glucose* 136 mg/dL (60-115)
[2024-12-15] MEDS: 0.9 % SODIUM CHLORIDE 500 ML 500 ML IV (16:37)
[2024-12-15 17:57] LABS: Appearance Urine Clear (Clear)
== END 2024-12-15 18:23 | disposition home or self-care (01) ==
PROVIDERS: Emergency Provider Internal Medicine; PCP Surgery
DX: R11.2 Nausea with vomiting, unspecified (principal); R19.7 Diarrhea, unspecified; Z79.69 Long term (current) use of other immunomodulators and immunosuppressants; Z79.899 Other long term (current) drug therapy
CPT/HCPCS: 36415; 80053; 81001; 81003; 83605; 85025; 87086; 96361; 96374; 99283; 99284; J2405; J7030